=== PATIENT | female | born 1955 | race African-American/Black ===

== ENCOUNTER 2019-03-13 15:15 | Emergency (ER) | payer MEDICARE, SELFPAY ==
[2019-03-13 15:16] VITALS: BP 162/89; PULSE 88; RESP 18; TEMP 36.8; O2SAT 99; BMI 31.3
[2019-03-13] MEDS: Ketorolac 15 MG/ML Vial IV (15:47)
--- NOTE | 2019-03-13 15:49 | ED.VIS.GEN ---
History of Present Illness Chief Complaint: Weakness Narrative: Patient presenting secondary to generalized body aching. Patient reports that about 3 to 4 weeks ago she felt like she potentially was getting dehydrated. She states it was associated with high temperatures and lack of having air conditioning. She states that pretty much ever since then she has been dealing with generalized body aches. This is in her legs hip abdomen back shoulders and arms. She states that she has been taking Tylenol for this relatively unsuccessfully. She states that it even causes her difficulty with sleeping. She denies any fevers chills night sweats or unintended weight loss. No recent infections surgery hospital admissions or antibiotic exposures. No recent travel. Patient does state that she has been having some weak urinary stream. She denies any cough sore throat runny nose nausea vomiting diarrhea or change in color of her stools. No changes in heat or cold tolerance. She does report that she is had somewhat of a decreased appetite. Past Medical History - Allergies and Home Meds Allergies/Adverse Reactions: Allergies Penicillins Allergy (Verified 03/13/19 15:17) Swelling Primary Care Physician: Adria Meléndez DO [STAFF PHYSICIAN] - 1-2 Weeks Past Medical History: - - COPD and irritable bowel syndrome Surgical History: appendectomy, hysterectomy, tonsillectomy Smoking Status: Light Smoker (<10/day) - Family History Maternal Family History: Reports: No pertinent history Paternal Family History: Reports: No pertinent history Review of Systems Musculoskeletal: Reports: Myalgias Physical Exam Vital Signs/Narrative: Vital Signs Temp Pulse Resp BP Pulse Ox 03/13/19 15:16 98.2 F 88 18 162/89 H 99 Inital Vital Signs reviewed: Yes General: Well nourished, Well developed, No Acute Distress Head: Normocephalic, Atraumatic Eyes: Perrl, EOMI ENT: Moist mucous membranes, No rhinorrhea Neck: Supple, Nontender Cardiovascular: Regular rate, Regular rhythm, No murmurs Respiratory: No distress, CTA bilaterally, Chest nontender Abdomen: Soft, Nontender, Nondistended, Normal bowel sounds Back: Nontender, Normal Inspection Extremities: Nontender, No edema Skin: Normal color, No rash Neurological: Alert, Oriented x3, Cranial nerves II-XII grossly intact, Normal Strength, Normal Sensation Psychological: Normal affect, Normal Mood Diagnostic/Tx/Re-eval - Medical Decision Making Patient presented secondary to generalized myalgias. Patient had no outward signs of infection, or significant abnormality on her physical exam. Broad work-up was obtained. CBC, CMP, CK were found to be unremarkable. Patient was given a dose of Toradol for treatment of her symptoms. Currently urinalysis is pending. Should this be positive, patient will be sent home with antibiotics as well as Mobic for treatment of her symptoms. She is given primary care referral. Patient's urinalysis will be followed up on by the oncoming physician. ED Disposition - Plan for ED Patient: Disposition: Home or Assisted Living Diagnosis: Myalgia Instructions: Myalgias Prescriptions: Nitrofurantoin Macrocrystals [Macrobid] 100 mg PO Q12 #14 cap Prescription Printed Meloxicam [Mobic] 7.5 mg PO DAILY #20 tab Prescription Printed Referrals: Adria Meléndez DO [STAFF PHYSICIAN] - 1-2 Weeks
[2019-03-13 16:03] LABS: Absolute Neutrophil Count 6.8 X10^3/uL (2.0-7.7); Basophil# 0.08 X10^3/uL; Basophil% 0.7 % (0-1); Eosinophil# 0.12 X10^3/uL; Eosinophils% 1.1 % (0-5); Hematocrit 48.2 % (37-47); Hemoglobin 15.2 g/dL (12.0-15.0); Lymphocyte % 27.8 % (19-41); Mean Corp Hgb Conc 31.5 g/dL (32-36); Mean Corpuscular Hgb 29.7 pg (27.0-32.0); Mean Corpuscular Volume 94.1 fL (81-99); Mean Platelet Vol. 9.9 fl (6.2-12.0); Monocyte# 0.79 X10^3/uL; Monocyte% 7.3 % (0-10); NRBC Flagged by Analyzer 0 % (0-5); Neutrophil # 6.77 X10^3/uL (2.7-7.7); Neutrophil % 62.7 % (47-70); Platelet Count 293 K/mm3 (150-450); RBC Distribution Width CV 12.7 % (11.6-14.6); Red Blood Count 5.12 M/mm3 (4.2-5.4); White Blood Count 10.8 K/mm3 (4.4-11.0)
[2019-03-13 16:19] LABS: CPK Total, Creatine Kinase 114 U/L (26-192)
[2019-03-13 16:40] LABS: AST(SGOT) 16 U/L (15-37); Alanine Aminotransfer ALT/SGPT 26 U/L (13-56); Albumin, Serum 4.2 g/dL (3.2-5.0); Alkaline Phosphatase 90 U/L (45-117); Anion Gap 4 (5-15); BUN 11 mg/dL (7-18); BUN/Creat Ratio 10.3 RATIO (10-20); Calcium,Total 9.9 mg/dL (8.5-10.1); Chloride 106 mmol/L (98-107); Creatinine, Serum 1.07 mg/dL (0.55-1.02); EST Glomerular Filtration Rate 55 mL/min (>60); Est Glom Filt Rate - Afr Amer 66 mL/min (>60); Estimated Creatinine Clearance 50.97 ml/min; Globulin 4.1 g/dL (2.2-4.2); Glucose 97 mg/dL (74-106); Potassium 4.1 mmol/L (3.5-5.1); Protein, Total 8.3 g/dL (6.4-8.2); Sodium Level 139 mmol/L (136-145)
[2019-03-13 17:09] LABS: Bacteria 0 SEEN /hpf (None Seen)
[2019-03-13 17:10] LABS: Color, Urine Yellow (Yellow); Glucose, Dipstick Normal (Normal); Ketone-Dipstick 5 mg/dl (Negative); Leukocyte Esterase-Dipstick 100 /ul (Negative); Nitrite-Dipstick Negative (Negative); Occult Blood-Urine 10 /ul (Negative); Protein-Dipstick 15 mg/dl (Negative); Urine Bilirubin Dipstick Negative (Negative); Urine Clarity Sl. Cloudy (Clear); Urine Urobilinogen Normal (Normal)
[2019-03-13 17:35] LABS: Hyaline Cast 0-5 SEEN /lpf (0-5); Mucous, Urine 1+ /hpf (<or=2+); Red Blood Cells-Urine 0-5 SEEN /hpf (0-5); Squamous Epithelial Cells - UA 5-10 SEEN /hpf (5-10); White Blood Cells 5-10 SEEN /hpf (0-5)
[2019-03-13 17:36] LABS: Amorphous Sediment 1+ URATE
== END 2019-03-13 18:32 | disposition home or self-care (01) ==
PROVIDERS: Emergency Provider Emergency Medicine; Family Provider Family Medicine; PCP Family Medicine
DX: M79.10 Myalgia, unspecified site (principal); J44.9 Chronic obstructive pulmonary disease, unspecified; K58.9 Irritable bowel syndrome, unspecified; F17.200 Nicotine dependence, unspecified, uncomplicated; Z79.899 Other long term (current) drug therapy
CPT/HCPCS: 80053; 81001; 82550; 85025; 96374; 99283; A4216

== ENCOUNTER 2019-04-05 09:16 | Observation (INO) | payer MEDICARE, SELFPAY ==
[2019-04-05 09:17] VITALS: BP 161/66; PULSE 81; RESP 18; TEMP 36.9; O2SAT 94; BMI 31.3
--- NOTE | 2019-04-05 09:59 | CT_ITS ---
STUDY: CT BRAIN WITHOUT CONTRAST REASON FOR EXAM: Female, 63 years old. Weakness. RADIATION DOSAGE (If Supplied By Facility): CTDIvol = ( 44.99 ) mGy, DLP = ( 812.98 ) mGycm TECHNIQUE: Transaxial CT imaging of the brain was performed without administration of intravenous contrast material. Individualized dose optimization techniques were used for this CT. COMPARISON: No relevant priors. FINDINGS: Normal soft tissue structures. Normal calvarium. Normal size ventricles and extra-axial spaces for the patient's age. Normal white matter tracts of the cerebral hemispheres. Normal basal ganglia and thalami. Normal brainstem. Normal cerebellum. There is no intracranial hemorrhage. There are no findings of an acute ischemic infarction. Normal visualized paranasal sinuses. CT/Brain/Head without Contrast IMPRESSION: Normal unenhanced CT scan of the brain. Electronically Signed: Chuy Frye, at 11:20 EDT , Service support ,
--- NOTE | 2019-04-05 09:59 | RAD_ITS ---
STUDY: X-RAY CHEST REASON FOR EXAM: Female, 63 years old. Weakness and chest pain. TECHNIQUE: Single AP portable view of the chest. COMPARISON: Comparison is made with prior examination dated July 01, 2016. FINDINGS: Hyperinflation. The lungs are clear. There is no demonstrated pleural abnormality. Normal size heart. Normal mediastinum and renay. Normal visualized pulmonary arteries. There is atherosclerotic tortuosity of the aortic arch and descending thoracic aorta. There are diffuse degenerative changes of the visualized thoracic spine. Normal visualized ribs, clavicles, and shoulders. There is no demonstrated abnormality of the visualized soft tissue structures of the upper abdomen. RAD/Chest 1 View (Portable) IMPRESSION: Hyperinflation. The lungs are clear. Electronically Signed: Chuy Frye, at 10:37 EDT , Service support ,
--- NOTE | 2019-04-05 10:09 | ED.DCSUM_ITS ---
History of Present Illness Chief Complaint: Weakness Informant: Patient Onset: Weeks Context: Gradual Onset Timing: Continuous Current Severity: Severe Maximum Severity: Severe Worsened by: Movement Relieved by: Nothing Narrative: Is a 63-year-old female with history of irritable bowel syndrome, COPD and questionable fibromyalgia presenting from home with increased weakness and pain of her upper extremities. Patient states that for the past month she has had all over body aches and pain. For the past week or 2 her symptoms have significantly worsened. She now has significant pain in her shoulders bilaterally as well as her arms that she cannot move them. She is having a hard time walking of her couch due to her symptoms. Her daughter was concerned she might be having a stroke. Patient had a mild fall indicated of the month but did not hit her head. She states she landed on her right side. Patient denies any chest pain, shortness of breath, fever, chills, nausea, vomiting or change in bowel habits. She denies any urinary symptoms. She was discharged home from the ER after similar presentation beginning of the month with concern for fibromyalgia and started on Mobic. Patient states the Mobic is not helping at all. Patient lives at home alone in his apartment. Past Medical History - Allergies and Home Meds Allergies/Adverse Reactions: Allergies Penicillins Allergy (Verified 04/05/19 09:22) Swelling Surgical History: appendectomy, hysterectomy, tonsillectomy Smoking Status: Current every day smoker - Family History Maternal Family History: Reports: No pertinent history Paternal Family History: Reports: No pertinent history Review of Systems All systems negative except as indicated Musculoskeletal: Reports: Myalgias, Arthralgias - bilateral shoulders Neurological: Reports: Weakness - Upper extremities. Denies: Headache, Parasthesia, Numbness Physical Exam Vital Signs/Narrative: Vital Signs Temp Pulse Resp BP Pulse Ox 04/05/19 09:17 98.4 F 81 18 161/66 H 94 Inital Vital Signs reviewed: Yes General: Well nourished, Well developed, No Acute Distress Head: Normocephalic, Atraumatic Eyes: Perrl, EOMI, - - No nystagmus ENT: Moist mucous membranes, No rhinorrhea Neck: Supple, Nontender Cardiovascular: Regular rate, Regular rhythm, No murmurs Respiratory: No distress, CTA bilaterally, Chest nontender Abdomen: Soft, Nontender, Nondistended, Normal bowel sounds Back: Nontender, Normal Inspection Extremities: No edema, Tenderness - Bilateral shoulder tenderness diffusely, decreased active range of motion in all planes, does not tolerate passive range of motion Skin: Normal color, No rash Neurological: Alert, Oriented x3, Cranial nerves II-XII grossly intact, Normal 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 Negative for: Parasthesia, Weakness Psychological: Normal affect, Normal Mood Diagnostic/Tx/Re-eval Clinical Impression(s) from Imaging Studies Brain CT 04/05/19 09:59 IMPRESSION: Normal unenhanced CT scan of the brain. Electronically Signed: Chuy Uday, at 11:20 EDT , Service support , Chest X-Ray 04/05/19 09:59 IMPRESSION: Hyperinflation. The lungs are clear. Electronically Signed: Chuy Frye, at 10:37 EDT , Service support , Laboratory Data 04/05/19 04/05/19 04/05/19 10:50 10:50 10:50 WBC 12.5 H RBC 4.75 Hgb 14.2 Hct 44.9 MCV 94.5 MCH 29.9 MCHC 31.6 L RDW Std Deviation 43.6 RDW Coeff of Randa 12.5 Plt Count 310 MPV 9.9 Immature Gran % (Auto) 0.400 Neut % (Auto) 74.8 H Lymph % (Auto) 15.8 L [place] % (Auto) 6.1 Eos % (Auto) 2.3 Baso % (Auto) 0.6 Absolute Neuts (auto) 9.3 H Absolute Lymphs (auto) 1.97 Nucleated RBC % 0 ESR Sodium 140 Potassium 4.1 Chloride 104 Carbon Dioxide 30.0 Anion Gap 6 BUN 13 Creatinine 0.86 Estim Creat Clear Calc 63.42 Est GFR (MDRD) Af Amer 85 Est GFR (MDRD) Non-Af 70 BUN/Creatinine Ratio 15.0 Glucose 114 H Calcium 9.6 Total Creatine Kinase 173 C-React Prot Ext Range 04/05/19 04/05/19 10:50 10:50 WBC RBC Hgb Hct MCV MCH MCHC RDW Std Deviation RDW Coeff of Randa Plt Count MPV Immature Gran % (Auto) Neut % (Auto) Lymph % (Auto) [place] % (Auto) Eos % (Auto) Baso % (Auto) Absolute Neuts (auto) Absolute Lymphs (auto) Nucleated RBC % ESR 23 Sodium Potassium Chloride Carbon Dioxide Anion Gap BUN Creatinine Estim Creat Clear Calc Est GFR (MDRD) Af Amer Est GFR (MDRD) Non-Af BUN/Creatinine Ratio Glucose Calcium Total Creatine Kinase C-React Prot Ext Range 23.90 H - Medical Decision Making Patient evaluated for diffuse pain but mostly in her shoulders and hip region. She is ever having a very hard time ambulating secondary to the pain. She is given some IV morphine in the ER. She has a mildly elevated white blood cell count but no source of infection. She would not be started on empiric antibiotics. CT of the brain shows no acute process. Patient denies any history of rheumatoid disease. Because of the girdle-like location of her pain, polymyalgia rheumatica is also on the differential. Patient is unable to ambulate in the ER secondary to combination of her weakness and pain. Patient has a grossly normal neurologic exam. Patient will be admitted to hospital for inability to ambulate as well as PT OT eval and possible disposition to rehab facility. She is agreeable with this plan. She is evaluated and accepted by Dr. Anaya. Patient stable for the general medical floor at time of disposition. ED Disposition - Plan for ED Patient: Disposition: Acute Care Hospital [facility] Diagnosis: Weakness generalized, Unable to ambulate
[2019-04-05] MEDS: 0.9% Normal Saline 1,000 ML 1000 ML IV (10:55)
[2019-04-05] MEDS: Morphine 4 MG/ML Syringe IV (10:56)
[2019-04-05 11:09] LABS: Absolute Lymphocyte Count 1.97 X10^3/uL (0.83-4.51); Absolute Neutrophil Count 9.3 X10^3/uL (2.0-7.7); Basophil# 0.08 X10^3/uL; Basophil% 0.6 % (0-1); Eosinophil# 0.29 X10^3/uL; Eosinophils% 2.3 % (0-5); Hematocrit 44.9 % (37-47); Hemoglobin 14.2 g/dL (12.0-15.0); Lymphocyte # 1.97 X10^3/ul (4.0); Lymphocyte % 15.8 % (19-41); Mean Corp Hgb Conc 31.6 g/dL (32-36); Mean Corpuscular Hgb 29.9 pg (27.0-32.0); Mean Corpuscular Volume 94.5 fL (81-99); Mean Platelet Vol. 9.9 fl (6.2-12.0); Monocyte# 0.76 X10^3/uL; Monocyte% 6.1 % (0-10); NRBC Flagged by Analyzer 0 % (0-5); Neutrophil % 74.8 % (47-70); Platelet Count 310 K/mm3 (150-450); RBC Distribution Width CV 12.5 % (11.6-14.6); RBC Distribution Width SD 43.6 fl (35.1-43.9); Red Blood Count 4.75 M/mm3 (4.2-5.4); White Blood Count 12.5 K/mm3 (4.4-11.0)
[2019-04-05 11:17] LABS: Anion Gap 6 (5-15); BUN 13 mg/dL (7-18); Calcium,Total 9.6 mg/dL (8.5-10.1); Chloride 104 mmol/L (98-107); Creatinine, Serum 0.86 mg/dL (0.55-1.02); EST Glomerular Filtration Rate 70 mL/min (>60); Est Glom Filt Rate - Afr Amer 85 mL/min (>60); Estimated Creatinine Clearance 63.42 ml/min; Glucose 114 mg/dL (74-106); Potassium 4.1 mmol/L (3.5-5.1); Sodium Level 140 mmol/L (136-145)
[2019-04-05 13:36] LABS: CPK Total, Creatine Kinase 173 U/L (26-192)
--- NOTE | 2019-04-05 14:57 | PCM.HP.STD ---
History of Present Illness Date of Admission: 04/05/19 Chief Complaint: severe generalised pain The patient is a 63 year old F with past medical history as listed. She was admitted through the ED on 04/05/2019 with complaint of severe generalized pain had been going on for a few weeks but worsened acutely today. Patient thinks all his symptoms started in the summer when she did not have a condition and so suffered that in the heat. Subsequently noted that she was having severe pain in his shoulders and hip girdle in her knees. Pains of currently became generalized but was mainly concentrated in the aforementioned areas of her shoulders, hips and knee. Pain gradually worsened to the point where she could even get out of bed today. She denied any fever or chills, any lightheadedness or dizziness [place] blurred vision or any headache, any abdominal pain, any diarrhea vomiting. Review of systems otherwise negative. She had to call the EMS to get her today because she could not even get out of bed to use the bathroom. She is never had pain like this in the past and has no family history of any autoimmune disease but states her granddaughter has fibromyalgia which they think was a result of her being in a terrible accident when she was younger. Vitals in the ED was significant for blood pressure of 161/66 but otherwise normal. Chemistry was unremarkable and CBC only showed white cell count of 12.5. CPK was 173. CT of the head was normal and showed no acute intracranial process and chest x-ray showed hyperinflation was otherwise normal. She has been admitted to be managed for intractable pain due to likely polymyalgia rheumatica. [] Past Medical History Past Medical History (Chronic Problems): Chronic Problems Chronic respiratory failure (Chronic) Irritable bowel syndrome (Chronic) COPD (chronic obstructive pulmonary disease) (Chronic) Allergies Penicillins Allergy (Verified 04/05/19 09:22) Swelling Home Medications: Ambulatory Orders Medication Instructions Recorded Dicyclomine HCl [Bentyl] 10 mg PO TIDAC 05/01/15 Lactulose 15 gm PO QHS 05/01/15 Albuterol Aerosols [Ventolin 2.5 mg INHALATION Q2H PRN PRN #0 05/04/15 Aerosols] vial.neb. 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 Denies: Chills, Fever, Weight Change Eyes: Denies: Blurred vision HEENT: Denies: Head Aches, Sinus Congestion, Sinus Drainage Cardiovascular: Denies: Chest Pain, Chest Pressure, Chest Tightness, Palpitations Respiratory: Denies: Cough, Shortness of Breath, Shortness of breath at rest, Shortness of breath upon exertion, Sputum production Gastrointestinal: Denies: Abdominal Pain, Nausea, Vomiting Genitourinary: Denies: Dysuria Musculoskeletal: Reports: Arm Pain, Back Pain, Joint Pain, Joint swelling - right knee swelling, Muscle pain, Shoulder Pain Skin: Denies: Rash, Wounds Neurological: Denies: Numbness, Tingling, Focal weakness Psychiatric: Denies: Anxiety, Depression, Homicidal Ideations, Suicidal Ideations Hematologic/ Lymphatic: Denies: Easy Bruising, Easy Bleeding VTE Information - Inpt Only VTE Present on Admission: No VTE Pharm Prophylaxis ordered?: Yes Patient Problems: Active and Suspected Problems Weakness generalized (Acute) Unable to ambulate (Acute) - Physical Exam Vitals/I&O's: Vital Signs Temp Pulse Resp BP Pulse Ox 98.4 F 81 18 161/66 H 94 04/05/19 09:17 04/05/19 09:17 04/05/19 09:17 04/05/19 09:17 04/05/19 09:17 Oxygen Delivery Method Room Air Weight: 200 lb Body Mass Index (BMI) 31.3 Intake and Output for Last 24 Hours 04/03/19 04/04/19 04/05/19 23:59 23:59 23:59 Intake Total 1000 / 1000 Balance 1000 / 1000 General: Alert, Oriented x3, Cooperative HEENT: Atraumatic, PERRLA, EOMI, Normocephalic Oral: Dry Mucosa Neck: Supple, No JVD, Negative Carotid Bruits Lungs: Clear to auscultation, Normal air movement Cardiovascular: Regular rate, Regular Rhythm, Normal S1, Normal S2, No murmurs Abdomen: Bowel Sounds Present, Soft, Non Tender Extremities: No clubbing, No cyanosis, No edema, Capillary Refill Less than 3 Seconds Skin: No rashes, No breakdown Musculoskeletal: Tenderness - generalised tenderness with palpation of muscles; no point tenderness in shoulders or pelvic girdle Lymphatic: No Cervical, Supraclavicular, or Inguinal Adenopathy Neurological: Cranial nerves II-XII grossly intact, Neuro grossly intact Psych/Mental Status: Normal Affect, Appropriate, Alert and oriented to time, place, person, mood and affect Laboratory Results 04/05/19 10:50: WBC 12.5 H, RBC 4.75, Hgb 14.2, Hct 44.9, MCV 94.5, MCH 29.9, MCHC 31.6 L, RDW Std Deviation 43.6, RDW Coeff of Randa 12.5, Plt Count 310, MPV 9.9, Immature Gran % (Auto) 0.400, Neut % (Auto) 74.8 H, Lymph % (Auto) 15.8 L, [place] % (Auto) 6.1, Eos % (Auto) 2.3, Baso % (Auto) 0.6, Absolute Neuts (auto) 9.3 H, Absolute Lymphs (auto) 1.97, Nucleated RBC % 0 04/05/19 10:50: Sodium 140, Potassium 4.1, Chloride 104, Carbon Dioxide 30.0, Anion Gap 6, BUN 13, Creatinine 0.86, Estim Creat Clear Calc 63.42, Est GFR (MDRD) Af Amer 85, Est GFR (MDRD) Non-Af 70, BUN/Creatinine Ratio 15.0, Glucose 114 H, Calcium 9.6 04/05/19 10:50: CK Isoenzymes Pending, CK-MM (CK-3) Pending, CK-MB (CK-2) Pending, CK-BB (CK-1) Pending 04/05/19 10:50: Total Creatine Kinase 173 Assessment/Plan All Active Problems Weakness generalized (Acute) Unable to ambulate (Acute) COPD exacerbation (Acute) 63 y/o admitted with a complaint of generalised pain, mainly in shoulders, pelvic girdle and knee 1. Intractable pain likely due to polymyalgia rheumatica Admit to [facility] CBC was within normal limits. Check ESR and CRP Start on low-dose steroids- prednisone 20 mg daily Tylenol and IV morphine PRN for pain PT OT consult Management consult and she will likely need short-term rehab 2. Debility due to intractable pain: Management as under 1. 3. COPD: Stable; not in exacerbation. Breathing treatments. DVT Prophylaxis: Lovenox Code Visit OBSV E&M: 70892 Initial observation care L2
[2019-04-05 14:58] VITALS: BP 158/75; PULSE 81; RESP 15; O2SAT 94
[2019-04-05 15:41] VITALS: BMI 31.8
[2019-04-05 15:56] VITALS: BMI 31.8
[2019-04-05 16:01] VITALS: BP 156/77; PULSE 73; RESP 16; TEMP 36.9; O2SAT 96
[2019-04-05] MEDS: Morphine 2 MG/ML Syringe IV ×2 (16:30→19:56)
[2019-04-05 16:34] LABS: Erythrocyte Sedimentation Rate 23 mm/hr (0-30)
[2019-04-05 16:35] LABS: Bacteria 0 SEEN /hpf (None Seen); Mucous, Urine 0 SEEN /hpf (<or=2+); Red Blood Cells-Urine 0 SEEN /hpf (0-5); Squamous Epithelial Cells - UA 0 SEEN /hpf (5-10); White Blood Cells 0 SEEN /hpf (0-5)
[2019-04-05] MEDS: predniSONE 20 MG Tablet PO (16:43)
[2019-04-05] MEDS: Dicyclomine 10 MG Capsule PO (16:43)
[2019-04-05 16:53] LABS: Color, Urine Yellow (Yellow); Glucose, Dipstick 1000 mg/dl (Normal); Ketone-Dipstick Negative (Negative); Leukocyte Esterase-Dipstick Negative /ul (Negative); Nitrite-Dipstick Negative (Negative); Occult Blood-Urine Negative /ul (Negative); Protein-Dipstick Negative (Negative); Urine Bilirubin Dipstick Negative (Negative); Urine Clarity Clear (Clear); Urine Urobilinogen Normal (Normal)
--- NOTE | 2019-04-05 17:51 | NURSING ---
late entry - pt still c/o of pain after morphine given. dr gustafson notified & new order for flexeril.
[2019-04-05 19:53] VITALS: BP 148/70; PULSE 82; RESP 18; TEMP 37.6; O2SAT 95
[2019-04-05 20:10] VITALS: PULSE 76; RESP 17
[2019-04-05] MEDS: Albuterol 2.5 MG/3 ML VIAL.NEB. INHALATION (20:10)
[2019-04-05] MEDS: cycloBENZAPRine HCl 10 MG Tablet 5 MG PO (21:28)
[2019-04-05] MEDS: Lactulose 20 GM/30 ML UDC 15 GM PO (21:29)
[2019-04-06] VITALS (11 sets, daily range): BP systolic 140–168; BP diastolic 72–93; PULSE 77–87; RESP 16–18; TEMP 36.6–37.3; O2SAT 94–100
[2019-04-06] MEDS: Morphine 2 MG/ML Syringe IV ×5 (00:31→15:14)
[2019-04-06] MEDS: hydrALAZINE 20 MG/ML Vial 5 MG IV (02:45)
[2019-04-06] MEDS: cycloBENZAPRine HCl 10 MG Tablet 5 MG PO ×3 (05:59→20:13)
[2019-04-06 06:33] LABS: Absolute Lymphocyte Count 2.39 X10^3/uL (0.83-4.51); Absolute Neutrophil Count 7.5 X10^3/uL (2.0-7.7); Basophil# 0.05 X10^3/uL; Basophil% 0.5 % (0-1); Eosinophil# 0.01 X10^3/uL; Eosinophils% 0.1 % (0-5); Hematocrit 44.4 % (37-47); Hemoglobin 14.1 g/dL (12.0-15.0); Lymphocyte # 2.39 X10^3/ul (4.0); Lymphocyte % 22.3 % (19-41); Mean Corp Hgb Conc 31.8 g/dL (32-36); Mean Corpuscular Hgb 29.7 pg (27.0-32.0); Mean Corpuscular Volume 93.5 fL (81-99); Monocyte# 0.69 X10^3/uL; Monocyte% 6.4 % (0-10); NRBC Flagged by Analyzer 0 % (0-5); Neutrophil # 7.54 X10^3/uL (2.7-7.7); Neutrophil % 70.3 % (47-70); Platelet Count 315 K/mm3 (150-450); RBC Distribution Width CV 12.3 % (11.6-14.6); Red Blood Count 4.75 M/mm3 (4.2-5.4); White Blood Count 10.7 K/mm3 (4.4-11.0)
[2019-04-06] MEDS: Dicyclomine 10 MG Capsule PO ×2 (06:49→15:18)
[2019-04-06 07:10] LABS: Anion Gap 5 (5-15); BUN 9 mg/dL (7-18); BUN/Creat Ratio 12.6 RATIO (10-20); Calcium,Total 9.6 mg/dL (8.5-10.1); Chloride 105 mmol/L (98-107); Creatinine, Serum 0.71 mg/dL (0.55-1.02); EST Glomerular Filtration Rate 87 mL/min (>60); Est Glom Filt Rate - Afr Amer 106 mL/min (>60); Estimated Creatinine Clearance 76.82 ml/min; Glucose 112 mg/dL (74-106); Potassium 4.3 mmol/L (3.5-5.1); Sodium Level 135 mmol/L (136-145)
[2019-04-06] MEDS: Albuterol 2.5 MG/3 ML VIAL.NEB. INHALATION ×2 (07:19→20:34)
--- NOTE | 2019-04-06 07:31 | PN_ITS ---
Patient Problems: Active and Suspected Problems Weakness generalized (Acute) Unable to ambulate (Acute) Subjective: CC follow-up generalized body aches and physical debility Patient is a 63-year-old lady who presented with generalized body aches as well as muscle weakness involving the thighs as well as shoulders. Patient did c omplain about difficulty combing her as well as climbing stairs Objective: GENERAL: cooperative HEENT: Atraumatic; EYES; Anicteric, Normal Conjunctiva NECK; supple, normal thyroid, RESPIRATORY: Diminished to auscultation CARDIOVASCULAR: Regular S1 S2, GI: soft, normoactive bowel sounds, : No Renal angle tenderness; EXTREMITIES: No edema, no clubbing, MUSCULOSKELETAL: no muscle waisting NEURO: Awake; no lateralizing signs. SKIN: No Rash PSYCH; Flat affect - Physical Exam Vitals/I&O's: Vital Signs Temp Pulse Resp BP Pulse Ox 98.9 F 77 18 140/80 H 96 04/06/19 05:55 04/06/19 05:55 04/06/19 05:55 04/06/19 05:55 04/06/19 05:55 Oxygen Delivery Method Room Air Weight: 92.221 kg Body Mass Index (BMI) 31.8 Intake and Output for Last 24 Hours 04/04/19 04/05/19 04/06/19 23:59 23:59 23:59 Intake Total 1740 / 1740 500 / 500 Output Total 800 / 800 1000 / 1000 Balance 940 / 940 -500 / -500 Laboratory Results 04/05/19 10:50: WBC 12.5 H, RBC 4.75, Hgb 14.2, Hct 44.9, MCV 94.5, MCH 29.9, MCHC 31.6 L, RDW Std Deviation 43.6, RDW Coeff of Randa 12.5, Plt Count 310, MPV 9.9, Immature Gran % (Auto) 0.400, Neut % (Auto) 74.8 H, Lymph % (Auto) 15.8 L, [place] % (Auto) 6.1, Eos % (Auto) 2.3, Baso % (Auto) 0.6, Absolute Neuts (auto) 9.3 H, Absolute Lymphs (auto) 1.97, Nucleated RBC % 0 04/05/19 10:50: Sodium 140, Potassium 4.1, Chloride 104, Carbon Dioxide 30.0, Anion Gap 6, BUN 13, Creatinine 0.86, Estim Creat Clear Calc 63.42, Est GFR (MDRD) Af Amer 85, Est GFR (MDRD) Non-Af 70, BUN/Creatinine Ratio 15.0, Glucose 114 H, Calcium 9.6 04/05/19 10:50: CK Isoenzymes Pending, CK-MM (CK-3) Pending, CK-MB (CK-2) Pending, CK-BB (CK-1) Pending 04/05/19 10:50: Total Creatine Kinase 173 04/05/19 10:50: ESR 23 04/05/19 10:50: C-React Prot Ext Range 23.90 H 04/05/19 16:20: Urine Color Yellow, Urine Clarity Clear, Urine pH 7.0, Ur Spe cific [place] 1.010, Urine Protein Negative, Urine Glucose (UA) 1000 H, Urine Ketones Negative, Urine Occult Blood Negative, Urine Nitrite Negative, Urine Bilirubin Negative, Urine Urobilinogen Normal, Ur Leukocyte Esterase Negative, Urine RBC 0 SEEN, Urine WBC 0 SEEN, Ur Squamous Epith Cells 0 SEEN, Urine Bacteria 0 SEEN, Urine Mucus 0 SEEN 04/06/19 05:28: Sodium 135 L, Potassium 4.3, Chloride 105, Carbon Dioxide 25.0, Anion Gap 5, BUN 9, Creatinine 0.71, Estim Creat Clear Calc 76.82, Est GFR (MDRD) Af Amer 106, Est GFR (MDRD) Non-Af 87, BUN/Creatinine Ratio 12.6, Glucose 112 H, Calcium 9.6 04/06/19 05:28: WBC 10.7, RBC 4.75, Hgb 14.1, Hct 44.4, MCV 93.5, MCH 29.7, MCHC 31.8 L, RDW Std Deviation 43.0, RDW Coeff of [place]anda 12.3, Plt Count 315, MPV 10.0, Immature Gran % (Auto) 0.400, Neut % (Auto) 70.3 H, Lymph % (Auto) 22.3, [place] % (Auto) 6.4, Eos % (Auto) 0.1, Baso % (Auto) 0.5, Absolute Neuts (auto) 7.5, Absolute Lymphs (auto) 2.39, Nucleated RBC % 0 Current Medications Acetaminophen (Tylenol) 650 mg PO Q6H PRN PRN PRN Reason: Pain Score 1-3/Temp > 100.7 F Albuterol Sulfate (Ventolin Aerosols) 2.5 mg INHALATION Q2H PRN PRN PRN Reason: SHORTNESS OF BREATH Last Admin: 04/06/19 07:19 Dose: 2.5 mg Documented by: Cyclobenzaprine HCl (Flexeril) 5 mg PO TID [facility] Last Admin: 04/06/19 05:59 Dose: 5 mg Documented by: Dextrose (D50w Syringe) 0 gm IV X1 PRN; Protocol PRN Reason: Hypoglycemia Dicyclomine HCl (Bentyl) 10 mg PO TIDAC [facility] Last Admin: 04/06/19 06:49 Dose: 10 mg Documented by: Enoxaparin Sodium (Lovenox) 40 mg SC DAILY@1000 [facility] Glucagon () 1 mg IM .X1 PRN PRN Reason: Hypoglycemia Hydralazine HCl (Apresoline Iv) 5 mg IV Q4H PRN PRN PRN Reason: SBP > 160 Last Admin: 04/06/19 02:45 Dose: 5 mg Documented by: Lactulose (Chronulac, Cephulac) 15 gm PO QHS [facility] Last Admin: 04/05/19 21:29 Dose: 15 gm Documented by: Morphine Sulfate () 2 mg IV Q3H PRN PRN PRN Reason: Pain Score 6-10/10 Last Admin: 04/06/19 03:30 Dose: 2 mg Documented by: Multivitamins/Minerals (Multivitamin With Minerals) 1 tablet PO DAILY@0800 [facility] Nutritional Formula (Lactose Free) (Ensure Enlive) 120 ml PO 4X/DAY [facility] Prednisone () 20 mg PO DAILY@0800 [facility] Last Admin: 04/05/19 16:43 Dose: 20 mg Documented by: Vitamin E (Vitamin E) 400 units PO DAILYCM [facility] Medical Necessity - Tobacco Use Smoking Status: Current every day smoker Tobacco Use: Cigarettes Assessment/Plan All Active Problems Weakness generalized (Acute) Unable to ambulate (Acute) COPD exacerbation (Acute) Patient is a 63-year-old lady who presented with generalized body aches as well as muscle weakness involving the thighs as well as shoulders. Patient did complain about difficulty combing her as well as climbing stairs 1. Myalgias ~With high suspicion for possible polymyalgia rheumatica patient had elevated ESR subsequently started on prednisone requested for PT OT. Given the variable nature of patient complaints requested for neurology consultation and also ordered MRI of the brain cervical spine as well as lumbar spine 2. Physical debility ~secondary to patient's myalgias admitted to regular nursing floor with consultation placed for PT OT as well as social worker assistant to assist with discharge planning 3. COPD ~currently not in exacerbation ; Did continue with breathing treatment 4. Tobacco dependence counseled on cessation, offered nicotine patch for tobacco cravings 5. Obesity ~with BMI of 31.8 weight loss advised 6. DVT prophylaxis ~ on enoxaparin Code Visit OBSV E&M: 61139 Subsequent observation care L3
--- NOTE | 2019-04-06 08:18 | MRI_ITS ---
STUDY: MRI CERVICAL SPINE WITHOUT CONTRAST REASON FOR EXAM: Female, 63 years old. Upper extremity weakness and bilateral shoulder pain TECHNIQUE: Standardized fat and water weighted pulse sequences were obtained in the sagittal and axial planes. COMPARISON: None FINDINGS: Normal foramen magnum and brainstem-cervical cord junction. Normal craniovertebral junction. Normal anterior atlantoaxial articulation. Normal odontoid process. Decreased cervical lordosis. Normal vertebral bodies and posterior osseous elements. C2-3: Normal endplates. Normal disc height, signal and morphology. Normal central canal and intervertebral neural foramina. C3-4: Normal endplates. Normal disc height, signal and minor bulging disc osteophyte complex.. Normal central canal. Moderate bilateral neuroforaminal encroachment. C4-5: Endplate spurring.. Normal disc height, signal and mild bulging disc osteophyte complex with small right paracentral disc protrusion. Mild narrowing the central canal. Severe bilateral neuroforaminal stenosis secondary to bony hypertrophy C5-6: Normal endplates. Normal disc height, signal and moderate bulging of the disc and tiny right paracentral disc protrusion. Mild narrowing of the central canal. C6-7: Normal endplates. Narrowed disc space and endplate spurring. Mild bulging disc osteophyte complex. Mild narrowing the central canal. Severe right neuroforaminal stenosis. Moderate to severe right neuroforaminal stenosis and severe narrowing on the left C7-T1: Normal endplates. Normal disc height, signal and morphology. Normal central canal and intervertebral neural foramina. Normal cervical cord. Normal visualized soft tissue structures. MRI/Spine Cervical (Routine) IMPRESSION: No evidence for acute fracture or subluxation. Moderate spondylosis and multilevel spinal stenosis secondary to disc disease and bony hypertrophy most severe at C4-5 and C6-7 Electronically Signed: Mani Weston MD at 16:32 EDT , Service support ,
--- NOTE | 2019-04-06 08:18 | MRI_ITS ---
STUDY: MRI BRAIN WITHOUT CONTRAST REASON FOR EXAM: Female, 63 years old. Bilateral upper extremity weakness and confusion TECHNIQUE: Standardized multiplanar fat and water weighted pulse sequences were obtained. COMPARISON: CT the brain on April 05, 2019 FINDINGS: Normal size of the ventricles and extra-axial spaces for the patient's age. Mild periventricular white matter ischemic changes without mass effect or restricted diffusion.. Normal bilateral basal ganglia. Normal thalami. There is no extra-axial fluid accumulation. Normal flow voids within the major intracranial circulation suggesting patency by spin echo criteria. Empty sella deformity of uncertain significance. Normal, infundibular stalk, optic chiasm and hypothalamus. Normal tectal plate and pineal gland. Normal midbrain, luis fernando and medulla. Normal cerebellum. Normal basal cisterns. Normal bilateral temporal bones. Normal bilateral internal auditory canals. No demonstrated orbital abnormality, within the constraints of a routine brain study. Mucosal thickening of the ethmoid air cells bilaterally. Normal calvarium and skull base. Normal visualized soft tissue structures. Normal visualized upper cervical spine. MRI/Brain without Contrast IMPRESSION: Mild periventricular white matter ischemic changes without evidence for acute infarct. Empty sella deformity of uncertain significance Electronically Signed: Mani Weston MD at 16:26 EDT , Service support ,
--- NOTE | 2019-04-06 08:18 | MRI_ITS ---
STUDY: MRI LUMBAR SPINE WITHOUT CONTRAST REASON FOR EXAM: Female, 63 years old. Weakness, right leg weakness TECHNIQUE: Standardized fat and water weighted pulse sequences were obtained in the sagittal and axial planes. COMPARISON: None FINDINGS: T12-L1: Normal endplates. Normal disc height, hydration and morphology. Normal bilateral facet joints. Normal central canal and bilateral lateral recesses. Normal bilateral intervertebral neural foramina. Normal lumbar lordosis. There is no substantial scoliosis. Normal conus medullaris that terminates at the L1. L1-2: Normal endplates. Normal disc height, hydration and morphology. Normal bilateral facet joints. Normal central canal and bilateral lateral recesses. Normal bilateral intervertebral neural foramina. L2-3: Mild bilateral facet hypertrophy and moderate ligament flavum hypertrophy. Mild bilobed disc protrusion produces mild spinal stenosis and mild bilateral neural foraminal stenosis. L3-4: Mild bilateral facet hypertrophy and moderate ligament flavum hypertrophy. Mild bilobed disc protrusion produces mild spinal stenosis and mild bilateral neural foraminal stenosis. L4-5: Mild bilateral facet hypertrophy and ligament flavum hypertrophy. Mild broad disc protrusion produces mild spinal stenosis and mild bilateral neural foraminal stenosis. L5-S1: Mild broad disc protrusion produces mild spinal stenosis and mild bilateral neural foraminal stenosis. Normal visualized sacral ala. Normal visualized paraspinous soft tissue structures. MRI/Spine Lumbar (Routine) IMPRESSION: Multilevel degenerative changes, as described above. Electronically Signed: Matt Tom MD at 13:37 EDT Tel , Service support ,
[2019-04-06] MEDS: Multivitamins,Ther W-Minerals Tablet 1 TABLET PO (08:42)
[2019-04-06] MEDS: Vitamin E 400 UNITS Capsule PO (08:42)
[2019-04-06] MEDS: predniSONE 20 MG Tablet PO (08:42)
[2019-04-06] MEDS: Enoxaparin 40 MG/0.4 ML Syringe SC (08:43)
--- NOTE | 2019-04-06 11:05 | CASEMGMT ---
Addendum entered by Lonnie Garcia 04/06/19 15:10: Call received from [facility]. They do not have a shower without a back (which was pt's preferene) in stock at this time. They stated they would have one available to be delivered to pt's home on Tuesday. They do have a shower chair with a back available today if pt wishes to have that one instead. Pt made aware and states she does not want a shower chair with a back and is agreeable to waiting until Tuesday to have it delivered to her home. [facility] made aware. Addendum entered by Lonnie Garcia 04/06/19 14:58: 1400: Script for OP therapy to [facility] obtained from Dr Pete and given to pt/daughter. Script was also faxed to [facility] w/note stating pt would like to utilize [facility] Van transportation for her appts. Pt/Daughter state they will contact [facility] to make appts. Advised them to discuss [facility] Van transportation with [employer] when making the appts. Pt has decided she would like a shower chair/bath bench. Script for Rollator and shower chair faxed to [employer]. [id number] cost for both is $86.20. Pt is agreeable to paying for this. [facility] will deliver both items to pt's room today. Original Note: RN CM BRANCH SPECIALIST CM to room to meet with patient for initial transition planning/care coordination assessment. RN CM introduced self and role at [facility]. Pt voices understanding and consents to assessment at this time. Pt resting in bed in no distress at this time. Daughter @ bedside. Pt agreeable with daughter being present during assessment. Pt is A/O at this time and answers all questions appropriately. Care providers, pharmacy, and demographics verified/updated at this time. PCP: Dr Escalante. Pt states he is going to be retiring soon and wishes to find another PCP. Given list of local PCP's in network with [facility] Complete thru [facility]. Specialists: Dr Emilee Sharma--marketing regional consultant @ [facility], Dr Adria Matthew--GI in [place] for IBS. Preferred Pharmacy: [facility] Retail Insurance: [facility] Complete thru [facility] Prescription Benefit: Yes Living Will/HPOA: States does not have LW or HCPOA . Interested in more information but does not want to talk with SW at this time to complete paperwork. Provided information on advanced directives and given Social Service rac card with number to call if chooses in the future to utilize [facility] social work for advanced directive completion. Pt and daughter voice understanding and appreciation of information. LNOK: Daughter, Susana Rios. Living Arrangements: Lives in an appt on the 6th floor w/elevator. was very independent prior to hospitilization--able to complete ADL's and all home mgmt tasks. Transportation: Pt is able to drive but does not have a car. Her family provides transportation. Given [facility] [employer] transportation information. DME: has the following DME: rails/grab bars, hand held shower, nebulizer, and O2 @ 2L/M @ HS only thru [employer]. Has concentrator only. is interested in getting a rollator and possibly a shower chair. Given list of local DME companies and pt's preference is [facility]. HHC/SNF: No history of SNF or HHC. Pt does not wish to go to a SNF and is interested in HHC. Discussed [facility]'s requirements of being homebound and pt states she is not homebound. OP therapy: Discussed OP therapy. Pt would like OP therapy and is interested in going to [facility] and utilizing [facility] [employer] transportation. Pt wishes to return home and states has no concerns with going home at time of discharge. CM to follow for for further discharge planning/needs. Pt and daughter voice no further concerns/needs at this time. Advised them to ask for CM if any further questions/concerns/needs arise. They voice understanding. PLAN: Home w/OP therapy @ [facility], family support, and discharge plans in place. Pt would like rollator and possibly a shower chair. [facility]SON form reviewed with pt and daughter, all questions answered, and form signed by pt. Copy made and placed on chart and original given to pt. Alexys AGOSTO RN CM
[2019-04-06] MEDS: 0.9% Saline Lock 10 ML Syringe IV ×2 (12:41→15:15)
[2019-04-06 16:08] LABS: Creatine Kinase MB 0 % (0-3); Creatine Kinase MM 100 % (97-100); Creatine Kinase,Total,Serum 173 U/L (24-173); Macro I 0 % (Not Observed); Macro II 0 % (Not Observed)
[2019-04-06] MEDS: oxyCODONE 5 MG Tablet PO ×2 (18:03→22:47)
[2019-04-06] MEDS: Lactulose 20 GM/30 ML UDC 15 GM PO (20:13)
[2019-04-07 02:22] VITALS: BP 132/84; PULSE 76; RESP 18; TEMP 37.1; O2SAT 95
[2019-04-07] MEDS: oxyCODONE 5 MG Tablet PO (02:29)
[2019-04-07 02:30] VITALS: RESP 18; O2SAT 95
[2019-04-07] MEDS: Morphine 2 MG/ML Syringe IV (04:47)
[2019-04-07] MEDS: 0.9% Saline Lock 10 ML Syringe IV (04:47)
[2019-04-07] MEDS: cycloBENZAPRine HCl 10 MG Tablet 5 MG PO (04:51)
[2019-04-07] MEDS: Dicyclomine 10 MG Capsule PO (07:21)
--- NOTE | 2019-04-07 07:22 | PN_ITS ---
Patient Problems: Active and Suspected Problems Weakness generalized (Acute) Unable to ambulate (Acute) Objective: GENERAL: cooperative HEENT: Atraumatic; EYES; Anicteric, Normal Conjunctiva NECK; supple, normal thyroid, RESPIRATORY: Diminished to auscultation CARDIOVASCULAR: Regular S1 S2, GI: soft, normoactive bowel sounds, : No Renal angle tenderness; EXTREMITIES: No edema, no clubbing, MUSCULOSKELETAL: no muscle waisting NEURO: Awake; no lateralizing signs. SKIN: No Rash PSYCH; Flat affect Vitals/I&O's: Vital Signs Temp Pulse Resp BP Pulse Ox 98.8 F 76 18 132/84 H 95 04/07/19 02:22 04/07/19 02:22 04/07/19 02:30 04/07/19 02:22 04/07/19 02:30 Oxygen Delivery Method Room Air Weight: 92.221 kg Body Mass Index (BMI) 31.8 Intake and Output for Last 24 Hours 04/05/19 04/06/19 04/07/19 23:59 23:59 23:59 Intake Total 1740 / 1740 2000 / 2360 360 / 360 Output Total 800 / 800 1000 / 1400 400 / 400 Balance 940 / 940 1000 / 960 -40 / -40 Laboratory Results 04/05/19 10:00: ANALY Screen Pending, ELENA-1 Antibody Pending, SS-A/Ro IgG Antibody Pending, SS-B/La IgG Antibody Pending, Sm (Higgins) Antibody Pending, POWERHOUSE [employer]ER Antibody Pending, Scl-70 Scleroderma Ab Pending, Double Strand DNA Ab Pending, Centromere B Antibody Pending Current Medications Acetaminophen (Tylenol) 650 mg PO Q6H PRN PRN PRN Reason: Pain Score 1-3/Temp > 100.7 F Albuterol Sulfate (Ventolin Aerosols) 2.5 mg INHALATION Q2H PRN PRN PRN Reason: SHORTNESS OF BREATH Last Admin: 04/06/19 20:34 Dose: 2.5 mg Documented by: Cyclobenzaprine HCl (Flexeril) 5 mg PO TID [facility] Last Admin: 04/07/19 04:51 Dose: 5 mg Documented by: Dextrose (D50w Syringe) 0 gm IV X1 PRN; Protocol PRN Reason: Hypoglycemia Dicyclomine HCl (Bentyl) 10 mg PO TIDAC [facility] Last Admin: 04/07/19 07:21 Dose: 10 mg Documented by: Enoxaparin Sodium (Lovenox) 40 mg SC DAILY@1000 [facility] Last Admin: 04/06/19 08:43 Dose: 40 mg Documented by: Glucagon () 1 mg IM .X1 PRN PRN Reason: Hypoglycemia Hydralazine HCl (Apresoline Iv) 5 mg IV Q4H PRN PRN PRN Reason: SBP > 160 Last Admin: 04/06/19 02:45 Dose: 5 mg Documented by: Lactulose (Chronulac, Cephulac) 15 gm PO QHS [facility] Last Admin: 04/06/19 20:13 Dose: 15 gm Documented by: Morphine Sulfate () 2 mg IV Q3H PRN PRN PRN Reason: Pain Score 6-10/10 Last Admin: 04/07/19 04:47 Dose: 2 mg Documented by: Multivitamins/Minerals (Multivitamin With Minerals) 1 tablet PO DAILY@0800 [facility] Last Admin: 04/06/19 08:42 Dose: 1 tablet Documented by: Nutritional Formula (Lactose Free) (Ensure Enlive) 120 ml PO 4X/DAY [facility] Last Admin: 04/06/19 20:14 Dose: 120 ml Documented by: Oxycodone HCl (Oxyir) 5 mg PO Q4H PRN PRN PRN Reason: Pain Score 4-10/10 Last Admin: 04/07/19 02:29 Dose: 5 mg Documented by: Prednisone () 20 mg PO DAILY@0800 [facility] Last Admin: 04/06/19 08:42 Dose: 20 mg Documented by: Sodium Chloride () 10 - 40 ml IV UD PRN PRN Reason: SALINE FLUSH Last Admin: 04/07/19 04:47 Dose: 10 ml Documented by: Vitamin E (Vitamin E) 400 units PO DAILYCM [facility] Last Admin: 04/06/19 08:42 Dose: 400 units Documented by: Medical Necessity - Tobacco Use Smoking Status: Current every day smoker Tobacco Use: Cigarettes Assessment/Plan All Active Problems Weakness generalized (Acute) Unable to ambulate (Acute) COPD exacerbation (Acute) Patient is a 63-year-old lady who presented with generalized body aches as well as muscle weakness involving the thighs as well as shoulders. Patient did complain about difficulty combing her as well as climbing stairs 1. Myalgias ~With high suspicion for possible polymyalgia rheumatica patient had elevated ESR subsequently started on prednisone requested for PT OT. Given the variable nature of patient complaints requested for neurology consultation and also ordered MRI of the brain cervical spine as well as lumbar spine 2. Physical debility ~secondary to patient's myalgias admitted to regular nursing floor with consultation placed for PT OT as well as social psychologist to assist with discharge planning 3. COPD ~currently not in exacerbation ; Did continue with breathing treatment 4. Tobacco dependence counseled on cessation, offered nicotine patch for tobacco cravings 5. Obesity ~with BMI of 31.8 weight loss advised 6. DVT prophylaxis ~ on enoxaparin
[2019-04-07] MEDS: predniSONE 20 MG Tablet PO (07:39)
[2019-04-07] MEDS: Multivitamins,Ther W-Minerals Tablet 1 TABLET PO (07:39)
[2019-04-07] MEDS: Vitamin E 400 UNITS Capsule PO (07:39)
[2019-04-07 07:47] LABS: Absolute Lymphocyte Count 3.81 X10^3/uL (0.83-4.51); Absolute Neutrophil Count 6.1 X10^3/uL (2.0-7.7); Basophil# 0.07 X10^3/uL; Basophil% 0.6 % (0-1); Eosinophil# 0.08 X10^3/uL; Eosinophils% 0.7 % (0-5); Hematocrit 42.7 % (37-47); Hemoglobin 13.3 g/dL (12.0-15.0); Lymphocyte # 3.81 X10^3/ul (4.0); Lymphocyte % 34.6 % (19-41); Mean Corp Hgb Conc 31.1 g/dL (32-36); Mean Corpuscular Hgb 29.6 pg (27.0-32.0); Mean Corpuscular Volume 95.1 fL (81-99); Monocyte# 0.96 X10^3/uL; Monocyte% 8.7 % (0-10); NRBC Flagged by Analyzer 0 % (0-5); Neutrophil # 6.07 X10^3/uL (2.7-7.7); Neutrophil % 55.1 % (47-70); Platelet Count 293 K/mm3 (150-450); RBC Distribution Width CV 12.7 % (11.6-14.6); RBC Distribution Width SD 43.9 fl (35.1-43.9); Red Blood Count 4.49 M/mm3 (4.2-5.4)
[2019-04-07] MEDS: Enoxaparin 40 MG/0.4 ML Syringe SC (07:50)
[2019-04-07 08:07] LABS: Anion Gap 6 (5-15); BUN 17 mg/dL (7-18); BUN/Creat Ratio 18.7 RATIO (10-20); Calcium,Total 9.5 mg/dL (8.5-10.1); Chloride 103 mmol/L (98-107); Creatinine, Serum 0.91 mg/dL (0.55-1.02); EST Glomerular Filtration Rate 66 mL/min (>60); Est Glom Filt Rate - Afr Amer 80 mL/min (>60); Estimated Creatinine Clearance 59.94 ml/min; Glucose 86 mg/dL (74-106); Potassium 4.1 mmol/L (3.5-5.1); Sodium Level 137 mmol/L (136-145)
[2019-04-07 08:20] VITALS: BP 139/80; PULSE 69; RESP 18; TEMP 36.7; O2SAT 96
--- NOTE | 2019-04-07 09:26 | DCINST_ITS ---
- Discharge Diagnoses Current Active Problems: Current Active and Chronic Problems Weakness generalized (Acute) Unable to ambulate (Acute) You will use the following diet at home:: No restrictions Your food should be the consistency of: Regular Discharge Activity: Return to Normal Activity Allergies/Adverse Reactions: Allergies Penicillins Allergy (Verified 04/05/19 09:22) Swelling Medications to take at Discharge Dicyclomine HCl [Bentyl] 10 mg PO TIDAC 05/01/15 Lactulose 15 gm PO QHS 05/01/15 Albuterol Aerosols [Ventolin Aerosols] 2.5 mg INHALATION Q2H PRN PRN #0 vial.neb. 05/04/15 Albuterol Sulfate [Proventil Hfa] 1 puff IH Q4H PRN PRN 04/05/19 Folic Acid/Multivit,Iron,Sweet Grass [One Daily For Women Tablet] 1 tab PO DAILY 04/05/19 Potassium Gluconate [Potassium] 99 mg PO DAILY 04/05/19 Vitamin B Complex 1 tab PO DAILY 04/05/19 Vitamin E 400 unit PO DAILY 04/05/19 Oxycodone [Oxyir] 5 mg PO Q6H PRN PRN 5 Days #20 tab 04/07/19 cycloBENZAPRine HCl [Flexeril] 5 mg PO TID #30 tab 04/07/19 predniSONE tablet 20 mg PO DAILY@0800 #20 tab 04/07/19 The following prescriptions were given: cycloBENZAPRine HCl [Flexeril] 5 mg PO TID #30 tab Transmission Status: Received by [facility] Oxycodone [Oxyir] 5 mg PO Q6H PRN PRN 5 Days #20 tab PRN Reason: Pain Score 4-10/10 Transmission Status: Sent to [facility] predniSONE tablet 20 mg PO DAILY@0800 #20 tab Transmission Status: Received by [facility] Primary Care Physician: Danilo Escalante DO [Primary Care Provider] - Please follow up with your Primary Care Physician in: in 3-5 days Test Results: Test results from this visit will be discussed in further detail at your follow- up appointment, if applicable. Proposed Discharge Date: 04/07/19
--- NOTE | 2019-04-07 09:28 | PCM.DC.SUM ---
Discharge Date and Diagnosis - Problem List Patient Problems: Active and Suspected Problems PMR (polymyalgia rheumatica) (Acute) Weakness generalized (Acute) Unable to ambulate (Acute) Date of Admission: 04/05/19 Date of Discharge: 04/07/19 - Primary Discharge Diagnosis Active and Suspected Problems PMR (polymyalgia rheumatica) (Acute) Weakness generalized (Acute) Unable to ambulate (Acute) - Secondary Discharge Diagnosis Chronic Problems Chronic respiratory failure (Chronic) Irritable bowel syndrome (Chronic) COPD (chronic obstructive pulmonary disease) (Chronic) Hospital Course and Treatment Imaging Results: Clinical Impression(s) from Imaging Studies Brain CT 04/05/19 09:59 IMPRESSION: Normal unenhanced CT scan of the brain. Electronically Signed: Chuy Frye at 11:20 EDT , Service support , Chest X-Ray 04/05/19 09:59 IMPRESSION: Hyperinflation. The lungs are clear. Electronically Signed: Chuy Frye, at 10:37 EDT , Service support , Brain MRI 04/06/19 08:18 IMPRESSION: Mild periventricular white matter ischemic changes without evidence for acute infarct. Empty sella deformity of uncertain significance Electronically Signed: Mani Weston MD at 16:26 EDT , Service support , Cervical Spine MRI 04/06/19 08:18 IMPRESSION: No evidence for acute fracture or subluxation. Moderate spondylosis and multilevel spinal stenosis secondary to disc disease and bony hypertrophy most severe at C4-5 and C6-7 Electronically Signed: Mani Weston MD at 16:32 EDT , Service support , Lumbar Spine MRI 04/06/19 08:18 IMPRESSION: Multilevel degenerative changes, as described above. Electronically Signed: Matt Tom MD at 13:37 EDT Tel , Service support , Operations: None Summary of Care Provided: Patient is a 63-year-old lady who presented with generalized body aches as well as muscle weakness involving the thighs as well as shoulders. Patient did complain about difficulty combing her as well as climbing stairs 1. Myalgias ~With high suspicion for possible polymyalgia rheumatica patient had elevated ESR subsequently started on prednisone requested for PT OT. Given the variable nature of patient complaints requested for neurology consultation and also ordered MRI of the brain cervical spine as well as lumbar spine MRI demonstrated degenerative joint disease involving the lumbar as well as cervical spine and some spinal stenosis. Patient was informed of the results instructed to follow-up with PCP for subsequent care With regards to patient's suspected polymyalgia rheumatica she was discharged home on a 3-week supply of prednisone 20 mg daily was instructed to follow-up with PCP as soon as possible for the prednisone to be tapered to maintenance dose 2. Physical debility ~secondary to patient's myalgias admitted to regular nursing floor with consultation placed for PT OT as well as psychotherapist social worker to assist with discharge planning 3. COPD ~currently not in exacerbation ; Did continue with breathing treatment 4. Tobacco dependence counseled on cessation, offered nicotine patch for tobacco cravings 5. Obesity ~with BMI of 31.8 weight loss advised 6. DVT prophylaxis ~ on enoxaparin Patient Problems: Active and Suspected Problems PMR (polymyalgia rheumatica) (Acute) Weakness generalized (Acute) Unable to ambulate (Acute) Objective: GENERAL: cooperative HEENT: Atraumatic; EYES; Anicteric, Normal Conjunctiva NECK; supple, normal thyroid, RESPIRATORY: Diminished to auscultation CARDIOVASCULAR: Regular S1 S2, GI: soft, normoactive bowel sounds, : No Renal angle tenderness; EXTREMITIES: No edema, no clubbing, MUSCULOSKELETAL: no muscle waisting NEURO: Awake; no lateralizing signs. SKIN: No Rash PSYCH; Flat affect - Physical Exam Vitals/I&O's: Vital Signs Temp Pulse Resp BP Pulse Ox 98.8 F 76 18 132/84 H 95 04/07/19 02:22 04/07/19 02:22 04/07/19 02:30 04/07/19 02:22 04/07/19 02:30 Oxygen Delivery Method Room Air Weight: 92.221 kg Body Mass Index (BMI) 31.8 Intake and Output for Last 24 Hours 04/05/19 04/06/19 04/07/19 23:59 23:59 23:59 Intake Total 1740 / 1740 2000 / 2360 660 / 660 Output Total 800 / 800 1000 / 1400 400 / 400 Balance 940 / 940 1000 / 960 260 / 260 Laboratory Results 04/05/19 10:00: ANALY Screen Pending, ELENA-1 Antibody Pending, SS-A/Ro IgG Antibody Pending, SS-B/La IgG Antibody Pending, Sm (Higgins) Antibody Pending, [facility] Antibody Pending, Scl-70 Scleroderma Ab Pending, Double Strand DNA Ab Pending, Centromere B Antibody Pending 04/07/19 06:43: WBC 11.0, RBC 4.49, Hgb 13.3, Hct 42.7, MCV 95.1, MCH 29.6, MCHC 31.1 L, RDW Std Deviation 43.9, RDW Coeff of Randa 12.7, Plt Count 293, MPV 10.0, Immature Gran % (Auto) 0.300, Neut % (Auto) 55.1, Lymph % (Auto) 34.6, Carter % (Auto) 8.7, Eos % (Auto) 0.7, Baso % (Auto) 0.6, Absolute Neuts (auto) 6.1, Absolute Lymphs (auto) 3.81, Nucleated RBC % 0 04/07/19 06:43: Sodium 137, Potassium 4.1, Chloride 103, Carbon Dioxide 28.0, Anion Gap 6, BUN 17, Creatinine 0.91, Estim Creat Clear Calc 59.94, Est GFR (MDRD) Af Amer 80, Est GFR (MDRD) Non-Af 66, BUN/Creatinine Ratio 18.7, Glucose 86, Calcium 9.5, Magnesium 2.0 Current Medications Acetaminophen (Tylenol) 650 mg PO Q6H PRN PRN PRN Reason: Pain Score 1-3/Temp > 100.7 F Albuterol Sulfate (Ventolin Aerosols) 2.5 mg INHALATION Q2H PRN PRN PRN Reason: SHORTNESS OF BREATH Last Admin: 04/06/19 20:34 Dose: 2.5 mg Documented by: Cyclobenzaprine HCl (Flexeril) 5 mg PO TID COUNT INCLUDES THE [facility] Last Admin: 04/07/19 04:51 Dose: 5 mg Documented by: Dextrose (D50w Syringe) 0 gm IV X1 PRN; Protocol PRN Reason: Hypoglycemia Dicyclomine HCl (Bentyl) 10 mg PO TIDAC COUNT INCLUDES THE [facility] Last Admin: 04/07/19 07:21 Dose: 10 mg Documented by: Enoxaparin Sodium (Lovenox) 40 mg SC DAILY@1000 COUNT INCLUDES THE [facility] Last Admin: 04/07/19 07:50 Dose: 40 mg Documented by: Glucagon () 1 mg IM .X1 PRN PRN Reason: Hypoglycemia Hydralazine HCl (Apresoline Iv) 5 mg IV Q4H PRN PRN PRN Reason: SBP > 160 Last Admin: 04/06/19 02:45 Dose: 5 mg Documented by: Lactulose (Chronulac, Cephulac) 15 gm PO QHS COUNT INCLUDES THE [facility] Last Admin: 04/06/19 20:13 Dose: 15 gm Documented by: Morphine Sulfate () 2 mg IV Q3H PRN PRN PRN Reason: Pain Score 6-10/10 Last Admin: 04/07/19 04:47 Dose: 2 mg Documented by: Multivitamins/Minerals (Multivitamin With Minerals) 1 tablet PO DAILY@0800 COUNT INCLUDES THE [facility] Last Admin: 04/07/19 07:39 Dose: 1 tablet Documented by: Nutritional Formula (Lactose Free) (Ensure Enlive) 120 ml PO 4X/DAY COUNT INCLUDES THE [facility] Last Admin: 04/07/19 07:50 Dose: 120 ml Documented by: Oxycodone HCl (Oxyir) 5 mg PO Q4H PRN PRN PRN Reason: Pain Score 4-10/10 Last Admin: 04/07/19 02:29 Dose: 5 mg Documented by: Prednisone () 20 mg PO DAILY@0800 COUNT INCLUDES THE [facility] Last Admin: 04/07/19 07:39 Dose: 20 mg Documented by: Sodium Chloride () 10 - 40 ml IV UD PRN PRN Reason: SALINE FLUSH Last Admin: 04/07/19 04:47 Dose: 10 ml Documented by: Vitamin E (Vitamin E) 400 units PO DAILYCM COUNT INCLUDES THE [facility] Last Admin: 04/07/19 07:39 Dose: 400 units Documented by: Discharge Activity: Return to Normal Activity Home Medications: Medications to take at Discharge Dicyclomine HCl [Bentyl] 10 mg PO TIDAC 05/01/15 Lactulose 15 gm PO QHS 05/01/15 Albuterol Aerosols [Ventolin Aerosols] 2.5 mg INHALATION Q2H PRN PRN #0 vial.neb. 05/04/15 Albuterol Sulfate [Proventil Hfa] 1 puff IH Q4H PRN PRN 04/05/19 Folic Acid/Multivit,Iron,[place]ord [One Daily For Women Tablet] 1 tab PO DAILY 04/05/19 Potassium Gluconate [Potassium] 99 mg PO DAILY 04/05/19 Vitamin B Complex 1 tab PO DAILY 04/05/19 Vitamin E 400 unit PO DAILY 04/05/19 Oxycodone [Oxyir] 5 mg PO Q6H PRN PRN 5 Days #20 tab 04/07/19 cycloBENZAPRine HCl [Flexeril] 5 mg PO TID #30 tab 04/07/19 predniSONE tablet 20 mg PO DAILY@0800 #20 tab 04/07/19 Following Prescrptions Were Given to Patient: cycloBENZAPRine HCl [Flexeril] 5 mg PO TID #30 tab Transmission Status: Received by [facility] Oxycodone [Oxyir] 5 mg PO Q6H PRN PRN 5 Days #20 tab PRN Reason: Pain Score 4-10/10 Transmission Status: Sent to [facility] predniSONE tablet 20 mg PO DAILY@0800 #20 tab Transmission Status: Received by [facility] Primary Care Physician: Danilo Escalante DO [Primary Care Provider] - Please follow up with your Primary Care Physician in: in 3-5 days Disposition: Home Minutes spent on discharge:: 35 Patient Condition:: Stable Medical Necessity - Tobacco Use Smoking Status: Current every day smoker Tobacco Use: Cigarettes Meaningful Use Info Meaningful Use Diagnoses (Choose all that apply): None applicable Code Visit OBSV E&M: 62874 Observation care discharge
[2019-04-09 13:20] LABS: Creatine Kinase BB 0 % (0)
== END 2019-04-07 10:42 | disposition home or self-care (01) ==
LOC: ED 14:59 → MS3 15:04
PROVIDERS: Admitting Provider Student in an Organized Health Care Education/Training Program; Emergency Provider Emergency Medicine; Family Provider Family Medicine; PCP Family Medicine; Visit Provider Internal Medicine
DX: M35.3 Polymyalgia rheumatica (principal); R53.1 Weakness; J44.9 Chronic obstructive pulmonary disease, unspecified; K58.9 Irritable bowel syndrome, unspecified; M79.7 Fibromyalgia; F17.210 Nicotine dependence, cigarettes, uncomplicated; J96.10 Chronic respiratory failure, unspecified whether with hypoxia or hypercapnia; Z79.899 Other long term (current) drug therapy; E66.9 Obesity, unspecified; Z68.31 Body mass index [BMI] 31.0-31.9, adult; Z71.3 Dietary counseling and surveillance
CPT/HCPCS: 36415; 70450; 70551; 71045; 72141; 72148; 80048; 81001; 82550; 82552; 83735; 85025; 85652; 86038; 86140; 86225; 86235; 94640; 96372; 96374; 96375; 96376; 97163; 97166; 97535; 97802; 99218; 99285; 99406; J7030; A4216; G0378

== ENCOUNTER 2019-04-23 13:19 | Outpatient (RCR) | payer MEDICARE, SELFPAY ==
--- NOTE | 2019-04-23 15:28 | HP.PTEVAL_ITS ---
Patient's Visit Information KAYLAN BURKETT is a 63 year old F referred to Physical Therapy by Baldemar Pete MD with a diagnosis of generalized weakness. Date of Evaluation: 04/23/19 Physical Therapist: DACIA Chacko - Visit Plan Frequency: 1x/Week Duration: 4 Weeks Plan: 1X/ week for up to 4 weeks for HEP to work on increasing ROM of B shoulders, B pirifomis, gait training, bed mobility, LE strengthening with HEP - Subjective Findings: Pt has never had any pain and she went 33 days in her building without air conditioning and her arms and legs got really weak and as time went on she got to the point where she could not walk. One morning she got up and could not walk. SHe has pain in B knees and her R knee is worse than the L. She could not even roll over in her bed. SHe did not have the strength to get up so her daugher got there to help her. One morning she had to call the squad cause she could not get out of bed. They did x-rays. She was told that she had poly- myalgia and was put on steroids and flexeral and oxy. Now she can not do anything if she does not take the prednisone. She cut them in half because it was making her COPD bad and still has them and takes them everyday. She is trying to find a PCP here cause hers is moving. She has been using the rollator since the hospital stay. Sometimes her whole leg just gives out. She is not having trouble getting in and out of bed now. She has no stairs and uses the elevator. SHe does have a stairwell at either end of the halls that she can practivce on. - Pain R knee pain Pain Intensity (Out of 10): 2 Pain Intensity Range: 0 Comment: with walking - Objective Gait: walks into the dept with a rollator. Able to walk normal gait pattern with decreased stride and arm swing. FGA: 28. AROM B shoulder flexion to approx 90 degrees ( increase pain above 90). +SLR test on the R for pain in the posterior hip/back. Tight piriformis on the R ( pt felt good with stretching of the R piriformis). LE MMT: B hip flex 4/5, B knee ext 4+/5, B knee flex 4/5 ( pt felt increase medial knee popping with this on the R), B hip abd 4+/5. Pt asked if this could have all started with dehydration cause of lack of air conditioning when it was hot.... told her that I was not sure of the answer to that question. Pt walked out feeling better after supine wand flex and seated IR wand as well as MT piriformis stretches of the R hip. - Balance Scores Functional Gait Assessment Score: 28 % Disability: 6.6700 - Goals Goal 1:: I HEP Goal 2:: Be able to do her hair ( takes her 1.5 hours to do her hair) in reasonable amount of time. Goal Time Frame: 2-4 Weeks Goal 3:: Decrease pain in R knee and B shoulders by 50% per subjective Goal Time Frame: 2-4 Weeks Goal 4:: Increase LE strength to be able to not feel so weak ascending and descending the stairs with a railing if need be. Goal Time Frame: 2-4 Weeks - Rehabilitation Potential Rehabilitation Potential: Good - Anticipated Interventions Patient/Client Instruction: Educate patient on: Plan of Care For the Purpose of:: To decrease pain, To increase ROM, To improve nutrient delivery to tissue, To improve muscle performance and motor function, To improve ability to perform ADL's, To increase tolerance to activity/condition/position, To improve performance and independence with ADL's, To decrease level of supervision to perform tasks, To improve gait and locomotor functions, To increase flexibility/ROM, To improve balance, To improve safety with gait Therapeutic Exercise to Include: Strength training, Flexibilty training, Gait and locomotor training, Passive ROM, Active ROM For the Purpose of:: To decrease pain, To increase ROM, To improve nutrient delivery to tissue, To improve muscle performance and motor function, To improve ability to perform ADL's, To increase tolerance to activity/condition/position, To improve performance and independence with ADL's, To decrease level of supervision to perform tasks, To improve ability of physical actions for home/community/work/leisure, To improve gait and locomotor functions, To improve health of tissue, To increase flexibility/ROM Thank you for the opportunity to evaluate your patient. For Medicare and Medicare HMO plans, please review the plan of care and approve it. It will need to be FAXED BACK to us at [phone] for Medicare purposes. For Medicare only, by signing this I certify the plan of care. Please let me know if there are questions or concerns regarding this plan of care. Physician Signature: Date:
--- NOTE | 2019-09-03 16:24 | HP.PT.NRP ---
KAYLAN BURKETT was seen in my office for initial evaluation on 04/23/19. The following Plan of Care was established for this patient: Initial Frequency: 1x/Week Initial Duration: 4 Weeks Patient/Client Instruction: Educate patient on: Plan of Care For the Purpose of:: To decrease pain, To increase ROM, To improve nutrient delivery to tissue, To improve muscle performance and motor function, To improve ability to perform ADL's, To increase tolerance to activity/condition/position, To improve performance and independence with ADL's, To decrease level of supervision to perform tasks, To improve gait and locomotor functions, To increase flexibility/ROM, To improve balance, To improve safety with gait Therapeutic Exercise to Include: Strength training, Flexibilty training, Gait and locomotor training, Passive ROM, Active ROM For the Purpose of:: To decrease pain, To increase ROM, To improve nutrient delivery to tissue, To improve muscle performance and motor function, To improve ability to perform ADL's, To increase tolerance to activity/condition/position, To improve performance and independence with ADL's, To decrease level of supervision to perform tasks, To improve ability of physical actions for home/community/work/leisure, To improve gait and locomotor functions, To improve health of tissue, To increase flexibility/ROM This patient was last seen in our office 04/23/19. Pertinent comments regarding their Physical therapy will appear below: DORIS PT At this point I will be discontinuing this patient from physical therapy. I would be happy to see this patient again in the future if found appropriate by the physician. Thank you! Sally Angel, DACIA
== END 2019-04-23 19:00 | disposition home or self-care (01) ==
LOC: PT 13:19
PROVIDERS: Family Provider Family Medicine; PCP Family Medicine; Visit Provider Family Medicine
DX: R53.1 Weakness (principal); R26.89 Other abnormalities of gait and mobility
CPT/HCPCS: 97161

== ENCOUNTER → 2019-05-29 09:08 | Outpatient (CLI) | payer MEDICARE, SELFPAY ==
[2019-05-29 08:34] VITALS: BMI 39.8
[2019-05-29 10:07] VITALS: BMI 31.8
[2019-05-29 12:12] LABS: Erythrocyte Sedimentation Rate 7 mm/hr (0-30)
[2019-05-29 12:19] LABS: Absolute Lymphocyte Count 4.74 X10^3/uL (0.83-4.51); Absolute Neutrophil Count 10.1 X10^3/uL (2.0-7.7); Basophil# 0.09 X10^3/uL; Basophil% 0.6 % (0-1); Eosinophil# 0.14 X10^3/uL; Eosinophils% 0.9 % (0-5); Hematocrit 46.3 % (37-47); Hemoglobin 14.3 g/dL (12.0-15.0); Lymphocyte # 4.74 X10^3/ul (4.0); Mean Corp Hgb Conc 30.9 g/dL (32-36); Mean Corpuscular Hgb 29.6 pg (27.0-32.0); Mean Corpuscular Volume 95.9 fL (81-99); Mean Platelet Vol. 10.3 fl (6.2-12.0); Monocyte% 6.7 % (0-10); NRBC Flagged by Analyzer 0 % (0-5); Neutrophil # 10.14 X10^3/uL (2.7-7.7); Neutrophil % 62.1 % (47-70); Platelet Count 331 K/mm3 (150-450); RBC Distribution Width CV 13.2 % (11.6-14.6); RBC Distribution Width SD 47.4 fl (35.1-43.9); Red Blood Count 4.83 M/mm3 (4.2-5.4); White Blood Count 16.3 K/mm3 (4.4-11.0)
[2019-05-29 12:47] LABS: ALB/GLOB Ratio 0.9 RATIO (0.9-2.4); AST(SGOT) 12 U/L (15-37); Alanine Aminotransfer ALT/SGPT 29 U/L (13-56); Albumin, Serum 3.5 g/dL (3.2-5.0); Alkaline Phosphatase 87 U/L (45-117); Anion Gap 6 (5-15); BUN 13 mg/dL (7-18); BUN/Creat Ratio 11.2 RATIO (10-20); CRP 8.43 mg/L (0.0-3.0); Chloride 105 mmol/L (98-107); Creatinine, Serum 1.16 mg/dL (0.55-1.02); EST Glomerular Filtration Rate 50 mL/min (>60); Est Glom Filt Rate - Afr Amer 60 mL/min (>60); Globulin 3.7 g/dL (2.2-4.2); Glucose 111 mg/dL (74-106); Potassium 3.8 mmol/L (3.5-5.1); Protein, Total 7.2 g/dL (6.4-8.2); Sodium Level 139 mmol/L (136-145)
== END ==
PROVIDERS: Family Provider Family Medicine; PCP Internal Medicine; Visit Provider Internal Medicine
DX: M35.3 Polymyalgia rheumatica (principal)
CPT/HCPCS: 36415; 80053; 85025; 85652; 86140

== ENCOUNTER → 2019-08-02 12:20 | Outpatient (CLI) | payer MEDICARE, SELFPAY ==
[2019-05-29 10:07] VITALS: BMI 31.8
[2019-07-02 15:08] VITALS: BMI 31.8
--- NOTE | 2019-08-02 12:22 | BI_ITS ---
MAMMOGRAPHY - BILATERAL SCREENING REASON FOR EXAM: Female, 63 years old. Routine annual screening examination. PERTINENT HISTORY: Non-contributory. TECHNIQUE: Digital bilateral breast sandy (3D mammographic acquisition) in the CC and MLO projections. 2-D mediolateral oblique (MLO) and craniocaudad (CC) views of both breasts were obtained. CAD: Full Field Digital Mammography with Computer Added Detection was performed. COMPARISON: None. Baseline examination. FINDINGS: Breast Composition: The breasts are heterogeneously dense, which may obscure small masses. There are no dominant masses or suspicious calcifications. There is a 9.5 mm x 9.5 mm well-defined nodule in the inferior slightly medial aspect of the right breast. Correlation with ultrasound is recommended. No other significant abnormalities are identified. BI/SCREEN MAMM (CAD) W/SANDY BILAT IMPRESSION: 9.5 mm x 9.5 mm well-defined nodule in the inferior slightly medial aspect of the right breast. Correlation with ultrasound is recommended. ASSESSMENT CATEGORY: BIRADS Category 0: Incomplete. Need additional imaging evaluation. A letter regarding these results will be sent to the patient by the facility within 30 days. Approximately 10% of breast cancers are not detected by mammography. A normal mammogram should not delay biopsy of a clinically suspicious abnormality. [id number] Electronically Signed: Chuy Frye, at 14:21 EST , Service support ,
--- NOTE | 2019-08-02 12:24 | BD_ITS ---
STUDY: DUAL ENERGY X-RAY ABSORPTIOMETRY / DXA REASON FOR EXAM: Female, 63 years old. Unsure of age of kal-. Pat is 209.1# and 65 and quot; a loss of 2 and quot; per patient. Has been smoking for 50 years now. Takes 600mg of calcium and a multi-vit. Takes inhalers and Prednisone. Has polymyalgia and COPD. Her mom and sisters have osteo. Does not exercise. TECHNIQUE: Bone Mineral Density (BMD) measurements of lumbar spine and bilateral hips were obtained. COMPARISON: None. FINDINGS: Lumbar Spine (L1-L4): g/cm2 (1.068) / T-score (-0.9) / Z-score (0.0) Findings are suggestive of normal bone density with a low fracture risk. Left Femur Total: g/cm2 (0.860) / T-score (-1.2) / Z-score (-0.9) Left Femoral Neck: g/cm2 (0.838) / T-score (-1.4) / Z-score (-0.9) Right Femur Total: g/cm2 (0.830) / T-score (-1.4) / Z-score (-1.2) Right Femoral Neck: g/cm2 (0.828) / T-score (-1.5) / Z-score (-0.9) BD/Dexa Bone Density Study IMPRESSION: The patient is considered osteopenic as outlined below according to World [place] Organization (WHO) criteria with a low fracture risk. Reference Information: The T-score is the number of standard deviations above or below the standard which is normal for young adults at their peak bone mineral density. The World Health Organization (WHO) interprets the T-scores as follows: Above -1 Normal bone density Between -1 and -2.5 Osteopenia Equal to / or below -2.5 Osteoporosis As a practical clinical guideline, osteopenia may be graded as follows: Mild -1 through -1.5 Moderate -1.6 through -2.0 Severe -2.1 through -2.4 The Z-score is the number of standard deviations above or below age-matched controls. A Z-score of less than -1.5 would be considered abnormal. References: 1. NIH Osteoporosis and Related Bone Diseases http://www.osteo.org 2. International Society for Clinical Densitometry http://www.iscd.org 3. National Osteoporosis Foundation http://www.nof.org Electronically Signed: Chuy Frye, at 10:34 EST , Service support ,
== END ==
PROVIDERS: Family Provider Family Medicine; PCP Internal Medicine; Referring Provider Internal Medicine; Visit Provider Internal Medicine
DX: Z12.31 Encounter for screening mammogram for malignant neoplasm of breast (principal); Z78.0 Asymptomatic menopausal state; M85.80 Other specified disorders of bone density and structure, unspecified site; J44.9 Chronic obstructive pulmonary disease, unspecified; M35.3 Polymyalgia rheumatica
CPT/HCPCS: 77063; 77067; 77080

== ENCOUNTER → 2019-08-07 10:36 | Outpatient (CLI) | payer MEDICARE, SELFPAY ==
[2019-08-06 13:58] VITALS: BMI 31.8
--- NOTE | 2019-08-07 10:44 | US_ITS ---
STUDY: ULTRASOUND BREAST - RIGHT REASON FOR EXAM: Female, 63 years old. TECHNIQUE: Axial and longitudinal images of the RIGHT breast were performed with a high resolution ultrasound transducer. # OF IMAGES: 44 COMPARISON: Recent mammogram obtained on 08/02/2019 FINDINGS: RIGHT Breast: There is a lesion in the inferior medial quadrant. The lesion measures 1.0 x 1.1 x 0.6 cm in size. Clock notation: 5 o''clock position. Distance from nipple: 4 cm. Posterior Enhancement: No Posterior Shadowing: Yes Margins: Lobular Echogenicity: Mixed echogenicity Compression effect on Shape: None US/Breast Limited Unilateral IMPRESSION: A suspicious solid nodular density is noted at the 5:00 position of the right breast, with some mild posterior shadowing. Fibroadenoma versus carcinoma are the prime diagnostic considerations and an ultrasound directed breast biopsy is recommended for further dilation ASSESSMENT CATEGORY: BIRADS Category 4: Suspicious - Biopsy Should Be Considered. A letter regarding these results will be sent to the patient by the facility within 30 days. Electronically Signed: Sedrick Aylin, at 16:20 EST Tel , Service support ,
--- NOTE | 2019-08-07 11:50 | RAD_ITS ---
STUDY: X-RAY - RIGHT SHOULDER REASON FOR EXAM: Right chronic shoulder pain, no specific injury, polymyalgia. TECHNIQUE: 4 view(s) of the shoulder. COMPARISON: None. FINDINGS: There is osteopenia. Normal glenohumeral articulation. There is acromioclavicular arthrosis with an undersurface osteophyte of the distal clavicle. Normal acromion. Normal humeral head and visualized proximal humerus. The soft tissue structures are unremarkable. Normal visualized pulmonary apex. RAD/Shoulder min 2 Views IMPRESSION: Acromioclavicular arthrosis. Electronically Signed: Adria Greenfield MD at 14:01 EST Tel , Service support ,
== END ==
PROVIDERS: PCP Internal Medicine; Referring Provider Internal Medicine; Visit Provider Internal Medicine
DX: M25.511 Pain in right shoulder (principal); G89.29 Other chronic pain; R92.8 Other abnormal and inconclusive findings on diagnostic imaging of breast; R92.2 Inconclusive mammogram
CPT/HCPCS: 73030; 76642

== ENCOUNTER → 2019-08-10 16:52 | Outpatient (CLI) | payer MEDICARE, SELFPAY ==
[2019-08-10 15:08] VITALS: BMI 31.8
--- NOTE | 2019-08-10 15:30 | BRBX_PTH ---
PATIENT: KAYLAN BURKETT LOC: [facility] U#:[id number] AGE/SX: 69/F ROOM: RE08/10/[address]: Dr. Betty Perrin MD : 1955 BED: DIS: SPEC #: [id number] RECD: 08/10/19 16:32 STATUS: FERNIE REArabella #: [id number] CAMERON: 08/10/19 15:[address]: Betty Perrin DEPT: SURGICAL PATHOLOGY RECD BY: Lucien Rajput ENTERED: 08/13/19 08:48 SP TYPE: BREAST BX OT DR: Dr. Ti Osuna MD Tissues: Right breast, NOS Procedures: Surgery Specimen Level IV HEADER OPERATION: Ultrasound-guided right breast biopsy PRE-OP DIAGNOSIS: Abnormal ultrasound right breast TISSUE SUBMITTED: Right breast biopsy 5 o'clock, 3 cm from nipple FIXATION TIME: 52 hours MICROSCOPIC DIAGNOSIS Right breast, 5 o'clock, 3 cm from nipple, ultrasound-guided core biopsy: Fibroadenoma. Negative for atypia or malignancy. See comment. CHELSEY:dia 08/14/19 COMMENT Correlation with clinical, radiologic findings and appropriate follow up are necessary. MICROSCOPIC DESCRIPTION Slides are reviewed. GROSS DESCRIPTION Received in fixative is one container labeled with the patient's name and designated right breast. The specimen consists of multiple elongated fragments of padilla-yellow fibroadipose tissue that in aggregate measure 1 x 0.2 x 0.1 cm. The entire specimen is submitted in one cassette. / CHELSEY:dia 08/13/19 TC:1 CPT: 71569
== END ==
PROVIDERS: PCP Internal Medicine; Referring Provider Surgery; Visit Provider Surgery
DX: R92.8 Other abnormal and inconclusive findings on diagnostic imaging of breast (principal)
CPT/HCPCS: 88305

== ENCOUNTER 2019-08-11 13:30 | Inpatient (IN) | payer MEDICARE, SELFPAY ==
[2019-08-10 15:08] VITALS: BMI 31.8
[2019-08-11] VITALS (11 sets, daily range): BP systolic 141–174; BP diastolic 70–85; PULSE 88–109; RESP 16–28; TEMP 37.2–37.5; O2SAT 92–96; BMI 32.9; BMI 34.9; BMI 35.0
--- NOTE | 2019-08-11 13:33 | EKG12_ITS ---
Test Reason : SOB/CP Blood Pressure : / mmHG Vent. Rate : 090 BPM Atrial Rate : 090 BPM P-R Int : 168 ms QRS Dur : 078 ms QT Int : 354 ms P-R-T Axes : 083 057 080 degrees QTc Int : 433 ms Normal sinus rhythm Possible Left atrial enlargement Borderline ECG Confirmed by GOSIA DUARTE, COURTNEY ([id number]), graphic editor TOAMS GUADALUPE ([id number]) on 08/13/2019 10:13:07 AM Referred By: RADHA Confirmed By:COURTNEY ELISE MD
--- NOTE | 2019-08-11 13:33 | RAD_ITS ---
STUDY: X-RAY CHEST REASON FOR EXAM: Female, 63 years old. SOB, CHEST PRESSURE -- RECENT RIGHT BREAST BIOPSY TECHNIQUE: Single AP portable view of the chest. COMPARISON: 04/05/2019 FINDINGS: There is hyperinflation of the lungs consistent with chronic obstructive lung disease (COPD). Lungs are clear. There is no demonstrated pleural abnormality. Normal size heart. Normal mediastinum and renay. Normal visualized pulmonary arteries. Normal visualized aortic arch and descending thoracic aorta. Normal visualized thoracic spine. Normal visualized ribs, clavicles, and shoulders. There is no demonstrated abnormality of the visualized soft tissue structures of the upper abdomen. RAD/Chest 1 View (Portable) IMPRESSION: COPD without acute findings. Electronically Signed: Ed Correa DO at 14:09 EST Tel , Service support ,
--- NOTE | 2019-08-11 13:37 | ED.DCSUM_ITS ---
History of Present Illness Chief Complaint: Shortness of Breath Informant: Patient Onset: Yesterday Context: Gradual Onset Timing: Continuous Current Severity: Moderate Maximum Severity: Moderate Narrative: The patient is a 63-year-old female with medical history significant for hypertension and COPD who is on 2 L of oxygen at night but presents to the emergency department with cough and shortness of breath. Patient states her symptoms began overnight. She states she had persistent cough with scant sputum. She states that she felt like her breathing was worsening. Despite using her supplemental oxygen, she was still feeling short of breath. Today, with coughing, she states that she was having some chest pain. She is unsure if she is had fever but does admit to chills. The last time that she was on steroids or antibiotics for her underlying lung disease was greater than 2 years ago. She denies any history of coronary vascular disease. She does continue to smoke. Prior similar symptoms: No Recent Illness/Hospitalization: No Past Medical History - Allergies and Home Meds Allergies/Adverse Reactions: Allergies tiotropium [From Spiriva with HandiHaler] Allergy (Unknown, Verified 08/11/19 13:38) Unknown Penicillins Allergy (Verified 08/11/19 13:38) Swelling Primary Care Physician: Ti Osuna MD [Primary Care Provider] - Prior records reviewed: Yes Past Medical History: - - Hypertension, COPD Surgical History: appendectomy, hysterectomy, tonsillectomy Smoking Status: Light Smoker (<10/day) - Family History Paternal Family History: Family History (Last Reviewed 08/10/19 @ 14:42 by Tawnya Meyer) Other Anemia Arthritis Asthma Bowel disease CVA (cerebral vascular accident) Diabetes Heart disease Hypertension Myocardial infarction Osteoporosis Seizures Thyroid disorder Family History: Reports: No pertinent history, - - granddaughter has fibromyalgia Maternal Family History: Family History (Last Reviewed 08/10/19 @ 14:42 by Tawnya Meyer) Other Anemia Arthritis Asthma Bowel disease CVA (cerebral vascular accident) Diabetes Heart disease Hypertension Myocardial infarction Osteoporosis Seizures Thyroid disorder Family History: Reports: No pertinent history Review of Systems General: Denies: Chills, Fever, Sweats Eyes: Denies: Visual changes - bilaterally, Diplopia ENT: Denies: Rhinorrhea, Sore throat Cardiovascular: Reports: Chest pain Respiratory: Reports: Dyspnea, Cough, Sputum Gastrointestinal: Denies: Abdominal pain, Nausea, Vomiting, Diarrhea, Melena, Hematochezia Genitourinary: Denies: Dysuria, Hematuria, Frequency Musculoskeletal: Denies: Back pain, Extremity Pain Skin: Denies: Rash, Wounds Neurological: Denies: Headache, Weakness, Numbness Physical Exam Inital Vital Signs reviewed: Yes General: Well nourished, Well developed, No Acute Distress Head: Normocephalic, Atraumatic Eyes: Perrl, EOMI ENT: Moist mucous membranes, No rhinorrhea Neck: Supple, Nontender Cardiovascular: Regular rate, Regular rhythm, No murmurs Respiratory: No distress, Chest nontender, Wheezing Abdomen: Soft, Nontender, Nondistended, Normal bowel sounds Back: Nontender, Normal Inspection Extremities: Nontender, No edema Skin: Normal color, No rash Neurological: Alert, Oriented x3, Cranial nerves II-XII grossly intact, Normal Strength, Normal Sensation Psychological: Normal affect, Normal Mood Diagnostic/Tx/Re-eval Chest X-Ray - ED: 1 View, Normal, Heart, Mediastinum, Chronic Changes, No Infiltrates Clinical Impression(s) from Imaging Studies Chest X-Ray 08/11/19 13:33 IMPRESSION: COPD without acute findings. Electronically Signed: Ed Correa DO at 14:09 EST Tel , Service support , Abnormal Lab Results 08/11/19 08/11/19 08/11/19 13:33 13:33 13:33 WBC 11.1 H RBC 4.94 Hgb 15.0 Hct 47.0 MCV 95.1 MCH 30.4 MCHC 31.9 L RDW Std Deviation 45.0 H RDW Coeff of Randa 12.9 Plt Count 248 MPV 9.6 Immature Gran % (Auto) 0.400 Neut % (Auto) 83.9 H Lymph % (Auto) 7.7 L [place] % (Auto) 5.9 Eos % (Auto) 1.6 Baso % (Auto) 0.5 Absolute Neuts (auto) 9.3 H Absolute Lymphs (auto) 0.85 Nucleated RBC % 0 Sodium 138 Potassium 3.7 Chloride 109 H Carbon Dioxide 27.0 Anion Gap 2 L BUN 9 Creatinine 1.15 H Estim Creat Clear Calc 43.89 Est GFR (MDRD) Af Amer 61 Est GFR (MDRD) Non-Af 50 L BUN/Creatinine Ratio 7.8 L Glucose 127 H Lactic Acid 1.0 Calcium 9.5 Troponin I < 0.015 B-Natriuretic Peptide 08/11/19 13:33 WBC RBC Hgb Hct MCV MCH MCHC RDW Std Deviation RDW Coeff of Randa Plt Count MPV Immature Gran % (Auto) Neut % (Auto) Lymph % (Auto) [place] % (Auto) Eos % (Auto) Baso % (Auto) Absolute Neuts (auto) Absolute Lymphs (auto) Nucleated RBC % Sodium Potassium Chloride Carbon Dioxide Anion Gap BUN Creatinine Estim Creat Clear Calc Est GFR (MDRD) Af Amer Est GFR (MDRD) Non-Af BUN/Creatinine Ratio Glucose Lactic Acid Calcium Troponin I B-Natriuretic Peptide 19.7 - Rhythm Strip Rhythm Strip: Sinus Rhythm Rate: 80 Ectopy: None - EKG Initial EKG Interpretation: Sinus Rhythm, No Acute Injury Pattern Prior: Unchanged - Medical Decision Making The patient presents to the emergency department with cough, shortness of breath, myalgias, generalized malaise. She does have diffuse bronchospasm in all lung flaherty. She was continued on nebulized breathing treatments and given IV Solu-Medrol. Chest x-ray does not show focal infiltrative process. EKG was sinus rhythm without acute ischemic change. Patient did have some improvement after treatments, but still has persistent bronchospasm. With her subjective fever, change in sputum, and dyspnea I do feel that she would benefit from admission for further respiratory care and antibiotic coverage. The patient is comfortable with this plan of care. She was discussed with the hospitalist and will be admitted. Impression 1. COPD exacerbation ED Disposition - Plan for ED Patient: Referrals: Ti Osuna MD [Primary Care Provider] -
[2019-08-11] MEDS: Ipratropium/Albuterol Sulfate 3 ML AMPUL.NEB INHALATION ×3 (13:41→19:15)
[2019-08-11 13:45] LABS: Absolute Lymphocyte Count 0.85 X10^3/uL (0.83-4.51); Absolute Neutrophil Count 9.3 X10^3/uL (2.0-7.7); Basophil# 0.06 X10^3/uL; Basophil% 0.5 % (0-1); Eosinophil# 0.18 X10^3/uL; Eosinophils% 1.6 % (0-5); Lymphocyte # 0.85 X10^3/ul (4.0); Lymphocyte % 7.7 % (19-41); Mean Corp Hgb Conc 31.9 g/dL (32-36); Mean Corpuscular Hgb 30.4 pg (27.0-32.0); Mean Corpuscular Volume 95.1 fL (81-99); Mean Platelet Vol. 9.6 fl (6.2-12.0); Monocyte# 0.65 X10^3/uL; Monocyte% 5.9 % (0-10); NRBC Flagged by Analyzer 0 % (0-5); Neutrophil # 9.28 X10^3/uL (2.7-7.7); Neutrophil % 83.9 % (47-70); Platelet Count 248 K/mm3 (150-450); RBC Distribution Width CV 12.9 % (11.6-14.6); Red Blood Count 4.94 M/mm3 (4.2-5.4); White Blood Count 11.1 K/mm3 (4.4-11.0)
[2019-08-11] MEDS: Albuterol 2.5 MG/3 ML VIAL.NEB. INHALATION ×4 (13:49→21:57)
[2019-08-11] MEDS: MethylPREDNISolone 125 MG/2 ML Vial IV (13:58)
[2019-08-11 14:04] LABS: BNP,B-Type NATRIURETIC PEPTIDE 19.7 pg/mL (0-100)
[2019-08-11 14:07] LABS: Anion Gap 2 (5-15); BUN 9 mg/dL (7-18); BUN/Creat Ratio 7.8 RATIO (10-20); Calcium,Total 9.5 mg/dL (8.5-10.1); Chloride 109 mmol/L (98-107); Creatinine, Serum 1.15 mg/dL (0.55-1.02); EST Glomerular Filtration Rate 50 mL/min (>60); Est Glom Filt Rate - Afr Amer 61 mL/min (>60); Estimated Creatinine Clearance 43.89 ml/min; Glucose 127 mg/dL (74-106); Potassium 3.7 mmol/L (3.5-5.1); Sodium Level 138 mmol/L (136-145)
--- NOTE | 2019-08-11 14:36 | PCM.HP.STD ---
Problem List (1) COPD (chronic obstructive pulmonary disease) Status: Acute Qualifiers: COPD type: COPD with acute exacerbation Qualified Code(s): J44.1 - Chronic obstructive pulmonary disease with (acute) exacerbation (2) PMR (polymyalgia rheumatica) Status: Chronic (3) Weakness generalized Status: Chronic (4) Unable to ambulate Status: Resolved (5) Chronic respiratory failure Status: Chronic (6) Irritable bowel syndrome Status: Chronic (7) COPD exacerbation Status: Acute History of Present Illness Date of Admission: 08/11/19 Chief Complaint: Shortness of breath The patient is a 63 year old F with past medical history significant for chronic hypoxic respiratory failure secondary to COPD on baseline home O2 2 L who presented with shortness of breath. Patient symptoms started around 2 AM on the morning of admission. In addition to shortness of breath patient did complain of subjective fever and chills as well as sputum production. She also did notice some wheezing. Did use her treatment at home without much improvement subsequently presented to the emergency department. An assessment of COPD with acute exacerbation made admitted to regular nursing floor for further management Past Medical History Past Medical History (Chronic Problems): Chronic Problems (Last Reviewed 08/10/19 @ 14:44 by Tawnya Meyer) PMR (polymyalgia rheumatica) (Chronic) Weakness generalized (Chronic) Chronic respiratory failure (Chronic) Irritable bowel syndrome (Chronic) Medical History: Medical History (Last Reviewed 08/11/19 @ 14:[address] Baldemar Pete MD) PMR (polymyalgia rheumatica) (Acute) M35.3 Weakness generalized (Acute) R53.1 Unable to ambulate (Acute) R26.2 Chronic respiratory failure (Chronic) J96.10 Irritable bowel syndrome (Chronic) COPD exacerbation (Acute) J44.1 COPD (chronic obstructive pulmonary disease) (Chronic) J44.9 Arthritis M19.90 Asthma J45.909 Hx of bacterial pneumonia Z87.01 Hx of drug abuse F19.11 Hx of gastrointestinal disease Z87.19 Allergies tiotropium [From Spiriva with HandiHaler] Allergy (Unknown, Verified 08/11/19 13:38) Unknown Penicillins Allergy (Verified 08/11/19 13:38) Swelling Home Medications: Ambulatory Orders Medication Instructions Recorded Lactulose 15 gm PO QHS 05/01/15 Albuterol Aerosols [Ventolin 2.5 mg INHALATION Q2H PRN PRN #0 05/04/15 Aerosols] vial.neb. Albuterol Sulfate [Proventil Hfa] 1 puff IH Q4H PRN PRN 04/05/19 Folic Acid/Multivit,Iron,[place] 1 tab PO DAILY 04/05/19 [One Daily For Women Tablet] Potassium Gluconate [Potassium] 99 mg PO DAILY 04/05/19 Vitamin B Complex 1 tab PO DAILY 04/05/19 acetaminophen 650 mg 650 mg PO .q 6 hrs tab 05/29/19 tablet,extended release nystatin 100,000 unit/mL oral 400,000 unit PO DAILY 10 Days #40 05/29/19 suspension ml bupropion HCl 150 mg tablet,12 hr 150 mg PO BID #60 ea 08/06/19 sustained-release dicyclomine 10 mg capsule 10 mg PO TIDAC PRN 08/06/19 prednisone 10 mg tablet 5 mg PO DAILY tab 08/06/19 amlodipine 10 mg tablet 10 mg PO DAILY #90 tab 08/07/19 Surgical History: Surgical History (Last Reviewed 08/11/19 @ 14:[address] 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 Baldemar Pete MD) Other Anemia Arthritis Asthma Bowel disease CVA (cerebral vascular accident) Diabetes Heart disease Hypertension Myocardial infarction Osteoporosis Seizures Thyroid disorder History Items: No pertinent history Paternal Family History: Family History (Last Reviewed 08/11/19 @ 14:[address] Baldemar Pete MD) Other Anemia Arthritis Asthma Bowel disease CVA (cerebral vascular accident) Diabetes Heart disease Hypertension Myocardial infarction Osteoporosis Seizures Thyroid disorder History Items: No pertinent history, - - granddaughter has fibromyalgia Review of Systems Constitutional: Reports: Chills, Fever. Denies: Anorexia, Night Sweats, Weight Change HEENT: Denies: Head Aches, Sinus Congestion, Sinus Drainage Cardiovascular: Denies: Chest Pain, Orthopnea, Palpitations, Paroxysmal Noc. Dyspnea Respiratory: Reports: Cough, Shortness of Breath, Wheezing. Denies: Shortness of breath at rest Gastrointestinal: Denies: Abdominal Pain, Hematemesis, Hematochezia, Nausea, Melena, Vomiting Genitourinary: Denies: Dysuria, Frequency, Hematuria, Urgency Musculoskeletal: Reports: Shoulder Pain Skin: Denies: Rash Neurological: Denies: Focal weakness, Numbness, Tingling Psychiatric: Denies: Homicidal Ideations, Suicidal Ideations Hematologic/ Lymphatic: Denies: Easy Bruising, Easy Bleeding VTE Information - Inpt Only VTE Present on Admission: No VTE Mechan Device Prophylaxis: None VTE Pharm Prophylaxis ordered?: Yes Objective: GENERAL: cooperative HEENT: Atraumatic; EYES; Anicteric, Normal Conjunctiva NECK; supple, normal thyroid, RESPIRATORY: Diminished to auscultation with bilateral wheezes CARDIOVASCULAR: Regular S1 S2, GI: soft, normoactive bowel sounds, : No Renal angle tenderness; EXTREMITIES: No edema, no clubbing, MUSCULOSKELETAL: no muscle waisting NEURO: Awake; no lateralizing signs. SKIN: No Rash PSYCH; Flat affect - Physical Exam Vitals/I&O's: Vital Signs Temp Pulse Resp BP Pulse Ox 99.5 F H 88 23 H 166/77 H 95 08/11/19 13:31 08/11/19 14:00 08/11/19 14:00 08/11/19 14:00 08/11/19 14:00 Oxygen Flow Rate (L/min) 2 Oxygen Delivery Method Room Air Weight: 89.811 kg Body Mass Index (BMI) 32.9 Microbiology Past 72 Hours 08/11/19 13:50 Mucosa - Nasopharyngeal Influenza Types A,B Direct FA (RADHA) - Final Laboratory Results 08/11/19 13:33: WBC 11.1 H, RBC 4.94, Hgb 15.0, Hct 47.0, MCV 95.1, MCH 30.4, MCHC 31.9 L, RDW Std Deviation 45.0 H, RDW Coeff of Randa 12.9, Plt Count 248, MPV 9.6, Immature Gran % (Auto) 0.400, Neut % (Auto) 83.9 H, Lymph % (Auto) 7.7 L, [place] % (Auto) 5.9, Eos % (Auto) 1.6, Baso % (Auto) 0.5, Absolute Neuts (auto) 9.3 H, Absolute Lymphs (auto) 0.85, Nucleated RBC % 0 08/11/19 13:33: Sodium 138, Potassium 3.7, Chloride 109 H, Carbon Dioxide 27.0, Anion Gap 2 L, BUN 9, Creatinine 1.15 H, Estim Creat Clear Calc 43.89, Est GFR (MDRD) Af Amer 61, Est GFR (MDRD) Non-Af 50 L, BUN/Creatinine Ratio 7.8 L, Glucose 127 H, Calcium 9.5, Troponin I < 0.015 08/11/19 13:33: Lactic Acid 1.0 08/11/19 13:33: B-Natriuretic Peptide 19.7 Current Medications Azithromycin 500 mg/ Dextrose 255 mls @ 250 mls/hr IV X1 ONE Stop: 08/11/19 15:20 Assessment/Plan All Active Problems (Last Reviewed 08/10/19 @ 14:44 by Tawnya Meyer) Unable to ambulate (Resolved) COPD exacerbation (Acute) COPD (chronic obstructive pulmonary disease) (Acute) Patient is a 63-year-old lady presented with progressive shortness of breath diagnosed with COPD with acute exacerbation 1. COPD with acute exacerbation ?Admitted to regular nursing floor started on bronchodilator treatments, supplemental oxygen titrated to keep saturation greater than 90 as well as antibiotic therapy with Zithromax 2. Chronic hypoxic respiratory failure ?Secondary to COPD patient is on baseline home O2 discontinue 3. Essential hypertension ?Patient blood pressure currently not well controlled patient is on amlodipine did continue added PRN IV hydralazine 4. Right breast mass ?Patient underwent biopsy on 08/09/2019. Patient to follow-up with PCP for result 5. Polymyalgia rheumatica ?Patient treated with systemic steroid 6. Tobacco dependence ?Counseled on cessation of it nicotine patch for tobacco cravings 7. Obesity with BMI of 32.9 ?Weight loss advised 8. Left shoulder pain ?Recent imaging studies demonstrated arthrosis involving the acromioclavicular joint patient to follow-up PCP for subsequent care 9. DVT prophylaxis ?Lovenox Code Visit OBSV E&M: 94090 Initial observation care L3
[2019-08-11] MEDS: amLODIPine 10 MG Tablet PO (14:48)
[2019-08-11] MEDS: guaiFENesin 600 MG Tablet PO (21:57)
[2019-08-11] MEDS: MELATONIN 3 MG TABLET PO (21:57)
[2019-08-11] MEDS: oxyCODONE 5 MG Tablet 10 MG PO (21:57)
[2019-08-11] MEDS: 0.9% Saline Lock 10 ML Syringe IV (21:57)
[2019-08-12] VITALS (19 sets, daily range): BP systolic 133–167; BP diastolic 74–89; PULSE 95–110; RESP 18–26; TEMP 36.9–37.4; O2SAT 93–98
[2019-08-12] MEDS: Ipratropium/Albuterol Sulfate 3 ML AMPUL.NEB INHALATION ×6 (00:09→22:56)
[2019-08-12] MEDS: hydrALAZINE 20 MG/ML Vial 10 MG IV ×2 (02:06→21:54)
[2019-08-12] MEDS: 0.9% Saline Lock 10 ML Syringe IV ×6 (02:06→22:12)
[2019-08-12] MEDS: Albuterol 2.5 MG/3 ML VIAL.NEB. INHALATION ×4 (02:52→17:16)
[2019-08-12] MEDS: oxyCODONE 5 MG Tablet 10 MG PO ×2 (06:22→21:45)
[2019-08-12 07:43] LABS: Absolute Neutrophil Count 8.3 X10^3/uL (2.0-7.7); Basophil# 0.01 X10^3/uL; Basophil% 0.1 % (0-1); Hematocrit 47.3 % (37-47); Hemoglobin 15.1 g/dL (12.0-15.0); Lymphocyte % 7.3 % (19-41); Mean Corp Hgb Conc 31.9 g/dL (32-36); Mean Corpuscular Hgb 29.8 pg (27.0-32.0); Mean Corpuscular Volume 93.3 fL (81-99); Mean Platelet Vol. 10.4 fl (6.2-12.0); Monocyte# 0.46 X10^3/uL; Monocyte% 4.8 % (0-10); NRBC Flagged by Analyzer 0 % (0-5); Neutrophil # 8.31 X10^3/uL (2.7-7.7); Neutrophil % 87.3 % (47-70); Platelet Count 243 K/mm3 (150-450); RBC Distribution Width CV 12.9 % (11.6-14.6); RBC Distribution Width SD 44.3 fl (35.1-43.9); Red Blood Count 5.07 M/mm3 (4.2-5.4); White Blood Count 9.5 K/mm3 (4.4-11.0)
[2019-08-12 08:10] LABS: Anion Gap 8 (5-15); BUN 11 mg/dL (7-18); BUN/Creat Ratio 10.3 RATIO (10-20); Calcium,Total 9.4 mg/dL (8.5-10.1); Chloride 105 mmol/L (98-107); Creatinine, Serum 1.07 mg/dL (0.55-1.02); EST Glomerular Filtration Rate 55 mL/min (>60); Est Glom Filt Rate - Afr Amer 66 mL/min (>60); Estimated Creatinine Clearance 47.17 ml/min; Glucose 138 mg/dL (74-106); Potassium 4.1 mmol/L (3.5-5.1); Sodium Level 137 mmol/L (136-145)
--- NOTE | 2019-08-12 08:13 | PCM.PN.HOSP ---
Reason for Visit: COPD exacerbation Subjective: Patient is a 63-year-old lady presented with progressive shortness of breath diagnosed with COPD with acute exacerbation Patient seen still remains significantly dyspneic at rest complains of significant shortness of breath as well as generalized weakness. Objective: GENERAL: cooperative HEENT: Atraumatic; EYES; Anicteric, Normal Conjunctiva NECK; supple, normal thyroid, RESPIRATORY: Diminished to auscultation with bilateral wheezes CARDIOVASCULAR: Regular S1 S2, GI: soft, normoactive bowel sounds, : No Renal angle tenderness; EXTREMITIES: No edema, no clubbing, MUSCULOSKELETAL: no muscle waisting NEURO: Awake; no lateralizing signs. SKIN: No Rash PSYCH; Flat affect Vitals/I&O's: Vital Signs Temp Pulse Resp BP Pulse Ox 98.6 F 104 H 20 H 133/89 H 94 08/12/19 06:00 08/12/19 06:44 08/12/19 06:44 08/12/19 06:00 08/12/19 06:44 Oxygen Flow Rate (L/min) 2 Oxygen Delivery Method Nasal Cannula Weight: 95.4 kg Body Mass Index (BMI) 34.9 Intake and Output for Last 24 Hours 08/10/19 08/11/19 08/12/19 23:59 23:59 23:59 Intake Total 555 / 1155 1000 / 1000 Output Total 300 / 300 Balance 555 / 1155 700 / 700 Microbiology Past 72 Hours 08/11/19 13:50 Mucosa - Nasopharyngeal Influenza Types A,B Direct FA (RADHA) - Final Laboratory Results 08/11/19 13:33: WBC 11.1 H, RBC 4.94, Hgb 15.0, Hct 47.0, MCV 95.1, MCH 30.4, MCHC 31.9 L, RDW Std Deviation 45.0 H, RDW Coeff of Randa 12.9, Plt Count 248, MPV 9.6, Immature Gran % (Auto) 0.400, Neut % (Auto) 83.9 H, Lymph % (Auto) 7.7 L, [place] % (Auto) 5.9, Eos % (Auto) 1.6, Baso % (Auto) 0.5, Absolute Neuts (auto) 9.3 H, Absolute Lymphs (auto) 0.85, Nucleated RBC % 0 08/11/19 13:33: Sodium 138, Potassium 3.7, Chloride 109 H, Carbon Dioxide 27.0, Anion Gap 2 L, BUN 9, Creatinine 1.15 H, Estim Creat Clear Calc 43.89, Est GFR (MDRD) Af Amer 61, Est GFR (MDRD) Non-Af 50 L, BUN/Creatinine Ratio 7.8 L, Glucose 127 H, Calcium 9.5, Troponin I < 0.015 08/11/19 13:33: Lactic Acid 1.0 08/11/19 13:33: B-Natriuretic Peptide 19.7 08/12/19 06:50: WBC 9.5, RBC 5.07, Hgb 15.1 H, Hct 47.3 H, MCV 93.3, MCH 29.8, MCHC 31.9 L, RDW Std Deviation 44.3 H, RDW Coeff of [place]anda 12.9, Plt Count 243, MPV 10.4, Immature Gran % (Auto) 0.500, Neut % (Auto) 87.3 H, Lymph % (Auto) 7.3 L, [place] % (Auto) 4.8, Eos % (Auto) 0.0, Baso % (Auto) 0.1, Absolute Neuts (auto) 8.3 H, Absolute Lymphs (auto) 0.70 L, Nucleated RBC % 0 08/12/19 06:50: Sodium 137, Potassium 4.1, Chloride 105, Carbon Dioxide 24.0, Anion Gap 8, BUN 11, Creatinine 1.07 H, Estim Creat Clear Calc 47.17, Est GFR (MDRD) Af Amer 66, Est GFR (MDRD) Non-Af 55 L, BUN/Creatinine Ratio 10.3, Glucose 138 H, Calcium 9.4, Magnesium 2.0 Current Medications Acetaminophen (Tylenol) 650 mg PO Q6H PRN PRN PRN Reason: Pain Score 1-10/Temp > 100.7 F Al Hydroxide/Mg Hydroxide (Mylanta Ii) 30 ml PO Q6H PRN PRN PRN Reason: Gastric Burning Albuterol Sulfate (Ventolin Aerosols) 2.5 mg INHALATION Q2H PRN PRN PRN Reason: SHORTNESS OF BREATH Last Admin: 08/12/19 04:59 Dose: 2.5 mg Documented by: Albuterol/Ipratropium (Duoneb) 3 ml INHALATION Q4H.RT CARLEE Last Admin: 08/12/19 06:43 Dose: 3 ml Documented by: Amlodipine Besylate (Norvasc) 10 mg PO DAILY [facility] Dicyclomine HCl (Bentyl) 10 mg PO TIDAC PRN PRN Reason: ibs Enoxaparin Sodium (Lovenox) 40 mg SC DAILY [facility] Guaifenesin (Mucinex) 600 mg PO BID [facility] Last Admin: 08/11/19 21:57 Dose: 600 mg Documented by: Guaifenesin (Robitussin) 20 ml PO Q4H PRN PRN PRN Reason: COUGH Hydralazine HCl (Apresoline Iv) 10 mg IV Q4H PRN PRN PRN Reason: BLOOD PRESSURE ELEVATION Last Admin: 08/12/19 02:06 Dose: 10 mg Documented by: Azithromycin 500 mg/ Dextrose 255 mls @ 250 mls/hr IV Q24 [facility] Stop: 08/14/19 11:02 Magnesium Hydroxide (Milk Of Magnesia) 30 ml PO DAILY PRN PRN PRN Reason: Constipation Melatonin (Melatonin) 3 mg PO QHS PRN PRN PRN Reason: INSOMNIA Last Admin: 08/11/19 21:57 Dose: 3 mg Documented by: Methylprednisolone (Solu-Medrol) 40 mg IV Q8 [facility] Stop: 08/12/19 22:01 Last Admin: 08/12/19 06:22 Dose: 40 mg Documented by: Nitroglycerin (Nitrostat) 0.4 mg SUBLINGUAL Q5M PRN PRN Reason: CARDIAC/CHEST PAIN Nystatin (Nystatin) 400,000 unit PO DAILY [facility] Ondansetron HCl (Zofran) 4 mg IV Q8H PRN PRN PRN Reason: NAUSEA/VOMITING Oxycodone HCl (Oxyir) 5 mg PO Q4H PRN PRN PRN Reason: Pain Score 4-5/10 Oxycodone HCl (Oxyir) 10 mg PO Q4H PRN PRN PRN Reason: Pain Score 6-10/10 Last Admin: 08/12/19 06:22 Dose: 10 mg Documented by: Prednisone () 40 mg PO DAILY@0800 [facility] Sodium Chloride () 10 - 40 ml IV UD PRN PRN Reason: SALINE FLUSH Last Admin: 08/12/19 06:22 Dose: 10 ml Documented by: STROKE Vital Signs/Narrative: Vital Signs Temp Pulse Resp BP Pulse Ox 08/12/19 06:44 104 H 20 H 94 08/12/19 06:00 98.6 F 104 H 20 H 133/89 H 93 08/12/19 04:59 102 H 26 H Medical Necessity - Tobacco Use Smoking Status: Light Smoker (<10/day) Tobacco Use: Cigarettes Assessment/Plan All Active Problems (Last Reviewed 08/11/19 @ 14:[address] Baldemar Pete MD) Unable to ambulate (Resolved) COPD exacerbation (Acute) COPD (chronic obstructive pulmonary disease) (Acute) Patient is a 63-year-old lady presented with progressive shortness of breath diagnosed with COPD with acute exacerbation 1. COPD with acute exacerbation ?Admitted to regular nursing floor started on bronchodilator treatments, supplemental oxygen titrated to keep saturation greater than 90 as well as antibiotic therapy with Zithromax -08/12/2019: Patient seen still remains significantly dyspneic at rest receiving aerosol treatment almost every 2 hours. Did continue with treatment initiated in addition consultation was placed to pulmonary medicine. 2. Chronic hypoxic respiratory failure ?Secondary to COPD patient is on baseline home O2 discontinue 3. Essential hypertension ?Patient blood pressure currently not well controlled patient is on amlodipine did continue added PRN IV hydralazine -Blood pressure control still remains labile added HCTZ to her therapy. 4. Right breast mass ?Patient underwent biopsy on 08/09/2019. Patient to follow-up with PCP for result 5. Polymyalgia rheumatica ?Patient treated with systemic steroid 6. Tobacco dependence ?Counseled on cessation of it nicotine patch for tobacco cravings 7. Obesity with BMI of 32.9 ?Weight loss advised 8. Left shoulder pain ?Recent imaging studies demonstrated arthrosis involving the acromioclavicular joint patient to follow-up PCP for subsequent care 9. DVT prophylaxis ?Lovenox Code Visit OBSV E&M: 35913 Observ/hosp same date L3
--- NOTE | 2019-08-12 08:26 | CON.PCM_ITS ---
Reason for Consult Date of Consultation: 08/12/19 Reason for Consultation: COPD exacerbation History of Present Illness: The patient is a 63-year-old female, with a history as outlined below, who presented to the emergency department on July with complaints of shortness of breath and a nonproductive cough. The patient does report that she has an established diagnosis of COPD and has been followed previously by Dr. Muller [facility] She states that she has been told in the past that she has moderate COPD. She was transitioned recently from Anoro Ellipta to Trelegy Ellipta and states that since that time she thinks that her breathing quality has actually worsened. She is now using her rescue inhaler 3-4 times per day. She does have a smoking history of approximately 100 pack years and states that she just quit smoking last Tuesday. She only utilizes supplemental oxygen on a nightly basis at 2 L/min. She is interested in transitioning her pulmonary care here to [facility]. On presentation to the emergency department, the patient was noted to have a low -grade fever and was tachypneic. Laboratory evaluation revealed a mildly elevated white blood cell count. Chemistry profile revealed a creatinine of 1.15. Lactate was within normal limits. Troponin was negative. Plain film chest x-ray revealed no acute cardiopulmonary process. The patient was noted to be significantly bronchospastic while in the emergency department. She was provided with bronchodilators and started on IV steroids. The patient was subsequently admitted to the medical surgical floor for further management. Past Medical History Past Medical History (Chronic Problems): Chronic Problems (Last Reviewed 08/11/19 @ 14:[address] Baldemar Pete MD) PMR (polymyalgia rheumatica) (Chronic) Weakness generalized (Chronic) Chronic respiratory failure (Chronic) Irritable bowel syndrome (Chronic) Medical History: Medical History (Last Reviewed 08/11/19 @ 14:[address] Baldemar Pete MD) PMR (polymyalgia rheumatica) (Chronic) M35.3 Weakness generalized (Chronic) R53.1 Unable to ambulate (Resolved) R26.2 Chronic respiratory failure (Chronic) J96.10 Irritable bowel syndrome (Chronic) COPD exacerbation (Acute) J44.1 COPD (chronic obstructive pulmonary disease) (Acute) J44.9 Arthritis M19.90 Asthma J45.909 Hx of bacterial pneumonia Z87.01 Hx of drug abuse F19.11 Hx of gastrointestinal disease Z87.19 Allergies tiotropium [From Spiriva with HandiHaler] Allergy (Unknown, Verified 08/11/19 13:38) Unknown Penicillins Allergy (Verified 08/11/19 13:38) Swelling Home Medications: Ambulatory Orders Medication Instructions Recorded Folic Acid/Multivit,Iron,[place] 1 tab PO DAILY 04/05/19 [One Daily For Women Tablet] nystatin 100,000 unit/mL oral 400,000 unit PO DAILY 10 Days #40 05/29/19 suspension ml bupropion HCl 150 mg tablet,12 hr 150 mg PO BID #60 ea 08/06/19 sustained-release dicyclomine 10 mg capsule 10 mg PO TIDAC PRN 08/06/19 amlodipine 10 mg tablet 10 mg PO DAILY #90 tab 08/07/19 Albuterol IH (ProAir) [Proair Hfa 2 puff INHALATION Q4H PRN PRN 08/11/19 (SP)Vent Pts] Fluticasone/Umeclidin/Vilanter 1 ea IH DAILY 08/11/19 [Trelegy Ellipta 100-62.5-25] Prednisone 10 mg PO DAILY 08/11/19 Surgical History: Surgical History (Last Reviewed 08/11/19 @ 14:[address] Baldemar Pete MD) History of tonsillectomy Z90.89 1969 Hx of appendectomy Z90.49 1973 Hx of hysterectomy Z90.710 1994 Surgical History: appendectomy, hysterectomy, tonsillectomy Psychiatric History: No pertinent psych hx [employer] DIRECTOR History: No pertinent [employer]IVE DIRECTOR history Smoking Status: Light Smoker (<10/day) Tobacco Use: Cigarettes - *Family History Maternal Family History: Family History (Last Reviewed 08/11/19 @ 14:[address] Baldemar Pete MD) Other Anemia Arthritis Asthma Bowel disease CVA (cerebral vascular accident) Diabetes Heart disease Hypertension Myocardial infarction Osteoporosis Seizures Thyroid disorder History Items: No pertinent history Paternal Family History: Family History (Last Reviewed 08/11/19 @ 14:[address] Baldemar Pete MD) Other Anemia Arthritis Asthma Bowel disease CVA (cerebral vascular accident) Diabetes Heart disease Hypertension Myocardial infarction Osteoporosis Seizures Thyroid disorder History Items: No pertinent history, - - granddaughter has fibromyalgia Review of Systems Constitutional: Denies: Chills, Fever Eyes: Denies: Blurred vision, Double vision HEENT: Denies: Head Aches, Sinus Congestion, Sinus Drainage Cardiovascular: Denies: Chest Pain, Palpitations Respiratory: Reports: Cough, Shortness of Breath, Wheezing. Denies: Sputum production Gastrointestinal: Denies: Abdominal Pain, Nausea, Vomiting Genitourinary: Denies: Dysuria Musculoskeletal: Denies: Joint Pain, Joint Tenderness Skin: Denies: Rash, Wounds Neurological: Denies: Numbness, Tingling, Focal weakness Psychiatric: Denies: Anxiety, Depression, Homicidal Ideations, Suicidal Ideations Hematologic/ Lymphatic: Denies: Easy Bruising, Easy Bleeding Objective: The patient's most recent lab work, culture data and imaging studies have all been personally reviewed. Sputum culture and respiratory viral panel are pending. - Physical Exam Vitals/I&O's: Vital Signs Temp Pulse Resp BP Pulse Ox 98.6 F 104 H 20 H 133/89 H 94 08/12/19 06:00 08/12/19 06:44 08/12/19 06:44 08/12/19 06:00 08/12/19 06:44 Oxygen Flow Rate (L/min) 2 Oxygen Delivery Method Nasal Cannula Weight: 210 lb 5.136 oz Body Mass Index (BMI) 34.9 Intake and Output for Last 24 Hours 08/10/19 08/11/19 08/12/19 23:59 23:59 23:59 Intake Total 555 / 1155 1000 / 1000 Output Total 300 / 300 Balance 555 / 1155 700 / 700 General: Alert, Oriented x3, Cooperative, No apparent distress HEENT: Atraumatic, PERRLA, Normocephalic Oral: No Gingival or Mucosal Lesions/ Ulcerations Neck: Supple, No Nodes, Trachea Midline Lungs: Diminished, Tachypneic, Wheezes Cardiovascular: Regular rate, Regular Rhythm, Normal S1, Normal S2, No murmurs Abdomen: Bowel Sounds Present, Soft, Non Tender, Obese Extremities: No clubbing, No cyanosis, No edema Skin: No breakdown Musculoskeletal: No Tenderness to Palpation of Joints or Extremities, No Muscle Wasting Lymphatic: No Cervical, Supraclavicular, or Inguinal Adenopathy Neurological: Cranial nerves II-XII grossly intact, Neuro grossly intact Psych/Mental Status: Alert and oriented to time, place, person, mood and affect Labs (Last 48 Hours) 08/11/19 08/11/19 08/11/19 13:33 13:33 13:33 WBC 11.1 H RBC 4.94 Hgb 15.0 Hct 47.0 MCV 95.1 MCH 30.4 MCHC 31.9 L RDW Std Deviation 45.0 H RDW Coeff of Randa 12.9 Plt Count 248 MPV 9.6 Immature Gran % (Auto) 0.400 Neut % (Auto) 83.9 H Lymph % (Auto) 7.7 L Gregory % (Auto) 5.9 Eos % (Auto) 1.6 Baso % (Auto) 0.5 Absolute Neuts (auto) 9.3 H Absolute Lymphs (auto) 0.85 Nucleated RBC % 0 Sodium 138 Potassium 3.7 Chloride 109 H Carbon Dioxide 27.0 Anion Gap 2 L BUN 9 Creatinine 1.15 H Estim Creat Clear Calc 43.89 Est GFR (MDRD) Af Amer 61 Est GFR (MDRD) Non-Af 50 L BUN/Creatinine Ratio 7.8 L Glucose 127 H Lactic Acid 1.0 Calcium 9.5 Magnesium Troponin I < 0.015 B-Natriuretic Peptide 08/11/19 08/12/19 08/12/19 13:33 06:50 06:50 WBC 9.5 RBC 5.07 Hgb 15.1 H Hct 47.3 H MCV 93.3 MCH 29.8 MCHC 31.9 L RDW Std Deviation 44.3 H RDW Coeff of Randa 12.9 Plt Count 243 MPV 10.4 Immature Gran % (Auto) 0.500 Neut % (Auto) 87.3 H Lymph % (Auto) 7.3 L Gregory % (Auto) 4.8 Eos % (Auto) 0.0 Baso % (Auto) 0.1 Absolute Neuts (auto) 8.3 H Absolute Lymphs (auto) 0.70 L Nucleated RBC % 0 Sodium 137 Potassium 4.1 Chloride 105 Carbon Dioxide 24.0 Anion Gap 8 BUN 11 Creatinine 1.07 H Estim Creat Clear Calc 47.17 Est GFR (MDRD) Af Amer 66 Est GFR (MDRD) Non-Af 55 L BUN/Creatinine Ratio 10.3 Glucose 138 H Lactic Acid Calcium 9.4 Magnesium 2.0 Troponin I B-Natriuretic Peptide 19.7 Microbiology 08/11/19 13:50 Mucosa - Nasopharyngeal Influenza Types A,B Direct FA (RADHA) - Final Clinical Impression(s) from Imaging Studies Chest X-Ray 08/11/19 13:33 IMPRESSION: COPD without acute findings. Electronically Signed: Ed Correa DO at 14:09 EST Tel , Service support , Current Medications Acetaminophen (Tylenol) 650 mg PO Q6H PRN PRN PRN Reason: Pain Score 1-10/Temp > 100.7 F Al Hydroxide/Mg Hydroxide (Mylanta Ii) 30 ml PO Q6H PRN PRN PRN Reason: Gastric Burning Albuterol Sulfate (Ventolin Aerosols) 2.5 mg INHALATION Q2H PRN PRN PRN Reason: SHORTNESS OF BREATH Last Admin: 08/12/19 04:59 Dose: 2.5 mg Documented by: Albuterol/Ipratropium (Duoneb) 3 ml INHALATION Q4H.RT [facility] Last Admin: 08/12/19 06:43 Dose: 3 ml Documented by: Amlodipine Besylate (Norvasc) 10 mg PO DAILY [facility] Bupropion HCl (Wellbutrin Sr (150mg Tablets)) 150 mg PO BID [facility] Dicyclomine HCl (Bentyl) 10 mg PO TIDAC PRN PRN Reason: ibs Enoxaparin Sodium (Lovenox) 40 mg SC DAILY [facility] Guaifenesin (Mucinex) 600 mg PO BID [facility] Last Admin: 08/11/19 21:57 Dose: 600 mg Documented by: Guaifenesin (Robitussin) 20 ml PO Q4H PRN PRN PRN Reason: COUGH Hydralazine HCl (Apresoline Iv) 10 mg IV Q4H PRN PRN PRN Reason: BLOOD PRESSURE ELEVATION Last Admin: 08/12/19 02:06 Dose: 10 mg Documented by: Azithromycin 500 mg/ Dextrose 255 mls @ 250 mls/hr IV Q24 [facility] Stop: 08/14/19 11:02 Magnesium Hydroxide (Milk Of Magnesia) 30 ml PO DAILY PRN PRN PRN Reason: Constipation Melatonin (Melatonin) 3 mg PO QHS PRN PRN PRN Reason: INSOMNIA Last Admin: 08/11/19 21:57 Dose: 3 mg Documented by: Methylprednisolone (Solu-Medrol) 40 mg IV Q8 [facility] Stop: 08/12/19 22:01 Last Admin: 08/12/19 06:22 Dose: 40 mg Documented by: Nitroglycerin (Nitrostat) 0.4 mg SUBLINGUAL Q5M PRN PRN Reason: CARDIAC/CHEST PAIN Non-Formulary Medication (Folic Acid/Multivit,Iron,[place] [One Daily For Women Tablet]) 1 tab PO DAILY [facility] Nystatin (Nystatin) 400,000 unit PO DAILY [facility] Ondansetron HCl (Zofran) 4 mg IV Q8H PRN PRN PRN Reason: NAUSEA/VOMITING Oxycodone HCl (Oxyir) 5 mg PO Q4H PRN PRN PRN Reason: Pain Score 4-5/10 Oxycodone HCl (Oxyir) 10 mg PO Q4H PRN PRN PRN Reason: Pain Score 6-10/10 Last Admin: 08/12/19 06:22 Dose: 10 mg Documented by: Prednisone () 40 mg PO DAILY@0800 [facility] Sodium Chloride () 10 - 40 ml IV UD PRN PRN Reason: SALINE FLUSH Last Admin: 08/12/19 06:22 Dose: 10 ml Documented by: Assessment/Plan All Active Problems (Last Reviewed 08/11/19 @ 14:[address] Baldemar Pete MD) Unable to ambulate (Resolved) COPD exacerbation (Acute) COPD (chronic obstructive pulmonary disease) (Acute) RECOMMENDATIONS: 1. Continue current medical management with scheduled bronchodilators and IV steroids. 2. Await results of sputum culture and respiratory viral panel. 3. Wean supplemental oxygen to maintain saturations at or above 90%. 4. Encourage incentive spirometer use and mobilize patient as tolerated. 5. Perform walking oximetry study prior to consideration for discharge home. 6. Please schedule the patient for a follow-up office visit within 2 weeks of discharge in the pulmonary medicine clinic. We will plan to obtain repeat pulmonary function studies along with a low-dose CT scan of the chest. [facility] records will be obtained at that time as well. IMPRESSIONS: 1. Acute hypoxemic respiratory insufficiency secondary to COPD with exacerbation Suspect likely due to viral upper respiratory infection, given the lack of focal infiltrate or consolidation on plain film chest x-ray. Currently, sputum culture and respiratory viral panel are pending. For now, I agree with continuing scheduled bronchodilators and IV steroids. Wean supplemental oxygen to maintain saturations at or above 90%. Encourage incentive spirometer use while in bed. Perform walking oximetry study prior to consideration for discharge home. The patient can be scheduled to follow-up after discharge within 2 weeks in the pulmonary medicine clinic. We will obtain her [facility] records at that time. Further optimization of her baseline inhaler regimen will be undertaken upon follow-up in the pulmonary medicine clinic. 2. History of tobacco dependency, currently in remission The patient reports a [id number] smoking history, having quit completely 5 days prior to being admitted to the hospital. Given her age and smoking history, she would be a candidate for yearly low-dose CT screening of the chest. This will be discussed further upon her follow-up office visit. 3. Nocturnal hypoxemia The patient reports a history of utilizing 2 L/min of supplemental oxygen on a nightly basis. 4. Polymyalgia rheumatica/obesity/hypertension Complicates care, management, recovery and prognosis. Continue home medications as indicated. This note was generated with [employer] dictation software. It may contain incorrect words, spelling, and punctuation that were not noted in checking the note before signing. Code Visit Inpatient E&M: 33049 Init Hosp L3
[2019-08-12] MEDS: Enoxaparin 40 MG/0.4 ML Syringe SC (09:44)
[2019-08-12] MEDS: amLODIPine 10 MG Tablet PO (09:45)
[2019-08-12] MEDS: guaiFENesin 600 MG Tablet PO ×2 (09:45→21:52)
[2019-08-12] MEDS: buPROPion (SR) 150 MG Tablet.SA PO ×2 (11:31→21:47)
[2019-08-12] MEDS: hydroCHLOROthiazide 25 MG Tablet PO (11:31)
[2019-08-12] MEDS: Multivitamins,Ther W-Minerals Tablet 1 TABLET PO (11:31)
[2019-08-12] MEDS: NYSTATIN 500,000 UNIT/5 ML UDC 500000 UNIT PO (11:31)
[2019-08-12] MEDS: LORazepam 2 MG/ML Bottle 0.5 MG SL ×2 (14:27→22:06)
[2019-08-12] MEDS: guaiFENesin 10 ML UDC (200MG/10ML) 20 ML PO ×2 (16:37→21:45)
[2019-08-12] MEDS: MELATONIN 3 MG TABLET PO (21:45)
--- NOTE | 2019-08-12 23:20 | NURSING ---
Pt complained of pain (pressure in chest) 4/10 on pain scale. Same pain seen in ED , EKG in ED negative, vitals taken and are stable. This has been monitored throughout the day. Pt falls asleep before leaving room. Just received breathing treatment from RT. Will continue to monitor.
[2019-08-13] VITALS (12 sets, daily range): BP systolic 140–164; BP diastolic 67–81; PULSE 85–99; RESP 18–20; TEMP 36.4–37.1; O2SAT 94–97
[2019-08-13] MEDS: Ipratropium/Albuterol Sulfate 3 ML AMPUL.NEB INHALATION ×6 (03:04→23:19)
[2019-08-13] MEDS: LORazepam 2 MG/ML Bottle 0.5 MG SL (05:26)
[2019-08-13 06:32] LABS: Basophil# 0.01 X10^3/uL; Basophil% 0.1 % (0-1); Hematocrit 48.9 % (37-47); Hemoglobin 15.6 g/dL (12.0-15.0); Mean Corp Hgb Conc 31.9 g/dL (32-36); Mean Corpuscular Hgb 30.1 pg (27.0-32.0); Mean Corpuscular Volume 94.2 fL (81-99); Mean Platelet Vol. 10.1 fl (6.2-12.0); Monocyte# 1.14 X10^3/uL; Monocyte% 8.2 % (0-10); NRBC Flagged by Analyzer 0 % (0-5); Neutrophil % 86.2 % (47-70); Platelet Count 257 K/mm3 (150-450); RBC Distribution Width CV 12.9 % (11.6-14.6); RBC Distribution Width SD 45.1 fl (35.1-43.9); Red Blood Count 5.19 M/mm3 (4.2-5.4); White Blood Count 13.9 K/mm3 (4.4-11.0)
[2019-08-13 06:42] LABS: Anion Gap 7 (5-15); BUN 13 mg/dL (7-18); BUN/Creat Ratio 12.4 RATIO (10-20); Calcium,Total 9.8 mg/dL (8.5-10.1); Chloride 102 mmol/L (98-107); Creatinine, Serum 1.05 mg/dL (0.55-1.02); EST Glomerular Filtration Rate 56 mL/min (>60); Est Glom Filt Rate - Afr Amer 68 mL/min (>60); Estimated Creatinine Clearance 48.07 ml/min; Glucose 144 mg/dL (74-106); Potassium 4.4 mmol/L (3.5-5.1); Sodium Level 135 mmol/L (136-145)
--- NOTE | 2019-08-13 08:18 | PN_ITS ---
Reason for Visit: Follow-up on Acute COPD exacerbation Subjective: Patient was seen and examined. She complains of persistent shortness of breath with inability to expectorate. Denies any fever or chills. She is on 3 L of oxygen; usually on 2 L of oxygen at baseline. Objective: Physical exam: Vitals/I&O's: Vital Signs Temp Pulse Resp BP Pulse Ox 98.7 F 99 18 156/81 H 96 08/13/19 04:20 08/13/19 07:09 08/13/19 07:09 08/13/19 04:20 08/13/19 07:09 Oxygen Flow Rate (L/min) 3 Oxygen Delivery Method Nasal Cannula Weight: 95.4 kg Body Mass Index (BMI) 34.9 Intake and Output for Last 24 Hours 08/11/19 08/12/19 08/13/19 23:59 23:59 23:59 Intake Total 555 / 1155 1955 / 2155 800 / 800 Output Total 550 / 1025 775 / 775 Balance 555 / 1155 1405 / 1130 25 / 25 General: Alert, Oriented x3, Cooperative, No apparent distress, - - on 3L oxygen HEENT: Atraumatic, PERRLA, EOMI, Normocephalic Oral: Moist Mucosa Neck: Supple Lungs: Clear to auscultation, Normal air movement Cardiovascular: Regular rate, Regular Rhythm, Normal S1, Normal S2, No murmurs Abdomen: Bowel Sounds Present, Soft, Non Tender, Non-Distended, No Hepato- splenomegaly Extremities: No edema Skin: No rashes, No breakdown Musculoskeletal: No Tenderness to Palpation of Joints or Extremities Lymphatic: No Cervical, Supraclavicular, or Inguinal Adenopathy Neurological: Cranial nerves II-XII grossly intact, Neuro grossly intact Psych/Mental Status: Normal Affect, Appropriate Microbiology Past 72 Hours 08/11/19 15:55 Mucosa - Nose Respiratory Panel (PCR) - Final 08/11/19 21:00 Sputum, Expectorated/Coughed Gram Stain - Final 08/11/19 21:00 Sputum, Expectorated/Coughed Respiratory Culture - Preliminary Appears to be normal respiratory adrian. Further studies to follow. 08/11/19 13:50 Mucosa - Nasopharyngeal Influenza Types A,B Direct FA (RADHA) - Final Laboratory Results 08/13/19 05:30: Sodium 135 L, Potassium 4.4, Chloride 102, Carbon Dioxide 26.0, Anion Gap 7, BUN 13, Creatinine 1.05 H, Estim Creat Clear Calc 48.07, Est GFR (MDRD) Af Amer 68, Est GFR (MDRD) Non-Af 56 L, BUN/Creatinine Ratio 12.4, Glucose 144 H, Calcium 9.8 08/13/19 05:30: WBC 13.9 H, RBC 5.19, Hgb 15.6 H, Hct 48.9 H, MCV 94.2, MCH 30.1, MCHC 31.9 L, RDW Std Deviation 45.1 H, RDW Coeff of Randa 12.9, Plt Count 257, MPV 10.1, Immature Gran % (Auto) 0.500, Neut % (Auto) 86.2 H, Lymph % (Auto ) 5.0 L, Garza % (Auto) 8.2, Eos % (Auto) 0.0, Baso % (Auto) 0.1, Absolute Neuts (auto) 12.0 H, Absolute Lymphs (auto) 0.70 L, Nucleated RBC % 0 Current Medications Acetaminophen (Tylenol) 650 mg PO Q6H PRN PRN PRN Reason: Pain Score 1-10/Temp > 100.7 F Al Hydroxide/Mg Hydroxide (Mylanta Ii) 30 ml PO Q6H PRN PRN PRN Reason: Gastric Burning Albuterol Sulfate (Ventolin Aerosols) 2.5 mg INHALATION Q2H PRN PRN PRN Reason: SHORTNESS OF BREATH Last Admin: 08/12/19 17:16 Dose: 2.5 mg Documented by: Albuterol/Ipratropium (Duoneb) 3 ml INHALATION Q4H.RT [facility] Last Admin: 08/13/19 07:09 Dose: 3 ml Documented by: Amlodipine Besylate (Norvasc) 10 mg PO DAILY [facility] Last Admin: 08/12/19 09:45 Dose: 10 mg Documented by: Bupropion HCl (Wellbutrin Sr (150mg Tablets)) 150 mg PO BID [facility] Last Admin: 08/12/19 21:47 Dose: 150 mg Documented by: Dicyclomine HCl (Bentyl) 10 mg PO TIDAC PRN PRN Reason: ibs Enoxaparin Sodium (Lovenox) 40 mg SC DAILY [facility] Last Admin: 08/12/19 09:44 Dose: 40 mg Documented by: Guaifenesin (Mucinex) 600 mg PO BID [facility] Last Admin: 08/12/19 21:52 Dose: 600 mg Documented by: Guaifenesin (Robitussin) 20 ml PO Q4H PRN PRN PRN Reason: COUGH Last Admin: 08/12/19 21:45 Dose: 20 ml Documented by: Hydralazine HCl (Apresoline Iv) 10 mg IV Q4H PRN PRN PRN Reason: BLOOD PRESSURE ELEVATION Last Admin: 08/12/19 21:54 Dose: 10 mg Documented by: Hydrochlorothiazide (Hctz) 25 mg PO DAILY [facility] Last Admin: 08/12/19 11:31 Dose: 25 mg Documented by: Azithromycin 500 mg/ Dextrose 255 mls @ 250 mls/hr IV Q24 [facility] Stop: 08/14/19 11:02 Last Infusion: 08/12/19 10:47 Dose: Infused Documented by: Lorazepam (Ativan Intensol) 0.5 mg SL Q6H PRN PRN PRN Reason: ANXIETY/AGITATION Last Admin: 08/13/19 05:26 Dose: 0.5 mg Documented by: Magnesium Hydroxide (Milk Of Magnesia) 30 ml PO DAILY PRN PRN PRN Reason: Constipation Melatonin (Melatonin) 3 mg PO QHS PRN PRN PRN Reason: INSOMNIA Last Admin: 08/12/19 21:45 Dose: 3 mg Documented by: Multivitamins/Minerals (Multivitamin With Minerals (Bkc)) 1 tablet PO DAILY@0800 [facility] Last Admin: 08/12/19 11:31 Dose: 1 tablet Documented by: Nitroglycerin (Nitrostat) 0.4 mg SUBLINGUAL Q5M PRN PRN Reason: CARDIAC/CHEST PAIN Nystatin (Nystatin) 500,000 unit PO DAILY [facility] Last Admin: 08/12/19 11:31 Dose: 500,000 unit Documented by: Ondansetron HCl (Zofran) 4 mg IV Q8H PRN PRN PRN Reason: NAUSEA/VOMITING Oxycodone HCl (Oxyir) 5 mg PO Q4H PRN PRN PRN Reason: Pain Score 4-5/10 Oxycodone HCl (Oxyir) 10 mg PO Q4H PRN PRN PRN Reason: Pain Score 6-10/10 Last Admin: 08/12/19 21:45 Dose: 10 mg Documented by: Prednisone () 40 mg PO DAILY@0800 [facility] Sodium Chloride () 10 - 40 ml IV UD PRN PRN Reason: SALINE FLUSH Last Admin: 08/12/19 22:12 Dose: 10 ml Documented by: STROKE Vital Signs/Narrative: Vital Signs Temp Pulse Resp BP Pulse Ox 08/13/19 07:09 99 18 96 08/13/19 04:20 98.7 F 99 20 H 156/81 H 96 Medical Necessity - Tobacco Use Smoking Status: Light Smoker (<10/day) Tobacco Use: Cigarettes Assessment/Plan All Active Problems (Last Reviewed 08/11/19 @ 14:[address] Baldemar Pete MD) Unable to ambulate (Resolved) COPD exacerbation (Acute) COPD (chronic obstructive pulmonary disease) (Acute) 1. Acute COPD exacerbation secondary to gram-negative bernard bronchitis, Sputum culture growing gram-negative bernard continue on oral prednisone, breathing treatments Discontinue azithromycin, start on IV Levaquin, follow-up on sputum culture results 2. Acute on chronic respiratory failure, in a patient with chronic hypoxic respiratory failure, on 2 L oxygen at baseline 3. Hypertension, controlled, continue on amlodipine, hydrochlorothiazide 4. Recent right breast mass biopsy, patient will follow-up with results 5. Polymyalgia rheumatica, on prednisone 6. Obesity, BMI 45.0, lifestyle modification recommended 7. Nicotine dependence, advised to quit 8. DVT prophylaxis with Lovenox subcu Code Visit Inpatient E&M: 08263 Subs Hosp L2
[2019-08-13] MEDS: buPROPion (SR) 150 MG Tablet.SA PO ×2 (08:29→21:21)
[2019-08-13] MEDS: Multivitamins,Ther W-Minerals Tablet 1 TABLET PO (08:29)
[2019-08-13] MEDS: hydroCHLOROthiazide 25 MG Tablet PO (08:29)
[2019-08-13] MEDS: Magnesium Hydroxide 30 ML UDC PO (08:29)
[2019-08-13] MEDS: oxyCODONE 5 MG Tablet 10 MG PO ×2 (08:29→21:21)
[2019-08-13] MEDS: amLODIPine 10 MG Tablet PO (08:29)
[2019-08-13] MEDS: NYSTATIN 500,000 UNIT/5 ML UDC 500000 UNIT PO (08:30)
[2019-08-13] MEDS: predniSONE 20 MG Tablet 40 MG PO (08:33)
[2019-08-13] MEDS: guaiFENesin 600 MG Tablet PO ×2 (08:34→21:21)
--- NOTE | 2019-08-13 10:15 | CASEMGMT ---
RN CM Face to Face with patient for initial transition planning/care coordination assessment. RN CM introduced self and role at [facility]. Patient lying in bed, alert and oriented. Patient willing to participate in assessment and is able to answer all questions appropriately. Care providers, pharmacy, and demographics verified. Patient wishes to discharge home, denies need for home health at this time. Patient states she has no further needs or concerns at this time. CM to follow for discharge planning needs that may arise. PCP: [facility] Specialists:Renzo but changing to Alonso or Jero, pulmonology; LISET Matthew Preferred Pharmacy: [facility] Insurance: [employer] Prescription Benefit: yes Living Will/HPOA: none LNOK: daughter Living Arrangements: Patient lives alone in 6th floor apartment with elevator. Patient independent at home. Transportation: self/neice/public transportation DME/HHC: Patient has shower chair, grab bars, rollator, oxygen 2lpm at through [employer], nebulizer. Disposition Plan: Patient to discharge home with family support and follow-up plans in place. Will monitor for need for additional oxygen. Cari CRUZN, RN, CM
--- NOTE | 2019-08-13 11:06 | PCM.PN.PUL ---
Subjective: Patient did okay overnight. Patient continues to report paroxysmal type cough that is nonproductive. Patient is back on her baseline nasal cannula oxygen. Patient does report significant dyspnea on exertion and feels she is subjectively unchanged compared to previous. - Physical Exam Vitals/I&O's: Vital Signs Temp Pulse Resp BP Pulse Ox 36.9 C 85 20 H 140/79 H 94 08/13/19 10:20 08/13/19 10:20 08/13/19 10:20 08/13/19 10:20 08/13/19 10:20 Oxygen Flow Rate (L/min) 2 Oxygen Delivery Method Room Air Weight: 95.4 kg Body Mass Index (BMI) 34.9 Intake and Output for Last 24 Hours 08/11/19 08/12/19 08/13/19 23:59 23:59 23:59 Intake Total 555 / 1155 1955 / 2155 800 / 800 Output Total 550 / 1025 775 / 775 Balance 555 / 1155 1405 / 1130 25 / 25 General: Alert, Oriented x3, Cooperative, No apparent distress, - - Obese. No conversational dyspnea. HEENT: Atraumatic, PERRLA, EOMI, Normocephalic, - - No scleral icterus or injection noted Oral: No Gingival or Mucosal Lesions/ Ulcerations, Dry Mucosa Neck: Supple, No JVD, No Nodes, Trachea Midline Lungs: No rhonchi, No rales, Diminished, Wheezes, - - Symmetric expansion. Cardiovascular: Regular rate, Regular Rhythm, Normal S1, Normal S2, No murmurs, No rub noted, No Gallop Abdomen: Bowel Sounds Present, Soft, Non Tender, Non-Distended Extremities: No clubbing, No cyanosis, No edema Skin: No breakdown Musculoskeletal: No Tenderness to Palpation of Joints or Extremities Lymphatic: No Cervical, Supraclavicular, or Inguinal Adenopathy Neurological: Cranial nerves II-XII grossly intact, Neuro grossly intact, Motor Exam 5/5 strength throughout Psych/Mental Status: Anxious Microbiology Past 72 Hours 08/11/19 21:00 Sputum, Expectorated/Coughed Gram Stain - Final 08/11/19 21:00 Sputum, Expectorated/Coughed Respiratory Culture - Preliminary Gram negative bernard 08/11/19 15:55 Mucosa - Nose Respiratory Panel (PCR) - Final 08/11/19 13:50 Mucosa - Nasopharyngeal Influenza Types A,B Direct FA (RADHA) - Final Laboratory Results 08/13/19 05:30: Sodium 135 L, Potassium 4.4, Chloride 102, Carbon Dioxide 26.0, Anion Gap 7, BUN 13, Creatinine 1.05 H, Estim Creat Clear Calc 48.07, Est GFR (MDRD) Af Amer 68, Est GFR (MDRD) Non-Af 56 L, BUN/Creatinine Ratio 12.4, Glucose 144 H, Calcium 9.8 08/13/19 05:30: WBC 13.9 H, RBC 5.19, Hgb 15.6 H, Hct 48.9 H, MCV 94.2, MCH 30.1, MCHC 31.9 L, RDW Std Deviation 45.1 H, RDW Coeff of Randa 12.9, Plt Count 257, MPV 10.1, Immature Gran % (Auto) 0.500, Neut % (Auto) 86.2 H, Lymph % (Auto) 5.0 L, [place] % (Auto) 8.2, Eos % (Auto) 0.0, Baso % (Auto) 0.1, Absolute Neuts (auto) 12.0 H, Absolute Lymphs (auto) 0.70 L, Nucleated RBC % 0 Current Medications Acetaminophen (Tylenol) 650 mg PO Q6H PRN PRN PRN Reason: Pain Score 1-10/Temp > 100.7 F Al Hydroxide/Mg Hydroxide (Mylanta Ii) 30 ml PO Q6H PRN PRN PRN Reason: Gastric Burning Albuterol Sulfate (Ventolin Aerosols) 2.5 mg INHALATION Q2H PRN PRN PRN Reason: SHORTNESS OF BREATH Last Admin: 08/12/19 17:16 Dose: 2.5 mg Documented by: Albuterol/Ipratropium (Duoneb) 3 ml INHALATION Q4H.RT COUNT INCLUDES [facility] Last Admin: 08/13/19 11:04 Dose: 3 ml Documented by: Amlodipine Besylate (Norvasc) 10 mg PO DAILY COUNT [facility]CLUDES [facility] Last Admin: 08/13/19 08:29 Dose: 10 mg Documented by: Bupropion HCl (Wellbutrin Sr (150mg Tablets)) 150 mg PO BID COUNT [facility]CLUDES [facility] Last Admin: 08/13/19 08:29 Dose: 150 mg Documented by: Dicyclomine HCl (Bentyl) 10 mg PO TIDAC PRN PRN Reason: ibs Enoxaparin Sodium (Lovenox) 40 mg SC DAILY [facility]CLUD[facility] Last Admin: 08/13/19 08:31 Dose: Not Given Documented by: Guaifenesin (Mucinex) 600 mg PO BID COUNT [facility]CLUD[facility] Last Admin: 08/13/19 08:34 Dose: 600 mg Documented by: Guaifenesin (Robitussin) 20 ml PO Q4H PRN PRN PRN Reason: COUGH Last Admin: 08/12/19 21:45 Dose: 20 ml Documented by: Hydralazine HCl (Apresoline Iv) 10 mg IV Q4H PRN PRN PRN Reason: BLOOD PRESSURE ELEVATION Last Admin: 08/12/19 21:54 Dose: 10 mg Documented by: Hydrochlorothiazide (Hctz) 25 mg PO DAILY [facility] Last Admin: 08/13/19 08:29 Dose: 25 mg Documented by: Levofloxacin (Levaquin Iv) 750 mg in 150 mls @ 100 mls/hr IV Q24 [facility] Lorazepam (Ativan Intensol) 0.5 mg SL Q6H PRN PRN PRN Reason: ANXIETY/AGITATION Last Admin: 08/13/19 05:26 Dose: 0.5 mg Documented by: Magnesium Hydroxide (Milk Of Magnesia) 30 ml PO DAILY PRN PRN PRN Reason: Constipation Last Admin: 08/13/19 08:29 Dose: 30 ml Documented by: Melatonin (Melatonin) 3 mg PO QHS PRN PRN PRN Reason: INSOMNIA Last Admin: 08/12/19 21:45 Dose: 3 mg Documented by: Multivitamins/Minerals (Multivitamin With Minerals (Bkc)) 1 tablet PO DAILY@0800 [facility]CLUD[facility] Last Admin: 08/13/19 08:29 Dose: 1 tablet Documented by: Nitroglycerin (Nitrostat) 0.4 mg SUBLINGUAL Q5M PRN PRN Reason: CARDIAC/CHEST PAIN Nystatin (Nystatin) 500,000 unit PO DAILY COUNT [facility]CLUDES [facility] Last Admin: 08/13/19 08:30 Dose: 500,000 unit Documented by: Ondansetron HCl (Zofran) 4 mg IV Q8H PRN PRN PRN Reason: NAUSEA/VOMITING Oxycodone HCl (Oxyir) 5 mg PO Q4H PRN PRN PRN Reason: Pain Score 4-5/10 Oxycodone HCl (Oxyir) 10 mg PO Q4H PRN PRN PRN Reason: Pain Score 6-10/10 Last Admin: 08/13/19 08:29 Dose: 10 mg Documented by: Prednisone () 40 mg PO DAILY@0800 [facility] Last Admin: 08/13/19 08:33 Dose: 40 mg Documented by: Sodium Chloride () 10 - 40 ml IV UD PRN PRN Reason: SALINE FLUSH Last Admin: 08/12/19 22:12 Dose: 10 ml Documented by: Medical Necessity - Tobacco Use Smoking Status: Light Smoker (<10/day) Tobacco Use: Cigarettes Assessment/Plan All Active Problems (Last Reviewed 08/11/19 @ 14:[address] Baldemar Pete MD) Unable to ambulate (Resolved) COPD exacerbation (Acute) COPD (chronic obstructive pulmonary disease) (Acute) RECOMMENDATIONS: 1. Continue current medical management with scheduled bronchodilators and p.o. steroids. 2. Discontinue azithromycin. Add Levaquin. 3. Wean supplemental oxygen to maintain saturations at or above 90%. 4. Encourage incentive spirometer use and mobilize patient as tolerated. 5. Perform walking oximetry study prior to consideration for discharge home. 6. Outpatient follow-up with our office and Dr. Gupta anticipated IMPRESSIONS: 1. Acute hypoxemic respiratory insufficiency secondary to COPD with exacerbation Patient is currently growing a gram-negative in her sputum. Clinical suspicion for Pseudomonas given advanced lung disease with supplemental oxygen. Patient encouraged to continue with pulmonary toileting techniques. Patient will need a walking oximetry prior to discharge. Patient is requesting transition to our office as an outpatient. [facility] records will be requested and Dr. Gupta will make further recommendations at that time 2. History of tobacco dependency, currently in remission The patient reports a 153-[id number] smoking history, having quit completely 5 days prior to being admitted to the hospital. Given her age and smoking history, she would be a candidate for yearly low-dose CT screening of the chest. This will be discussed further upon her follow-up office visit. 3. Nocturnal hypoxemia The patient reports a history of utilizing 2 L/min of supplemental oxygen on a nightly basis. Patient would be at risk for obstructive sleep apnea, so outpatient PSG may be necessary. Would defer to Dr. Gupta as an outpatient 4. Polymyalgia rheumatica/obesity/hypertension Complicates care, management, recovery and prognosis. Continue home medications as indicated. Code Visit Inpatient E&M: 55875 Subs Hosp L2
[2019-08-13] MEDS: levoFLOXacin IV 750 MG/150 ML BAG 100 MG IV (11:41)
[2019-08-13] MEDS: 0.9% Saline Lock 10 ML Syringe IV (14:55)
[2019-08-13] MEDS: Ondansetron 4 MG/2 ML Vial IV (14:56)
[2019-08-13] MEDS: hydrALAZINE 20 MG/ML Vial 10 MG IV (21:22)
--- NOTE | 2019-08-13 23:25 | EKG12_ITS ---
Test Reason : BACK/SHOULDER PAIN Blood Pressure : / mmHG Vent. Rate : 088 BPM Atrial Rate : 088 BPM P-R Int : 168 ms QRS Dur : 090 ms QT Int : 372 ms P-R-T Axes : 082 074 076 degrees QTc Int : 450 ms Normal sinus rhythm Biatrial enlargement Abnormal ECG When compared with ECG of 11-AUG-2019 13:35, No significant change was found Confirmed by GOSIA DUARTE, COURTNEY ([id number]), science editor ANTHONY HILL ([id number] on 08/20/2019 4:00:46 PM Referred By: ALBERTO Confirmed By:COURTNEY ELISE MD
[2019-08-14] VITALS (17 sets, daily range): BP systolic 127–149; BP diastolic 70–83; PULSE 81–99; RESP 17–20; TEMP 36.6–37.6; O2SAT 91–100
[2019-08-14] MEDS: Ipratropium/Albuterol Sulfate 3 ML AMPUL.NEB INHALATION ×6 (03:23→23:00)
[2019-08-14] MEDS: Ondansetron 4 MG/2 ML Vial IV ×2 (03:40→20:14)
--- NOTE | 2019-08-14 09:30 | PCM.PN.PUL ---
Subjective: Patient did okay overnight. Patient states that she was able to get to the chair, but did not ambulate independently. Patient does state that she has had more body aches over the last 24 hours. No change in oxygen requirements have been noted. - Physical Exam Vitals/I&O's: Vital Signs Temp Pulse Resp BP Pulse Ox 37.3 C H 88 18 148/83 H 100 08/14/19 07:30 08/14/19 07:30 08/14/19 07:30 08/14/19 07:30 08/14/19 07:30 Oxygen Flow Rate (L/min) 2 Oxygen Delivery Method Nasal Cannula Weight: 95.4 kg Body Mass Index (BMI) 34.9 Intake and Output for Last 24 Hours 08/12/19 08/13/19 08/14/19 23:59 23:59 23:59 Intake Total 1955 / 2155 1685 / 2685 1000 / 1000 Output Total 550 / 1025 775 / 775 300 / 300 Balance 1405 / 1130 910 / 1910 700 / 700 General: Alert, Oriented x3, Cooperative, Well developed, Well nourished, - - Obese. No conversational dyspnea. HEENT: Atraumatic, PERRLA, EOMI, Normocephalic, - - No scleral icterus or injection noted Oral: Moist Mucosa, No Gingival or Mucosal Lesions/ Ulcerations Neck: Supple, No JVD, No Nodes, Trachea Midline Lungs: No rhonchi, No rales, Diminished, Wheezes - At end exhalation Cardiovascular: Regular rate, Regular Rhythm, Normal S1, Normal S2, No murmurs, No rub noted, No Gallop Abdomen: Bowel Sounds Present, Soft, Non Tender, Non-Distended, Obese Extremities: No clubbing, No cyanosis, No edema, Capillary Refill Less than 3 Seconds Skin: No rashes, No breakdown Musculoskeletal: No Tenderness to Palpation of Joints or Extremities Lymphatic: No Cervical, Supraclavicular, or Inguinal Adenopathy Neurological: Cranial nerves II-XII grossly intact, Neuro grossly intact, Motor Exam 5/5 strength throughout Psych/Mental Status: Anxious, Restless Microbiology Past 72 Hours 08/11/19 21:00 Sputum, Expectorated/Coughed Gram Stain - Final 08/11/19 21:00 Sputum, Expectorated/Coughed Respiratory Culture - Final Klebsiella pneumoniae sp pneum 02/29/20 15:55 Mucosa - Nose Respiratory Panel (PCR) - Final 08/11/19 13:50 Mucosa - Nasopharyngeal Influenza Types A,B Direct FA (RADHA) - Final Laboratory Results 08/13/19 23:45: Troponin I < 0.015 08/14/19 03:10: Troponin I < 0.015 08/14/19 05:56: Troponin I < 0.015 Current Medications Acetaminophen (Tylenol) 650 mg PO Q6H PRN PRN PRN Reason: Pain Score 1-10/Temp > 100.7 F Al Hydroxide/Mg Hydroxide (Mylanta Ii) 30 ml PO Q6H PRN PRN PRN Reason: Gastric Burning Albuterol Sulfate (Ventolin Aerosols) 2.5 mg INHALATION Q2H PRN PRN PRN Reason: SHORTNESS OF BREATH Last Admin: 08/12/19 17:16 Dose: 2.5 mg Documented by: Albuterol/Ipratropium (Duoneb) 3 ml INHALATION Q4H.RT [facility] Last Admin: 08/14/19 06:54 Dose: 3 ml Documented by: Amlodipine Besylate (Norvasc) 10 mg PO DAILY [facility] Last Admin: 08/13/19 08:29 Dose: 10 mg Documented by: Bupropion HCl (Wellbutrin Sr (150mg Tablets)) 150 mg PO BID [facility] Last Admin: 08/13/19 21:21 Dose: 150 mg Documented by: Dicyclomine HCl (Bentyl) 10 mg PO TIDAC PRN PRN Reason: ibs Enoxaparin Sodium (Lovenox) 40 mg SC DAILY [facility] Last Admin: 08/13/19 08:31 Dose: Not Given Documented by: Guaifenesin (Mucinex) 600 mg PO BID [facility] Last Admin: 08/13/19 21:21 Dose: 600 mg Documented by: Guaifenesin (Robitussin) 20 ml PO Q4H PRN PRN PRN Reason: COUGH Last Admin: 08/12/19 21:45 Dose: 20 ml Documented by: Hydralazine HCl (Apresoline Iv) 10 mg IV Q4H PRN PRN PRN Reason: BLOOD PRESSURE ELEVATION Last Admin: 08/13/19 21:22 Dose: 10 mg Documented by: Hydrochlorothiazide (Hctz) 25 mg PO DAILY [facility] Last Admin: 08/13/19 08:29 Dose: 25 mg Documented by: Levofloxacin (Levaquin Iv) 750 mg in 150 mls @ 100 mls/hr IV Q24 [facility] Last Infusion: 08/13/19 13:28 Dose: Infused Documented by: Lorazepam (Ativan Intensol) 0.5 mg SL Q6H PRN PRN PRN Reason: ANXIETY/AGITATION Last Admin: 08/13/19 05:26 Dose: 0.5 mg Documented by: Magnesium Hydroxide (Milk Of Magnesia) 30 ml PO DAILY PRN PRN PRN Reason: Constipation Last Admin: 08/13/19 08:29 Dose: 30 ml Documented by: Melatonin (Melatonin) 3 mg PO QHS PRN PRN PRN Reason: INSOMNIA Last Admin: 08/12/19 21:45 Dose: 3 mg Documented by: Multivitamins/Minerals (Multivitamin With Minerals (Bkc)) 1 tablet PO DAILY@0800 [facility] Last Admin: 08/13/19 08:29 Dose: 1 tablet Documented by: Nitroglycerin (Nitrostat) 0.4 mg SUBLINGUAL Q5M PRN PRN Reason: CARDIAC/CHEST PAIN Nystatin (Nystatin) 500,000 unit PO DAILY [facility] Last Admin: 08/13/19 08:30 Dose: 500,000 unit Documented by: Ondansetron HCl (Zofran) 4 mg IV Q8H PRN PRN PRN Reason: NAUSEA/VOMITING Last Admin: 08/14/19 03:40 Dose: 4 mg Documented by: Oxycodone HCl (Oxyir) 5 mg PO Q4H PRN PRN PRN Reason: Pain Score 4-5/10 Oxycodone HCl (Oxyir) 10 mg PO Q4H PRN PRN PRN Reason: Pain Score 6-10/10 Last Admin: 08/13/19 21:21 Dose: 10 mg Documented by: Prednisone () 40 mg PO DAILY@0800 [facility] Last Admin: 08/13/19 08:33 Dose: 40 mg Documented by: Sodium Chloride () 10 - 40 ml IV UD PRN PRN Reason: SALINE FLUSH Last Admin: 08/13/19 14:55 Dose: 10 ml Documented by: Medical Necessity - Tobacco Use Smoking Status: Light Smoker (<10/day) Tobacco Use: Cigarettes Assessment/Plan All Active Problems (Last Reviewed 08/11/19 @ 14:[address] Baldemar Pete MD) Unable to ambulate (Resolved) COPD exacerbation (Acute) COPD (chronic obstructive pulmonary disease) (Acute) RECOMMENDATIONS: 1. Continue current medical management with scheduled bronchodilators and p.o. steroids. 2. Complete a 5-day course of Levaquin therapy 3. Wean supplemental oxygen to maintain saturations at or above 90%. 4. Encourage incentive spirometer use and mobilize patient as tolerated. 5. Perform walking oximetry study prior to consideration for discharge home. 6. Outpatient follow-up with our office and Dr. Gupta anticipated IMPRESSIONS: 1. Acute hypoxemic respiratory insufficiency secondary to COPD with exacerbation secondary to Klebsiella pneumonia Patient is currently growing Klebsiella pneumonia in her sputum. This appears to be susceptible to Levaquin therapy. Would recommend 5 days total. Patient encouraged to continue with pulmonary toileting techniques. Patient will need a walking oximetry prior to discharge. Patient is requesting transition to our office as an outpatient. [facility] records will be requested and Dr. Gupta will make further recommendations at that time 2. History of tobacco dependency, currently in remission The patient reports a 771-fidd-auuc smoking history, having quit completely 5 days prior to being admitted to the hospital. Given her age and smoking history, she would be a candidate for yearly low-dose CT screening of the chest. This will be discussed further upon her follow-up office visit. 3. Nocturnal hypoxemia The patient reports a history of utilizing 2 L/min of supplemental oxygen on a nightly basis. Patient would be at risk for obstructive sleep apnea, so outpatient PSG may be necessary. Would defer to Dr. Gupta as an outpatient 4. Polymyalgia rheumatica/obesity/hypertension Complicates care, management, recovery and prognosis. Continue home medications as indicated. Code Visit Inpatient E&M: 15284 Subs Hosp L2
[2019-08-14] MEDS: Multivitamins,Ther W-Minerals Tablet 1 TABLET PO (09:49)
[2019-08-14] MEDS: Acetaminophen 325 MG Tablet 650 MG PO ×2 (09:49→17:41)
[2019-08-14] MEDS: predniSONE 20 MG Tablet 40 MG PO (09:50)
[2019-08-14] MEDS: hydroCHLOROthiazide 25 MG Tablet PO (09:50)
[2019-08-14] MEDS: levoFLOXacin IV 750 MG/150 ML BAG 100 MG IV (09:50)
[2019-08-14] MEDS: NYSTATIN 500,000 UNIT/5 ML UDC 500000 UNIT PO (09:51)
[2019-08-14] MEDS: amLODIPine 10 MG Tablet PO (09:51)
[2019-08-14] MEDS: buPROPion (SR) 150 MG Tablet.SA PO ×2 (09:51→22:14)
[2019-08-14] MEDS: guaiFENesin 600 MG Tablet PO ×2 (09:51→22:14)
[2019-08-14] MEDS: 0.9% Saline Lock 10 ML Syringe IV ×3 (12:51→23:25)
--- NOTE | 2019-08-14 13:34 | NURSING ---
Student documentation reviewed.
--- NOTE | 2019-08-14 15:58 | PN_ITS ---
Reason for Visit: Follow-up on acute COPD exacerbation Subjective: Patient was seen and examined. She has multiple complaints. She complains of still feeling short of breath. She is now on 2 L of oxygen. She is not able to cough up sputum. Complains of feeling tired and unable to take care of herself 9. She is inquiring into going for subacute rehab. Objective: Physical exam: General: Alert, Oriented x3, Cooperative, No apparent distress, - - on 2 L oxygen HEENT: Atraumatic, PERRLA, EOMI, Normocephalic Oral: Moist Mucosa Neck: Supple Lungs: Diminished air entry, minimal wheezes+ Cardiovascular: Regular rate, Regular Rhythm, Normal S1, Normal S2, No murmurs Abdomen: Bowel Sounds Present, Soft, Non Tender, Non-Distended, No Hepato- splenomegaly Extremities: No edema Skin: No rashes, No breakdown Musculoskeletal: No Tenderness to Palpation of Joints or Extremities Lymphatic: No Cervical, Supraclavicular, or Inguinal Adenopathy Neurological: Cranial nerves II-XII grossly intact, Neuro grossly intact Psych/Mental Status: Normal Affect, Appropriate Vitals/I&O's: Vital Signs Temp Pulse Resp BP Pulse Ox 99.6 F H 81 17 139/70 H 91 08/14/19 12:34 08/14/19 14:35 08/14/19 14:35 08/14/19 12:34 08/14/19 15:29 Oxygen Flow Rate (L/min) 1 Oxygen Delivery Method Nasal Cannula Weight: 95.4 kg Body Mass Index (BMI) 34.9 Intake and Output for Last 24 Hours 08/12/19 08/13/19 08/14/19 23:59 23:59 23:59 Intake Total 1955 / 2155 1685 / 2685 1000 / 1000 Output Total 550 / 1025 775 / 775 300 / 300 Balance 1405 / 1130 910 / 1910 700 / 700 Microbiology Past 72 Hours 08/11/19 21:00 Sputum, Expectorated/Coughed Gram Stain - Final 08/11/19 21:00 Sputum, Expectorated/Coughed Respiratory Culture - Final Klebsiella pneumoniae sp pneum 08/11/19 15:55 Mucosa - Nose Respiratory Panel (PCR) - Final 08/11/19 13:50 Mucosa - Nasopharyngeal Influenza Types A,B Direct FA (RADHA) - Final Laboratory Results 08/13/19 23:45: Troponin I < 0.015 08/14/19 03:10: Troponin I < 0.015 08/14/19 05:56: Troponin I < 0.015 Current Medications Acetaminophen (Tylenol) 650 mg PO Q6H PRN PRN PRN Reason: Pain Score 1-10/Temp > 100.7 F Last Admin: 08/14/19 09:49 Dose: 650 mg Documented by: Al Hydroxide/Mg Hydroxide (Mylanta Ii) 30 ml PO Q6H PRN PRN PRN Reason: Gastric Burning Albuterol Sulfate (Ventolin Aerosols) 2.5 mg INHALATION Q2H PRN PRN PRN Reason: SHORTNESS OF BREATH Last Admin: 08/12/19 17:16 Dose: 2.5 mg Documented by: Albuterol/Ipratropium (Duoneb) 3 ml INHALATION Q4H.RT [facility] Last Admin: 08/14/19 14:17 Dose: 3 ml Documented by: Amlodipine Besylate (Norvasc) 10 mg PO DAILY [facility] Last Admin: 08/14/19 09:51 Dose: 10 mg Documented by: Bupropion HCl (Wellbutrin Sr (150mg Tablets)) 150 mg PO BID [facility] Last Admin: 08/14/19 09:51 Dose: 150 mg Documented by: Dicyclomine HCl (Bentyl) 10 mg PO TIDAC PRN PRN Reason: ibs Enoxaparin Sodium (Lovenox) 40 mg SC DAILY [facility] Last Admin: 08/14/19 09:50 Dose: Not Given Documented by: Guaifenesin (Mucinex) 600 mg PO BID [facility] Last Admin: 08/14/19 09:51 Dose: 600 mg Documented by: Guaifenesin (Robitussin) 20 ml PO Q4H PRN PRN PRN Reason: COUGH Last Admin: 08/12/19 21:45 Dose: 20 ml Documented by: Hydralazine HCl (Apresoline Iv) 10 mg IV Q4H PRN PRN PRN Reason: BLOOD PRESSURE ELEVATION Last Admin: 08/13/19 21:22 Dose: 10 mg Documented by: Hydrochlorothiazide (Hctz) 25 mg PO DAILY [facility] Last Admin: 08/14/19 09:50 Dose: 25 mg Documented by: Levofloxacin (Levaquin Iv) 750 mg in 150 mls @ 100 mls/hr IV Q24 [facility] Last Admin: 08/14/19 09:50 Dose: 100 mls/hr Documented by: Lorazepam (Ativan Intensol) 0.5 mg SL Q6H PRN PRN PRN Reason: ANXIETY/AGITATION Last Admin: 08/13/19 05:26 Dose: 0.5 mg Documented by: Magnesium Hydroxide (Milk Of Magnesia) 30 ml PO DAILY PRN PRN PRN Reason: Constipation Last Admin: 08/13/19 08:29 Dose: 30 ml Documented by: Melatonin (Melatonin) 3 mg PO QHS PRN PRN PRN Reason: INSOMNIA Last Admin: 08/12/19 21:45 Dose: 3 mg Documented by: Multivitamins/Minerals (Multivitamin With Minerals (Bkc)) 1 tablet PO DAILY@0800 [facility] Last Admin: 08/14/19 09:49 Dose: 1 tablet Documented by: Nitroglycerin (Nitrostat) 0.4 mg SUBLINGUAL Q5M PRN PRN Reason: CARDIAC/CHEST PAIN Nystatin (Nystatin) 500,000 unit PO DAILY [facility] Last Admin: 08/14/19 09:51 Dose: 500,000 unit Documented by: Ondansetron HCl (Zofran) 4 mg IV Q8H PRN PRN PRN Reason: NAUSEA/VOMITING Last Admin: 08/14/19 03:40 Dose: 4 mg Documented by: Oxycodone HCl (Oxyir) 5 mg PO Q4H PRN PRN PRN Reason: Pain Score 4-5/10 Oxycodone HCl (Oxyir) 10 mg PO Q4H PRN PRN PRN Reason: Pain Score 6-10/10 Last Admin: 08/13/19 21:21 Dose: 10 mg Documented by: Prednisone () 40 mg PO DAILY@0800 [facility] Last Admin: 08/14/19 09:50 Dose: 40 mg Documented by: Sodium Chloride () 10 - 40 ml IV UD PRN PRN Reason: SALINE FLUSH Last Admin: 08/14/19 12:51 Dose: 10 ml Documented by: STROKE Vital Signs/Narrative: Vital Signs Temp Pulse Resp BP Pulse Ox 08/14/19 15:29 91 08/14/19 14:40 91 08/14/19 14:35 81 17 08/14/19 12:34 99.6 F H 87 20 H 139/70 H 100 Medical Necessity - Tobacco Use Smoking Status: Light Smoker (<10/day) Tobacco Use: Cigarettes Assessment/Plan All Active Problems (Last Reviewed 08/11/19 @ 14:[address] Baldemar Pete MD) Unable to ambulate (Resolved) COPD exacerbation (Acute) COPD (chronic obstructive pulmonary disease) (Acute) 1. Acute COPD exacerbation secondary to Klebsiella pneumoniae bronchitis, Continue on oral prednisone, breathing treatments, IV Levaquin, 2. Acute on chronic respiratory failure, in a patient with chronic hypoxic respiratory failure, on 2 L oxygen at baseline 3. Hypertension, controlled, continue on amlodipine, hydrochlorothiazide 4. Recent right breast mass biopsy, patient will follow-up with results 5. Polymyalgia rheumatica, on prednisone 6. Obesity, BMI 45.0, lifestyle modification recommended 7. Nicotine dependence, advised to quit 8. DVT prophylaxis with Lovenox subcu Code Visit Inpatient E&M: 92982 Subs Hosp L2
--- NOTE | 2019-08-14 16:49 | CASEMGMT ---
Social Work Note SW updated that pt is requesting SNF as she is too weak to return home at this time. SW attempted to meet with pt. Pt has sign on door that states do not disturb unless you are family. SW will meet with pt tomorrow morning. Plan: SNF pending acceptance and pre-cert Cari Baptiste [employer], [employer]
[2019-08-14] MEDS: MELATONIN 3 MG TABLET PO (22:14)
[2019-08-14] MEDS: Dicyclomine 10 MG Capsule PO (22:14)
[2019-08-14] MEDS: proCHLORPERazine 10 MG/2 ML Vial 5 MG IV (23:24)
[2019-08-14] MEDS: LORazepam 2 MG/ML Bottle 0.5 MG SL (23:38)
[2019-08-15] VITALS (11 sets, daily range): BP systolic 120–134; BP diastolic 49–79; PULSE 78–89; RESP 18–24; TEMP 37.2–37.7; O2SAT 85–98
[2019-08-15] MEDS: Ipratropium/Albuterol Sulfate 3 ML AMPUL.NEB INHALATION ×4 (02:20→14:25)
--- NOTE | 2019-08-15 02:39 | NURSING ---
Talked with daughter Susana HEAD about mother and how she si doing, she will call and talk with her mother at 0630 before she goes to work.
[2019-08-15] MEDS: Magnesium Hydroxide 30 ML UDC PO (06:06)
[2019-08-15] MEDS: 0.9% Saline Lock 10 ML Syringe IV (06:11)
[2019-08-15] MEDS: Ondansetron 4 MG/2 ML Vial IV (06:11)
[2019-08-15] MEDS: Dicyclomine 10 MG Capsule PO (07:12)
[2019-08-15] MEDS: predniSONE 20 MG Tablet 40 MG PO (08:17)
[2019-08-15] MEDS: Multivitamins,Ther W-Minerals Tablet 1 TABLET PO (08:17)
--- NOTE | 2019-08-15 08:50 | PCM.PN.PUL ---
Subjective: Patient did okay overnight. No hemodynamic instability was reported. However, patient reports that she feels worse than yesterday. Patient is reporting that she feels body aches and weakness throughout. Patient states I feel like I have the flu. Patient states she has taken Levaquin previously without any complications similar to what she is feeling now. Patient continues to have a cough, but reports minimal production. - Physical Exam Vitals/I&O's: Vital Signs Temp Pulse Resp BP Pulse Ox 37.7 C H 89 18 134/73 H 88 08/15/19 07:30 08/15/19 07:30 08/15/19 07:30 08/15/19 07:30 08/15/19 07:30 Oxygen Flow Rate (L/min) 1 Oxygen Delivery Method Nasal Cannula Weight: 95.4 kg Body Mass Index (BMI) 34.9 Intake and Output for Last 24 Hours 08/13/19 08/14/19 08/15/19 23:59 23:59 23:59 Intake Total 1685 / 2685 1150 / 1587 674 / 674 Output Total 775 / 775 300 / 1050 1050 / 1050 Balance 910 / 1910 850 / 537 -376 / -376 General: Alert, Oriented x3, Cooperative, No apparent distress, Well developed, Well nourished, - - No conversational dyspnea. HEENT: Atraumatic, PERRLA, EOMI, Normocephalic Oral: Moist Mucosa, No Gingival or Mucosal Lesions/ Ulcerations Neck: Supple, No JVD, No Nodes, Trachea Midline Lungs: No rhonchi, No wheeze, No rales, Diminished Cardiovascular: Regular rate, Regular Rhythm, Normal S1, Normal S2, No murmurs, No rub noted, No Gallop Abdomen: Bowel Sounds Present, Soft, Non Tender, Non-Distended Extremities: No clubbing, No cyanosis, No edema, Capillary Refill Less than 3 Seconds Skin: No rashes, No breakdown Musculoskeletal: No Tenderness to Palpation of Joints or Extremities Lymphatic: No Cervical, Supraclavicular, or Inguinal Adenopathy Neurological: Cranial nerves II-XII grossly intact, Neuro grossly intact, Motor Exam 5/5 strength throughout Psych/Mental Status: Alert and oriented to time, place, person, mood and affect Microbiology Past 72 Hours 08/11/19 21:00 Sputum, Expectorated/Coughed Gram Stain - Final 08/11/19 21:00 Sputum, Expectorated/Coughed Respiratory Culture - Final Klebsiella pneumoniae sp pneum 08/11/19 15:55 Mucosa - Nose Respiratory Panel (PCR) - Final Current Medications Acetaminophen (Tylenol) 650 mg PO Q6H PRN PRN PRN Reason: Pain Score 1-10/Temp > 100.7 F Last Admin: 08/14/19 17:41 Dose: 650 mg Documented by: Al Hydroxide/Mg Hydroxide (Mylanta Ii) 30 ml PO Q6H PRN PRN PRN Reason: Gastric Burning Albuterol Sulfate (Ventolin Aerosols) 2.5 mg INHALATION Q2H PRN PRN PRN Reason: SHORTNESS OF BREATH Last Admin: 08/12/19 17:16 Dose: 2.5 mg Documented by: Albuterol/Ipratropium (Duoneb) 3 ml INHALATION Q4H.RT [facility] Last Admin: 08/15/19 07:05 Dose: 3 ml Documented by: Amlodipine Besylate (Norvasc) 10 mg PO DAILY [facility] Last Admin: 08/14/19 09:51 Dose: 10 mg Documented by: Bupropion HCl (Wellbutrin Sr (150mg Tablets)) 150 mg PO BID [facility] Last Admin: 08/14/19 22:14 Dose: 150 mg Documented by: Dicyclomine HCl (Bentyl) 10 mg PO TIDAC PRN PRN Reason: ibs Last Admin: 08/15/19 07:12 Dose: 10 mg Documented by: Enoxaparin Sodium (Lovenox) 40 mg SC DAILY [facility] Last Admin: 08/14/19 09:50 Dose: Not Given Documented by: Guaifenesin (Mucinex) 600 mg PO BID [facility] Last Admin: 08/14/19 22:14 Dose: 600 mg Documented by: Guaifenesin (Robitussin) 20 ml PO Q4H PRN PRN PRN Reason: COUGH Last Admin: 08/12/19 21:45 Dose: 20 ml Documented by: Hydralazine HCl (Apresoline Iv) 10 mg IV Q4H PRN PRN PRN Reason: BLOOD PRESSURE ELEVATION Last Admin: 08/13/19 21:22 Dose: 10 mg Documented by: Hydrochlorothiazide (Hctz) 25 mg PO DAILY [facility] Last Admin: 08/14/19 09:50 Dose: 25 mg Documented by: Levofloxacin (Levaquin Iv) 750 mg in 150 mls @ 100 mls/hr IV Q24 [facility] Last Infusion: 08/14/19 11:20 Dose: Infused Documented by: Lorazepam (Ativan Intensol) 0.5 mg SL Q6H PRN PRN PRN Reason: ANXIETY/AGITATION Last Admin: 08/14/19 23:38 Dose: 0.5 mg Documented by: Magnesium Hydroxide (Milk Of Magnesia) 30 ml PO DAILY PRN PRN PRN Reason: Constipation Last Admin: 08/15/19 06:06 Dose: 30 ml Documented by: Melatonin (Melatonin) 3 mg PO QHS PRN PRN PRN Reason: INSOMNIA Last Admin: 08/14/19 22:14 Dose: 3 mg Documented by: Multivitamins/Minerals (Multivitamin With Minerals (Bkc)) 1 tablet PO DAILY@0800 [facility] Last Admin: 08/15/19 08:17 Dose: 1 tablet Documented by: Nitroglycerin (Nitrostat) 0.4 mg SUBLINGUAL Q5M PRN PRN Reason: CARDIAC/CHEST PAIN Nystatin (Nystatin) 500,000 unit PO DAILY [facility] Last Admin: 08/14/19 09:51 Dose: 500,000 unit Documented by: Ondansetron HCl (Zofran) 4 mg IV Q6H PRN PRN PRN Reason: NAUSEA/VOMITING Last Admin: 08/15/19 06:11 Dose: 4 mg Documented by: Oxycodone HCl (Oxyir) 5 mg PO Q4H PRN PRN PRN Reason: Pain Score 4-5/10 Oxycodone HCl (Oxyir) 10 mg PO Q4H PRN PRN PRN Reason: Pain Score 6-10/10 Last Admin: 08/13/19 21:21 Dose: 10 mg Documented by: Prednisone () 40 mg PO DAILY@0800 [facility] Last Admin: 08/15/19 08:17 Dose: 40 mg Documented by: Prochlorperazine Edisylate (Compazine Iv) 5 mg IV Q6H PRN PRN PRN Reason: NAUSEA/VOMITING Last Admin: 08/14/19 23:24 Dose: 5 mg Documented by: Sodium Chloride () 10 - 40 ml IV UD PRN PRN Reason: SALINE FLUSH Last Admin: 08/15/19 06:11 Dose: 10 ml Documented by: Medical Necessity - Tobacco Use Smoking Status: Light Smoker (<10/day) Tobacco Use: Cigarettes Assessment/Plan All Active Problems (Last Reviewed 08/11/19 @ 14:[address] Baldemar Pete MD) Unable to ambulate (Resolved) COPD exacerbation (Acute) COPD (chronic obstructive pulmonary disease) (Acute) RECOMMENDATIONS: 1. Continue current medical management with scheduled bronchodilators and p.o. steroids. 2. Complete a 5-day course of Levaquin therapy 3. Attempt room air trial. Walking oximetry prior to discharge 4. Encourage incentive spirometer use and mobilize patient as tolerated. 5. Will obtain labs this morning 6. Outpatient follow-up with our office and Dr. Gupta anticipated IMPRESSIONS: 1. Acute hypoxemic respiratory insufficiency secondary to COPD with exacerbation secondary to Klebsiella pneumonia Patient is currently growing Klebsiella pneumonia in her sputum. This appears to be susceptible to Levaquin therapy. Would recommend 5 days total. Patient encouraged to continue with pulmonary toileting techniques. Patient should be improving, but is reporting body aches and other vague issues. Will obtain chemistries and a CBC this morning to look for alternative explanations. Would not recommend repeat sputum culture. Patient has not had similar complications associated with Levaquin therapy, so medication intolerance is unlikely. Will attempt a room air challenge. 2. History of tobacco dependency, currently in remission The patient reports a [id number] smoking history, having quit completely 5 days prior to being admitted to the hospital. Given her age and smoking history, she would be a candidate for yearly low-dose CT screening of the chest. This will be discussed further upon her follow-up office visit. 3. Nocturnal hypoxemia The patient reports a history of utilizing 2 L/min of supplemental oxygen on a nightly basis. Patient would be at risk for obstructive sleep apnea, so outpatient PSG may be necessary. Would defer to Dr. Gupta as an outpatient 4. Polymyalgia rheumatica/obesity/hypertension Complicates care, management, recovery and prognosis. Continue home medications as indicated. Code Visit Inpatient E&M: 32739 Subs Hosp L3
[2019-08-15 09:24] LABS: Absolute Lymphocyte Count 1.72 X10^3/uL (0.83-4.51); Absolute Neutrophil Count 5.6 X10^3/uL (2.0-7.7); Basophil# 0.01 X10^3/uL; Basophil% 0.1 % (0-1); Eosinophil# 0.18 X10^3/uL; Eosinophils% 2.1 % (0-5); Hemoglobin 16.4 g/dL (12.0-15.0); Lymphocyte # 1.72 X10^3/ul (4.0); Lymphocyte % 20.3 % (19-41); Mean Corp Hgb Conc 32.2 g/dL (32-36); Mean Corpuscular Hgb 29.8 pg (27.0-32.0); Mean Corpuscular Volume 92.6 fL (81-99); Mean Platelet Vol. 10.1 fl (6.2-12.0); Monocyte# 0.95 X10^3/uL; Monocyte% 11.2 % (0-10); NRBC Flagged by Analyzer 0 % (0-5); Neutrophil # 5.57 X10^3/uL (2.7-7.7); Neutrophil % 65.9 % (47-70); POSITIVE MORPHOLOGY YES; Platelet Count 240 K/mm3 (150-450); RBC Distribution Width CV 12.4 % (11.6-14.6); RBC Distribution Width SD 42.6 fl (35.1-43.9); Red Blood Count 5.51 M/mm3 (4.2-5.4); White Blood Count 8.5 K/mm3 (4.4-11.0)
[2019-08-15 09:31] LABS: Differential Indicated SCAN CRITERIA MET
[2019-08-15 09:43] LABS: Anion Gap 5 (5-15); BUN 18 mg/dL (7-18); BUN/Creat Ratio 13.1 RATIO (10-20); Calcium,Total 9.7 mg/dL (8.5-10.1); Chloride 95 mmol/L (98-107); Creatinine, Serum 1.37 mg/dL (0.55-1.02); EST Glomerular Filtration Rate 41 mL/min (>60); Est Glom Filt Rate - Afr Amer 50 mL/min (>60); Estimated Creatinine Clearance 36.84 ml/min; Glucose 194 mg/dL (74-106); Magnesium 2.1 mg/dL (1.6-2.6); Phosphorus 3.3 mg/dL (2.5-4.9); Potassium 3.1 mmol/L (3.5-5.1); Sodium Level 134 mmol/L (136-145)
--- NOTE | 2019-08-15 10:18 | CASEMGMT ---
BRITTNEY CENTENO back to discuss discharge plans with patient. Patient would like HHC at discharge, BRITTNEY CENTENO provided list of in-network HHC and patient would like [facility]. BRITTNEY CENTENO updated [facility] for referral. Patient to walk with nursing for oxygen test and will monitor if home oxygen script needs updated to include portable oxygen.
--- NOTE | 2019-08-15 10:21 | DCINST_ITS ---
- Discharge Diagnoses Reason(s) for Visit for Discharge Instructions: Acute COPD exacerbation You will use the following diet at home:: Regular Your food should be the consistency of: Regular Your liquids should be the consistency of: Regular/Thin Discharge Activity: Return to Normal Activity Weight Bearing Status: Weight bearing as tolerated Instructions: What Is COPD?, Chronic Lung Disease: Tips for Quitting Smoking, Chronic Lung Disease: Becoming More Active, Chronic Lung Disease: Maximizing Your Energy, Treatments for COPD Additional Instructions: Complete your antibiotics and your prednisone. Continue to use your inhaler. Allergies/Adverse Reactions: Allergies tiotropium [From Spiriva with [employer]er] Allergy (Unknown, Verified 08/11/19 13:38) Unknown Penicillins Allergy (Verified 08/11/19 13:38) Swelling Medications to take at Discharge Folic Acid/Multivit,Iron,[place] [One Daily For Women Tablet] 1 tab PO DAILY 04/05/19 nystatin 100,000 unit/mL oral suspension 400,000 unit PO DAILY 10 Days #40 ml 05/29/19 bupropion HCl 150 mg tablet,12 hr sustained-release 150 mg PO BID #60 ea 08/06/19 dicyclomine 10 mg capsule 10 mg PO TIDAC PRN 08/06/19 amlodipine 10 mg tablet 10 mg PO DAILY #90 tab 08/07/19 Albuterol IH (ProAir) [Proair Hfa] 2 puff INHALATION Q4H PRN PRN 08/11/19 Fluticasone/Umeclidin/Vilanter [Trelegy Ellipta 100-62.5-25] 1 ea IH DAILY 08/11/19 Acetaminophen [Tylenol Tablet] 650 mg PO Q6H PRN PRN tab 08/15/19 Guaifenesin [Mucinex] 600 mg PO BID #20 tab 08/15/19 Hydrochlorothiazide [Hctz] 25 mg PO DAILY 30 Days #30 tab 08/15/19 Levofloxacin [Levaquin] 750 mg PO DAILY #5 tab 08/15/19 Prednisone 10 mg PO DAILY 30 Days #30 tab 08/15/19 The following prescriptions were given: Hydrochlorothiazide [Hctz] 25 mg PO DAILY 30 Days #30 tab Transmission Status: Pending to [facility] [place] Guaifenesin [Mucinex] 600 mg PO BID #20 tab Transmission Status: Pending to [facility] [place] Prednisone 10 mg PO DAILY 30 Days #30 tab Transmission Status: Pending to [facility] [place] Primary Care Physician: Ti Osuna MD [Primary Care Provider] - Please follow up with your Primary Care Physician in: within 1-2 weeks Test Results: Test results from this visit will be discussed in further detail at your follow- up appointment, if applicable. Proposed Discharge Date: 08/15/19
[2019-08-15] MEDS: hydroCHLOROthiazide 25 MG Tablet PO (10:25)
[2019-08-15] MEDS: amLODIPine 10 MG Tablet PO (10:26)
[2019-08-15] MEDS: guaiFENesin 600 MG Tablet PO (10:26)
[2019-08-15] MEDS: buPROPion (SR) 150 MG Tablet.SA PO (10:27)
[2019-08-15] MEDS: NYSTATIN 500,000 UNIT/5 ML UDC 500000 UNIT PO (10:27)
--- NOTE | 2019-08-15 10:27 | DS.PCM_ITS ---
Discharge Date and Diagnosis Date of Admission: 08/11/19 Date of Discharge: 08/15/19 - Primary Discharge Diagnosis Acute COPD exacerbation secondary to Klebsiella pneumonia bronchitis Acute on chronic respiratory failure Recent right breast mass biopsy Nicotine dependency - Secondary Discharge Diagnosis Chronic Problems (Last Reviewed 08/11/19 @ 14:[address] Baldemar Pete MD) PMR (polymyalgia rheumatica) (Chronic) Weakness generalized (Chronic) Chronic respiratory failure (Chronic) Irritable bowel syndrome (Chronic) Hospital Course and Treatment Imaging Results: Clinical Impression(s) from Imaging Studies Chest X-Ray 08/11/19 13:33 IMPRESSION: COPD without acute findings. Electronically Signed: Ed CorreaDO at 14:09 EST Tel , Service support , Pulmonology Operations: None Procedures: None Summary of Care Provided: The patient is a 63 year old F with past medical history of COPD on chronic 2 L of oxygen at night who comes in with progressive shortness of breath started on the justyn of the admission. Patient's initial work-up did not show any infiltrates on chest x-ray. Managed as acute COPD exacerbation. She had an increased in her oxygen requirements. She was managed on breathing treatments, IV steroids. Respiratory panel was n egative. Sputum cultures were positive for Klebsiella pneumonia. She was started on IV vancomycin and discharged on oral vancomycin to complete 1 week of antibiotics. Pulmonology was consulted during this hospital stay. Subjective: On the day of discharge, patient was seen and examined. She complains of some shortness of breath on exertion. No other acute events overnight. Objective: Physical exam: General: Alert, Oriented x3, Cooperative, No apparent distress, - - on 2 L oxygen HEENT: Atraumatic, PERRLA, EOMI, Normocephalic Oral: Moist Mucosa Neck: Supple Lungs: Diminished air entry, no wheezes Cardiovascular: Regular rate, Regular Rhythm, Normal S1, Normal S2, No murmurs Abdomen: Bowel Sounds Present, Soft, Non Tender, Non-Distended, No Hepato- splenomegaly Extremities: No edema Skin: No rashes, No breakdown Musculoskeletal: No Tenderness to Palpation of Joints or Extremities Lymphatic: No Cervical, Supraclavicular, or Inguinal Adenopathy Neurological: Cranial nerves II-XII grossly intact, Neuro grossly intact Psych/Mental Status: Normal Affect, Appropriate - Physical Exam Vitals/I&O's: Vital Signs Temp Pulse Resp BP Pulse Ox 98.9 F 88 20 H 120/49 L 88 08/15/19 09:40 08/15/19 09:40 08/15/19 09:40 08/15/19 09:40 08/15/19 09:40 Oxygen Flow Rate (L/min) 2 Oxygen Delivery Method Nasal Cannula Weight: 95.4 kg Body Mass Index (BMI) 34.9 Intake and Output for Last 24 Hours 08/13/19 08/14/19 08/15/19 23:59 23:59 23:59 Intake Total 1685 / 2685 1150 / 1587 674 / 674 Output Total 775 / 775 300 / 1050 1050 / 1050 Balance 910 / 1910 850 / 537 -376 / -376 Microbiology Past 72 Hours 08/11/19 21:00 Sputum, Expectorated/Coughed Gram Stain - Final 08/11/19 21:00 Sputum, Expectorated/Coughed Respiratory Culture - Final Klebsiella pneumoniae sp pneum 08/11/19 15:55 Mucosa - Nose Respiratory Panel (PCR) - Final Laboratory Results 08/15/19 09:08: WBC 8.5, RBC 5.51 H, Hgb 16.4 H, Hct 51.0 H, MCV 92.6, MCH 29.8, MCHC 32.2, RDW Std Deviation 42.6, RDW Coeff of Randa 12.4, Plt Count 240, MPV 10.1, Immature Gran % (Auto) 0.400, Neut % (Auto) 65.9, Lymph % (Auto) 20.3, [place] % (Auto) 11.2 H, Eos % (Auto) 2.1, Baso % (Auto) 0.1, Absolute Neuts (auto) 5.6, Absolute Lymphs (auto) 1.72, Nucleated RBC % 0 08/15/19 09:08: Sodium 134 L, Potassium 3.1 L, Chloride 95 L, Carbon Dioxide 34.0 H, Anion Gap 5, BUN 18, Creatinine 1.37 H, Estim Creat Clear Calc 36.84, Est GFR (MDRD) Af Amer 50 L, Est GFR (MDRD) Non-Af 41 L, BUN/Creatinine Ratio 13.1, Glucose 194 H, Calcium 9.7, Phosphorus 3.3, Magnesium 2.1 Current Medications Acetaminophen (Tylenol) 650 mg PO Q6H PRN PRN PRN Reason: Pain Score 1-10/Temp > 100.7 F Last Admin: 08/14/19 17:41 Dose: 650 mg Documented by: Al Hydroxide/Mg Hydroxide (Mylanta Ii) 30 ml PO Q6H PRN PRN PRN Reason: Gastric Burning Albuterol Sulfate (Ventolin Aerosols) 2.5 mg INHALATION Q2H PRN PRN PRN Reason: SHORTNESS OF BREATH Last Admin: 08/12/19 17:16 Dose: 2.5 mg Documented by: Albuterol/Ipratropium (Duoneb) 3 ml INHALATION Q4H.RT [facility] Last Admin: 08/15/19 07:05 Dose: 3 ml Documented by: Amlodipine Besylate (Norvasc) 10 mg PO DAILY [facility] Last Admin: 08/14/19 09:51 Dose: 10 mg Documented by: Bupropion HCl (Wellbutrin Sr (150mg Tablets)) 150 mg PO BID [facility] Last Admin: 08/14/19 22:14 Dose: 150 mg Documented by: Dicyclomine HCl (Bentyl) 10 mg PO TIDAC PRN PRN Reason: ibs Last Admin: 08/15/19 07:12 Dose: 10 mg Documented by: Enoxaparin Sodium (Lovenox) 40 mg SC DAILY [facility] Last Admin: 08/14/19 09:50 Dose: Not Given Documented by: Guaifenesin (Mucinex) 600 mg PO BID [facility] Last Admin: 08/14/19 22:14 Dose: 600 mg Documented by: Guaifenesin (Robitussin) 20 ml PO Q4H PRN PRN PRN Reason: COUGH Last Admin: 08/12/19 21:45 Dose: 20 ml Documented by: Hydralazine HCl (Apresoline Iv) 10 mg IV Q4H PRN PRN PRN Reason: BLOOD PRESSURE ELEVATION Last Admin: 08/13/19 21:22 Dose: 10 mg Documented by: Hydrochlorothiazide (Hctz) 25 mg PO DAILY [facility] Last Admin: 08/14/19 09:50 Dose: 25 mg Documented by: Levofloxacin (Levaquin Iv) 750 mg in 150 mls @ 100 mls/hr IV Q24 [facility] Last Infusion: 08/14/19 11:20 Dose: Infused Documented by: Lorazepam (Ativan Intensol) 0.5 mg SL Q6H PRN PRN PRN Reason: ANXIETY/AGITATION Last Admin: 08/14/19 23:38 Dose: 0.5 mg Documented by: Magnesium Hydroxide (Milk Of Magnesia) 30 ml PO DAILY PRN PRN PRN Reason: Constipation Last Admin: 08/15/19 06:06 Dose: 30 ml Documented by: Melatonin (Melatonin) 3 mg PO QHS PRN PRN PRN Reason: INSOMNIA Last Admin: 08/14/19 22:14 Dose: 3 mg Documented by: Multivitamins/Minerals (Multivitamin With Minerals (Bkc)) 1 tablet PO DAILY@0800 [facility] Last Admin: 08/15/19 08:17 Dose: 1 tablet Documented by: Nitroglycerin (Nitrostat) 0.4 mg SUBLINGUAL Q5M PRN PRN Reason: CARDIAC/CHEST PAIN Nystatin (Nystatin) 500,000 unit PO DAILY [facility] Last Admin: 08/14/19 09:51 Dose: 500,000 unit Documented by: Ondansetron HCl (Zofran) 4 mg IV Q6H PRN PRN PRN Reason: NAUSEA/VOMITING Last Admin: 08/15/19 06:11 Dose: 4 mg Documented by: Oxycodone HCl (Oxyir) 5 mg PO Q4H PRN PRN PRN Reason: Pain Score 4-5/10 Oxycodone HCl (Oxyir) 10 mg PO Q4H PRN PRN PRN Reason: Pain Score 6-10/10 Last Admin: 08/13/19 21:21 Dose: 10 mg Documented by: Prednisone () 40 mg PO DAILY@0800 [facility] Last Admin: 08/15/19 08:17 Dose: 40 mg Documented by: Prochlorperazine Edisylate (Compazine Iv) 5 mg IV Q6H PRN PRN PRN Reason: NAUSEA/VOMITING Last Admin: 08/14/19 23:24 Dose: 5 mg Documented by: Sodium Chloride () 10 - 40 ml IV UD PRN PRN Reason: SALINE FLUSH Last Admin: 08/15/19 06:11 Dose: 10 ml Documented by: Discharge Diet: Low fat/ Low Cholesterol, 2000 mg Sodium Diet, Carb Control Diet Discharge Activity: Return to Normal Activity Weight Bearing Status: Weight bearing as tolerated Home Medications: Medications to take at Discharge Folic Acid/Multivit,Iron,[employer] [One Daily For Women Tablet] 1 tab PO DAILY 04/05/19 nystatin 100,000 unit/mL oral suspension 400,000 unit PO DAILY 10 Days #40 ml 05/29/19 bupropion HCl 150 mg tablet,12 hr sustained-release 150 mg PO BID #60 ea 08/06/19 dicyclomine 10 mg capsule 10 mg PO TIDAC PRN 08/06/19 amlodipine 10 mg tablet 10 mg PO DAILY #90 tab 08/07/19 Albuterol IH (ProAir) [Proair Hfa] 2 puff INHALATION Q4H PRN PRN 08/11/19 Fluticasone/Umeclidin/Vilanter [Trelegy Ellipta 100-62.5-25] 1 ea IH DAILY 08/11/19 Acetaminophen [Tylenol Tablet] 650 mg PO Q6H PRN PRN tab 08/15/19 Guaifenesin [Mucinex] 600 mg PO BID #20 tab 08/15/19 Hydrochlorothiazide [Hctz] 25 mg PO DAILY 30 Days #30 tab 08/15/19 Levofloxacin [Levaquin] 750 mg PO DAILY #5 tab 08/15/19 Prednisone 10 mg PO DAILY 30 Days #30 tab 08/15/19 Following Prescrptions Were Given to Patient: Hydrochlorothiazide [Hctz] 25 mg PO DAILY 30 Days #30 tab Transmission Status: Received by [facility] - [place] Levofloxacin [Levaquin] 750 mg PO DAILY #5 tab Transmission Status: Received by [facility] [place] Guaifenesin [Mucinex] 600 mg PO BID #20 tab Transmission Status: Received by [facility] [place] Prednisone 10 mg PO DAILY 30 Days #30 tab Transmission Status: Received by [facility] [place] Primary Care Physician: Ti Osuna MD [Primary Care Provider] - Please follow up with your Primary Care Physician in: within 1-2 weeks Please Follow Up With: Jonny Gupta, DO When: within 2 weeks Patient Instructions: What Is COPD?, Chronic Lung Disease: Becoming More Active, Chronic Lung Disease: Maximizing Your Energy, Chronic Lung Disease: Tips for Quitting Smoking, Treatments for COPD Disposition: Home with Home Health Minutes spent on discharge:: 40 Patient Condition:: Stable Medical Necessity - Tobacco Use Smoking Status: Light Smoker (<10/day) Tobacco Use: Cigarettes Meaningful Use Info Meaningful Use Diagnoses (Choose all that apply): None applicable Code Visit Inpatient E&M: 76037 Disch Hosp
[2019-08-15] MEDS: levoFLOXacin IV 750 MG/150 ML BAG 100 MG IV (10:44)
--- NOTE | 2019-08-15 13:03 | NURSING ---
Student documentation reviewed.
--- NOTE | 2019-08-15 13:30 | CASEMGMT ---
BRITTNEY CENTENO updated that patient will qualify for continuous home oxygen. BRITTNEY CENTENO received script and sent to [facility], [place], who patient is established with HS oxygen.
--- NOTE | 2019-08-16 16:11 | CASEMGMT ---
BRITTNEY CENTENO Discharge Follow-Up Phone Call. Bebe: 12 Strata: 3 Discharge Date: 08/15/19 Adm Dx: COPD Call to pt to inquire about how has she been doing since being discharged from the hospital. Pt stated, I'm doing okay I guess. I'm just still weak. She states [facility] was in to see her today and stated, They just left. She states she was able to get the new prescriptions from [facility] and denies having any questions about the medications or discharge instructions. Pt states she was not aware of the appt made with Dr Osuna. BRITTNEY CENTENO informed pt about the appt on 09/02 @ 5608. Pt stated she wrote it down. Pt denies having any concerns, needs, or questions. BRITTNEY CENTENO thanked pt for choosing [facility]. Alexys AGOSTO RN, CM
== END 2019-08-15 16:11 | disposition home health service (06) | DRG 191 ==
LOC: ED 14:39 → MS3 14:43
PROVIDERS: Hospitalist; Internal Medicine Critical Care Medicine; Admitting Provider Internal Medicine; Emergency Provider Emergency Medicine; PCP Internal Medicine; Visit Provider Internal Medicine
DX: J44.0 Chronic obstructive pulmonary disease with (acute) lower respiratory infection (principal); J96.11 Chronic respiratory failure with hypoxia; J44.1 Chronic obstructive pulmonary disease with (acute) exacerbation; I10 Essential (primary) hypertension; N63.10 Unspecified lump in the right breast, unspecified quadrant; M35.3 Polymyalgia rheumatica; E66.9 Obesity, unspecified; Z68.34 Body mass index [BMI] 34.0-34.9, adult; M19.012 Primary osteoarthritis, left shoulder; Z99.81 Dependence on supplemental oxygen; J20.8 Acute bronchitis due to other specified organisms; F17.211 Nicotine dependence, cigarettes, in remission
CPT/HCPCS: 36415; 71045; 80048; 83605; 83735; 83880; 84100; 84484; 85025; 87070; 87077; 87186; 87205; 87633; 87804; 88305; 93005; 94640; 94667; 94668; 97162; 97166; 99251; 99285; 99406; J7050; A4216; G0463; J2405

== ENCOUNTER → 2020-02-13 14:46 | Outpatient (CLI) | payer MEDICARE, SELFPAY ==
[2020-02-13 14:18] VITALS: BMI 34.9
[2020-02-13 17:19] LABS: AST(SGOT) 13 U/L (15-37); Alanine Aminotransfer ALT/SGPT 20 U/L (13-56); Albumin, Serum 4.3 g/dL (3.2-5.0); Alkaline Phosphatase 80 U/L (45-117); Anion Gap 4 (5-15); BUN 12 mg/dL (7-18); BUN/Creat Ratio 9.8 RATIO (10-20); Chloride 108 mmol/L (98-107); Creatinine, Serum 1.22 mg/dL (0.55-1.02); EST Glomerular Filtration Rate 47 mL/min (>60); Est Glom Filt Rate - Afr Amer 57 mL/min (>60); Globulin 4.1 g/dL (2.2-4.2); Glucose 107 mg/dL (74-106); Potassium 4.1 mmol/L (3.5-5.1); Protein, Total 8.4 g/dL (6.4-8.2); Sodium Level 140 mmol/L (136-145)
[2020-02-13 17:22] LABS: Absolute Neutrophil Count 6.3 X10^3/uL (2.0-7.7); Basophil# 0.07 X10^3/uL; Basophil% 0.7 % (0-1); Eosinophil# 0.12 X10^3/uL; Eosinophils% 1.2 % (0-5); Hematocrit 49.5 % (37-47); Hemoglobin 15.7 g/dL (12.0-15.0); Lymphocyte % 25.9 % (19-41); Mean Corp Hgb Conc 31.7 g/dL (32-36); Mean Corpuscular Hgb 30.5 pg (27.0-32.0); Mean Corpuscular Volume 96.1 fL (81-99); Mean Platelet Vol. 10.5 fl (6.2-12.0); Monocyte# 0.62 X10^3/uL; Monocyte% 6.4 % (0-10); NRBC Flagged by Analyzer 0 % (0-5); Neutrophil % 65.4 % (47-70); Platelet Count 322 K/mm3 (150-450); RBC Distribution Width CV 12.7 % (11.6-14.6); RBC Distribution Width SD 45.7 fl (35.1-43.9); Red Blood Count 5.15 M/mm3 (4.2-5.4); White Blood Count 9.7 K/mm3 (4.4-11.0)
== END ==
PROVIDERS: PCP Internal Medicine; Referring Provider Internal Medicine; Visit Provider Internal Medicine
DX: I10 Essential (primary) hypertension (principal); J44.9 Chronic obstructive pulmonary disease, unspecified
CPT/HCPCS: 36415; 80053; 85025

== ENCOUNTER → 2020-03-10 14:54 | Outpatient (CLI) | payer MEDICARE, SELFPAY ==
[2020-03-10 14:03] VITALS: BMI 32.8
[2020-03-10 17:18] LABS: Cholesterol 112 mg/dL (200); High Density Lipoprotein 58 mg/dL; Triglycerides 120 mg/dL; Very Low Density Lipoprotein 24 mg/dL (5-40)
== END ==
PROVIDERS: PCP Internal Medicine; Visit Provider Internal Medicine
DX: Z00.00 Encounter for general adult medical examination without abnormal findings (principal); I10 Essential (primary) hypertension
CPT/HCPCS: 36415; 80061

== ENCOUNTER 2020-05-01 10:30 | Outpatient (RCR) | payer MEDICARE, SELFPAY ==
[2020-03-10 14:03] VITALS: BMI 32.8
--- NOTE | 2020-03-19 13:22 | HP.PTEVAL ---
Patient's Visit Information KAYLAN BURKETT is a 64 year old F referred to Physical Therapy by Dr. Ti Osuna MD with a diagnosis of RIGHT SHOULDER FROZEN SHOULDER. Date of Evaluation: 03/19/20 Physical Therapist: Nael Mullins, PT, Cert MDT, OCS - Visit Plan Frequency: 2-3x /Week Duration: 6 Months Plan: MODERATE IRRITATED. PT INTERVENTIONS MANUAL THERAPY WITH G-H JOINT MOBILIZATION /PROM,AROM SHOULDER,POSTURAL EX'S ,MODALITIES THEN PROGRESS TO STRENGTHENING RTC/SCAPULAR - Subjective This 64 y/o female presents to physical therapy with right shoulder frozen . Patient has had shoulder pain since last year December 2018 then June 2019 symptoms became worse with frozen shoulder. Patient has had PT in past didnt help . Patient doing some exercises at home. Patient pain is global and affects arm and hand. Patient takes teyelonal. Denies parathesia/tingling. Patient pain affects sleeping . Patient has difficulty raising arm OH ,self hygine ,activies above 90 degrees. Patient affects QOL.Patient patient seen DR Martines. Patient had cortizone helped with pain. Also plan to see DR Merida with right hand pain .Patient had x-rays. SOCAIL: single. VOCATION: disablity - Pain Right Shoulder Pain Intensity (Out of 10): 4 Right Hand Pain Intensity (Out of 10): 9 Pain Intensity Range: 10 - Objective POSTURE: mild foward posture,rounded shoulders. PALAPTION: global tenderness. NEURO: intact. AROM: shoulder flexion 100 degrees,80 abduction degrees with substitution ,IR pelvis. PROM: shoulder flexion 125 degrees ,130 abduction in scaption ,ER 25 degrees,. MMT RTC 4/5, supraspnatous 4-/5 pain mild ,deltoid 3+/5. AROM: hand is limited to make a fist - Special Tests R Shoulder External Rotation Lag Test - RC Tear: Negative R Shoulder Supine Impingement Test - RC Tear: Positive R Shoulder Lift Off Test - Subscapular Tear: Negative R Shoulder Drop Sign - IS Test: Negative R Shoulder Empty Can - SS: Positive R Shoulder Neer - Impingement: Positive R Shoulder Wade Sergey - Impingement: Positive R Shoulder Speeds Test - Labrum/Biceps: Negative R Shoulder AC Resisted - AC: Negative R Shoulder Shrug Sign - OA/Adhesive Capsulitis: Positive - Goals Goal 1:: Patient to be I with HEP Goal Time Frame: 4-6 Weeks Goal 2:: Decrease shoulder pain by 50% or> to improve function with ADL's Goal Time Frame: 4-6 Weeks Goal 3:: Patient to improve AROM shoulder flexion 145 degrees flexion/abd ,ER 80 degrres ,IR reach behind back to improve ADLS and put on coat. Goal Time Frame: 4-6 Weeks Goal 4:: Patient improve strength of right shoulder RTC 4/5 and deltoid 4-/5 with less pain to improev ADLS' Goal Time Frame: 4-6 Weeks Goal 5:: Patient to improve quick dash by 5--10 points or > to improve function and ADL'S Goal Time Frame: 4-6 Weeks - Rehabilitation Potential Physical Therapy Diagnosis: Patient has right shoulder adhesive capsulitus with pain ,poor rom ,decrease strength impairs ADLS' /self hygine and activitie housework task thus benifit from skilled PT Rehabilitation Potential: Good - Anticipated Interventions Patient/Client Instruction: Educate patient on: Condition, Plan of Care For the Purpose of:: To decrease pain, To increase ROM, To improve muscle performance and motor function, To improve ability to perform ADL's, To improve performance and independence with ADL's, To improve ability of physical actions for home/community/work/leisure, To improve health of tissue, To decrease soft tissue restriction, To increase flexibility/ROM, To reduce risk of recurrence, To improve ability to perform tasks related to life management Therapeutic Exercise to Include: Strength training, Postural training, Flexibilty training, Passive ROM, Active ROM, Scapular Strength/Stabilization Comment: RTC Manual Therapy Techniques to Include: Mobilization, Soft tissue mobilization For the Purpose of:: To decrease pain, To increase ROM, To improve nutrient delivery to tissue, To increase oxygenation perfusion, To improve health of tissue, To decrease soft tissue restriction, To increase flexibility/ROM TENS: Yes IF ES: Yes Cryotherapy (ice pack, ice massage): Yes Thermo therapy (hot pack): Yes Ultrasound (thermal/non thermal): Yes For the Purpose of:: To decrease pain, To decrease swelling/inflammation, To increase ROM, To improve nutrient delivery to tissue, To increase oxygenation perfusion, To improve health of tissue, To decrease soft tissue restriction Thank you for the opportunity to evaluate your patient. For Medicare and Medicare HMO plans, please review the plan of care and approve it. It will need to be FAXED BACK to us at [phone] for Medicare purposes. For Medicare only, by signing this I certify the plan of care. Please let me know if there are questions or concerns regarding this plan of care. Physician Signature: Date:
--- NOTE | 2020-06-18 14:56 | HP.PT.NRP ---
KAYLAN BURKETT was seen in my office for initial evaluation on 03/19/20. The following Plan of Care was established for this patient: Initial Frequency: 2-3x /Week Initial Duration: 6 Months Patient/Client Instruction: Educate patient on: Condition, Plan of Care For the Purpose of:: To decrease pain, To increase ROM, To improve muscle performance and motor function, To improve ability to perform ADL's, To improve performance and independence with ADL's, To improve ability of physical actions for home/community/work/leisure, To improve health of tissue, To decrease soft tissue restriction, To increase flexibility/ROM, To reduce risk of recurrence, To improve ability to perform tasks related to life management Therapeutic Exercise to Include: Strength training, Postural training, Flexibilty training, Passive ROM, Active ROM, Scapular Strength/Stabilization Manual Therapy Techniques to Include: Mobilization, Soft tissue mobilization For the Purpose of:: To decrease pain, To increase ROM, To improve nutrient delivery to tissue, To increase oxygenation perfusion, To improve health of tissue, To decrease soft tissue restriction, To increase flexibility/ROM TENS: Yes IF ES: Yes Cryotherapy (ice pack, ice massage): Yes Thermo therapy (hot pack): Yes Ultrasound (thermal/non thermal): Yes For the Purpose of:: To decrease pain, To decrease swelling/inflammation, To increase ROM, To improve nutrient delivery to tissue, To increase oxygenation perfusion, To improve health of tissue, To decrease soft tissue restriction This patient was last seen in our office . Pertinent comments regarding their Physical therapy will appear below: Patient seen for PT for right shoulder frozen shoulder with PT focusing on manual therapy ,ROM ,stretching and strengthening patient making steady progress but d/c due to covid. At this point I will be discontinuing this patient from physical therapy. I would be happy to see this patient again in the future if found appropriate by the physician. Thank you! Nael Mullins, PT, Cert MDT, OCS
== END 2020-05-01 19:00 | disposition home or self-care (01) ==
LOC: PT 10:30
PROVIDERS: PCP Internal Medicine; Referring Provider Internal Medicine; Visit Provider Internal Medicine
DX: M75.01 Adhesive capsulitis of right shoulder (principal)
CPT/HCPCS: 97110; 97140; 97162

== ENCOUNTER 2020-05-11 12:18 | Emergency (ER) | payer MEDICARE, SELFPAY ==
[2020-03-10 14:03] VITALS: BMI 32.8
[2020-05-11] VITALS (7 sets, daily range): BP systolic 130–144; BP diastolic 64–75; PULSE 71–88; RESP 17–22; TEMP 37.6–38.2; O2SAT 93–98; BMI 33.8
--- NOTE | 2020-05-11 12:30 | RAD_ITS ---
STUDY: X-RAY CHEST REASON FOR EXAM: Female, 64 years old. Back pain, chills, fever and headache. TECHNIQUE: Single frontal view of the chest. COMPARISON: 08/11/2019 FINDINGS: Stable hyperexpansion with diffuse interstitial pattern. No focal consolidation. There is no demonstrated pleural abnormality. Cardiomegaly unchanged. Normal mediastinum and renay. Stable prominent central pulmonary arteries. Aortic tortuosity with calcification unchanged. Normal visualized thoracic spine. Normal visualized ribs, clavicles, and shoulders. There is no demonstrated abnormality of the visualized soft tissue structures of the upper abdomen. RAD/Chest 1 View (Portable) IMPRESSION: Stable cardiomegaly with hyperexpansion and diffuse interstitial pattern. No focal consolidation or acute finding. Electronically Signed: Adria Nails MD at 13:27 EST , Service support ,
--- NOTE | 2020-05-11 12:33 | EKG12_ITS ---
Test Reason : BACK Blood Pressure : / mmHG Vent. Rate : 072 BPM Atrial Rate : 072 BPM P-R Int : 178 ms QRS Dur : 086 ms QT Int : 392 ms P-R-T Axes : 079 021 057 degrees QTc Int : 429 ms Normal sinus rhythm Normal ECG Confirmed by GOSIA DUARTE, COURTNEY ([id number]), online editor TOMAS GUADALUPE ([id number]) on 05/13/2020 9:18:03 AM Referred By: OLGA Confirmed By:COURTNEY ELISE MD
[2020-05-11] MEDS: Ondansetron 4 MG/2 ML Vial IV (12:52)
[2020-05-11 12:58] LABS: Absolute Lymphocyte Count 1.41 X10^3/uL (0.83-4.51); Absolute Neutrophil Count 4.2 X10^3/uL (2.0-7.7); Basophil# 0.03 X10^3/uL; Basophil% 0.5 % (0-1); Hematocrit 45.8 % (37-47); Hemoglobin 14.7 g/dL (12.0-15.0); Lymphocyte # 1.41 X10^3/ul (4.0); Lymphocyte % 22.6 % (19-41); Mean Corp Hgb Conc 32.1 g/dL (32-36); Mean Corpuscular Hgb 30.1 pg (27.0-32.0); Mean Corpuscular Volume 93.9 fL (81-99); Mean Platelet Vol. 10.5 fl (6.2-12.0); Monocyte# 0.57 X10^3/uL; Monocyte% 9.1 % (0-10); NRBC Flagged by Analyzer 0 % (0-5); Neutrophil # 4.19 X10^3/uL (2.7-7.7); Neutrophil % 67.3 % (47-70); Platelet Count 196 K/mm3 (150-450); RBC Distribution Width CV 12.4 % (11.6-14.6); Red Blood Count 4.88 M/mm3 (4.2-5.4); White Blood Count 6.2 K/mm3 (4.4-11.0)
--- NOTE | 2020-05-11 13:18 | ED.DCSUM_ITS ---
History of Present Illness Chief Complaint: Back Informant: Patient Narrative: 64-year-old female presenting with myalgias, fever, generalized weakness with concern for dehydration. She said she started to get body aches and headaches 7 days ago. On Thanksgiving she did not feel well and developed a fever of 100.8. 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 She states she is not short of breath and does not have any chest pain. She has nausea and decreased appetite. She states her urine is foul- smelling and dark. She is also complaining of some lower back pain. - Past Medical History (1) Hypertension Status: Chronic (2) Asthma Status: Chronic (3) PMR (polymyalgia rheumatica) Status: Chronic Past Medical History - Allergies and Home Meds Allergies/Adverse Reactions: Allergies tiotropium [From Spiriva with HandiHaler] Allergy (Unknown, Verified 03/10/20 14:00) Unknown Penicillins Allergy (Verified 03/10/20 14:00) Swelling budesonide Adverse Reaction (Verified 05/11/20 12:20) it makes me weak Primary Care Physician: Ti Osuna MD [Primary Care Provider] - Prior records reviewed: Yes Past Medical History: - - Reviewed in problem list Surgical History: appendectomy, hysterectomy, tonsillectomy Smoking Status: Light Smoker (<10/day) - Family History Paternal Family History: Family History (Last Reviewed 02/27/20 @ 10:55 by Grace Ragsdale) Other Anemia Arthritis Asthma Bowel disease CVA (cerebral vascular accident) Diabetes Heart disease Hypertension Myocardial infarction Osteoporosis Seizures Thyroid disorder Family History: Reports: No pertinent history, - - granddaughter has fibromyalgia Maternal Family History: Family History (Last Reviewed 02/27/20 @ 10:55 by Grace Ragsdale) Other Anemia Arthritis Asthma Bowel disease CVA (cerebral vascular accident) Diabetes Heart disease Hypertension Myocardial infarction Osteoporosis Seizures Thyroid disorder Family History: Reports: No pertinent history Review of Systems General: Reports: Chills, Fever Eyes: Denies: Visual changes - bilaterally, Diplopia ENT: Denies: Rhinorrhea, Sore throat Cardiovascular: Denies: Chest pain, Palpitations Respiratory: Denies: Dyspnea, Cough, Dyspnea on exertion Gastrointestinal: Reports: Nausea, Vomiting. Denies: Abdominal pain Genitourinary: Reports: - - Dark foul-smelling urine. Denies: Frequency Musculoskeletal: Reports: Myalgias, Back pain - Left lumbar paraspinal. Denies: Arthralgias, Neck pain Skin: Denies: Rash, Abscess Neurological: Reports: Headache. Denies: Parasthesia, Numbness Physical Exam Vital Signs/Narrative: Vital Signs Temp Pulse Resp BP Pulse Ox 05/11/20 12:40 100.8 F H 88 22 H 141/64 H 94 05/11/20 12:29 100.8 F H 73 17 141/64 H 94 05/11/20 12:20 100.8 F H 74 18 144/75 H 93 Inital Vital Signs reviewed: Yes General: Well nourished, No Acute Distress Head: Normocephalic, Atraumatic Eyes: Perrl, EOMI. Negative for: Pale conjunctiva, Scleral icterus ENT: Dry mucous membranes. Negative for: No rhinorrhea Cardiovascular: Regular rate, Regular rhythm Respiratory: No distress, CTA bilaterally, Chest nontender Abdomen: Soft, Nontender Extremities: Negative for: Nontender, No edema Skin: Normal color, No rash. Negative for: Cyanosis, Diaphoresis Neurological: Alert, Oriented x3 Psychological: Normal affect, Normal Mood Diagnostic/Tx/Re-eval Clinical Impression(s) from Imaging Studies Chest X-Ray 05/11/20 12:30 IMPRESSION: Stable cardiomegaly with hyperexpansion and diffuse interstitial pattern. No focal consolidation or acute finding. Electronically Signed: Adria Nails MD at 13:27 EST , Service support , Laboratory Data 05/11/20 05/11/20 05/11/20 12:45 12:45 14:10 WBC 6.2 RBC 4.88 Hgb 14.7 Hct 45.8 MCV 93.9 MCH 30.1 MCHC 32.1 RDW Std Deviation 43.0 RDW Coeff of Randa 12.4 Plt Count 196 MPV 10.5 Immature Gran % (Auto) 0.500 Neut % (Auto) 67.3 Lymph % (Auto) 22.6 Mcpherson % (Auto) 9.1 Eos % (Auto) 0.0 Baso % (Auto) 0.5 Absolute Neuts (auto) 4.2 Absolute Lymphs (auto) 1.41 Nucleated RBC % 0 Sodium 136 Potassium 3.6 Chloride 102 Carbon Dioxide 28.0 Anion Gap 6 BUN 7 Creatinine 1.05 H Estim Creat Clear Calc 49.34 Est GFR (MDRD) Af Amer 67 Est GFR (MDRD) Non-Af 56 L BUN/Creatinine Ratio 6.7 L Glucose 153 H Calcium 8.7 Total Bilirubin 0.30 AST 24 ALT 23 Alkaline Phosphatase 67 Troponin I < 0.015 Total Protein 7.2 Albumin 3.3 Globulin 3.9 Albumin/Globulin Ratio 0.8 L Urine Color Yellow Urine Clarity Sl. Cloudy Urine pH 6.0 Ur Specific [place] 1.020 Urine Protein 30 H Urine Glucose (UA) Normal Urine Ketones 5 H Urine Occult Blood 10 H Urine Nitrite Negative Urine Bilirubin Negative Urine Urobilinogen 1 H Ur Leukocyte Esterase 25 H Urine RBC 0 SEEN Urine WBC 0-5 SEEN Ur Squamous Epith Cells 0-5 SEEN Urine Bacteria 1+ Urine Mucus 0 SEEN - Rhythm Strip Rhythm Strip: Sinus Rhythm Rate: 72 - EKG Initial EKG Interpretation: Sinus Rhythm, No Acute Injury Pattern - Medical Decision Making 64-year-old female presenting with back pain and requesting a Covid?19 swab because she was recently exposed to someone who tested positive and she has had a fever since . She did not know she had a fever today. Otherwise her vital signs are normal. She is not hypoxic, hypotensive, tachycardic. Her lab work appeared to be within normal limits. Patient was ambulated in place without oxygen and maintaining sats of 94%. She did have a UTI and was treated with Bactrim due to penicillin allergy that causes her tongue to swell. A urine culture was sent. She states that she has home oxygen at home that she wears at night she needs it. She has a way to monitor her oxygen. She is given strict return precautions. Patient stable for discharge at this time. Impression 1. Covid?19 infection 2. UTI 3. Back pain ED Disposition - Plan for ED Patient: Disposition: Home or Assisted Living Instructions: Coronavirus Disease 2019 (COVID-19), Understanding Urinary Tract Infections (UTIs), ED Back Pain Acute or Chronic Prescriptions: Smz/Tmp Ds [Bactrim Ds] 1 tab PO BID #14 tab Prescription Printed Ondansetron [Zofran Odt] 4 mg PO Q8H PRN PRN #14 tab PRN Reason: Nausea Prescription Printed Referrals: Ti Osuna MD [Primary Care Provider] -
[2020-05-11 13:29] LABS: ALB/GLOB Ratio 0.8 RATIO (0.9-2.4); AST(SGOT) 24 U/L (15-37); Alanine Aminotransfer ALT/SGPT 23 U/L (13-56); Albumin, Serum 3.3 g/dL (3.2-5.0); Alkaline Phosphatase 67 U/L (45-117); Anion Gap 6 (5-15); BUN 7 mg/dL (7-18); BUN/Creat Ratio 6.7 RATIO (10-20); Calcium,Total 8.7 mg/dL (8.5-10.1); Chloride 102 mmol/L (98-107); Creatinine, Serum 1.05 mg/dL (0.55-1.02); EST Glomerular Filtration Rate 56 mL/min (>60); Est Glom Filt Rate - Afr Amer 67 mL/min (>60); Estimated Creatinine Clearance 49.34 ml/min; Globulin 3.9 g/dL (2.2-4.2); Glucose 153 mg/dL (74-106); Potassium 3.6 mmol/L (3.5-5.1); Protein, Total 7.2 g/dL (6.4-8.2); Sodium Level 136 mmol/L (136-145)
[2020-05-11] MEDS: Acetaminophen 500 MG Tablet 1000 MG PO (14:04)
[2020-05-11] MEDS: Morphine 4 MG/ML Syringe IV (14:04)
[2020-05-11 14:21] LABS: Mucous, Urine 0 SEEN /hpf (<or=2+); Red Blood Cells-Urine 0 SEEN /hpf (0-5)
[2020-05-11 14:23] LABS: Color, Urine Yellow (Yellow); Glucose, Dipstick Normal (Normal); Ketone-Dipstick 5 mg/dl (Negative); Leukocyte Esterase-Dipstick 25 /ul (Negative); Nitrite-Dipstick Negative (Negative); Occult Blood-Urine 10 /ul (Negative); Protein-Dipstick 30 mg/dl (Negative); Urine Bilirubin Dipstick Negative (Negative); Urine Clarity Sl. Cloudy (Clear); Urine Urobilinogen 1 mg/dl (Normal)
[2020-05-11 14:29] LABS: Bacteria 1+ /hpf (None Seen); Squamous Epithelial Cells - UA 0-5 SEEN /hpf (5-10); White Blood Cells 0-5 SEEN /hpf (0-5)
--- NOTE | 2020-05-11 15:39 | ED.RN ---
THIS NURSE REVIEWED D/C INSTRUCTIONS WITH PT. PT VERBALIZED UNDERSTANDING OF INSTRUCTIONS. IV D/C. IV CATHETER INTACT. PT TOLERATED WELL. PT DENIES FURTHER NEEDS OR QUESTIONS AT THIS TIME.
== END 2020-05-11 15:41 | disposition home or self-care (01) ==
PROVIDERS: Emergency Provider Student in an Organized Health Care Education/Training Program; PCP Internal Medicine
DX: U07.1 COVID-19 (principal); N39.0 Urinary tract infection, site not specified; M54.5 Low back pain; F17.200 Nicotine dependence, unspecified, uncomplicated; J45.909 Unspecified asthma, uncomplicated
CPT/HCPCS: 71045; 80053; 81001; 84484; 85025; 87426; 93005; 96361; 96374; 96375; 99285; J7040; A4216; J2405

== ENCOUNTER → 2020-09-12 10:43 | Outpatient (CLI) | payer MEDICARE, SELFPAY ==
[2020-09-08 11:05] VITALS: BMI 31.9
--- NOTE | 2020-09-12 10:45 | US_ITS ---
STUDY: ABDOMINAL ULTRASOUND - RIGHT UPPER QUADRANT REASON FOR VISIT: Female, 64 years old Abdominal Pain . Right upper quadrant pain with nausea. TECHNIQUE: Ultrasound evaluation of the right upper quadrant was performed with real-time and static hickey-scale imaging. TECHNICAL QUALITY: Adequate. COMPARISON: None. FINDINGS: Liver: The liver measures 16 cm. There is normal echogenicity of the liver. The bile ducts are within normal limits. There is hepatic color flow. The direction of portal flow is hepatopetal. There is no demonstrated mass lesion. Gallbladder: Normal distended gallbladder. The gallbladder wall measures 1 mm. There is a negative sonographic Ash''s sign. There is no pericholecystic fluid. There are no gallstones. Common Bile Duct (C.B.D.): The common bile duct measures 6.5 mm. Pancreas: Normal size of the head, body and tail of the pancreas. There is normal echogenicity of the pancreas. There is no demonstrated pancreatic mass or cyst. Right Kidney: Normal size of the right kidney. The right kidney measures 10.4 cm x 4.8 cm x 4.4 cm. Normal renal cortex. The right cortex measures 1.5 cm. There is no demonstrated renal mass or cyst. There is no right hydronephrosis. US/Gallbladder IMPRESSION: Normal right upper quadrant ultrasound examination. Electronically Signed: Chuy Frye MD at 13:20 EDT , Service support ,
== END ==
LOC: US 10:44
PROVIDERS: PCP Internal Medicine; Referring Provider Internal Medicine; Visit Provider Internal Medicine
DX: R10.11 Right upper quadrant pain (principal)
CPT/HCPCS: 76705

== ENCOUNTER → 2020-12-12 09:29 | Outpatient (CLI) | payer MEDICARE, SELFPAY ==
[2020-12-12 09:02] VITALS: BMI 31.9
[2020-12-12 12:26] LABS: AST(SGOT) 18 U/L (15-37); Alanine Aminotransfer ALT/SGPT 26 U/L (13-56); Albumin, Serum 3.8 g/dL (3.2-5.0); Alkaline Phosphatase 88 U/L (45-117); Anion Gap 7 (5-15); BUN 14 mg/dL (7-18); BUN/Creat Ratio 11.8 RATIO (10-20); Calcium,Total 9.5 mg/dL (8.5-10.1); Chloride 105 mmol/L (98-107); Creatinine, Serum 1.19 mg/dL (0.55-1.02); EST Glomerular Filtration Rate 48 mL/min (>60); Est Glom Filt Rate - Afr Amer 58 mL/min (>60); Globulin 3.8 g/dL (2.2-4.2); Glucose 112 mg/dL (74-106); Potassium 4.4 mmol/L (3.5-5.1); Protein, Total 7.6 g/dL (6.4-8.2); Sodium Level 140 mmol/L (136-145)
== END ==
LOC: BIMLAB 09:30
PROVIDERS: PCP Internal Medicine; Referring Provider Internal Medicine; Visit Provider Internal Medicine
DX: I10 Essential (primary) hypertension (principal)
CPT/HCPCS: 36415; 80053

== ENCOUNTER → 2020-12-30 14:05 | Outpatient (CLI) | payer MEDICARE, SELFPAY ==
[2020-12-12 09:02] VITALS: BMI 31.9
--- NOTE | 2020-12-30 14:09 | CT_ITS ---
STUDY: LOW DOSE CT LUNG CANCER SCREENING REASON FOR EXAM: Female, 65 years old. Lung cancer screening -- 25 pack year history; current smoker; asymptomatic RADIATION DOSAGE (If Supplied By Facility): CTDIvol = ( 2.39 ) mGy, DLP = ( 78.92 ) mGycm TECHNIQUE: No contrast was administered. Low dose technique was utilized (average mAS-38 and kVp 120). 1.25 mm axial source images with a slice interval of 1.25-mm were reconstructed in lung windows. 2.5 mm axial source images with a slice interval of 2.5-mm were reconstructed in lung windows. 5.0 mm axial source images with a slice interval of 5.0-mm were reconstructed in soft tissue windows. Nodule measured using lung windows on PACS and/or independent workstation with automated measurement of minimum and maximum diameter. Nodule measurement reported as average diameter rounded to the nearest whole number. Growth is defined as an increase ins size of greater than 1.5 mm. COMPARISON: None. NODULES: There is a 7.5 mm x 5.6 mm noncalcified nodule in the posterior peripheral aspect of the right upper lobe as seen on axial image #71 and coronal image #47. Emphysema: Diffuse emphysematous changes with centrilobular emphysema in the upper lobes. Increased markings at the lung bases slightly more prominent on the left side suggestive of scarring. Endobronchial lesion: None Aorta: Mild degree of atherosclerotic plaque at the level of the aortic arch. Coronary arteries: Mild degree of the coronary artery calcification. Heart: Unremarkable Pulmonary artery: Unremarkable Mediastinal nodes: Small benign-appearing mediastinal lymph nodes. Other chest and abdominal findings: CT/Low Dose CT Lung Screening IMPRESSION: Lung-RADS category 4A - Screening at 3 months with LDCT or evaluation with PET/CT may be used. IMPORTANT NOTES FOR USE: ACR Lung-RADS Version 1.1 Assessment Categories Release Date: 2018 Category: Coded 0-4 bases on nodule(s) with highest degree of suspicion. Negative screen is defined as categories 1 and 2; a positive screen is defined as categories 3 and 4. Category 3 and 4A nodules that are unchanged on interval CT should be coded as category 2, and individuals returned to screening in 12 months. Category 4X: Category 3 or 4 nodules with additional imaging findings that increase the suspicion of lung cancer, such as spiculation, GGN that doubles in size in 1 year, enlarged lymph notes, etc. Category Modifiers: S (significant finding unrelated to lung cancer) Electronically Signed: Chuy Frye MD at 14:55 EDT , Service support ,
== END ==
PROVIDERS: PCP Internal Medicine; Referring Provider Nurse Practitioner Family; Visit Provider Nurse Practitioner Family
DX: Z12.2 Encounter for screening for malignant neoplasm of respiratory organs (principal); Z87.891 Personal history of nicotine dependence
CPT/HCPCS: 71271

== ENCOUNTER → 2021-02-03 15:09 | Outpatient (CLI) | payer MEDICARE, SELFPAY ==
--- NOTE | 2021-02-03 15:00 | PET_ITS ---
PROCEDURE: WHOLE BODY PET/CT SCAN, MID SKULL TO MID THIGH REASON FOR EXAM: Lung nodule COMPARISON EXAMINATION: Low dose CT 12/30/2020. TECHNIQUE: Following the intravenous administration of 14.72 mCi of F-18 fluorodeoxyglucose, multiplanar imaging acquisitions of the neck, chest, abdomen/pelvis to the mid thigh, obtained at 1 hour post radiopharmaceutical administration. Interpretation is with co-registeration of similar anatomic distribution of CT. Findings: Normal and physiologic distribution of radioisotope identified in the expected intensity of the hepatic and splenic parenchyma, urinary tract and gastrointestinal structures. There is gross anatomic distribution of the intracranial contents. Asymmetric muscular activity of the left masseter muscle is felt to be physiologic. Physiologic activity of the vocal cord. INDEX LESION SIZE SUV INTERPRETATION: 1. 6 x 8 mm smoothly marginated noncalcified nodule in the posterior/lateral right upper lobe is seen on image 80 of series 3. NO abnormal FDG activity. CT portion of the exam: Moderate centrilobular emphysema predominantly in the upper lungs. There is no demonstrated pleural abnormality. Normal heart and pericardium. Normal mediastinum. Normal hilar regions. Normal unenhanced pulmonary arteries. Mild atherosclerosis of the thoracic aorta. Normal liver. Normal gallbladder and extrahepatic biliary system. Normal spleen. Normal pancreas. Normal bilateral adrenal glands. Normal right kidney. Normal left kidney. Normal visualized stomach. Normal small intestine. Normal colon. There is non-visualization of the appendix. Mild atherosclerosis of the abdominal aorta. Normal inferior vena cava. Normal urinary bladder. Normal osseous structures. PET/PET/CT Tumor Base -Thigh Init IMPRESSION: 1. NEGATIVE EXAMINATION. No scintigraphic evidence of viable neoplasm. Right upper lobe nodule does NOT meet criteria for viable neoplasm. Recommend continued follow up according to Fleischner Society recommendations. 2. Chronic changes, as detailed above. Electronically Signed: Sergio Wang MD ([place]) at 13:26 EDT , Service support ,
== END ==
PROVIDERS: PCP Internal Medicine; Referring Provider Nurse Practitioner Family; Visit Provider Nurse Practitioner Family
DX: R91.1 Solitary pulmonary nodule (principal)
CPT/HCPCS: 78815; A9552

== ENCOUNTER → 2021-04-30 13:41 | Outpatient (CLI) | payer MEDICARE, SELFPAY ==
[2021-04-30 15:07] LABS: Absolute Lymphocyte Count 2.83 X10^3/uL (0.83-4.51); Absolute Neutrophil Count 6.1 X10^3/uL (2.0-7.7); Basophil# 0.09 X10^3/uL; Basophil% 0.9 % (0-1); Eosinophil# 0.26 X10^3/uL; Eosinophils% 2.6 % (0-5); Hematocrit 46.4 % (37-47); Hemoglobin 14.7 g/dL (12.0-15.0); Lymphocyte # 2.83 X10^3/ul (0.83-4.51); Lymphocyte % 28.4 % (19-41); Mean Corp Hgb Conc 31.7 g/dL (32-36); Mean Corpuscular Hgb 29.9 pg (27.0-32.0); Mean Corpuscular Volume 94.3 fL (81-99); Mean Platelet Vol. 10.7 fl (6.2-12.0); Monocyte# 0.68 X10^3/uL; Monocyte% 6.8 % (0-10); NRBC Flagged by Analyzer 0 % (0-5); Neutrophil # 6.07 X10^3/uL (2.7-7.7); Neutrophil % 60.9 % (47-70); Platelet Count 283 K/mm3 (150-450); RBC Distribution Width CV 13.5 % (11.6-14.6); Red Blood Count 4.92 M/mm3 (4.2-5.4)
[2021-04-30 15:24] LABS: ALB/GLOB Ratio 0.9 RATIO (0.9-2.4); AST(SGOT) 18 U/L (15-37); Alanine Aminotransfer ALT/SGPT 24 U/L (13-56); Albumin, Serum 3.6 g/dL (3.2-5.0); Alkaline Phosphatase 73 U/L (45-117); Anion Gap 5 (5-15); BUN 9 mg/dL (7-18); BUN/Creat Ratio 8.3 RATIO (10-20); Calcium,Total 9.1 mg/dL (8.5-10.1); Chloride 106 mmol/L (98-107); Cholesterol 122 mg/dL (200); Creatinine, Serum 1.09 mg/dL (0.55-1.02); EST Glomerular Filtration Rate 53 mL/min (>60); Est Glom Filt Rate - Afr Amer 64 mL/min (>60); Glucose 103 mg/dL (74-106); High Density Lipoprotein 68 mg/dL; Potassium 4.2 mmol/L (3.5-5.1); Protein, Total 7.6 g/dL (6.4-8.2); Sodium Level 137 mmol/L (136-145); Triglycerides 79 mg/dL; Very Low Density Lipoprotein 16 mg/dL (5-40)
== END ==
LOC: BIMLAB 13:42
PROVIDERS: PCP Internal Medicine; Referring Provider Internal Medicine; Visit Provider Internal Medicine
DX: J44.1 Chronic obstructive pulmonary disease with (acute) exacerbation (principal); I10 Essential (primary) hypertension
CPT/HCPCS: 36415; 80053; 80061; 85025

== ENCOUNTER 2021-09-16 20:20 | Inpatient (IN) | payer MEDICARE, SELFPAY ==
[2021-09-16] VITALS (8 sets, daily range): BP systolic 122–139; BP diastolic 53–101; PULSE 84–93; RESP 19–34; TEMP 37.3–38.4; O2SAT 88–96; BMI 32.8; BMI 30.6
--- NOTE | 2021-09-16 20:58 | EKG12_ITS ---
Test Reason : GEN ILL Blood Pressure : / mmHG Vent. Rate : 085 BPM Atrial Rate : 085 BPM P-R Int : 150 ms QRS Dur : 076 ms QT Int : 358 ms P-R-T Axes : 080 052 070 degrees QTc Int : 426 ms Normal sinus rhythm Normal ECG Confirmed by PARKER DUARTE, HECTOR ([id number]), staff editor MAYITO MILLER ([id number]) on 09/23/2021 10:53:35 AM Referred By: ADELINA Confirmed By:HECTOR CANALES MD
--- NOTE | 2021-09-16 21:02 | EX.ED.DYSGE1 ---
HPI History of Present Illness Chief Complaint: General Illness Narrative Narrative: 65-year-old female with history of hypertension, pneumonia, respiratory failure, COPD presenting with cough and blood tingeing in her sputum. She states her cough started about 2 PM today. She reports that she had a fever 100.4 once the ambulance picked her up. She states she took Tylenol at home prior to coming. Patient is oxygen dependent at 2 L. She has not had a change this. She states she did take some prednisone yesterday because she felt a little bit short of breath. Patient also complaining of right-sided rib pain and pain behind her right scapula. It is worse with movement and better with rest. She denies any injury. Patient states she continues to smoke about a pack of cigarettes per day. [facility] Medical History Arthritis Asthma Chronic respiratory failure COPD (chronic obstructive pulmonary disease) COPD exacerbation Depression Dermatitis Encounter for screening for malignant neoplasm of lung Encounter for screening for malignant neoplasm of lung in current smoker with 30 pack year history or greater Health care maintenance Hx of bacterial pneumonia Hx of drug abuse Hx of gastrointestinal disease Irritable bowel syndrome PMR (polymyalgia rheumatica) Right upper lobe pulmonary nodule Tobacco abuse Tobacco use disorder, continuous Unable to ambulate Weakness generalized Home Medications rrxfouoc-uxcw-btc-folic acid 1 tab PO DAILY 04/05/19 [History Last Taken 04/04/19] albuterol sulfate 2 puff INHALATION Q4H PRN PRN 08/11/19 [History Last Taken Unknown] dqarxoiudao-hmrrdpzzg-vjkezkhc 1 ea IH DAILY 08/11/19 [History Last Taken Unknown] acetaminophen 650 mg PO Q6H PRN PRN tab 08/15/19 [Rx Last Taken Unknown] calcium carbonate 1,200 mg PO DAILY 05/11/20 [History Last Taken Unknown] amlodipine 10 mg tablet 10 mg PO DAILY #90 tab 06/09/20 [Rx Last Taken Unknown] hydrocortisone 2.5 % topical cream 1 applic TOPICAL BID PRN #30 gm 09/08/20 [Rx Last Taken Unknown] fluticasone fur. 100 mcg-umeclid 62.5 mcg-vilant 25 mcg inhalat.powder 1 inh INHALATION DAILY 03/25/21 [History Last Taken Unknown] triamcinolone acetonide 0.1 % topical ointment 1 applic TOPICAL BID #453.6 g 04/30/21 [Rx Last Taken Unknown] Allergy/AdvReac Type Severity Reaction Status Date / Time tiotropium Allergy Unknown Unknown Verified 09/16/21 20:26 [From Spiriva with HandiHaler] Penicillins Allergy Swelling Verified 09/16/21 20:26 budesonide AdvReac it makes Verified 09/16/21 20:26 me weak Family History Other Anemia Arthritis Asthma Bowel disease CVA (cerebral vascular accident) Diabetes Heart disease Hypertension Myocardial infarction Osteoporosis Seizures Thyroid disorder Surgical History History of tonsillectomy Hx of appendectomy Hx of hysterectomy Social History Smoking Status: Current every day smoker tobacco type: cigarettes Tobacco: How many years used: 40 alcohol intake: current alcohol intake frequency: a few times a week substance use type: former substance user caffeine: Yes what type of physical activity do you participate in: none frequency: does not exercise ROS ROS ED Constitutional Constitutional ED: Reports fever(s); Denies chills or sweats Eyes Eyes: Denies blurry vision or diplopia ENT ENT ED: Denies rhinorrhea or sore throat Cardiovascular Cardiovascular: Denies chest pain or palpitations Respiratory/Chest Respiratory/Chest: Reports cough, dyspnea and other Details: Blood-tinged sputum. Gastrointestinal Gastrointestinal: Denies abdominal pain, nausea or vomiting Genitourinary Genitourinary ED: Denies dysuria or hematuria Musculoskeletal Musculoskeletal: Reports back pain and myalgias; Denies arthralgias or neck pain Integumentary Denies rash Neurologic Neurologic: Denies headache(s) or paresthesias EXAM Physical Exam Const Vital Signs: 09/16/21 20:21 09/16/21 20:26 09/16/21 21:04 Temperature 99.2 F H Temperature Source Oral Pulse Rate 93 84 Respiratory Rate 30 H 23 H 28 H Respiratory Effort Blood Pressure 130/56 H 123/64 H Blood Pressure Mean 80 83 Pulse Ox 88 93 96 Oxygen Delivery Method Venturi Mask Nasal Cannula Oxygen Flow Rate (L/min) 2 2 09/16/21 21:06 09/16/21 21:10 04/06/22 22:09 Temperature 100.5 F H Temperature Source Temporal Pulse Rate 85 84 Respiratory Rate 19 H 34 H Respiratory Effort Short of Breath Labored Blood Pressure 122/83 H Blood Pressure Mean 96 Pulse Ox 94 Oxygen Delivery Method Room Air Oxygen Flow Rate (L/min) Positive well nourished General Appearance ED: NAD LAURA Reports moist mucous membranes Negative for trauma Eyes PERRL and EOMs intact bilaterally General Eye ED: Negative for pale conjunctiva or scleral icterus Chest Wall Chest Narrative: Tenderness palpation right posterior ribs adjacent to the scapula. No obvious deformity. No crepitance. Equal symmetric breath sounds and chest wall rise. Resp normal respiratory effort Effort and Inspection: pain with movement Auscultation: Negative for rales, rhonchi or wheezes Cardio regular rate and regular rhythm Extremity normal to inspection General Extremety ED: Negative for edema or tenderness General Extremity: Negative for edema Neuro oriented x3 and CN's II-XII intact bilaterally Sensorium / Orientation: alert Motor Exam: strength 5/5 throughout Psych mental status grossly normal Skin no rashes or lesions noted MDM MDM MDM Narrative Medical decision making narrative: 5-year-old presenting with shortness of breath, cough, misa sputum. Patient reports fever of 100.4 today. She took Tylenol at some point prior to arrival. She is afebrile when she arrives. Sepsis work-up was obtained. EKG on my interpretation shows normal sinus rhythm ventricular rate of 85 bpm without sign of ischemic change. CBC shows a leukocytosis of 23,000, hemoglobin hematocrit are stable, platelets normal at 257. Coagulation studies normal. Creatinine acutely elevated at 1.78. Electrolytes normal. Total bilirubin slightly elevated 1.10 however other LFTs are normal. High-sensitivity troponin is 13. Lactic acid 2.1. Chest x-ray on my interpretation shows right lower lobe pneumonia. This would be consistent with the patient's pain. Patient given Rocephin azithromycin as she has had no recent admissions for pneumonia. 30 cc/kg of normal saline. Patient was given ibuprofen as she spiked another fever in the emergency room. At this point I feel the patient requires admission. I spoke with the hospitalist who will admit her to the floor. Patient transferred in stable condition. Impression: 1. COPD exacerbation 2. Community-acquired pneumonia 3. Leukocytosis 4. Acute kidney injury 5. Sepsis 6. Right rib pain Lab Data Attestation: I reviewed the patient's lab results. Labs: Laboratory Results - last 24 hr 09/16/21 09/16/21 09/16/21 21:20 21:20 21:20 WBC 23.2 H RBC 5.09 Hgb 15.7 H Hct 48.0 H MCV 94.3 MCH 30.8 MCHC 32.7 RDW Std Deviation 46.7 H RDW Coeff of Randa 13.3 Plt Count 257 MPV 10.9 Immature Gran % (Auto) 2.800 H Neut % (Auto) 87.6 H Lymph % (Auto) 6.1 L Hyde % (Auto) 3.2 Eos % (Auto) 0.0 Baso % (Auto) 0.3 Absolute Neuts (auto) 20.3 H Absolute Lymphs (auto) 1.41 Nucleated RBC % 0 Differential Comment SEE COMMENT Diff Path Review May foll Platelet Estimate ADEQUATE RBC Morphology N CHROM Anisocytosis RARE Macrocytosis RARE PT 14.8 INR 1.2 APTT 25.8 Sodium 135 L Potassium 4.2 Chloride 104 Carbon Dioxide 24.0 Anion Gap 7 BUN 20 H Creatinine 1.78 H Estim Creat Clear Calc 28.71 Est GFR (MDRD) Af Amer 37 L Est GFR (MDRD) Non-Af 30 L BUN/Creatinine Ratio 11.2 Glucose 99 Lactic Acid Calcium 9.5 Total Bilirubin 1.10 H AST 14 L ALT 19 Alkaline Phosphatase 73 Troponin I High Sens 13 Total Protein 7.6 Albumin 3.3 Globulin 4.3 H Albumin/Globulin Ratio 0.8 L 09/16/21 21:20 WBC RBC Hgb Hct MCV MCH MCHC RDW Std Deviation RDW Coeff of Randa Plt Count MPV Immature Gran % (Auto) Neut % (Auto) Lymph % (Auto) Hyde % (Auto) Eos % (Auto) Baso % (Auto) Absolute Neuts (auto) Absolute Lymphs (auto) Nucleated RBC % Differential Comment Diff Path Review Platelet Estimate RBC Morphology Anisocytosis Macrocytosis PT INR APTT Sodium Potassium Chloride Carbon Dioxide Anion Gap BUN Creatinine Estim Creat Clear Calc Est GFR (MDRD) Af Amer Est GFR (MDRD) Non-Af BUN/Creatinine Ratio Glucose Lactic Acid 2.1 H* Calcium Total Bilirubin AST ALT Alkaline Phosphatase Troponin I High Sens Total Protein Albumin Globulin Albumin/Globulin Ratio Radiography Diagnostic Testing: Clinical Impression(s) from Imaging Studies Chest X-Ray 09/16/21 21:30 IMPRESSION: Hazy opacities in the right lower lung field, concerning for infection. Electronically Signed: Mariusz Vann MD at 22:02 EDT , Discharge Plan Triage Chief Complaint: General Illness ED Provider: Cole Rincon Dx/Rx/DC Orders Prescriptions: No Action amlodipine 10 mg tablet 10 mg PO DAILY Qty: 90 RF: 3 hydrocortisone 2.5 % cream 1 applic TOPICAL BID PRN (Reason: rash) Qty: 30 RF: 2 Trelegy Ellipta 100-62.5-25 mcg blister with device 1 inh inhalation DAILY RF: 0 triamcinolone acetonide 0.1 % ointment 1 applic topical BID Qty: 453.6 RF: 1 lnfnqupp-kste-yui-folic acid 1 EACH tablet 1 tab PO DAILY RF: 0 albuterol sulfate 1 PUFF inhaler 2 puff INHALATION Q4H PRN PRN (Reason: sob/wheezing) RF: 0 pycchndklbm-usfuyciss-uwipwmjo 1 EACH blister with device 1 ea IH DAILY RF: 0 acetaminophen 325 MG tablet 650 mg PO Q6H PRN PRN (Reason: Pain Score 1-10/Temp > 100.7 F) RF: 0 calcium carbonate 600 MG tablet 1,200 mg PO DAILY RF: 0 Primary Care Provider: Ti Osuna
[2021-09-16] MEDS: Albuterol 2.5 MG/3 ML VIAL.NEB. INHALATION (21:09)
--- NOTE | 2021-09-16 21:30 | RAD_ITS ---
INDICATION: cough EXAMINATION/TECHNIQUE: X-RAY - XR Chest 1 View COMPARISON: 05/11/2020 FINDINGS: LINES/DEVICES: None. LUNGS: Hazy opacities in the right lower lung field. No pleural effusion or pneumothorax. MEDIASTINUM AND CARDIOVASCULAR STRUCTURES: Cardiac silhouette not enlarged. Central airways and mediastinal contour are unremarkable. BONES AND SOFT TISSUES: Unremarkable. RAD/Chest 1 View (Portable) IMPRESSION: Hazy opacities in the right lower lung field, concerning for infection. Electronically Signed: Mariusz Vann MD at 22:02 EDT ,
[2021-09-16 21:40] LABS: Absolute Lymphocyte Count 1.41 X10^3/uL (0.83-4.51); Absolute Neutrophil Count 20.3 X10^3/uL (2.0-7.7); Basophil# 0.08 X10^3/uL; Basophil% 0.3 % (0-1); Hemoglobin 15.7 g/dL (12.0-15.0); Lymphocyte # 1.41 X10^3/ul (0.83-4.51); Lymphocyte % 6.1 % (19-41); Mean Corp Hgb Conc 32.7 g/dL (32-36); Mean Corpuscular Hgb 30.8 pg (27.0-32.0); Mean Corpuscular Volume 94.3 fL (81-99); Mean Platelet Vol. 10.9 fl (6.2-12.0); Monocyte# 0.74 X10^3/uL; Monocyte% 3.2 % (0-10); NRBC Flagged by Analyzer 0 % (0-5); Neutrophil # 20.34 X10^3/uL (2.7-7.7); Neutrophil % 87.6 % (47-70); POSITIVE DIFFERENTIAL YES; POSITIVE MORPHOLOGY YES; Platelet Count 257 K/mm3 (150-450); RBC Distribution Width CV 13.3 % (11.6-14.6); RBC Distribution Width SD 46.7 fl (35.1-43.9); Red Blood Count 5.09 M/mm3 (4.2-5.4); White Blood Count 23.2 K/mm3 (4.4-11.0)
[2021-09-16 21:50] LABS: International Normalized Ratio 1.2; Partial Thromboplast Time 25.8 Seconds (24.1-36.2); Prothrombin Time (Protime)PT. 14.8 SECONDS (11.7-14.9)
[2021-09-16 21:53] LABS: Differential Indicated SCAN CRITERIA MET
[2021-09-16 22:04] LABS: ALB/GLOB Ratio 0.8 RATIO (0.9-2.4); AST(SGOT) 14 U/L (15-37); Alanine Aminotransfer ALT/SGPT 19 U/L (13-56); Albumin, Serum 3.3 g/dL (3.2-5.0); Alkaline Phosphatase 73 U/L (45-117); Anion Gap 7 (5-15); BUN 20 mg/dL (7-18); BUN/Creat Ratio 11.2 RATIO (10-20); Calcium,Total 9.5 mg/dL (8.5-10.1); Chloride 104 mmol/L (98-107); Creatinine, Serum 1.78 mg/dL (0.55-1.02); EST Glomerular Filtration Rate 30 mL/min (>60); Est Glom Filt Rate - Afr Amer 37 mL/min (>60); Estimated Creatinine Clearance 28.71 ml/min; Globulin 4.3 g/dL (2.2-4.2); Glucose 99 mg/dL (74-106); Potassium 4.2 mmol/L (3.5-5.1); Protein, Total 7.6 g/dL (6.4-8.2); Sodium Level 135 mmol/L (136-145); Troponin-I HS 13 pg/mL (3.0-54.0)
[2021-09-16 22:05] LABS: Anisocytosis RARE; Macrocytosis RARE; Platelet Estimate ADEQUATE (ADEQ); Red Cell Morphology N CHROM NORMAL (NORM C&C)
[2021-09-16 22:08] LABS: Lactic Acid 2.1 mmol/L (0.4-1.9)
[2021-09-16] MEDS: MethylPREDNISolone 125 MG/2 ML Vial IV (22:36)
[2021-09-16] MEDS: Ibuprofen 600 MG Tablet PO (22:36)
--- NOTE | 2021-09-16 22:40 | PCM.HP.STD ---
Documented by User: Nadja Nichole NP-C 09/16/21 23:07 HPI - General HPI Narrative KAYLAN BURKETT, is a 65 F who presents [facility] Medical History Arthritis Asthma Chronic respiratory failure COPD (chronic obstructive pulmonary disease) COPD exacerbation Depression Dermatitis Encounter for screening for malignant neoplasm of lung Encounter for screening for malignant neoplasm of lung in current smoker with 30 pack year history or greater Health care maintenance Hx of bacterial pneumonia Hx of drug abuse Hx of gastrointestinal disease Irritable bowel syndrome PMR (polymyalgia rheumatica) Right upper lobe pulmonary nodule Tobacco abuse Tobacco use disorder, continuous Unable to ambulate Weakness generalized Home Medications orfibmjo-rvjf-jss-folic acid 1 tab PO DAILY 04/05/19 [History Last Taken 04/04/19] albuterol sulfate 2 puff INHALATION Q4H PRN PRN 08/11/19 [History Last Taken Unknown] kwivgrfhjfb-yyvsuhbwg-byelbxoy 1 ea IH DAILY 08/11/19 [History Last Taken Unknown] acetaminophen 650 mg PO Q6H PRN PRN tab 08/15/19 [Rx Last Taken Unknown] amlodipine 10 mg tablet 10 mg PO DAILY #90 tab 06/09/20 [Rx Last Taken Unknown] fluticasone fur. 100 mcg-umeclid 62.5 mcg-vilant 25 mcg inhalat.powder 1 inh INHALATION DAILY 03/25/21 [History Last Taken Unknown] Allergy/AdvReac Type Severity Reaction Status Date / Time tiotropium Allergy Unknown Unknown Verified 09/16/21 20:26 [From Spiriva with HandiHaler] Penicillins Allergy Swelling Verified 09/16/21 20:26 budesonide AdvReac it makes Verified 09/16/21 20:26 me weak Family History (Updated 09/16/21 @ 22:41 by Nadja Nichole NP-C) Mother Arthritis Hypertension Father Arthritis Diabetes Hypertension Other Anemia Asthma Bowel disease CVA (cerebral vascular accident) Heart disease Myocardial infarction Osteoporosis Seizures Thyroid disorder Surgical History History of tonsillectomy Hx of appendectomy Hx of hysterectomy Social History (Updated 09/16/21 @ 22:43 by Nadja Nichole, DESTINEY-C) Smoking Status: Current every day smoker tobacco type: cigarettes Tobacco: How many years used: 40 alcohol intake: current alcohol intake frequency: a few times a week substance use type: marijuana caffeine: Yes what type of physical activity do you participate in: none frequency: does not exercise ROS Constitutional Constitutional: Reports chills, fever(s) and malaise; Denies anorexia or fatigue Cardiovascular Cardiovascular: Denies chest pain, edema, palpitations or syncope Respiratory/Chest Respiratory/Chest: Reports cough, dyspnea on exertion, productive cough, tachypnea and wheezing Gastrointestinal Gastrointestinal: Denies abdominal pain, constipation, diarrhea, nausea or vomiting Genitourinary Genitourinary: Denies dysuria Musculoskeletal Musculoskeletal: Reports back pain Integumentary Integumentary: Denies dry skin Neurologic Neurologic: Denies abnormal gait, abnormal speech, confusion, dizziness or focal weakness Psychiatric Psychiatric: Denies anxiety or depression Endocrine Endocrinology: Denies change in body appearance Hematologic/Lymphatic Hematologic/Lymphatic: Denies anemia Vital Signs Vital Signs Vital Signs: 09/16/21 20:21 09/16/21 20:26 09/16/21 21:04 Temperature 99.2 F H Temperature Source Oral Pulse Rate 93 84 Respiratory Rate 30 H 23 H 28 H Respiratory Effort Blood Pressure 130/56 H 123/64 H Blood Pressure Mean 80 83 Pulse Ox 88 93 96 Oxygen Delivery Method Venturi Mask Nasal Cannula Oxygen Flow Rate (L/min) 2 2 09/16/21 21:06 09/16/21 21:10 09/16/21 22:09 Temperature 100.5 F H Temperature Source Temporal Pulse Rate 85 84 Respiratory Rate 19 H 34 H Respiratory Effort Short of Breath Labored Blood Pressure 122/83 H Blood Pressure Mean 96 Pulse Ox 94 Oxygen Delivery Method Room Air Oxygen Flow Rate (L/min) Weight Weight: 203 lb 7.787 oz Body Mass Index (BMI) 32.8 Physical Exam Const alert and oriented x3 General Appearance: cooperative HEENT normocephalic and head/scalp atraumatic Eyes conjunctivae normal and no scleral icterus Neck supple General: trachea midline Lymph Lymphatic: no lymphadenopathy noted Resp Effort and Inspection: able to speak in complete sentences, symmetric chest movement and tachypneic Auscultation: wheezes expiratory wheezes, scattered wheezes and throughout Cardio regular rate, regular rhythm, S1 normal heart sound, S2 normal heart sound and peripheral pulses 2+ throughout GI normal to inspection, nondistended, normoactive bowel sounds, soft to palpation and non-tender Extremity normal capillary refill and no clubbing, cyanosis or edema General Extremity: no tenderness to palpation of joints or extremities Skin General Skin Exam: no breakdown and turgor normal Lesions: no lesions Rashes: no rashes Neuro no focal motor deficits and no sensory deficits noted Speech: speech normal Motor Exam: general weakness Psych thought process normal, cooperative and affect normal Appearance: appropriate Results Lab / Micro Data Result Diagrams: 09/16/21 21:20 09/16/21 21:20 Labs: Laboratory Results - last 24 hr 09/16/21 21:20: WBC 23.2 H, RBC 5.09, Hgb 15.7 H, Hct 48.0 H, MCV 94.3, MCH 30.8, MCHC 32.7, RDW Std Deviation 46.7 H, RDW Coeff of Randa 13.3, Plt Count 257, MPV 10.9, Immature Gran % (Auto) 2.800 H, Neut % (Auto) 87.6 H, Lymph % (Auto) 6.1 L, Cuming % (Auto) 3.2, Eos % (Auto) 0.0, Baso % (Auto) 0.3, Absolute Neuts (auto) 20.3 H, Absolute Lymphs (auto) 1.41, Nucleated RBC % 0, Differential Comment SEE COMMENT, Diff Path Review May foll, Platelet Estimate ADEQUATE, RBC Morphology N CHROM, Anisocytosis RARE, Macrocytosis RARE 09/16/21 21:20: PT 14.8, INR 1.2, APTT 25.8 09/16/21 21:20: Sodium 135 L, Potassium 4.2, Chloride 104, Carbon Dioxide 24.0, Anion Gap 7, BUN 20 H, Creatinine 1.78 H, Estim Creat Clear Calc 28.71, Est GFR (MDRD) Af Amer 37 L, Est GFR (MDRD) Non-Af 30 L, BUN/Creatinine Ratio 11.2, Glucose 99, Calcium 9.5, Total Bilirubin 1.10 H, AST 14 L, ALT 19, Alkaline Phosphatase 73, Troponin I High Sens 13, Total Protein 7.6, Albumin 3.3, Globulin 4.3 H, Albumin/Globulin Ratio 0.8 L 09/16/21 21:20: Lactic Acid 2.1 H* Radiology Impression Chest X-Ray 09/16/21 21:30 IMPRESSION: Hazy opacities in the right lower lung field, concerning for infection. Electronically Signed: Mariusz Vann MD at 22:02 EDT , Assessment & Plan Assessment/Plan (1) Acute and chronic respiratory failure with hypoxia: (2) Community acquired pneumonia: QUALIFIERS: Laterality: right Lung location: lower lobe of lung Qualified Code(s): J18.9 - Pneumonia, unspecified organism (3) Right shoulder pain: QUALIFIERS: Chronicity: chronic Qualified Code(s): M25.511 - Pain in right shoulder; G89.29 - Other chronic pain PLAN: 1. Acute on chronic respiratory failure with hypoxia secondary to community-acquired pneumonia and COPD exacerbation -Admit to [facility] with telemetry -Patient received Rocephin and azithromycin in ER, will continue -Solu-Medrol every 8 IV -Scheduled DuoNeb nebulizer treatments as well as as needed albuterol ordered -Patient noted to have leukocytosis as well as lactic acidosis, normal saline 125 mL/h ordered -Respiratory panel, urine strep pneumonia and Legionella ordered -UA and urine culture pending -CBC and CMP ordered for a.m. -Oxygen per protocol, currently on 2 L -Encourage incentive spirometry 2. Acute kidney injury -Normal saline 125 mL/h ordered -Daily CMP -Baseline creatinine 0.7-0.9 3. Right pleuritic back pain -Patient received Tylenol and fentanyl in ER -As needed Tylenol ordered 4. Hypertension -Continue amlodipine -Vital signs per protocol, currently stable -As needed hydralazine ordered 5. Tobacco abuse -Inpatient smoking cessation ordered -Nicotine patch ordered DVT prophylaxis-subcu heparin This patient was seen by Nadja Nichole NP-C under the supervision of Dr. Le. 32 minutes spent in clinical coordination of patient's plan of care. Documented by User: Dr. Iliana Le MD 09/16/21 23:07 HPI - General General Date of Admission: 09/16/21 [facility] Medical History Arthritis Asthma Chronic respiratory failure COPD (chronic obstructive pulmonary disease) COPD exacerbation Depression Dermatitis Encounter for screening for malignant neoplasm of lung Encounter for screening for malignant neoplasm of lung in current smoker with 30 pack year history or greater Health care maintenance Hx of bacterial pneumonia Hx of drug abuse Hx of gastrointestinal disease Irritable bowel syndrome PMR (polymyalgia rheumatica) Right upper lobe pulmonary nodule Tobacco abuse Tobacco use disorder, continuous Unable to ambulate Weakness generalized Home Medications noblsgvp-pczt-exl-folic acid 1 tab PO DAILY 04/05/19 [History Last Taken 04/04/19] albuterol sulfate 2 puff INHALATION Q4H PRN PRN 08/11/19 [History Last Taken Unknown] zjaovnnsldv-zcexvuuqk-egsdykqi 1 ea IH DAILY 08/11/19 [History Last Taken Unknown] acetaminophen 650 mg PO Q6H PRN PRN tab 08/15/19 [Rx Last Taken Unknown] amlodipine 10 mg tablet 10 mg PO DAILY #90 tab 06/09/20 [Rx Last Taken Unknown] fluticasone fur. 100 mcg-umeclid 62.5 mcg-vilant 25 mcg inhalat.powder 1 inh INHALATION DAILY 03/25/21 [History Last Taken Unknown] Allergy/AdvReac Type Severity Reaction Status Date / Time tiotropium Allergy Unknown Unknown Verified 09/16/21 20:26 [From Spiriva with HandiHaler] Penicillins Allergy Swelling Verified 09/16/21 20:26 budesonide AdvReac it makes Verified 09/16/21 20:26 me weak Family History (Updated 09/16/21 @ 22:41 by Nadja Nichole NP-C) Mother Arthritis Hypertension Father Arthritis Diabetes Hypertension Other Anemia Asthma Bowel disease CVA (cerebral vascular accident) Heart disease Myocardial infarction Osteoporosis Seizures Thyroid disorder Surgical History History of tonsillectomy Hx of appendectomy Hx of hysterectomy Social History (Updated 09/16/21 @ 22:43 by Nadja Knoble, [employer]-C) Smoking Status: Current every day smoker tobacco type: cigarettes Tobacco: How many years used: 40 alcohol intake: current alcohol intake frequency: a few times a week substance use type: marijuana caffeine: Yes what type of physical activity do you participate in: none frequency: does not exercise Results Lab / Micro Data Result Diagrams: 09/16/21 21:20 09/16/21 21:20
[2021-09-16] MEDS: fentaNYL 100 MCG/2 ML Ampul 25 MCG IV (22:58)
[2021-09-16] MEDS: Acetaminophen 325 MG Tablet 650 MG PO (23:19)
[2021-09-16] MEDS: 0.9% Normal Saline 1,000 ML 999 ML IV (23:20)
[2021-09-16] MEDS: 0.9% Saline Lock 10 ML Syringe IV (23:59)
[2021-09-17] VITALS (19 sets, daily range): BP systolic 112–140; BP diastolic 56–79; PULSE 81–98; RESP 16–22; TEMP 36.8–37.6; O2SAT 86–97
[2021-09-17] MEDS: MELATONIN 3 MG TABLET PO ×2 (00:02→21:02)
[2021-09-17] MEDS: guaiFENesin 10 ML UDC (200MG/10ML) 20 ML PO ×2 (00:02→21:09)
[2021-09-17] MEDS: oxyCODONE 5 MG Tablet PO (00:02)
[2021-09-17] MEDS: 0.9% Normal Saline 1,000 ML 999 ML IV ×2 (00:40→01:45)
[2021-09-17] MEDS: Ceftriaxone 1 GM/50 ML BAG IV ×2 (00:45→21:01)
[2021-09-17 01:36] LABS: Reflex Lactate? Y
[2021-09-17 01:53] LABS: Lactic Acid 1.6 mmol/L (0.4-1.9)
[2021-09-17] MEDS: 0.9% Normal Saline 1,000 ML 125 ML IV ×3 (02:48→21:44)
[2021-09-17 02:52] LABS: Mucous, Urine 0 SEEN /hpf (<or=2+); Red Blood Cells-Urine 0 SEEN /hpf (0-5)
[2021-09-17 02:53] LABS: Color, Urine Yellow (Yellow); Glucose, Dipstick Normal (Normal); Ketone-Dipstick 5 mg/dl (Negative); Leukocyte Esterase-Dipstick 100 /ul (Negative); Nitrite-Dipstick Negative (Negative); Occult Blood-Urine Negative /ul (Negative); Protein-Dipstick 15 mg/dl (Negative); Specific Gravity, Urine 1.015 (1.002-1.030); Urine Bilirubin Dipstick Negative (Negative); Urine Clarity Sl. Cloudy (Clear); Urine Urobilinogen Normal (Normal)
[2021-09-17 03:15] LABS: Bacteria 1+ /hpf (None Seen); Squamous Epithelial Cells - UA 0-5 SEEN /hpf (5-10); White Blood Cells 0-5 SEEN /hpf (0-5)
[2021-09-17 06:13] LABS: Hematocrit 40.7 % (37-47); Hemoglobin 13.4 g/dL (12.0-15.0); Mean Corp Hgb Conc 32.9 g/dL (32-36); Mean Corpuscular Hgb 30.8 pg (27.0-32.0); Mean Corpuscular Volume 93.6 fL (81-99); Mean Platelet Vol. 10.1 fl (6.2-12.0); POSITIVE COUNT YES; POSITIVE DIFFERENTIAL YES; POSITIVE MORPHOLOGY YES; Platelet Count 197 K/mm3 (150-450); RBC Distribution Width CV 13.4 % (11.6-14.6); RBC Distribution Width SD 46.1 fl (35.1-43.9); Red Blood Count 4.35 M/mm3 (4.2-5.4); White Blood Count 25.2 K/mm3 (4.4-11.0)
[2021-09-17 06:30] LABS: Differential Indicated MANUAL DIFF
[2021-09-17 06:50] LABS: Platelet Estimate ADEQUATE (ADEQ)
[2021-09-17 06:51] LABS: Red Cell Morphology NORM C+C NORMAL (NORM C&C)
[2021-09-17 06:53] LABS: ALB/GLOB Ratio 0.6 RATIO (0.9-2.4); AST(SGOT) 11 U/L (15-37); Absolute Lymphocyte Count 1.52 X10^3/uL (0.83-4.51); Alanine Aminotransfer ALT/SGPT 18 U/L (13-56); Albumin, Serum 2.4 g/dL (3.2-5.0); Alkaline Phosphatase 59 U/L (45-117); Anion Gap 5 (5-15); BUN 18 mg/dL (7-18); BUN/Creat Ratio 13.6 RATIO (10-20); Chloride 112 mmol/L (98-107); Creatinine, Serum 1.32 mg/dL (0.55-1.02); EST Glomerular Filtration Rate 43 mL/min (>60); Est Glom Filt Rate - Afr Amer 52 mL/min (>60); Estimated Creatinine Clearance 38.72 ml/min; Globulin 3.8 g/dL (2.2-4.2); Glucose 147 mg/dL (74-106); Potassium 4.1 mmol/L (3.5-5.1); Protein, Total 6.2 g/dL (6.4-8.2); Sodium Level 137 mmol/L (136-145)
[2021-09-17 06:54] LABS: Calcium,Total 8.1 mg/dL (8.5-10.1); Lymphocyte 6 % (19-41); Metamyelocyte 1 % (0-1); Monocyte 3 % (0-10); Myelocyte 3 % (0-0); Neutrophil-Band 35 % (0-5); Neutrophil-Segmented 52 % (47-70); Total Cells Counted 100 (MANUAL DIFF)
[2021-09-17] MEDS: Ipratropium/Albuterol Sulfate 3 ML AMPUL.NEB INHALATION ×4 (07:25→20:03)
--- NOTE | 2021-09-17 09:04 | CT_ITS ---
STUDY: CTA CHEST REASON FOR EXAM: Female, 65 years old. Bloody sputum. Respiratory failure and COPD. Cough, shortness of breath and fever. RADIATION DOSAGE (If Supplied By Facility): CTDIvol = ( 12.75 ) mGy, DLP = ( 451.59 ) mGycm TECHNIQUE: The examination was performed with the intravenous administration of IV 100mL Isovue-370. Post-processing of the angiographic images was performed, with multiplanar reformation and 3D reconstruction. Individualized dose optimization techniques were used for this CT. COMPARISON: Comparison is made with prior examination dated 12/30/2020. FINDINGS: Normal enhancement of the main pulmonary artery and right and left pulmonary arteries. Normal enhancement of the bilateral peripheral pulmonary arteries. There is no demonstrated pulmonary embolism. Normal thoracic aorta and visualized great vessels. There is no demonstrated aortic dissection. Normal heart and pericardium. Normal mediastinum. Normal hilar regions. Normal visualized trachea and bronchi. Hyperinflation. There is evidence of emphysematous changes with centrilobular emphysematous changes seen worse in the upper lobes. There is a 6.7 mm noncalcified nodule in the posterior-lateral aspect of the right lobe. This is essentially unchanged. Dense consolidation in the right lower lobe. A pneumonic infiltrate should be ruled out. Radiographic follow-up is recommended. Mild thickening of the right major fissure. Normal chest wall structures. There are degenerative changes of thoracic spine. There is hyperplasia of the left adrenal gland. CT/CTA Chest W/WO Contrast IMPRESSION: Dense consolidation in the right lower lobe. No evidence of a pulmonary embolism. Stable 6.7 mm noncalcified nodule in the right lower lobe. Left adrenal hyperplasia. Electronically Signed: Chuy Frye MD at 9:53 EDT ,
[2021-09-17] MEDS: amLODIPine 10 MG Tablet PO (09:59)
[2021-09-17] MEDS: Heparin Injection (Vial) 5,000 UNIT/ML VIAL 5000 UNIT SC ×2 (09:59→21:01)
[2021-09-17] MEDS: 0.9% Saline Lock 10 ML Syringe IV (11:26)
[2021-09-17] MEDS: Acetaminophen 325 MG Tablet 650 MG PO (11:26)
[2021-09-17 11:29] LABS: Pathologist Review Reviewed
[2021-09-17 11:31] LABS: Pathologist Review Reviewed
--- NOTE | 2021-09-17 11:40 | CASEMGMT ---
BRITTNEY CENTENO Assessment: Face to Face with pt for initial transition planning/care coordination assessment. BRITTNEY CENTENO introduced self and role at [facility], pt voices understanding and consents to assessment. Pt is A/O x4 and answers all questions appropriately at this time. Pt sitting up in bed in no distress with O2 on. Care providers, pharmacy, and demographics verified/updated. Admitting Dx: resp failure, CAP, COPD exac PCP:Thao Specialists:cirilo Devries; Vipul was GI but has moved out of state for pt. [facility]erred [facility] Benef[facility]: yes LW/HPOA: Pt denies having a LW/DPOA and denies need for info regarding AD. 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 Provided pt with info for AD. LNOK: monet Watt; monet [place] Living Arrangements: Pt lives alone in an apt with elevators to enter. Pt reports she is I in ADL's and denies concerns at home. Transportation: Pt drives self but does not have a car. She borrows from her family or she uses a cab or has family or friends transport her to medical appts. DME/HHC/SNF: Pt has a nebulizer and oxygen concentrator through [facility]. She only uses 2L at hs per her report. Pt also has a FWW but does not use. Pt has had HHC in the past but is unsure of which agency she has used. Pt denies SNF stays. Pt states no concerns with going home at time of dc. She doesn't feel that she will need HHC. Pt states no further concerns/needs. CM to follow. Advised pt to ask CM if any further question/concerns/needs arise, voices understanding. Pt Goal: Home Plan: Home, will monitor for increased O2 needs.
--- NOTE | 2021-09-17 12:37 | PCM.PN.HOSP ---
Subjective Subjective Patient seen and examined. she complains of hemoptysis. She says her shortness of breath has improved. Her hemoptysis started with her recent illness and shortness of breath. It hasnt worsened; it is mainly sputum with streaks of blood. She denies chest pain, though she admits to some upper back pain which is worsened with coughing. Review of systems is otherwise negative. Objective Data Objective Data Vital Signs: Vital Signs Temp Pulse Resp BP Pulse Ox 98.4 F 94 18 127/70 H 94 09/17/21 09:15 09/17/21 10:58 09/17/21 10:58 09/17/21 09:15 09/17/21 10:58 Oxygen Flow Rate (L/min) 2 Oxygen Delivery Method Nasal Cannula Weight: 189 lb 6.033 oz Body Mass Index (BMI) 30.6 Intake & Output: Intake and Output for Last 24 Hours 09/15/21 09/16/21 09/17/21 23:59 23:59 23:59 Intake Total 3605 / 3605 Output Total 1100 / 1100 Balance 2505 / 2505 Lab / Micro Data Result Diagrams: 09/17/21 05:55 09/17/21 05:55 Labs: Laboratory Results - last 24 hr 09/16/21 21:20: WBC 23.2 H, RBC 5.09, Hgb 15.7 H, Hct 48.0 H, MCV 94.3, MCH 30.8, MCHC 32.7, RDW Std Deviation 46.7 H, RDW Coeff of Randa 13.3, Plt Count 257, MPV 10.9, Immature Gran % (Auto) 2.800 H, Neut % (Auto) 87.6 H, Lymph % (Auto) 6.1 L, [place] % (Auto) 3.2, Eos % (Auto) 0.0, Baso % (Auto) 0.3, Absolute Neuts (auto) 20.3 H, Absolute Lymphs (auto) 1.41, Nucleated RBC % 0, Differential Comment SEE COMMENT, Diff Path Review Reviewed, Platelet Estimate ADEQUATE, RBC Morphology N CHROM, Anisocytosis RARE, Macrocytosis RARE 09/16/21 21:20: PT 14.8, INR 1.2, APTT 25.8 09/16/21 21:20: Sodium 135 L, Potassium 4.2, Chloride 104, Carbon Dioxide 24.0, Anion Gap 7, BUN 20 H, Creatinine 1.78 H, Estim Creat Clear Calc 28.71, Est GFR (MDRD) Af Amer 37 L, Est GFR (MDRD) Non-Af 30 L, BUN/Creatinine Ratio 11.2, Glucose 99, Calcium 9.5, Total Bilirubin 1.10 H, AST 14 L, ALT 19, Alkaline Phosphatase 73, Troponin I High Sens 13, Total Protein 7.6, Albumin 3.3, Globulin 4.3 H, Albumin/Globulin Ratio 0.8 L 09/16/21 21:20: Lactic Acid 2.1 H* 09/17/21 01:15: Lactic Acid 1.6 09/17/21 02:46: Urine Color Yellow, Urine Clarity Sl. Cloudy, Urine pH 5.0, Ur Specific [place] 1.015, Urine Protein 15 H, Urine Glucose (UA) Normal, Urine Ketones 5 H, Urine Occult Blood Negative, Urine Nitrite Negative, Urine Bilirubin Negative, Urine Urobilinogen Normal, Ur Leukocyte Esterase 100 H, Urine RBC 0 SEEN, Urine WBC 0-5 SEEN, Ur Squamous Epith Cells 0-5 SEEN, Urine Bacteria 1+, Urine Mucus 0 SEEN 09/17/21 05:55: WBC 25.2 H, RBC 4.35, Hgb 13.4, Hct 40.7, MCV 93.6, MCH 30.8, MCHC 32.9, RDW Std Deviation 46.1 H, RDW Coeff of Randa 13.4, Plt Count 197, MPV 10.1, Neut % (Auto) Not Reportable, Absolute Neuts (auto) 22.0 H, Absolute Lymphs (auto) 1.52, Total Counted 100, Neutrophils % (Manual) 52, Band Neutrophils % 35 H, Lymphocytes % (Manual) 6 L, Monocytes % (Manual) 3, Metamyelocytes % 1, Myelocytes % 3 H, Diff Path Review Reviewed, Platelet Estimate ADEQUATE, RBC Morphology NORM C+C 09/17/21 05:55: Sodium 137, Potassium 4.1, Chloride 112 H, Carbon Dioxide 20.0 L, Anion Gap 5, BUN 18, Creatinine 1.32 H, Estim Creat Clear Calc 38.72, Est GFR (MDRD) Af Amer 52 L, Est GFR (MDRD) Non-Af 43 L, BUN/Creatinine Ratio 13.6, Glucose 147 H, Calcium 8.1 L, Total Bilirubin 0.50, AST 11 L, ALT 18, Alkaline Phosphatase 59, Total Protein 6.2 L, Albumin 2.4 L, Globulin 3.8, Albumin/Globulin Ratio 0.6 L Micro: Microbiology 09/17/21 00:08 Sputum, Expectorated/Coughed Gram Stain - Final 09/16/21 21:35 Mucosa - Nose Respiratory Panel (PCR) - Final 09/17/21 02:46 Urine, Clean Catch Streptococcus pneumoniae Antigen (M - Final Streptococcus pneumonia Ag 09/17/21 02:46 Urine, Clean Catch Legionella Antigen - Final Radiography Diagnostic Testing: Radiology Impression Chest X-Ray 09/16/21 21:30 IMPRESSION: Hazy opacities in the right lower lung field, concerning for infection. Electronically Signed: Mariusz Vann MD at 22:02 EDT , Chest CTA 09/17/21 09:04 IMPRESSION: Dense consolidation in the right lower lobe. No evidence of a pulmonary embolism. Stable 6.7 mm noncalcified nodule in the right lower lobe. Left adrenal hyperplasia. Electronically Signed: Chuy Frye MD at 9:53 EDT , Physical Exam Const alert, oriented x3 and no apparent distress Exam Limitations: no limitations HEENT head/scalp atraumatic and moist oral mucous membranes Head and Scalp: normocephalic Eyes PERRL, EOMs intact bilaterally and conjunctivae normal Neck no lymphadenopathy Resp Resp Narrative: mildly diminished breath sounds bibasally, no wheezes or crackles. on 2L of oxygen by nasal canula Cardio regular rate, regular rhythm, S1 normal heart sound, S2 normal heart sound and no murmurs GI normal to inspection, nondistended, normoactive bowel sounds, soft to palpation, non-tender and non-distended Extremity normal to inspection, full ROM and no clubbing, cyanosis or edema Peripheral Pulses: Yes pulses 2+ throughout Skin no rashes or lesions noted Neuro oriented x3, CN's II-XII intact bilaterally and moves all extremities Sensorium / Orientation: awake and alert Psych affect normal Assessment & Plan Assessment/Plan (1) Community acquired pneumonia: QUALIFIERS: Laterality: right Lung location: lower lobe of lung Qualified Code(s): J18.9 - Pneumonia, unspecified organism (2) Acute and chronic respiratory failure with hypoxia: PLAN: #Community acquired pneumonia on iV ceftriaxone and azithromycin sputum culture pending breathing treatment with bronchodilators titrate oxyen to maintain sats >90% urine for strep pneumonia antigen is positive await sputum cultures and blood cultures WBC has trended up to 25.2 today. This is likely due to the IV Solu-Medrol she was started on for presumptive COPD exacerbation. #Hemoptysis likely due to community acquired pneumonia CTA chest done today showed a dense right lower lobe pneumonia and was negative for PE management as above #JACQUELINE: Creatinine was 1.78 and is down to 1.32 today. Baseline is around 0.7-0.9. Continue gentle hydration with IV fluids. #Hypertension: On amlodipine #Nicotine dependence: Patient still smokes. Counseled to quit. DVT prophylaxis; lovenox Charges/Coding Visit Charges Inpatient E&M: 08341 [facility] Hosp L3
--- NOTE | 2021-09-17 15:02 | CASEMGMT ---
Addendum entered by Mayte Kc 09/17/21 16:40: Per [facility], pt has portable mini tanks with conserving device as well. Donnell states pt has to tolerate this to be able to have the POC. BRITTNEY CENTENO in to pt room. Pt states she did not know she was supposed to be on 2L cont. She states she used to have the mini tanks with conserving device but [facility] came to get them. She states she will call her nephew dayana to bring in her portable tank for dc. Notified Anjali nurse of pt ordered O2 for testing at or. Will call [facility] back tomorrow to make aware pt does not have the mini tanks with conserving device. Original Note: Pt has questions for BRITTNEY CENTENO. She states that she received a new nebulizer and she is not sure that it is working properly because it is smaller than the old one. Pt also asks if she can have a portable concentrator. TC to Donnell at [facility], confirmed pt order for O2 is 2L continuous. She states pt was provided a new nebulizer in July and they can send someone out to check on it. Donnell stated pt could have a portable concentrator if order received. She states this will not change the cost to the patient as it is still considered portability.
[2021-09-17] MEDS: BENZOCAINE/MENTHOL 1 LOZENGE MUCOUS MEM (21:09)
[2021-09-18] VITALS (13 sets, daily range): BP systolic 120–146; BP diastolic 58–68; PULSE 71–96; RESP 16–24; TEMP 36.6–37.2; O2SAT 90–98
[2021-09-18] MEDS: Albuterol 2.5 MG/3 ML VIAL.NEB. INHALATION (03:01)
[2021-09-18] MEDS: 0.9% Normal Saline 1,000 ML 125 ML IV ×2 (05:40→14:55)
[2021-09-18] MEDS: Acetaminophen 325 MG Tablet 650 MG PO (05:40)
[2021-09-18 05:54] LABS: Hematocrit 37.6 % (37-47); Hemoglobin 12.3 g/dL (12.0-15.0); Mean Corp Hgb Conc 32.7 g/dL (32-36); Mean Corpuscular Hgb 30.5 pg (27.0-32.0); Mean Corpuscular Volume 93.3 fL (81-99); Mean Platelet Vol. 10.5 fl (6.2-12.0); POSITIVE COUNT YES; POSITIVE DIFFERENTIAL YES; POSITIVE MORPHOLOGY YES; Platelet Count 214 K/mm3 (150-450); RBC Distribution Width CV 13.5 % (11.6-14.6); RBC Distribution Width SD 46.3 fl (35.1-43.9); Red Blood Count 4.03 M/mm3 (4.2-5.4); White Blood Count 26.1 K/mm3 (4.4-11.0)
[2021-09-18 05:58] LABS: Differential Indicated MANUAL DIFF
[2021-09-18 06:19] LABS: Absolute Lymphocyte Count 1.57 X10^3/uL (0.83-4.51); Absolute Neutrophil Count 22.5 X10^3/uL (2.0-7.7); Lymphocyte 6 % (19-41); Monocyte 5 % (0-10); Myelocyte 3 % (0-0); Neutrophil-Band 13 % (0-5); Neutrophil-Segmented 73 % (47-70); Platelet Estimate ADEQUATE (ADEQ); Total Cells Counted 100 (MANUAL DIFF)
[2021-09-18 06:20] LABS: Red Cell Morphology NORM C+C NORMAL (NORM C&C)
[2021-09-18] MEDS: Ipratropium/Albuterol Sulfate 3 ML AMPUL.NEB INHALATION ×5 (06:24→22:40)
[2021-09-18 06:26] LABS: Anion Gap 5 (5-15); BUN 14 mg/dL (7-18); BUN/Creat Ratio 16.5 RATIO (10-20); Calcium,Total 8.3 mg/dL (8.5-10.1); Chloride 113 mmol/L (98-107); Creatinine, Serum 0.85 mg/dL (0.55-1.02); EST Glomerular Filtration Rate 71 mL/min (>60); Est Glom Filt Rate - Afr Amer 86 mL/min (>60); Estimated Creatinine Clearance 60.12 ml/min; Glucose 144 mg/dL (74-106); Potassium 3.5 mmol/L (3.5-5.1); Sodium Level 141 mmol/L (136-145)
[2021-09-18] MEDS: amLODIPine 10 MG Tablet PO (08:12)
[2021-09-18] MEDS: Heparin Injection (Vial) 5,000 UNIT/ML VIAL 5000 UNIT SC ×2 (08:13→20:54)
--- NOTE | 2021-09-18 10:00 | CASEMGMT ---
Pt screened with [facility] Palliative Care Screening Tool d/t COPD dx, pt met criteria. No order received at this time.
--- NOTE | 2021-09-18 11:57 | PN.HOSP_ITS ---
Subjective Subjective Patient seen and examined. She said she was feeling much better today. Her breathing had improved though she remains on 3 L of oxygen. She is still coughing up some blood. CTA of the chest done yesterday was negative for PE but it showed evidence of right lower lobe dense consolidation. Review of systems otherwise negative. Objective Data Objective Data Vital Signs: Vital Signs Temp Pulse Resp BP Pulse Ox 98.3 F 88 20 H 137/64 H 97 09/18/21 08:05 09/18/21 10:21 09/18/21 10:21 09/18/21 08:05 09/18/21 08:05 Oxygen Flow Rate (L/min) 3 Oxygen Delivery Method Nasal Cannula Weight: 206 lb 2.115 oz Body Mass Index (BMI) 30.6 Intake & Output: Intake and Output for Last 24 Hours 09/16/21 09/17/21 09/18/21 23:59 23:59 23:59 Intake Total 6326.66 / 6326.66 1247.92 / 1247.92 Output Total 2850 / 2850 550 / 550 Balance 3476.66 / 3476.66 697.92 / 697.92 Lab / Micro Data Result Diagrams: 09/18/21 05:35 09/18/21 05:35 Labs: Laboratory Results - last 24 hr 09/18/21 05:35: WBC 26.1 H, RBC 4.03 L, Hgb 12.3, Hct 37.6, MCV 93.3, MCH 30.5, MCHC 32.7, RDW Std Deviation 46.3 H, RDW Coeff of Randa 13.5, Plt Count 214, MPV 10.5, Neut % (Auto) Not Reportable, Absolute Neuts (auto) 22.5 H, Absolute Lymphs (auto) 1.57, Total Counted 100, Neutrophils % (Manual) 73 H, Band Neutro phils % 13 H, Lymphocytes % (Manual) 6 L, Monocytes % (Manual) 5, Myelocytes % 3 H, Diff Path Review May , Platelet Estimate ADEQUATE, RBC Morphology NORM C+C 09/18/21 05:35: Sodium 141, Potassium 3.5, Chloride 113 H, Carbon Dioxide 23.0, Anion Gap 5, BUN 14, Creatinine 0.85, Estim Creat Clear Calc 60.12, Est GFR (MDRD) Af Amer 86, Est GFR (MDRD) Non-Af 71, BUN/Creatinine Ratio 16.5, Glucose 144 H, Calcium 8.3 L Micro: Microbiology 09/17/21 00:08 Sputum, Expectorated/Coughed Gram Stain - Final 09/17/21 00:08 Sputum, Expectorated/Coughed Respiratory Culture - Prelimina ry Appears to be normal respiratory adrian. Further studies to follow. 09/17/21 02:46 Urine, Random Urine Culture - Preliminary Mixed Gram Positive Organisms 09/16/21 21:35 Mucosa - Nose Respiratory Panel (PCR) - Final 09/17/21 02:46 Urine, Clean Catch Streptococcus pneumoniae Antigen (M - Final Streptococcus pneumonia Ag 09/17/21 02:46 Urine, Clean Catch Legionella Antigen - Final Physical Exam Const alert, oriented x3 and no apparent distress General Appearance: cooperative Exam Limitations: no limitations HEENT normocephalic, head/scalp atraumatic and moist oral mucous membranes Head and Scalp: normocephalic Eyes PERRL, EOMs intact bilaterally, conjunctivae normal and no scleral icterus Neck no lymphadenopathy and supple General: trachea midline Lymph Lymphatic: no lymphadenopathy noted Resp Resp Narrative: mildly diminished breath sounds bibasally, no wheezes or crackles. on 3L of oxygen by nasal canula Effort and Inspection: able to speak in complete sentences, symmetric chest movement and tachypneic Auscultation: wheezes expiratory wheezes, scattered wheezes and throughout Cardio regular rate, regular rhythm, S1 normal heart sound, S2 normal heart sound, no murmurs and peripheral pulses 2+ throughout GI normal to inspection, nondistended, normoactive bowel sounds, soft to palpation, non-tender and non-distended Extremity normal to inspection, full ROM, normal capillary refill and no clubbing, cyanosis or edema General Extremity: no tenderness to palpation of joints or extremities Peripheral Pulses: Yes pulses 2+ throughout Skin no rashes or lesions noted General Skin Exam: no breakdown and turgor normal Lesions: no lesions Rashes: no rashes Neuro oriented x3, CN's II-XII intact bilaterally, moves all extremities, no focal motor deficits and no sensory deficits noted Sensorium / Orientation: awake and alert Speech: speech normal Motor Exam: general weakness Psych thought process normal, cooperative and affect normal Appearance: appropriate Assessment & Plan Assessment/Plan (1) Community acquired pneumonia: QUALIFIERS: Laterality: right Lung location: lower lobe of lung Qualified Code(s): J18.9 - Pneumonia, unspecified organism (2) Acute and chronic respiratory failure with hypoxia: PLAN: #Community acquired pneumonia * on iV ceftriaxone and azithromycin * sputum culture pending * breathing treatment with bronchodilators * CTA of the chest was negative for PE and showed a dense right lower lo e pneumonia * titrate oxyen to maintain sats >90% * urine for strep pneumonia antigen is positive * await sputum cultures and blood cultures * wbc is 26.1 today * #Hemoptysis * likely due to community acquired pneumonia * CTA chest done today showed a dense right lower lobe pneumonia and was negative for PE * management as above * #JACQUELINE: Creatinine is down to 0.85 today. Resolved. #Hypertension: On amlodipine #Nicotine dependence: Patient still smokes. Counseled to quit. Nicotine patch 21mg daily DVT prophylaxis; lovenox Charges/Coding Visit Charges Inpatient E&M: 67640 Subs Hosp L2
--- NOTE | 2021-09-18 12:38 | CASEMGMT ---
TC to [facility], spoke with Lety, she states that [employer] has been in touch with pt and they will deliver mini tanks to pt with conserving device when she gets home. Completed green sheet for order for increased O2 needs and portable POC.
[2021-09-18] MEDS: 0.9% Saline Lock 10 ML Syringe IV (14:55)
[2021-09-18] MEDS: Ceftriaxone 1 GM/50 ML BAG IV (20:53)
[2021-09-19] VITALS (13 sets, daily range): BP systolic 134–140; BP diastolic 61–77; PULSE 72–89; RESP 16–24; TEMP 36.8–37.1; O2SAT 88–97
[2021-09-19] MEDS: 0.9% Normal Saline 1,000 ML 125 ML IV (00:23)
[2021-09-19] MEDS: Ipratropium/Albuterol Sulfate 3 ML AMPUL.NEB INHALATION ×6 (04:18→23:11)
[2021-09-19 07:10] LABS: Absolute Lymphocyte Count 1.36 X10^3/uL (0.83-4.51); Absolute Neutrophil Count 19.8 X10^3/uL (2.0-7.7); Basophil# 0.04 X10^3/uL; Basophil% 0.2 % (0-1); Eosinophil# 0.01 X10^3/uL; Hematocrit 39.4 % (37-47); Hemoglobin 12.8 g/dL (12.0-15.0); Lymphocyte # 1.36 X10^3/ul (0.83-4.51); Lymphocyte % 6.2 % (19-41); Mean Corp Hgb Conc 32.5 g/dL (32-36); Mean Corpuscular Hgb 30.4 pg (27.0-32.0); Mean Corpuscular Volume 93.6 fL (81-99); Monocyte# 0.79 X10^3/uL; Monocyte% 3.6 % (0-10); NRBC Flagged by Analyzer 0 % (0-5); Neutrophil # 19.76 X10^3/uL (2.7-7.7); Neutrophil % 89.4 % (47-70); POSITIVE COUNT YES; Platelet Count 221 K/mm3 (150-450); RBC Distribution Width CV 13.9 % (11.6-14.6); RBC Distribution Width SD 48.2 fl (35.1-43.9); Red Blood Count 4.21 M/mm3 (4.2-5.4); White Blood Count 22.1 K/mm3 (4.4-11.0)
[2021-09-19 07:15] LABS: Differential Indicated SCAN CRITERIA MET
[2021-09-19 07:34] LABS: Anion Gap 3 (5-15); BUN 12 mg/dL (7-18); BUN/Creat Ratio 14.6 RATIO (10-20); Calcium,Total 9.1 mg/dL (8.5-10.1); Chloride 115 mmol/L (98-107); Creatinine, Serum 0.82 mg/dL (0.55-1.02); EST Glomerular Filtration Rate 73 mL/min (>60); Est Glom Filt Rate - Afr Amer 89 mL/min (>60); Estimated Creatinine Clearance 62.32 ml/min; Glucose 125 mg/dL (74-106); Potassium 3.8 mmol/L (3.5-5.1); Sodium Level 139 mmol/L (136-145)
[2021-09-19] MEDS: Furosemide 40 MG/4 ML Vial IV (08:55)
[2021-09-19] MEDS: Heparin Injection (Vial) 5,000 UNIT/ML VIAL 5000 UNIT SC ×2 (08:55→21:01)
[2021-09-19] MEDS: Triamcinolone Ointment 1 APPLIC TUBE TOPICAL ×2 (08:56→21:02)
[2021-09-19] MEDS: amLODIPine 10 MG Tablet PO (08:56)
[2021-09-19 11:01] LABS: Differential Comment SCANNED
--- NOTE | 2021-09-19 12:23 | PN.HOSP_ITS ---
Subjective Subjective Patient seen and examined. She complains of having a rough night because her IV machine kept beeping. She feels her breathing is getting better. She is still coughing. Review of systems is otherwise negative. Objective Data Objective Data Vital Signs: Vital Signs Temp Pulse Resp BP Pulse Ox 98.5 F 89 22 H 138/62 H 95 09/19/21 09:04 09/19/21 11:08 09/19/21 11:08 09/19/21 09:04 09/19/21 11:08 Oxygen Flow Rate (L/min) [ 2 AMBULATING with Oxygen #1] Oxygen Flow Rate (L/min) 3 Oxygen Delivery Method Nasal Cannula Weight: 213 lb 6.519 oz Body Mass Index (BMI) 30.6 Intake & Output: Intake and Output for Last 24 Hours 09/17/21 09/18/21 09/19/21 23:59 23:59 23:59 Intake Total 6326.66 / 6326.66 4252.92 / 4252.92 1300 / 1300 Output Total 2850 / 2850 1350 / 1350 Balance 3476.66 / 3476.66 2902.92 / 2902.92 1300 / 1300 Lab / Micro Data Result Diagrams: 09/19/21 06:32 09/19/21 06:32 Labs: Laboratory Results - last 24 hr 09/19/21 06:32: WBC 22.1 H, RBC 4.21, Hgb 12.8, Hct 39.4, MCV 93.6, MCH 30.4, MCHC 32.5, RDW Std Deviation 48.2 H, RDW Coeff of Randa 13.9, Plt Count 221, MPV 11.0, Immature Gran % (Auto) 0.600, Neut % (Auto) 89.4 H, Lymph % (Auto) 6.2 L, [place] % (Auto) 3.6, Eos % (Auto) 0.0, Baso % (Auto) 0.2, Absolute Neuts (auto) 19.8 H, Absolute Lymphs (auto) 1.36, Nucleated RBC % 0, Differential Comment SCANNED 09/19/21 06:32: Sodium 139, Potassium 3.8, Chloride 115 H, Carbon Dioxide 21.0, Anion Gap 3 L, BUN 12, Creatinine 0.82, Estim Creat Clear Calc 62.32, Est GFR (MDRD) Af Amer 89, Est GFR (MDRD) Non-Af 73, BUN/Creatinine Ratio 14.6, Glucose 125 H, Calcium 9.1 Micro: Microbiology 09/17/21 00:08 Sputum, Expectorated/Coughed Gram Stain - Final 09/17/21 00:08 Sputum, Expectorated/Coughed Respiratory Culture - Preliminary GNR lactose tare weigher Mixed Adrian 09/17/21 02:46 Urine, Random Urine Culture - Final Mixed Gram Positive Organisms 09/16/21 21:35 Mucosa - Nose Respiratory Panel (PCR) - Final 09/17/21 02:46 Urine, Clean Catch Streptococcus pneumoniae Antigen (M - Final Streptococcus pneumonia Ag 09/17/21 02:46 Urine, Clean Catch Legionella Antigen - Final Physical Exam Const alert, oriented x3 and no apparent distress General Appearance: cooperative Exam Limitations: no limitations HEENT normocephalic, head/scalp atraumatic and moist oral mucous membranes Head and Scalp: normocephalic Eyes PERRL, EOMs intact bilaterally, conjunctivae normal and no scleral icterus Neck no lymphadenopathy and supple General: trachea midline Lymph Lymphatic: no lymphadenopathy noted Resp Resp Narrative: mildly diminished breath sounds bibasally, no wheezes or crackles. on 4L of oxygen by nasal canula Effort and Inspection: able to speak in complete sentences, symmetric chest movement and tachypneic Auscultation: wheezes expiratory wheezes, scattered wheezes and throughout Cardio regular rate, regular rhythm, S1 normal heart sound, S2 normal heart sound, no murmurs and peripheral pulses 2+ throughout GI normal to inspection, nondistended, normoactive bowel sounds, soft to palpation, non-tender and non-distended Extremity normal to inspection, full ROM, normal capillary refill and no clubbing, cyanosis or edema General Extremity: no tenderness to palpation of joints or extremities Peripheral Pulses: Yes pulses 2+ throughout Skin no rashes or lesions noted General Skin Exam: no breakdown and turgor normal Lesions: no lesions Rashes: no rashes Neuro oriented x3, CN's II-XII intact bilaterally, moves all extremities, no focal motor deficits and no sensory deficits noted Sensorium / Orientation: awake and alert Speech: speech normal Motor Exam: general weakness Psych thought process normal, cooperative and affect normal Appearance: appropriate Assessment & Plan Assessment/Plan (1) Community acquired pneumonia: QUALIFIERS: Laterality: right Lung location: lower lobe of lung Qualified Code(s): J18.9 - Pneumonia, unspecified organism (2) Acute and chronic respiratory failure with hypoxia: PLAN: #Community acquired pneumonia due to strep pneumoniae * on iV ceftriaxone and azithromycin * sputum culture growing GNR lactose tare weigher and mixed adrian * breathing treatment with bronchodilators * CTA of the chest was negative for PE and showed a dense right lower lo e pneumonia * titrate oxyen to maintain sats >90% * urine for strep pneumonia antigen is positive * blood cultures pending * wbc is down to 22 today * #Acute on chronic hypoxic respiratory failure due to community acquired pneumo tal * #Hemoptysis * likely due to community acquired pneumonia * CTA chest done showed a dense right lower lobe pneumonia and was negative for PE * management as above * #JACQUELINE: Creatinine is down to 0.82 today. Resolved. #Hypertension: On amlodipine #Nicotine dependence: Patient still smokes. Counseled to quit. Nicotine patch 21mg daily DVT prophylaxis; lovenox Charges/Coding Visit Charges Inpatient E&M: 20453 Subs Hosp L2
[2021-09-19] MEDS: Ceftriaxone 1 GM/50 ML BAG IV (21:02)
[2021-09-19] MEDS: MELATONIN 3 MG TABLET PO (21:03)
[2021-09-19] MEDS: NYSTATIN 500,000 UNIT/5 ML UDC 500000 UNIT PO (21:18)
[2021-09-20] VITALS (9 sets, daily range): BP systolic 115–148; BP diastolic 60–66; PULSE 71–82; RESP 16–22; TEMP 36.3–36.7; O2SAT 85–95
[2021-09-20] MEDS: Ipratropium/Albuterol Sulfate 3 ML AMPUL.NEB INHALATION ×4 (03:28→14:26)
[2021-09-20 04:59] LABS: Absolute Lymphocyte Count 2.94 X10^3/uL (0.83-4.51); Absolute Neutrophil Count 11.4 X10^3/uL (2.0-7.7); Basophil# 0.04 X10^3/uL; Basophil% 0.3 % (0-1); Eosinophil# 0.03 X10^3/uL; Eosinophils% 0.2 % (0-5); Hematocrit 39.2 % (37-47); Hemoglobin 12.7 g/dL (12.0-15.0); Lymphocyte # 2.94 X10^3/ul (0.83-4.51); Lymphocyte % 18.8 % (19-41); Mean Corp Hgb Conc 32.4 g/dL (32-36); Mean Corpuscular Hgb 30.1 pg (27.0-32.0); Mean Corpuscular Volume 92.9 fL (81-99); Mean Platelet Vol. 9.7 fl (6.2-12.0); NRBC Flagged by Analyzer 0.1 % (0-5); Neutrophil # 11.37 X10^3/uL (2.7-7.7); Neutrophil % 72.5 % (47-70); Platelet Count 246 K/mm3 (150-450); RBC Distribution Width CV 13.5 % (11.6-14.6); RBC Distribution Width SD 46.4 fl (35.1-43.9); Red Blood Count 4.22 M/mm3 (4.2-5.4); White Blood Count 15.7 K/mm3 (4.4-11.0)
[2021-09-20 05:15] LABS: Anion Gap 5 (5-15); BUN 13 mg/dL (7-18); BUN/Creat Ratio 14.3 RATIO (10-20); Calcium,Total 8.4 mg/dL (8.5-10.1); Chloride 107 mmol/L (98-107); Creatinine, Serum 0.91 mg/dL (0.55-1.02); EST Glomerular Filtration Rate 66 mL/min (>60); Est Glom Filt Rate - Afr Amer 79 mL/min (>60); Estimated Creatinine Clearance 56.16 ml/min; Glucose 97 mg/dL (74-106); Potassium 2.9 mmol/L (3.5-5.1); Sodium Level 140 mmol/L (136-145)
[2021-09-20] MEDS: Potassium Chloride Oral Tablet 20 MEQ 60 MEQ PO (06:44)
[2021-09-20] MEDS: Potassium Chloride 10mEq/100mL 10 MEQ/100 ML IV.SOLN. 100 MEQ IV BOLUS ×4 (08:30→12:20)
[2021-09-20] MEDS: Heparin Injection (Vial) 5,000 UNIT/ML VIAL 5000 UNIT SC (08:42)
[2021-09-20] MEDS: NYSTATIN 500,000 UNIT/5 ML UDC 500000 UNIT PO ×2 (08:43→13:27)
[2021-09-20] MEDS: amLODIPine 10 MG Tablet PO (08:43)
[2021-09-20] MEDS: Triamcinolone Ointment 1 APPLIC TUBE TOPICAL (08:43)
[2021-09-20 14:20] LABS: Potassium 3.9 mmol/L (3.5-5.1)
--- NOTE | 2021-09-20 14:25 | DS.PCM_ITS ---
Providers Date of Admission: 09/16/21 Primary Care Physician: Dr. Ti Osuna MD Reason For Visit: RESP FAILURE, CAP, COPD EXACERBATION Diagnosis Discharge Diagnosis (1) Community acquired pneumonia: Status: Acute Code(s): J18.9 - Pneumonia, unspecified organism Qualifiers: Laterality: right Lung location: lower lobe of lung Qualified Code(s): J18.9 - Pneumonia, unspecified organism (2) Acute and chronic respiratory failure with hypoxia: Status: Chronic Code(s): J96.21 - Acute and chronic respiratory failure with hypoxia Medications at Discharge Home Medications qtchhuaf-bxqn-hsa-folic acid 1 tab PO DAILY 04/05/19 albuterol sulfate 2 puff INHALATION Q4H PRN PRN 08/11/19 acetaminophen 650 mg PO Q6H PRN PRN tab 08/15/19 amlodipine 10 mg tablet 10 mg PO DAILY #90 tab 06/09/20 fluticasone fur. 100 mcg-umeclid 62.5 mcg-vilant 25 mcg inhalat.powder 1 inh INHALATION DAILY 03/25/21 levofloxacin 750 mg PO DAILY #7 tab 09/20/21 nicotine 21 mg TRANSDERMAL DAILY #30 ea 09/20/21 nystatin 100,000 unit PO Q6H #60 ml 09/20/21 Hospital Course Operations None Procedures None Summary of Care Provided Minutes Spent on Discharge: 45 Hospital Course: Patient is a 65-year-old female with an extensive past medical history as outlined which includes chronic hypoxic respiratory failure on 2 L of oxygen at night who was admitted through the ED on 09/16/2021 with a complaint of progressively worsening fatigue, malaise and poor oral intake as well as fever, chills and shortness of breath and productive cough. She also had right-sided chest discomfort. She had had occasional wheezing. On admission her white cell count was elevated at 23.2 and chest x-ray showed hazy opacities in the right lower lung field. She was initially admitted and started on IV Rocephin and azithromycin also started on IV Solu-Medrol and the working diagnosis was community-acquired pneumonia and acute COPD exacerbation. She was also thought to have acute on chronic hypoxic respiratory failure due to community-acquired pneumonia. She was continued on IV Rocephin and azithromycin as well as IV Solu-Medrol initially. She also had JACQUELINE which was thought to be due to dehydration and with hydration her creatinine trended down to normal. Patient's IV Solu-Medrol was discontinued as patient was not wheezing and it did appear that she had pneumonia not COPD exacerbation. She complained of hemoptysis during this admission and a CT of the chest done was negative for any PE but did show a dense right lower lobe consolidation. Hemoptysis was therefore thought to be likely due to pneumonia. For strep and Legionella was positive for strep pneumonia antigen. Patient shortness of breath gradually improved and her hemoptysis also largely resolved. She subsequently felt much better. Her white cell count trended upwards and peaked at 26 and this was attributed to her having been on IV Solu-Medrol for couple of days. Her white cell count trended down and was down to 15 at time of discharge. Blood cultures were negative. Patient was discharged on 09/20/2021 on p.o. levofloxacin 750 mg daily for 7 days. She is to follow-up with her primary care doctor in 1 to 2 weeks. She was also counseled to quit smoking. Her walking pulse ox showed that she required 2 L of oxygen with ambulation so she was also discharged on 2 L of oxygen with ambulation during the day and to continue with 2 L of oxygen at night as she had been on previously. Patient was seen and examined prior to discharge. She says she felt much better and she had no active complaints. Review of systems otherwise negative. Labs and vitals reviewed. Home medication reviewed and reconciled. Of note, patient was also discharged on nystatin swish and swallow 100,000 units every 6 hours for oral thrush which she said was a result of the trilogy she was using at home. Physical Exam Const alert, oriented x3 and no apparent distress General Appearance: cooperative Exam Limitations: no limitations HEENT normocephalic, head/scalp atraumatic and moist oral mucous membranes Eyes PERRL, EOMs intact bilaterally, conjunctivae normal and no scleral icterus Neck no lymphadenopathy and supple General: trachea midline Lymph Lymphatic: no lymphadenopathy noted Resp Resp Narrative: mildly diminished breath sounds bibasally, no wheezes or crackles. on 2L of oxygen by nasal canula Effort and Inspection: able to speak in complete sentences, symmetric chest movement and tachypneic Auscultation: wheezes expiratory wheezes, scattered wheezes and throughout Cardio regular rate, regular rhythm, S1 normal heart sound, S2 normal heart sound, no murmurs and peripheral pulses 2+ throughout GI normal to inspection, nondistended, normoactive bowel sounds, soft to palpation, non-tender and non-distended Extremity normal to inspection, full ROM, normal capillary refill and no clubbing, cyanosis or edema General Extremity: no tenderness to palpation of joints or extremities Skin no rashes or lesions noted General Skin Exam: no breakdown and turgor normal Lesions: no lesions Rashes: no rashes Neuro oriented x3, CN's II-XII intact bilaterally, moves all extremities, no focal motor deficits and no sensory deficits noted Sensorium / Orientation: awake and alert Speech: speech normal Motor Exam: general weakness Psych thought process normal, cooperative and affect normal Appearance: appropriate Weight / BMI Weight Weight: 207 lb 10.807 oz Body Mass Index (BMI) 30.6 ABG / Lab / Microbiology Data Result Diagrams: 09/20/21 04:50 09/20/21 14:03 Laboratory: Laboratory Results - last 24 hr 09/20/21 04:50: WBC 15.7 H, RBC 4.22, Hgb 12.7, Hct 39.2, MCV 92.9, MCH 30.1, MCHC 32.4, RDW Std Deviation 46.4 H, RDW Coeff of Randa 13.5, Plt Count 246, MPV 9.7, Immature Gran % (Auto) 1.200 H, Neut % (Auto) 72.5 H, Lymph % (Auto) 18.8 L , Bond % (Auto) 7.0, Eos % (Auto) 0.2, Baso % (Auto) 0.3, Absolute Neuts (auto) 11.4 H, Absolute Lymphs (auto) 2.94, Nucleated RBC % 0.1 09/20/21 04:50: Sodium 140, Potassium 2.9 L, Chloride 107, Carbon Dioxide 28.0, Anion Gap 5, BUN 13, Creatinine 0.91, Estim Creat Clear Calc 56.16, Est GFR (MDRD) Af Amer 79, Est GFR (MDRD) Non-Af 66, BUN/Creatinine Ratio 14.3, Glucose 97, Calcium 8.4 L 09/20/21 14:03: Potassium 3.9 Microbiology: Microbiology 09/17/21 00:08 Sputum, Expectorated/Coughed Gram Stain - Final 09/17/21 00:08 Sputum, Expectorated/Coughed Respiratory Culture - Final Enterobacter aerogenes Presumptive C albicans Mixed Noelle 09/16/21 21:20 Blood Culture (Wb) - Anticubital Left Blood Culture - Preliminary No growth in 48 hours. 09/16/21 21:45 Blood Culture (Wb) - Anticubital Left Blood Culture - Preliminary No growth in 48 hours. 09/17/21 02:46 Urine, Random Urine Culture - Final Mixed Gram Positive Organisms 09/16/21 21:35 Mucosa - Nose Respiratory Panel (PCR) - Final 09/17/21 02:46 Urine, Clean Catch Streptococcus pneumoniae Antigen (M - Final Streptococcus pneumonia Ag 09/17/21 02:46 Urine, Clean Catch Legionella Antigen - Final D/C Instructions Discharge Diet: Low fat / Low cholesterol Discharge Activity: Return to Normal Activity Weight Bearing Status: Weight bearing as tolerated Call your doctor if you observe: Fever of 101 or Higher, Shortness of breath, Dizziness, Swelling in the ankles, Chest pain and Increased palpitations (irre gular heartbeat) Meaningful Use Info Meaningful Use Diagnoses (Choose all that apply): None applicable Discharge Plan Admission Admit Date/Time: 09/16/21 22:25 Primary Reason for Your Visit: community acquired pneumonia Attending Provider: Shanice Anaya Primary Care Provider: Ti Osuna Instructions Patient Instructions: ED Pneumonia (Adult) Additional Instructions / Restrictions: use oxygen 2L as needed for shortness of breath Discharge Orders/Prescriptions Prescriptions: New nicotine 21 mg/24 hr Patch 24 Hour 21 mg transdermal DAILY Qty: 30 RF: 0 levofloxacin 750 mg tablet 750 mg PO DAILY Qty: 7 RF: 0 nystatin 100,000 unit/mL suspension 100,000 unit PO Q6H Qty: 60 RF: 0 Continued amlodipine 10 mg tablet 10 mg PO DAILY Qty: 90 RF: 3 Trelegy Ellipta 100-62.5-25 mcg blister with device 1 inh inhalation DAILY RF: 0 dfllkvev-xvce-daz-folic acid 1 EACH tablet 1 tab PO DAILY RF: 0 albuterol sulfate 1 PUFF inhaler 2 puff INHALATION Q4H PRN PRN (Reason: sob/wheezing) RF: 0 acetaminophen 325 MG tablet 650 mg PO Q6H PRN PRN (Reason: Pain Score 1-10/Temp > 100.7 F) RF: 0 Referrals / Follow Up: Ti Osuna MD [Primary Care Provider] - Within 2 Weeks Disposition Disposition (needs filled in before D/C Order can be placed): Home, Self Care Charges/Coding Visit Charges Inpatient E&M: 09131 Disch Hosp
[2021-09-21 09:12] LABS: Pathologist Review Reviewed
== END 2021-09-20 15:34 | disposition home or self-care (01) | DRG 193 ==
LOC: ED 21:19 → MS3 23:07
PROVIDERS: Admitting Provider Family Medicine; Emergency Provider Student in an Organized Health Care Education/Training Program; PCP Internal Medicine; Visit Provider Student in an Organized Health Care Education/Training Program
DX: J13 Pneumonia due to Streptococcus pneumoniae (principal); J96.21 Acute and chronic respiratory failure with hypoxia; B37.0 Candidal stomatitis; J44.0 Chronic obstructive pulmonary disease with (acute) lower respiratory infection; J44.1 Chronic obstructive pulmonary disease with (acute) exacerbation; N17.9 Acute kidney failure, unspecified; R04.2 Hemoptysis; E86.0 Dehydration; M19.90 Unspecified osteoarthritis, unspecified site; I10 Essential (primary) hypertension; E78.5 Hyperlipidemia, unspecified; F41.9 Anxiety disorder, unspecified; M25.511 Pain in right shoulder; F17.210 Nicotine dependence, cigarettes, uncomplicated; Z99.81 Dependence on supplemental oxygen; G89.29 Other chronic pain; E66.9 Obesity, unspecified; Z68.32 Body mass index [BMI] 32.0-32.9, adult; Z79.899 Other long term (current) drug therapy
CPT/HCPCS: 36415; 71045; 71275; 80048; 80053; 81001; 83605; 84132; 84484; 85025; 85610; 85730; 87040; 87070; 87077; 87086; 87088; 87186; 87205; 87449; 87633; 93005; 94640; 99285; J7030; J7040; Q9967; A4216; J1940

== ENCOUNTER → 2022-04-07 | Outpatient (CLI) | payer MEDICARE, SELFPAY ==
[2022-04-07 12:25] LABS: Absolute Lymphocyte Count 2.45 X10^3/uL (0.83-4.51); Absolute Neutrophil Count 5.9 X10^3/uL (2.0-7.7); Basophil# 0.08 X10^3/uL; Basophil% 0.9 % (0-1); Eosinophil# 0.17 X10^3/uL; Eosinophils% 1.9 % (0-5); Hematocrit 45.2 % (37-47); Hemoglobin 14.3 g/dL (12.0-15.0); Lymphocyte # 2.45 X10^3/ul (0.83-4.51); Lymphocyte % 26.7 % (19-41); Mean Corp Hgb Conc 31.6 g/dL (32-36); Mean Corpuscular Hgb 29.8 pg (27.0-32.0); Mean Corpuscular Volume 94.2 fL (81-99); Mean Platelet Vol. 10.7 fl (6.2-12.0); Monocyte# 0.55 X10^3/uL; NRBC Flagged by Analyzer 0 % (0-5); Neutrophil # 5.88 X10^3/uL (2.7-7.7); Neutrophil % 64.1 % (47-70); Platelet Count 276 K/mm3 (150-450); RBC Distribution Width SD 45.1 fl (35.1-43.9); White Blood Count 9.2 K/mm3 (4.4-11.0)
[2022-04-07 12:34] LABS: AST(SGOT) 8 U/L (15-37); Alanine Aminotransfer ALT/SGPT 21 U/L (13-56); Albumin, Serum 3.6 g/dL (3.2-5.0); Alkaline Phosphatase 74 U/L (45-117); Anion Gap 6 (5-15); BUN 14 mg/dL (7-18); BUN/Creat Ratio 11.5 RATIO (10-20); Calcium,Total 8.9 mg/dL (8.5-10.1); Chloride 108 mmol/L (98-107); Cholesterol 127 mg/dL (200); Creatinine, Serum 1.22 mg/dL (0.55-1.02); EST Glomerular Filtration Rate 47 mL/min (>60); Est Glom Filt Rate - Afr Amer 56 mL/min (>60); Globulin 3.6 g/dL (2.2-4.2); Glucose 116 mg/dL (74-106); High Density Lipoprotein 61 mg/dL; Potassium 4.2 mmol/L (3.5-5.1); Protein, Total 7.2 g/dL (6.4-8.2); Sodium Level 139 mmol/L (136-145); Thyroid Stim Hormone (TSH) 1.64 uIU/mL (0.358-3.74); Triglycerides 107 mg/dL; Very Low Density Lipoprotein 21 mg/dL (5-40)
== END | disposition home or self-care (01) ==
LOC: BIMLAB 10:39
PROVIDERS: PCP Internal Medicine; Referring Provider Nurse Practitioner Family; Visit Provider Nurse Practitioner Family
DX: J44.1 Chronic obstructive pulmonary disease with (acute) exacerbation (principal); J96.10 Chronic respiratory failure, unspecified whether with hypoxia or hypercapnia; F32.A Depression, unspecified; I10 Essential (primary) hypertension
CPT/HCPCS: 36415; 80053; 80061; 84443; 85025

== ENCOUNTER → 2022-04-27 | Outpatient (CLI) | payer MEDICARE, SELFPAY ==
--- NOTE | 2022-04-27 14:46 | BD_ITS ---
STUDY: DUAL ENERGY X-RAY ABSORPTIOMETRY / DXA REASON FOR EXAM: Female, 66 years old. Screening TECHNIQUE: Bone Mineral Density (BMD) measurements of lumbar spine and bilateral hips were obtained. COMPARISON: Comparison is made with prior study of 08/02/2019. FINDINGS: Lumbar Spine (L1-L4): g/cm2 (0.932) / T-score (-2.0) / Z-score (0.2) Findings are suggestive of osteopenia with a moderate fracture risk. Left Femur Total: g/cm2 (0.825) / T-score (-1.3) / Z-score (-0.2) Left Femoral Neck: g/cm2 (0.743) / T-score (-1.5) / Z-score (-0.1) Right Femur Total: g/cm2 (0.775) / T-score (-1.6) / Z-score (-0.6) Right Femoral Neck: g/cm2 (0.730) / T-score (-1.6) / Z-score (-0.2) The T-Scores on the most recent prior examination were: Lumbar Spine (L1-L4): There has been worsening of bone density since the previous examination. Left Femur Total: which represents an improvement of 3.3%. Right Femur Total: which represents an improvement of 0.8%. BD/Dexa Bone Density Study IMPRESSION: The patient is considered osteopenic as outlined below according to World [employer] Organization (WHO) criteria with a moderate fracture risk. There has been improvement of bone density since the previous examination. Reference Information: The T-score is the number of standard deviations above or below the standard which is normal for young adults at their peak bone mineral density. The World Health Organization (WHO) interprets the T-scores as follows: Above -1 Normal bone density Between -1 and -2.5 Osteopenia Equal to / or below -2.5 Osteoporosis As a practical clinical guideline, osteopenia may be graded as follows: Mild -1 through -1.5 Moderate -1.6 through -2.0 Severe -2.1 through -2.4 The Z-score is the number of standard deviations above or below age-matched controls. A Z-score of less than -1.5 would be considered abnormal. References: 1. NIH Osteoporosis and Related Bone Diseases www osteo.org 2. International Society for Clinical Densitometry www iscd.org 3. National Osteoporosis Foundation www nof.org Electronically Signed: Chuy Frye MD at 14:16 EST ,
== END | disposition home or self-care (01) ==
LOC: OPBI 14:06
PROVIDERS: PCP Internal Medicine; Visit Provider Nurse Practitioner Family
DX: M85.80 Other specified disorders of bone density and structure, unspecified site (principal); Z78.0 Asymptomatic menopausal state
CPT/HCPCS: 77080

== ENCOUNTER → 2022-07-12 | Outpatient (CLI) | payer MEDICARE, SELFPAY ==
[2022-07-12 16:06] LABS: Anion Gap 12 (5-15); BUN 12 mg/dL (7-18); BUN/Creat Ratio 9.8 RATIO (10-20); Chloride 106 mmol/L (98-107); Creatinine, Serum 1.23 mg/dL (0.55-1.02); EST Glomerular Filtration Rate 46 mL/min (>60); Est Glom Filt Rate - Afr Amer 56 mL/min (>60); Glucose 104 mg/dL (74-106); Potassium 4.2 mmol/L (3.5-5.1); Sodium Level 139 mmol/L (136-145)
== END | disposition home or self-care (01) ==
LOC: BIMLAB 14:28
PROVIDERS: PCP Internal Medicine; Visit Provider Internal Medicine
DX: I10 Essential (primary) hypertension (principal)
CPT/HCPCS: 36415; 80048

== ENCOUNTER → 2022-08-11 | Outpatient (CLI) | payer MEDICARE, SELFPAY ==
[2022-08-11 16:20] LABS: Anion Gap 7 (5-15); BUN 17 mg/dL (7-18); BUN/Creat Ratio 13.7 RATIO (10-20); Calcium,Total 9.5 mg/dL (8.5-10.1); Chloride 104 mmol/L (98-107); Creatinine, Serum 1.24 mg/dL (0.55-1.02); EST Glomerular Filtration Rate 46 mL/min (>60); Est Glom Filt Rate - Afr Amer 55 mL/min (>60); Glucose 96 mg/dL (74-106); Potassium 4.2 mmol/L (3.5-5.1); Sodium Level 138 mmol/L (136-145)
== END | disposition home or self-care (01) ==
LOC: BIMLAB 14:19
PROVIDERS: PCP Internal Medicine; Referring Provider Internal Medicine; Visit Provider Internal Medicine
DX: I10 Essential (primary) hypertension (principal)
CPT/HCPCS: 36415; 80048

== ENCOUNTER → 2023-02-18 | Outpatient (CLI) | payer MEDICARE, SELFPAY ==
[2023-02-18 16:33] LABS: Absolute Lymphocyte Count 2.64 X10^3/uL (0.83-4.51); Absolute Neutrophil Count 5.1 X10^3/uL (2.0-7.7); Basophil# 0.09 X10^3/uL; Eosinophil# 0.18 X10^3/uL; Eosinophils% 2.1 % (0-5); Hematocrit 46.1 % (37-47); Hemoglobin 14.5 g/dL (12.0-15.0); Lymphocyte # 2.64 X10^3/ul (0.83-4.51); Lymphocyte % 30.6 % (19-41); Mean Corp Hgb Conc 31.5 g/dL (32-36); Mean Corpuscular Hgb 30.5 pg (27.0-32.0); Mean Corpuscular Volume 96.8 fL (81-99); Mean Platelet Vol. 10.3 fl (6.2-12.0); Monocyte# 0.62 X10^3/uL; Monocyte% 7.2 % (0-10); NRBC Flagged by Analyzer 0 % (0-5); Neutrophil # 5.08 X10^3/uL (2.7-7.7); Neutrophil % 58.9 % (47-70); Platelet Count 307 K/mm3 (150-450); RBC Distribution Width CV 12.5 % (11.6-14.6); RBC Distribution Width SD 45.2 fl (35.1-43.9); Red Blood Count 4.76 M/mm3 (4.2-5.4); White Blood Count 8.6 K/mm3 (4.4-11.0)
[2023-02-18 16:53] LABS: ALB/GLOB Ratio 0.9 RATIO (0.9-2.4); AST(SGOT) 12 U/L (15-37); Alanine Aminotransfer ALT/SGPT 20 U/L (13-56); Albumin, Serum 3.6 g/dL (3.2-5.0); Alkaline Phosphatase 72 U/L (45-117); Anion Gap 1 (5-15); BUN 9 mg/dL (7-18); BUN/Creat Ratio 6.9 RATIO (10-20); Calcium,Total 9.4 mg/dL (8.5-10.1); Chloride 109 mmol/L (98-107); Cholesterol 136 mg/dL (200); Creatinine, Serum 1.31 mg/dL (0.55-1.02); EST Glomerular Filtration Rate 43 mL/min (>60); Est Glom Filt Rate - Afr Amer 52 mL/min (>60); Globulin 3.9 g/dL (2.2-4.2); Glucose 94 mg/dL (74-106); High Density Lipoprotein 73 mg/dL; Potassium 3.9 mmol/L (3.5-5.1); Protein, Total 7.5 g/dL (6.4-8.2); Sodium Level 140 mmol/L (136-145); Triglycerides 103 mg/dL; Very Low Density Lipoprotein 21 mg/dL (5-40)
== END | disposition home or self-care (01) ==
LOC: BIMLAB 14:44
PROVIDERS: PCP Internal Medicine; Visit Provider Internal Medicine
DX: I10 Essential (primary) hypertension (principal); J44.1 Chronic obstructive pulmonary disease with (acute) exacerbation
CPT/HCPCS: 36415; 80053; 80061; 85025

== ENCOUNTER → 2023-05-10 | Outpatient (CLI) | payer MEDICARE, SELFPAY ==
--- NOTE | 2023-05-10 12:21 | BI_ITS ---
MAMMOGRAPHY - BILATERAL SCREENING REASON FOR EXAM: Female, 67 years old. Routine annual screening examination. PERTINENT HISTORY: Non-contributory. Prior right breast biopsy. TECHNIQUE: Digital bilateral breast sandy (3D mammographic acquisition) in the CC and MLO projections. 2-D mediolateral oblique (MLO) and craniocaudad (CC) views of both breasts were obtained. CAD: Full Field Digital Mammography with Computer Added Detection was performed. COMPARISON: Comparison is made with prior examination dated August 02, 2019. FINDINGS: Breast Composition: The breasts are heterogeneously dense, which may obscure small masses. There are no dominant masses or suspicious calcifications. A tissue clip marker is seen within a a 7.2 mm x 9.9 mm well-defined nodule in the inferior medial aspect of the right breast. A tissue clip marker is seen within. No other significant abnormalities are identified. There has been no significant change since the prior study. BI/SCRN MAMM (CAD)W/SANDY BILAT IMPRESSION: Stable bilateral screening mammogram. Yearly follow-up mammogram recommended. (A) ASSESSMENT CATEGORY: BIRADS Category 2: Benign. A letter regarding these results will be sent to the patient by the facility within 30 days. Approximately 10% of breast cancers are not detected by mammography. A normal mammogram should not delay biopsy of a clinically suspicious abnormality. [id number] Electronically Signed: Chuy Frye MD at 15:21 EST ,
--- NOTE | 2023-05-10 12:38 | EKG12_ITS ---
Test Reason : AFIB Blood Pressure : / mmHG Vent. Rate : 079 BPM Atrial Rate : 079 BPM P-R Int : 166 ms QRS Dur : 074 ms QT Int : 386 ms P-R-T Axes : 083 043 065 degrees QTc Int : 442 ms Normal sinus rhythm Normal ECG Confirmed by GOSIA DUARTE, COURTNEY ([id number]), development editor TOMAS GUADALUPE ([id number]) on 05/11/2023 11:04:28 AM Referred By: Ti Osuna Confirmed By:COURTNEY ELISE MD
== END | disposition home or self-care (01) ==
PROVIDERS: PCP Internal Medicine; Referring Provider Internal Medicine; Visit Provider Internal Medicine
DX: Z12.31 Encounter for screening mammogram for malignant neoplasm of breast (principal); I10 Essential (primary) hypertension
CPT/HCPCS: 77063; 77067; 93005

== ENCOUNTER → 2023-07-22 | Outpatient (CLI) | payer MEDICARE, SELFPAY ==
--- OUTSIDE RECORDS SUMMARY | 2023-07-22 11:14 | XMS RPT_ITS | CCD ---
Author Name Unknown Address [address] [place] [address] Organization [facility] Care Team Providers Care Simulation Tech Name Role Phone NAWAF HILL Unavailable Unavailable Ti Osuna MD Primary Care Provider 1(09 09) Ti Osuna MD Primary Care Provider 1(09 09) Ti Osuna MD Primary Care Provider 1(09 09) Ti Osuna MD Primary Care Provider 1(09 09) EMILEE MADRID Referring Unavailable OLEGHE, EFEWONGBE B Primary Care Unavailable EMILEE MADRID Attending Unavailable OLEGHE, EFEWONGBE B Primary Care Unavailable SILVA GUPTA Attending Unavailable EMILEE MADRID Referring Unavailable OLEGHE, EFEWONGBE B Primary Care Unavailable EMILEE MADRID Referring Unavailable OLEGHE, EFEWONGBE B Primary Care Unavailable EMILEE MADRID Referring Unavailable OLEGHE, EFEWONGBE B Primary Care Unavailable EMILEE MADRID Attending Unavailable OLEGHE, EFEWONGBE B Primary Care Unavailable NADINE VILLA Attending Unavailable EMILEE MADRID Referring Unavailable OLEGHE, EFEWONGBE B Primary Care Unavailable Allergies Allergy Classification Reported Allergen(s) Allergy Type Date of Onset Reaction(s) Facility (19 sources) Budesonide; Translations: [BUDESONIDE] Drug Allergy 09-28-[address] [facility] Work Phone: (4 sources) Penicillins; Translations: [PENICILLINS] Drug Allergy 02-25-2012 Rash, Itching [facility] Work Phone: (15 sources) Penicillins Drug Allergy 02-25-2012 Rash, Itching [facility] Work Phone: Medications Current Medications Medication Drug Class(es) Dates Sig (Normalized) Sig (Original) fluconazole 100 mg oral tablet (2 sources) Azole Antifungal Start: 07-18-2023 End: 07-25-2023 take 1 tablet by mouth once daily, then take 1 tablet by mouth once daily fluconazole (DIFLUCAN) 100 mg tablet Indications: Oral thrush Take 1 tablet by mouth once daily for 7 days. One daily for 7 days 7 tablet 0 07/18/2023 07/25/2023 Active Completed/Discontinued Medications Medication Drug Class(es) Dates Sig (Normalized) Sig (Original) albuterol 0.83 mg/ml inhalation solution (20 sources) beta2-Adrenergic Agonist Start: 07-18-2023 albuterol (PROVENTIL) 2.5 mg /3 mL (0.083 %) nebulizer solution USE 1 VIAL IN NEBULIZER 4 TIMES DAILY 360 mL 5 07/18/2023 Active Problems Problem Classification Problem Date Documented Date Episodic/Chronic Abdominal pain (18 sources) Abdominal pain; Translations: [Unspecified abdominal pain] 01-23-2014 Episodic Chronic obstructive pulmonary disease and bronchiectasis (20 sources) Chronic obstructive lung disease; Translations: [Chronic obstructive pulmonary disease, unspecified] Onset: 09-01-2012 09-01-2012 Chronic Mycoses (2 sources) Candidiasis of mouth; Translations: [Candidal stomatitis] Episodic Other lower respiratory disease (3 sources) Dyspnea; Translations: [Dyspnea, unspecified] Episodic Other lower respiratory disease (1 source) Solitary nodule of lung; Translations: [Solitary pulmonary nodule] Episodic Other lower respiratory disease (1 source) Nodule of lung; Translations: [Solitary pulmonary nodule] Episodic Other lower respiratory disease (1 source) Wheezing; Translations: [Wheezing] 04-18-2023 Episodic Other lower respiratory disease (1 source) Dyspnea, unspecified; Translations: [Dyspnea and respiratory abnormalities] Onset: 04-26-2023 Episodic Other lower respiratory disease (1 source) Other abnormalities of breathing; Translations: [Dyspnea and respiratory abnormalities] Onset: 04-26-2023 Episodic Other screening for suspected conditions (not mental disorders or infectious disease) (1 source) Imaging of thorax abnormal; Translations: [Abnormal findings on diagnostic imaging of other specified body structures] Chronic Other screening for suspected conditions (not mental disorders or infectious disease) (1 source) Patient encounter status; Translations: [Encounter for screening for malignant neoplasm of respiratory organs] 02-08-2023 Episodic Other upper respiratory disease (18 sources) Seasonal allergic rhinitis; Translations: [Other seasonal allergic rhinitis] Onset: 11-15-2016 11-15-2016 Chronic Other upper respiratory infections (1 source) Posterior rhinorrhea; Translations: [Postnasal drip] Episodic Pneumonia (except that caused by tuberculosis or sexually transmitted disease) (2 sources) Infective pneumonia; Translations: [Pneumonia, unspecified organism] Episodic Respiratory failure; insufficiency; arrest (adult) (20 sources) Chronic hypoxemic respiratory failure; Translations: [Chronic respiratory failure with hypoxia] Onset: 10-15-2021 Chronic Substance-related disorders (20 sources) Tobacco user; Translations: [Nicotine dependence, unspecified, uncomplicated] Onset: 09-01-2012 09-01-2012 Chronic Results Test Name Value Interpretation Reference Range Facil ity Vital Signs Date Time Vital Sign Value Performing Clinician Evette roldan 04-18-2023 10:22-0500 Body weight 85.73 kg Emilee Zachary PA-C Work Phone: [facility] 04-18-2023 10:22-0500 Diastolic blood pressure 78 mm[Hg] Emilee Zachary PA-C Work Phone: [facility] 04-18-2023 10:22-0500 Heart rate 83 /min Emilee Zachary PA-C Work Phone: [facility] 04-18-2023 10:22-0500 Respiratory rate 17 /min Emilee Zachary PA-C Work Phone: [facility] 04-18-2023 10:22-0500 SaO2% (BldA) [Mass fraction] 99 % Emilee Zachary PA-C Work Phone: [facility] 04-18-2023 10:22-0500 Systolic blood pressure 120 mm[Hg] Emilee Zachary PA-C Work Phone: [facility] 02-08-2023 12:49-0400 Body weight 89.36 kg Pulm Wstr Work Phone: [facility] 02-08-2023 12:49-0400 Heart rate 85 /min Pulm Wstr Work Phone: [facility] 02-08-2023 12:49-0400 Respiratory rate 14 /min Pulm Wstr Work Phone: [facility] 02-08-2023 12:49-0400 SaO2% (BldA) [Mass fraction] 99 % Pulm Wstr Work Phone: [facility] 02-08-2023 12:45-0400 Body weight 89.36 kg Nadine Denver SHOE FITTER.CPA TAX Work Phone: [facility] 02-08-2023 12:45-0400 Diastolic blood pressure 80 mm[Hg] Nadine Denver SHOE FITTER.CPA TAX Work Phone: [facility] 02-08-2023 12:45-0400 Heart rate 104 /min Nadine Denver SHOE FITTER.CPA TAX Work Phone: [facility] 02-08-2023 12:45-0400 Respiratory rate 17 /min Nadine Denver SHOE FITTER.CPA TAX Work Phone: [facility] 02-08-2023 12:45-0400 SaO2% (BldA) [Mass fraction] 99 % Nadine Denver SHOE FITTER.CPA TAX Work Phone: [facility] 02-08-2023 12:45-0400 Systolic blood pressure 132 mm[Hg] Nadine Denver SHOE FITTER.CPA TAX Work Phone: [facility] 05-28-2022 10:01-0500 Body weight 90.27 kg Silva Gupta MD Work Phone: [facility] 05-28-2022 10:01-0500 Diastolic blood pressure 78 mm[Hg] Silva Gupta MD Work Phone: [facility] 05-28-2022 10:01-0500 Heart rate 81 /min Silva Gupta MD Work Phone: [facility] 05-28-2022 10:01-0500 Respiratory rate 16 /min Silva Gupta MD Work Phone: [facility] 05-28-2022 10:01-0500 SaO2% (BldA) [Mass fraction] 97 % Silva Gupta MD Work Phone: [facility] 05-28-2022 10:01-0500 Systolic blood pressure 138 mm[Hg] Silva Gupta MD Work Phone: [facility] 04-29-2022 14:35-0500 Body weight 90.27 kg Respiratory Wstr Work Phone: [facility] 11-26-2021 15:02-0400 Body height 167.6 cm Emilee Zachary PA-C Work Phone: [facility] 11-26-2021 15:02-0400 Body weight 92.99 kg Emilee Zachary PA-C Work Phone: [facility] 11-26-2021 15:02-0400 Diastolic blood pressure 76 mm[Hg] Emilee Zachary PA-C Work Phone: [facility] 11-26-2021 15:02-0400 Heart rate 74 /min Emilee Zachary PA-C Work Phone: [facility] 11-26-2021 15:02-0400 Respiratory rate 18 /min Emilee Zachary PA-C Work Phone: [facility] 11-26-2021 15:02-0400 SaO2% (BldA) [Mass fraction] 94 % Emilee Zachary PA-C Work Phone: [facility] 11-26-2021 15:02-0400 Systolic blood pressure 130 mm[Hg] Emilee Zachary PA-C Work Phone: [facility] 10-15-2021 13:24-0400 Body height 167.6 cm Emilee Zachary PA-C Work Phone: [facility] 10-15-2021 13:24-0400 Body temperature 97.3 [degF] Emilee Pastranaone PA-C Work Phone: [facility] 10-15-2021 13:24-0400 Body weight 93.44 kg Emilee Zachary PA-C Work Phone: [facility] 10-15-2021 13:24-0400 Diastolic blood pressure 81 mm[Hg] Emilee Zachary PA-C Work Phone: [facility] 10-15-2021 13:24-0400 Heart rate 72 /min Emilee Zachary PA-C Work Phone: [facility] 10-15-2021 13:24-0400 Respiratory rate 22 /min Emilee Zachary PA-C Work Phone: [facility] 10-15-2021 13:24-0400 SaO2% (BldA) [Mass fraction] 97 % Emilee Zachary PA-C Work Phone: [facility] 10-15-2021 13:24-0400 Systolic blood pressure 141 mm[Hg] Emilee Zachary PA-C Work Phone: [facility] Encounters Encounter Date Encounter Type Care Provider Facility Start: 07-18-2023 Orders Only Emilee Cline Victoriano one PA-C Work Phone: Pulmonary Medicine Procedures Date Procedure Procedure Detail Performing Clinician Start: 04-18-2023 Radiologic exam ches t 2 views Emilee Cline Zachary PA-C Work Phone: Start: 02-08-2023 Noninvasive ear/puls e oximetry multiple deter Emilee Cline Zachary PA-C Work Phone: Start: 04-29-2022 Noninvasive ear/puls e oximetry multiple deter Emilee Son Zachary PA-C Work Phone: Start: 04-29-2022 Spmtry w/vc expirato ry robbie w/wo mxml vol vntj Emilee Cline Zachary PA-C Work Phone: Start: 02-14-2014 Colonoscopy Emilee alford PA-C Work Phone: Start: 09-24-2008 Lipid 1996 panel - S maite or Plasma Emilee Madrid PA-C Work Phone: Start: 12-24-1993 Mammography Emilee alford PA-C Work Phone: Plan of Treatment Date Care Activity Detail Author Start: 06-13-2023 Advance Directive Discussion Advance Directive Discussion [facility] Start: 06-13-2023 Depression Assessment Depression Assessment [facility] Start: 02-11-2023 Covid-19 Vaccine () Covid-19 Vaccine () [facility] Start: 02-11-[address] [facility] Start: 06-13-2022 ADVANCE DIRECTIVE DISCUSSION ADVANCE DIRECTIVE DISCUSSION [facility] Start: 06-13-2022 DEPRESSION ASSESSMENT DEPRESSION ASSESSMENT [facility] Start: 02-11-2022 Influenza vaccination INFLUENZA (#1) [facility] Start: 08-28-2021 COVID-19 VACCINE (4 - Booster for Moderna series) COVID-19 VACCINE (4 - Booster for Moderna series) [facility] Start: 06-25-2021 COVID-19 VACCINE (4 - Booster for Moderna series) COVID-19 VACCINE (4 - Booster for Moderna series) [facility] Start: 06-25-2021 COVID-19 VACCINE (4 - Moderna series) COVID-19 VACCINE (4 - Moderna series) [facility] Start: 06-13-2021 ADVANCE DIRECTIVE DISCUSSION ADVANCE DIRECTIVE DISCUSSION [facility] Start: 06-13-2021 DEPRESSION ASSESSMENT DEPRESSION ASSESSMENT [facility] Start: 05-23-2020 Pneumococcal Vaccine: 65+ (3 - PPSV23 or PCV20) Pneumococcal Vaccine: 65+ (3 - PPSV23 or PCV20) [facility] Start: 05-23-2020 Pneumococcal Vaccine: 65+ (3 of 3 - PPSV23 or PCV20) Pneumococcal Vaccine: 65+ (3 of 3 - PPSV23 or PCV20) [facility] Start: 05-23-2020 PNEUMOCOCCAL: 65+ (3 - PPSV23 or PCV20) PNEUMOCOCCAL: 65+ (3 - PPSV23 or PCV20) [facility] Start: 05-18-2019 PNEUMOCOCCAL: 65+ (3 - PPSV23 if available, else PCV20) PNEUMOCOCCAL: 65+ (3 - PPSV23 if available, else PCV20) [facility] Start: 05-18-2019 PNEUMOCOCCAL: 65+ (3 - PPSV23 or PCV20) PNEUMOCOCCAL: 65+ (3 - PPSV23 or PCV20) [facility] Start: 02-14-[address] [facility] Start: 02-14-2019 COLORECTAL CANCER SCREENING COLORECTAL CANCER SCREENING [facility] Start: 02-14-2019 Screening for malignant neoplasm of colon [facility] Start: 2018 BONE DENSITY BONE DENSITY [facility] Start: 2018 Bone Density Screening Bone Density Screening [facility] Start: 2018 PNEUMOVAX AGE 65 AND OVER WITH 5YR LOOKBACK (#1) PNEUMOVAX AGE 65 AND OVER WITH 5YR LOOKBACK (#1) [facility] Start: 2018 Screening for osteoporosis Bone Density Screening [facility] Start: 04-24-2018 DIABETES SCREEN DIABETES SCREEN [facility] Start: 04-24-2018 Diabetes Screening Diabetes Screening [facility] Start: 2013 RSV Vaccine (1 - 1-dose 60+ series) RSV Vaccine (1 - 1-dose 60+ series) [facility] Start: 09-24-2013 Lipid 1996 panel - Serum or Plasma Lipid Screening [facility] Start: 09-24-2013 Lipid panel Lipid Screening [facility] Start: 09-24-2013 LIPID SCREEN LIPID SCREEN [facility] Start: 2008 Influenza vaccination LUNG CANCER SCREENING [facility] Start: 11-21-2003 Influenza vaccination LUNG CANCER SCREENING [facility] Start: 11-21-2003 Screening for malignant neoplasm of lung Lung Cancer Screening [facility] Start: 11-21-2003 SHINGRIX VACCINE (1 of 2) SHINGRIX VACCINE (1 of 2) [facility] Start: 1998 COLOGUARD (FIT-DNA) COLOGUARD (FIT-DNA) [facility] Start: [address] COLONOGRAPHY [facility] Start: 1998 FECAL OCCULT BLOOD FECAL OCCULT BLOOD [facility] Start: 1998 Screening for malignant neoplasm of colon [facility] Start: [address] [facility] Start: 12-24-[address] [facility] Start: 12-24-1994 Screening for malignant neoplasm of breast Mammogram Screening [facility] Start: 11-21-1983 Zoledronic acid therapy ALPHA-1 ANTITRYPSIN DEFICIENCY SCREENING [facility] Start: [address] [facility] Start: 11-21-1971 ANNUAL PCP TEAM CHRONIC DISEASE VISIT ANNUAL PCP TEAM CHRONIC DISEASE VISIT [facility] Start: 11-21-1971 HEPATITIS C SCREENING HEPATITIS C SCREENING [facility] Start: 11-21-1971 Hepatitis C screening Hepatitis C Screening [facility] Start: 1965 Adult depression screening assessment DEPRESSION SCREENING [facility] End: 03-09-2024 CT LUNG SCREEN WO IVCON CT LUNG SCREEN WO IVCON Radiology Routine Tobacco use disorder Encounter for screening for lung cancer 1 Occurrences starting 02/08/2023 until 03/09/2024 [facility] Work Phone: Immunizations Immunization Date Immunization Notes Care Provider Fa brittani 04-07-2022 influenza, seasonal, injectable Pulm Wstr Work Phone: [facility] 04-07-2022 influenza virus vacc ine, unspecified formulation Emilee Madrid PA-C Work Phone: [facility] 03-31-2021 influenza, high-dose , quadrivalent vaccine (FLUZONE HIGH DOSE QUADRIVALENT) Emilee Madrid PA-C Work Phone: [facility] Work Phone: 06-18-2019 influenza, high dose seasonal, preservative-free Emilee Madrid PA-C Work Phone: [facility] 05-23-2019 pneumococcal conjuga te vaccine, 13 valent Pulm Wstr Work Phone: [facility] Work Phone: 05-18-2019 pneumococcal conjuga te vaccine, 13 valent Pulm Wstr Work Phone: [facility] Work Phone: 05-18-2018 pneumococcal conjuga te vaccine, 13 valent Emilee Pastranaone PA-C Work Phone: [facility] Work Phone: 04-24-2015 influenza, injectabl e, quadrivalent, contains preservative Emilee Madrid PA-C Work Phone: [facility] 03-12-2014 influenza, seasonal, injectable Emilee Madrid PA-C Work Phone: [facility] 02-25-2012 influenza virus vacc ine, unspecified formulation Emilee Madrid PA-C Work Phone: [facility] 02-25-2012 pneumococcal polysaccharide vaccine, 23 valent Emilee Madrid PA-C Work Phone: [facility] Payers Date Payer Category Payer Medicare A[employer] MEDICARE A ETNA MEDICARE PPO [id number] 2021-Present [phone] [address] [place] [address] PPO [id number] 2021 Medicare A[employer] MEDICARE A ETNA MEDICARE PPO [id number] 2021-Present [phone] [address] [place] [address] PPO [id number] 2021 Medicare [id number] 2017 Medicare [id number] Social History Date Type Detail Facility Start: 11-15-1969 End: 02-08-2023 Tobacco smoking status NHIS Smokes tobacco daily [facility] Start: 11-15-1969 History of tobacco use Cigarette Smo ker [facility] Start: 02-25-2012 End: 05-18-2020 Cigarettes smoked current (pack per day) - Reported 2 [facility] Start: 02-25-2012 End: 02-08-2023 Tobacco use and exposure Smokeless tobacco non-user [facility] Start: 07-27-2021 End: 04-18-2023 Alcohol intake Current drinker of alcohol (finding) [facility] Start: 07-27-2021 History SDOH Alcohol Comment Occasionally [facility] Start: 01-26-2021 Tobacco Comment 7-[address] [facility] Start: 1955 Sex Assigned At Not on file [facility] Start: 10-05-2021 End: 11-26-2021 Exposure to SARS-CoV-2 (event) Not sure [facility] Start: 11-26-2021 End: 04-29-2022 Tobacco Comment 5-7 cigarettes per day on [facility] Start: 05-18-2020 End: 02-08-[address] [facility] National Score (1-10 0), lower number is lower risk Not on file [facility] Start: 11-26-2022 Tobacco Comment 3-7 cigarettes per d ay on [facility] Clinical Notes 10-01-2021 to 04-27-2023 Telephone Encounter - Delaney Campos RN - 04/27/2023 2:11 PM ESTTelephone Encounter - Mariaelena Singletary LPN - 04/27/2023 10:08 AM Emilee Mackay PA-C - 04/18/2023 10:30 AM EST Note Date & Type Note Facility 04-27-2023 Miscellaneous Notes Julia returned the call to pulmonary. Reviewed Emilee Madrid's message regarding her echocardiogram. Julia voiced understanding. Delaney Campos RN Attempt to contact patient. Voicemail full. Mariaelena Singletary LPN ----- Message from Emilee Madrid PA-C sent at 04/27/2023 8:45 AM EST ----- Please call Julia to alert her that her echocardiogram looks good. No significant changes when compared to previous echo in 2018. documented in this encounter [facility] 11-09-2023 Miscellaneous Notes RX transferred to [facility] from [facility]. Mariaelena Singletary LPN Patient called. Verified name and date of . Patient needs medication sent to [facility] for refill, NOT [facility]. Requested Prescriptions Pending Prescriptions Disp Refills albuterol HFA (PROVENTIL HFA, VENTOLIN HFA) 90 mcg/actuation inhaler 18 g 5 Sig: Inhale 2 Puffs as instructed every 6 hours as needed for wheezing/shortness of breath. Pharmacy verified as [facility]. Janae Park LPN documented in this encounter [facility] 04-20-2023 Miscellaneous Notes Patient requesting medication pended to encounter. [facility] Please review and advise patient. Amanda Gupta LPN documented in this encounter [facility] 04-18-2023 Note HNO ID: [id number] Author: Aliyah Lee RT(R) Service: ? Author Type: Catalogue Compiler Type: Progress Notes Filed: 04/18/2023 11:43 AM Note Text: Radiology Service Progress Note PATIENT NAME: Julia Dumont DATE OF SERVICE: April 18, 2023 TIME: 11:32 AM PATIENT IDENTITY VERIFICATION COMPLETED USING TWO (2) IDENTIFIERS: Name and Date of confirmed by patient verbally. FALL SCREENING: Has the patient had 2 falls in the last year or 1 fall with injury or currently using an Ambulatory Assistive Device (Walker, Cane, Wheelchair, Crutches, etc.)? No PATIENT GENDER DATA: Female. status: : No status: NO. PATIENT RELEVANT IMPLANT DATA REVIEWED: Yes RADIOLOGY DEPARTMENT: General X-ray: Exam(s) Completed: Chest X-Ray PERIPHERAL IV DATA: Not applicable SIGNED BY: RT Samara(R) April 18, 2023 11:32 AM [facility] 04-18-2023 Note HNO ID: [id number] Author: Emilee Madrid PA-C Service: ? Author Type: Physician Electrician Rectifier Maintenance Type: Progress Notes Filed: 04/18/2023 2:24 PM Note Text: Patient: Julia Dumont PCP: Ti Osuna MD CC: follow up HPI: Julia Dumont 67 year old female current 90 pack year smoker with PMH significant for HTN, moderate COPD, GERD, and oxygen use. Current treatment consists of Trelegy ellipta and albuterol as needed. Today, patient reports approximately 4 weeks ago she had 7 teeth pulled due to dental abscesses. She was treated with antibiotics prior to extraction. Since extraction, she has had increased SOB. She feels short of breath anytime , but is unable to do minimal exertion. Difficulty walking short distances, cleaning dishes and sewing. States she has a hard time catching her breath. Has tried Albuterol and it is not helpful. She has been using Primatene mist. Daily cough that is worse since teeth extracted. Expelling thick milky looking sputum. No hemoptysis. No chest pain or palpitations. Previously followed with [facility]. Currently wearing 2L supplemental oxygen at night. DME: [facility]. PAST MEDICAL HISTORY Diagnosis Date Abdominal pain, other specified site COPD (chronic obstructive pulmonary disease) (HCC) COPD (chronic obstructive pulmonary disease) (HCC) 09/01/2012 Frozen shoulder right High blood pressure 06/2016 not taking blood pressure medication, thinks her blood pressure is fine Irritable bowel syndrome Lung nodule Rash stomach and private area Tobacco use disorder 09/01/2012 Allergies: Budesonide Shortness of Breath Penicillins Rash, Itching nicotine, polacrilex, [address] 2 mg between cheek and gum every 2 hours as needed. losartan (COZAAR) 50 mg tablet Take 50 mg by mouth once daily. Nebulizer Accessories kit Provide accessory kit albuterol HFA (PROVENTIL HFA, VENTOLIN HFA) 90 mcg/actuation inhaler Inhale 2 Puffs as instructed every 6 hours as needed for wheezing/shortness of breath. puomgwdtoum-kqmytkasb-rmplrnsq (TRELEGY ELLIPTA) 100-62.5-25 mcg inhalation powder Inhale 1 Puff as instructed once daily. clotrimazole (MYCELEX) 10 mg felix Use 1 Felix as instructed four times daily. albuterol (PROVENTIL) 2.5 mg /3 mL (0.083 %) nebulizer solution USE 1 VIAL IN NEBULIZER 4 TIMES DAILY Nebulizer Accessories kit Provide accessory kit. Nebulizers (SIDESTREAM NEBULIZER) Please provide sidestream mouthpiece amLODIPine (NORVASC) 10 mg tablet Take 10 mg by mouth once daily. fluticasone (FLONASE) 50 mcg/actuation nasal spray Use 1 Ada in each nostril once daily. VITAMIN E ORAL Take by mouth once daily. cholecalciferol, vitamin D3, (VITAMIN D3 ORAL) Take by mouth. buPROPion XL (WELLBUTRIN XL) 150 mg 24 hr tablet Take 1 tablet by mouth once daily. COMPOUNDED PRESCRIPTION Provide Prevnar 13. Please fax results to [phone]. COMPOUNDED PRESCRIPTION Discontinue budesonide. DME: tony. COMPOUNDED PRESCRIPTION Please perform nocturnal oximetry on RA. Please fax results to [phone]. DME: Tony. COMPOUNDED PRESCRIPTION Nocturnal oximetry on 2 L. Please fax results to [phone]. mv-min/iron/folic/calcium/vitK (WOMEN'S MULTIVITAMIN ORAL) Take 1 tablet by mouth once daily. COMPOUNDED PRESCRIPTION Please use 3 L supplemental oxygen via nasal cannula with sleep Diagnosis: Hypoxemia (Patient not taking: Reported on 11/26/2022) COMPOUNDED PRESCRIPTION Please perform nocturnal oximetry on 2 L oxygen Fax results to [phone] Diagnosis: copd, hypoxemia. COMPOUNDED PRESCRIPTION 2L of O2 at HS- patient increased to 3L of O2 at night Social History Tobacco Use Smoking status: Every Day Packs/day: 0.50 Years: 53.00 Additional pack years: 0.00 Total pack years: 26.50 Types: Cigarettes Start date: 11/15/1969 Smokeless tobacco: Never Tobacco comments: 3-7 cigarettes per day on Vaping Use Vaping Use: Never used Substance Use Topics Alcohol use: Yes Comment: Occasionally Drug use: Not Currently Types: Crack Cocaine, Cocaine, Marijuana Comment: Past history of Cocaine use. Family History Problem Relation Age of Onset Cancer Maternal Grandmother Lung cancer Cancer Paternal Aunt Lung cancer COPD Sister Asthma Daughter Asthma Grandchild 3 grandchildren, 2 great grandchildren Prostate Cancer Father Thyroid Daughter Thyroid Sister Stroke Mother 3, no residual Heart Brother PAST SURGICAL HISTORY Procedure Laterality Date APPENDECTOMY age 18 COLONOSCOPY FLX DX W/COLLJ SPEC WHEN PFRMD 02/14/2014 Colonoscopy ESOPHAGOGASTRODUODENOSCOPY TRANSORAL DIAGNOSTIC 02/14/2014 EGD EXC/DSTRJ LINGUAL TONSIL ANY METHOD SPX age 18 HYSTERECTOMY HX 06/13/1995 PAST SURGICAL HISTORY OF bone removal from left middle finger; pt denies PAST SURGICAL HISTORY OF bilateral foot surgery- fatty cyst removal I reviewed the past medical history, family histor (more content not included)... [facility] 04-18-2023 History of Present illness Narrative Images from the original note were not included. Patient: Julia Dumont PCP: Ti Osuna MD CC: follow up HPI: Julia Dumont 67 year old female current 90 pack year smoker with PMH significant for HTN, moderate COPD, GERD, and oxygen use. Current treatment consists of Trelegy ellipta and albuterol as needed. Today, patient reports approximately 4 weeks ago she had 7 teeth pulled due to dental abscesses. She was treated with antibiotics prior to extraction. Since extraction, she has had increased SOB. She feels short of breath anytime , but is unable to do minimal exertion. Difficulty walking short distances, cleaning dishes and sewing. States she has a hard time catching her breath. Has tried Albuterol and it is not helpful. She has been using Primatene mist. Daily cough that is worse since teeth extracted. Expelling thick milky looking sputum. No hemoptysis. No chest pain or palpitations. Previously followed with [facility]. Currently wearing 2L supplemental oxygen at night. DME: Tony. PAST MEDICAL HISTORY Diagnosis Date Abdominal pain, other specified site COPD (chronic obstructive pulmonary disease) ([facility]) COPD (chronic obstructive pulmonary disease) (HCC) 09/01/2012 Frozen shoulder right High blood pressure 06/2016 not taking blood pressure medication, thinks her blood pressure is fine Irritable bowel syndrome Lung nodule Rash stomach and private area Tobacco use disorder 09/01/2012 Allergies: Budesonide Shortness of Breath Penicillins Rash, Itching nicotine, polacrilex, [address] 2 mg between cheek and gum every 2 hours as needed. losartan (COZAAR) 50 mg tablet Take 50 mg by mouth once daily. Nebulizer Accessories kit Provide accessory kit albuterol HFA (PROVENTIL HFA, VENTOLIN HFA) 90 mcg/actuation inhaler Inhale 2 Puffs as instructed every 6 hours as needed for wheezing/shortness of breath. ozmbopqkvfa-fhzqzbzio-wmnjlzvi (TRELEGY ELLIPTA) 100-62.5-25 mcg inhalation powder Inhale 1 Puff as instructed once daily. clotrimazole (MYCELEX) 10 mg felix Use 1 Felix as instructed four times daily. albuterol (PROVENTIL) 2.5 mg /3 mL (0.083 %) nebulizer solution USE 1 VIAL IN NEBULIZER 4 TIMES DAILY Nebulizer Accessories kit Provide accessory kit. Nebulizers (SIDESTREAM NEBULIZER) Please provide sidestream mouthpiece amLODIPine (NORVASC) 10 mg tablet Take 10 mg by mouth once daily. fluticasone (FLONASE) 50 mcg/actuation nasal spray Use 1 Ada in each nostril once daily. VITAMIN E ORAL Take by mouth once daily. cholecalciferol, vitamin D3, (VITAMIN D3 ORAL) Take by mouth. buPROPion XL (WELLBUTRIN XL) 150 mg 24 hr tablet Take 1 tablet by mouth once daily. COMPOUNDED PRESCRIPTION Provide Prevnar 13. Please fax results to [phone]. COMPOUNDED PRESCRIPTION Discontinue budesonide. DME: tony. COMPOUNDED PRESCRIPTION Please perform nocturnal oximetry on RA. Please fax results to [phone]. DME: Tony. COMPOUNDED PRESCRIPTION Nocturnal oximetry on 2 L. Please fax results to [phone]. mv-min/iron/folic/calcium/vitK (WOMEN'S MULTIVITAMIN ORAL) Take 1 tablet by mouth once daily. COMPOUNDED PRESCRIPTION Please use 3 L supplemental oxygen via nasal cannula with sleep Diagnosis: Hypoxemia (Patient not taking: Reported on 11/26/2022) COMPOUNDED PRESCRIPTION Please perform nocturnal oximetry on 2 L oxygen Fax results to [phone] Diagnosis: copd, hypoxemia. COMPOUNDED PRESCRIPTION 2L of O2 at HS- patient increased to 3L of O2 at night Social History Tobacco Use Smoking status: Every Day Packs/day: 0.50 Years: 53.00 Additional pack years: 0.00 Total pack years: 26.50 Types: Cigarettes Start date: [birth year]/15/1969 Smokeless tobacco: Never Tobacco comments: 3-7 cigarettes per day on Vaping Use Vaping Use: Never used Substance Use Topics Alcohol use: Yes Comment: Occasionally Drug use: Not Currently Types: Crack Cocaine, Cocaine, Marijuana Comment: Past history of Cocaine use. Family History Problem Relation Age of Onset Cancer Maternal Grandmother Lung cancer Cancer Paternal Aunt Lung cancer COPD Sister Asthma Daughter Asthma Grandchild 3 grandchildren, 2 great grandchildren Prostate Cancer Father Thyroid Daughter Thyroid Sister Stroke Mother 3, no residual Heart Brother PAST SURGICAL HISTORY Procedure Laterality Date APPENDECTOMY age 18 COLONOSCOPY FLX DX W/COLLJ SPEC WHEN PFRMD 02/14/2014 Colonoscopy ESOPHAGOGASTRODUODENOSCOPY TRANSORAL DIAGNOSTIC 02/14/2014 EGD EXC/DSTRJ LINGUAL TONSIL ANY METHOD SPX age 18 HYSTERECTOMY HX 06/13/1995 PAST SURGICAL HISTORY OF bone removal from left middle finger; pt denies PAST SURGICAL HISTORY OF bilateral foot surgery- fatty cyst removal I reviewed the past medical history, family history, social history and surgical history with changes noted above and updated in EMR. IMMUNIZATIONS Prevnar 13 - 05/23/2019, 05/18/2018 Pneumovax 23 - 02/25/2012 Influenza - xx COVID-19 - most recent 04/30/2021 ROS: General: No fevers or chills. No unintended weight loss. Appetite good. Eyes, Ears, nose, throat: No post nasal drip, rhinorrhea, purulent nasal discharge, epistaxis. No hoarseness. Vision stable. Cardiac: No angina, edema, orthopnea. Resp: See HPI. GI: No heartburn, dysphagia. Musculoskeletal: No pain. Neuro: No headache, focal weakness, tremor. Skin: No new skin changes or rash. Otherwise negative. PHYSICAL EXAMINATION: BP 120/78 Pulse 83 Resp 17 Wt 85.7 kg (189 lb) SpO2 99% BMI 30.51 kg/m Gen: No acute distress. Cooperative with examination. HEENT: Normocephalic. Sclera, conjunctiva clear. Dentures. No thrush. Resp: No stridor, accessory respiratory muscle use, supra-sternal or intercostal retractions. Scattered wheezes. No crackles. CV: Regular rythm. Heart tones normal. Radial pulses normal. MSK: No kyphoscoliosis. Ext: Warm and well perfused. No clubbing, cyanosis, edema. Skin: No rash, ecchymoses. Neuro: Mental status normal. Affect normal. No tremor. DATA: CXR, 04/18/2023 Pending radiology read PFT, 04/29/2022 IMPRESSION: Spirometry indicates moderate obstruction. Electronically Signed On 04-30-2022 7:56:24 EST by Maxim Patel STOP BANG Questionnaire 1. Snoring Do you snore loudly (louder than talking or loud enough to be heard through closed doors)? NO 2. Tired Do you often feel tired, fatigued, or sleepy during daytime? NO 3. Observed Has anyone observed you stop breathing during your sleep? NO 4. Blood Pressure Do you have or are you being treated for high blood pressure? YES 5. BMI BMI more than 35 kg/m2? NO 6. Age Age over 50 yr old? YES 7. Neck circumference Neck circumference greater than 40 cm? NO 8. Gender Gender male? NO * Neck circumference is measured by staff High risk of [place]: answering yes to three or more items Low risk of [place]: answering yes to less than three items ASSESSMENT/PLAN: 1. Moderate COPD (chronic obstructive pulmonary disease) (HCC) - ICD9: 496, ICD10: J44.9 (primary diagnosis) Continue Trelegy daily with as needed Albuterol. 2. Dyspnea and respiratory abnormalities - ICD9: 786.09, ICD10: R06.00, R06.89 In light of recent dental abscess will obtain echo. CXR today. Prednisone burst. - ECHO - PERFLUTREN LIPID MICROSPHERES 1.1 MG/ML INJECTION IN NS 10 ML - SODIUM CHLORIDE 0.9 % (FLUSH) INJECTION SYRINGE - XR CHEST 2V FRONTAL/LAT 3. Wheezing - ICD9: 786.07, ICD10: R06.2 See #2. - PREDNISONE 20 MG TABLET 4. Chronic respiratory failure with hypoxia (HCC) - ICD9: 518.83, 799.02, ICD10: J96.11 Continue supplemental oxygen at night. 5. Tobacco use disorder - ICD9: 305.1, ICD10: F17.200 Cessation encouraged. Physiologic and physical aspects of tobacco addiction as well as strategies for quitting were discussed. Counseling was given focusing on the harmful effects of this addiction especially given the patient's medical condition(s) which will be worsened because of the chemicals in tobacco. Enrolled in lung cancer screening. Portions of this documentation were copied and pasted from previous office visit notes in order to provide a cohesive continuity of the history. The note has been reviewed and edited and updated as necessary. Emilee Madrid PA-C documented in this encounter [facility] 02-08-2023 Note HNO ID: [id number] Author: Nadine Villa APRN.CPA TAX Service: ? Author Type: Nurse Practitioner Type: Progress Notes Filed: 02/08/2023 2:07 PM Note Text: LUNG SCREENING VISIT PRIMARY CARE PHYSICIAN: Ti Osuna MD PULMONARY PROVIDER: Emilee HARDING Results will be communicated via letter or electronic record if applicable. Visit Delivery: In Person Patient Visit Type: New to Screening Current or Ex-smoker? [Current Exam Type: baseline LDCT Number of Pack Years: 26.5 Current smoker (=0) REQUESTER: The referring provider advised the patient to have screening. HISTORY OF PRESENT ILLNESS: Julia Dumont is a 67 year old Active smoker who presents for lung screening. Respiratory symptoms include: SOB: Yes, sometimes with playing with grandchildren. Multiple flights of stairs Chest tightness: No Coughing: Yes: Without mucus, sometimes with activity Hemoptysis: No Wheezing: Sometimes with humidity Fever/Chills: No Recent Respiratory Infection: No Unintentional weight loss: No Last 6 Encounter Wt Readings: Date: Wt: 02/08/2023 89.4 kg (197 lb) 02/08/2023 89.4 kg (197 lb) 11/26/2022 90.7 kg (200 lb) 05/28/2022 90.3 kg (199 lb) 04/29/2022 90.3 kg (199 lb) 11/26/2021 93 kg (205 lb) ECOG PERFORMANCE STATUS: 0- Fully active, able to carry on all pre-disease performance w/o restriction. Modified Medical Research Stebbins Dyspnea Scale (MMRC) I only get breathless with strenous exercise 0 PAST MEDICAL HISTORY Diagnosis Date Abdominal pain, other specified site COPD (chronic obstructive pulmonary disease) (HCC) COPD (chronic obstructive pulmonary disease) (HCC) 09/01/2012 Frozen shoulder right High blood pressure 06/2016 not taking blood pressure medication, thinks her blood pressure is fine Irritable bowel syndrome Lung nodule Rash stomach and private area Tobacco use disorder 09/01/2012 PAST SURGICAL HISTORY Procedure Laterality Date APPENDECTOMY age 18 COLONOSCOPY FLX DX W/COLLJ SPEC WHEN PFRMD 02/14/2014 Colonoscopy ESOPHAGOGASTRODUODENOSCOPY TRANSORAL DIAGNOSTIC 02/14/2014 EGD EXC/DSTRJ LINGUAL TONSIL ANY METHOD SPX age 18 HYSTERECTOMY HX 06/13/1995 PAST SURGICAL HISTORY OF bone removal from left middle finger; pt denies PAST SURGICAL HISTORY OF bilateral foot surgery- fatty cyst removal FAMILY HISTORY Problem Relation Age of Onset Cancer Maternal Grandmother Lung cancer Cancer Paternal Aunt Lung cancer COPD Sister Asthma Daughter Asthma Grandchild 3 grandchildren, 2 great grandchildren Prostate Cancer Father Thyroid Daughter Thyroid Sister Stroke Mother 3, no residual Heart Brother losartan (COZAAR) 50 mg tablet Take 50 mg by mouth once daily. Nebulizer Accessories kit Provide accessory kit albuterol HFA (PROVENTIL HFA, VENTOLIN HFA) 90 mcg/actuation inhaler Inhale 2 Puffs as instructed every 6 hours as needed for wheezing/shortness of breath. edjnwkiieuw-xskjirmnn-sbjjnxob (TRELEGY ELLIPTA) 100-62.5-25 mcg inhalation powder Inhale 1 Puff as instructed once daily. clotrimazole (MYCELEX) 10 mg felix Use 1 Felix as instructed four times daily. albuterol (PROVENTIL) 2.5 mg /3 mL (0.083 %) nebulizer solution USE 1 VIAL IN NEBULIZER 4 TIMES DAILY Nebulizer Accessories kit Provide accessory kit. Nebulizers (SIDESTREAM NEBULIZER) Please provide sidestream mouthpiece amLODIPine (NORVASC) 10 mg tablet Take 10 mg by mouth once daily. fluticasone (FLONASE) 50 mcg/actuation nasal spray Use 1 Ada in each nostril once daily. VITAMIN E ORAL Take by mouth once daily. cholecalciferol, vitamin D3, (VITAMIN D3 ORAL) Take by mouth. buPROPion XL (WELLBUTRIN XL) 150 mg 24 hr tablet Take 1 tablet by mouth once daily. COMPOUNDED PRESCRIPTION Provide Prevnar 13. Please fax results to [phone]. COMPOUNDED PRESCRIPTION Discontinue budesonide. DME: tony. COMPOUNDED PRESCRIPTION Please perform nocturnal oximetry on RA. Please fax results to [phone]. DME: Tony. COMPOUNDED PRESCRIPTION Nocturnal oximetry on 2 L. Please fax results to [phone]. mv-min/iron/folic/calcium/vitK (WOMEN'S MULTIVITAMIN ORAL) Take 1 tablet by mouth once daily. COMPOUNDED PRESCRIPTION Please use 3 L supplemental oxygen via nasal cannula with sleep Diagnosis: Hypoxemia (Patient not taking: Reported on 11/26/2022) COMPOUNDED PRESCRIPTION Please perform nocturnal oximetry on 2 L oxygen Fax results to [phone] Diagnosis: copd, hypoxemia. COMPOUNDED PRESCRIPTION 2L of O2 at HS- patient increased to 3L of O2 at night ALLERGIES Allergen Reactions Budesonide Shortness of Breath Penicillins Rash, Itching The medications and allergies were reviewed and reconciled for this patient and deemed current. Lung Cancer Risk Factors: 1.Tobacco Use: Start Age 14, Quit Age: N/A, Average packs per day 0.5, Pack Years 26.5 2. Passive Smoke Exposure: No, 3. Personal hx of malignancy: No, Type o (more content not included)... [facility] 02-08-2023 Note HNO ID: [id number] Author: Felicity Tripathi RPFT Service: ? Author Type: Respiratory Therapist Type: Procedures Filed: 02/08/2023 12:51 PM Note Text: RESPIRATORY THERAPY OXIMETRY WITH AMBULATION Oximetry with Ambulation Test for This Encounter O2 Device O2 Adapter NC O2 Flow SpO2% HR Activity Ft Walked (ft) Time (min) Avg Speed (MPH) R/A 99 85 Resting R/A 100 96 Walking, usual pace 580 3 2.2 R/A 96 104 Walking, fastest pace 640 3 2.42 General Information Pulse Oximetry Site Total Time Spent O2 Supply Carrier Walking Assistance/Device L Index Finger 20 -- -- NAME: JATIN Santos PATIENT NAME: Julia Dumont DATE: February 08, 2023 TIME: 12:51 PM Comment: [facility] 02-08-2023 Note HNO ID: [id number] Author: Felicity Tripathi RPFT Service: ? Author Type: Respiratory Therapist Type: Progress Notes Filed: 02/08/2023 12:51 PM Note Text: PULM FUNCTION SMARTBLOCK: Provider: Emilee Madrid PA-C Assisting Tech: Felicity Tripathi RPFT Oximetry - Ambulation: 1 [facility] 02-08-2023 Instructions Nadine Villa APRN.CNP - 02/08/2023 1:[address] Lung Screen Results The CT scan that you will have done will show if you have any nodules (small spots) in your lungs that are suspicious for cancer. Around 90% of the patients who have this scan done are found to have at least one nodule. Most nodules are benign (not cancer) and of no harm to you at all. A specialist will make a scientific evaluation about whether or not a nodule is worrisome based on its size and shape. The radiologist who will read your scan will put it into one of four categories: LUNG-RADS Category Description Overall Probability of Malignancy Recommended Follow-Up 1 Negative No nodules and definitely benign (non-cancerous nodules) Essentially 0. 1 Year - Follow-up Low dose CT 2 Benign Appearance or Behavior Nodules with a very low likelihood of becoming cancer due to size or lack of growth Less than 1% 1 Year - Follow-up Low dose CT 3 Probably Benign Probably benign finding, short term follow-up recommended 1 to 2% 6 Months - Follow-up CT 4 A,B,or X Suspicious Findings for which additional diagnostic testing and/or biopsy is recommended Will be calculated based on nodule characteristics. Dependent on what is seen on the exam. [address], PET, Biopsy At times, we may see something outside of the lungs on the scan that could be a health concern. Below are some of the most common findings: S Clinically Significant or Potentially Clinically Significant Findings (non lung cancer) Referral or additional imaging/labs depending on result. Approximately 10% of people receive this result. Coronary Artery Calcifications (Moderate or Severe) - Referral to cardiology or PCP for further work-up and recommendations. Thyroid Nodule - TSH level and Thyroid Ultrasound dependent on size, referral to endocrinology. Adrenal Nodule - Blood work and referral to endocrinology. Others Lung Cancer Screening hotline: [phone] Lung Cancer Screening [phone] Billing Questions: or [email or web address] Lung Cancer Screening Team: Jennifer Orellana CNP; Magali Batista PA-C; Janae Eaton CNP; Viridiana Verdugo CNP, Maricarmen Villavicencio PA-C, Nany Keenan PA-C, Nadine Villa, CPA TAX : [phone] documented in this encounter [facility] 02-08-2023 History of Present illness Narrative Images from the original note were not included. LUNG SCREENING VISIT PRIMARY CARE PHYSICIAN: Ti Osuna MD PULMONARY PROVIDER: Emilee HARDING Results will be communicated via letter or electronic record if applicable. Visit Delivery: In Person Patient Visit Type: New to Screening Current or Ex-smoker? [Current Exam Type: baseline LDCT Number of Pack Years: 26.5 Current smoker (=0) REQUESTER: The referring provider advised the patient to have screening. HISTORY OF PRESENT ILLNESS: Julia Dumont is a 67 year old Active smoker who presents for lung screening. Respiratory symptoms include: SOB: Yes, sometimes with playing with grandchildren. Multiple flights of stairs Chest tightness: No Coughing: Yes: Without mucus, sometimes with activity Hemoptysis: No Wheezing: Sometimes with humidity Fever/Chills: No Recent Respiratory Infection: No Unintentional weight loss: No Last 6 Encounter Wt Readings: Date: Wt: 02/08/2023 89.4 kg (197 lb) 02/08/2023 89.4 kg (197 lb) 11/26/2022 90.7 kg (200 lb) 05/28/2022 90.3 kg (199 lb) 04/29/2022 90.3 kg (199 lb) 11/26/2021 93 kg (205 lb) ECOG PERFORMANCE STATUS: 0- Fully active, able to carry on all pre-disease performance w/o restriction. Modified Medical Research Stebbins Dyspnea Scale (MMRC) I only get breathless with strenous exercise 0 PAST MEDICAL HISTORY Diagnosis Date Abdominal pain, other specified site COPD (chronic obstructive pulmonary disease) (HCC) COPD (chronic obstructive pulmonary disease) (HCC) 09/01/2012 Frozen shoulder right High blood pressure 06/2016 not taking blood pressure medication, thinks her blood pressure is fine Irritable bowel syndrome Lung nodule Rash stomach and private area Tobacco use disorder 09/01/2012 PAST SURGICAL HISTORY Procedure Laterality Date APPENDECTOMY age 18 COLONOSCOPY FLX DX W/COLLJ SPEC WHEN PFRMD 02/14/2014 Colonoscopy ESOPHAGOGASTRODUODENOSCOPY TRANSORAL DIAGNOSTIC 02/14/2014 EGD EXC/DSTRJ LINGUAL TONSIL ANY METHOD SPX age 18 HYSTERECTOMY HX 06/13/1995 PAST SURGICAL HISTORY OF bone removal from left middle finger; pt denies PAST SURGICAL HISTORY OF bilateral foot surgery- fatty cyst removal FAMILY HISTORY Problem Relation Age of Onset Cancer Maternal Grandmother Lung cancer Cancer Paternal Aunt Lung cancer COPD Sister Asthma Daughter Asthma Grandchild 3 grandchildren, 2 great grandchildren Prostate Cancer Father Thyroid Daughter Thyroid Sister Stroke Mother 3, no residual Heart Brother losartan (COZAAR) 50 mg tablet Take 50 mg by mouth once daily. Nebulizer Accessories kit Provide accessory kit albuterol HFA (PROVENTIL HFA, VENTOLIN HFA) 90 mcg/actuation inhaler Inhale 2 Puffs as instructed every 6 hours as needed for wheezing/shortness of breath. lbcizcjfjua-lcpaugtzp-hkfxbbop (TRELEGY ELLIPTA) 100-62.5-25 mcg inhalation powder Inhale 1 Puff as instructed once daily. clotrimazole (MYCELEX) 10 mg felix Use 1 Felix as instructed four times daily. albuterol (PROVENTIL) 2.5 mg /3 mL (0.083 %) nebulizer solution USE 1 VIAL IN NEBULIZER 4 TIMES DAILY Nebulizer Accessories kit Provide accessory kit. Nebulizers (SIDESTREAM NEBULIZER) Please provide sidestream mouthpiece amLODIPine (NORVASC) 10 mg tablet Take 10 mg by mouth once daily. fluticasone (FLONASE) 50 mcg/actuation nasal spray Use 1 Ada in each nostril once daily. VITAMIN E ORAL Take by mouth once daily. cholecalciferol, vitamin D3, (VITAMIN D3 ORAL) Take by mouth. buPROPion XL (WELLBUTRIN XL) 150 mg 24 hr tablet Take 1 tablet by mouth once daily. COMPOUNDED PRESCRIPTION Provide Prevnar 13. Please fax results to [phone]. COMPOUNDED PRESCRIPTION Discontinue budesonide. DME: tony. COMPOUNDED PRESCRIPTION Please perform nocturnal oximetry on RA. Please fax results to [phone]. DME: Tony. COMPOUNDED PRESCRIPTION Nocturnal oximetry on 2 L. Please fax results to [phone]. mv-min/iron/folic/calcium/vitK (WOMEN'S MULTIVITAMIN ORAL) Take 1 tablet by mouth once daily. COMPOUNDED PRESCRIPTION Please use 3 L supplemental oxygen via nasal cannula with sleep Diagnosis: Hypoxemia (Patient not taking: Reported on 11/26/2022) COMPOUNDED PRESCRIPTION Please perform nocturnal oximetry on 2 L oxygen Fax results to [phone] Diagnosis: copd, hypoxemia. COMPOUNDED PRESCRIPTION 2L of O2 at HS- patient increased to 3L of O2 at night ALLERGIES Allergen Reactions Budesonide Shortness of Breath Penicillins Rash, Itching The medications and allergies were reviewed and reconciled for this patient and deemed current. Lung Cancer Risk Factors: 1.Tobacco Use: Start Age 14, Quit Age: N/A, Average packs per day 0.5, Pack Years 26.5 2. Passive Smoke Exposure: No, 3. Personal hx of malignancy: No, Type of Cancer: 4. Significant exposures (1 year or more of exposure): Other, [employer], [employer] 5. Race: Black 6. Education: Some College 7. BMI:Body mass index is 31.8 kg/m . Patient-entered Height: 5'6 Patient-entered Weight: 197 pounds 8. COPD: Yes 9. Pneumonia in the past 5 years: Yes 10. Is there a history of lung cancer in a first degree relative? No 11. Is there a history of lung cancer in a non-first degree relative? Yes 12. Is there a history of any other cancer in a first degree relative? Yes Health Maintenance Immunization History Administered Date(s) Administered COVID-19 original vaccine, full dose, monovalent (MODERNA) 08/28/2020 09/25/2020 04/30/2021 influenza (HD-IIV3) vaccine, age 65+ yr, high dose, PF (FLUZONE HIGH-DOSE) 06/18/2019 influenza (HD-IIV4) vaccine, age 65+ yr, high dose, quadrivalent, PF (FLUZONE HIGH-DOSE) 03/31/2021 influenza (IIV3) vaccine, age 3+ yr, trivalent (AFLURIA, FLULAVAL, FLUVIRIN, FLUZONE) 03/12/2014 influenza (IIV3) vaccine, trivalent (AFLURIA, FLULAVAL, FLUVIRIN, FLUZONE) 04/07/2022 influenza (IIV4) vaccine, age 6 mo - 64 yr, quadrivalent (AFLURIA, FLULAVAL, FLUZONE) 04/24/2015 influenza vaccine, unspecified formulation 02/25/2012 pneumococcal (PCV13) vaccine, 13 valent (PREVNAR 13) 05/18/2018 05/18/2019 05/23/2019 pneumococcal (PPV23) vaccine, 23 valent (PNEUMOVAX 23) 02/25/2012 Colonoscopy: 02/14/2014 Mammogram: DATA REVIEW I have directly visualized the testing documented: 09/17/2021 CTA Chest 6.7 mm RLL nodule Prior Imaging: Last CT/CTA Chest/Lungs No resulted procedures found. Last CT Chest - Impression Only No resulted procedures found. Last XR Chest - Impression Only XR CHEST 2V FRONTAL/LAT Collected: 08/09/2017 2:15 PM (Final result) Impression: IMPRESSION: Emphysema and right infrahilar bronchitis. Knockout Man: DARSHANA Jay.. Pulmonary Function Testing: SPIROMETRY BASELINE ONLY ([id number]) - ordered on 04/29/22 [facility] [address] [place] [address] Test Date: 2022-04-29 Pat Name: JULIA DUMONT Department: Room: Gender: Female Catalogue Compiler: : 1955 Requested By: Order Number: [id number] Reading MD: Maxim Patel Interpretive Statements ATS/ERS acceptability and repeatability standards for spirometry met. IMPRESSION: Spirometry indicates moderate obstruction. Electronically Signed On 04-30-2022 7:56:24 EST by Maxim Patel Site: WO ID: [id number] Name: TIMJULIA Saw Visit Date: 04/29/2022 Doctor: Catalogue Compiler: Felicity Tripathi Age: 66 Date of : 1955 Gender: Female Race: Black or Height: 66.00 in Weight: 199.00 lbs BSA: 1.996 Diagnosis: COPD Dyspnea: Cough: Wheeze: Tobacco Product: Years Smoked: Packs/Day: Years Quit: Medications: Comments: ATS/ERS acceptability and repeatability standards for spirometry met. Review Status: Not Reviewed PRE-BRONCH POST-BRONCH Pred LLN ULN Actual %Pred Actual %Chng SPIROMETRY FVC (L) 2.66 1.90 3.47 2.57 96 FEV1 (L) 2.07 1.46 2.66 1.27 60 FEV1/FVC 0.78 0.66 0.89 0.49 62 FEF25 (L/sec) 1.20 FEF50 (L/sec) 3.30 1.69 4.91 0.52 15 FEF75 (L/sec) 0.38 0.12 1.12 0.13 33 DPO17-04 (L/sec) 1.78 0.69 3.43 0.37 20 PEF L/s (L/sec) 5.31 3.18 7.44 4.36 82 FIVC (L) 2.40 FIF50 (L/sec) 3.12 PIF (L/sec) 3.16 Time (sec) 12.43 GRAYSON (L) 0.06 FET PEF (sec) 0.07 PHYSICAL EXAM: BP 132/80 Pulse 104 Resp 17 Wt 89.4 kg (197 lb) SpO2 99% BMI 31.80 kg/m Deferred ASSESSMENT and RECOMMENDATIONS: 1. Screening for lung cancer: Six year risk for lung cancer: 4.46% [email or web address] I have determined that the patient is eligible for a low dose CT based on age, absence of signs or symptoms of lung cancer, and total pack years: Yes. The patient and I engaged in shared decision making, including the use of one or more decision aids, to include benefits, harms, follow-up diagnostic testing, over-diagnosis, false positive rate, and total radiation exposure. The patient understands and feels comfortable with it: Yes. The patient was counseled on the importance of adherence to annual LDCT lung cancer screening, impact of comorbidities and ability or willingness to undergo diagnosis and treatment. The patient understands and feels comfortable with it:Yes. 2. Nicotine dependence: The patient was counseled on the importance of smoking cessation if current smoker and, if appropriate, offered additional tobacco cessation counseling services - Smoking Cessation Counseling. SMOKING CESSATION COUNSELING Smoking cessation methods including Nicotine Replacement Therapies and Behavior Modification were discussed with the patient and assistance offered. Pt is on bupropion. After discussing available options patient decided to try Nicotine replacement lozenges. I have discussed instructions for use as well as potential side effects and things to watch for. The medical conditions adversely affected by cigarette use include:COPD, Emphysema, and Lung Cancer. The patient is currently ready to quit. I personally spent 5 minutes in counseling. The time spent in smoking cessation counseling is exclusive of any other counseling during this visit. Nadine Villa APRN.CNP NPI #: [id number] 1:30 PM documented in this encounter [facility] 02-08-2023 Procedure note Associated Ord er(s): OXIMETRY WITH AMBULATION RESPIRATORY THERAPY OXIMETRY WITH AMBULATION Oximetry with Ambulation Test for This Encounter O2 Device O2 Adapter NC O2 Flow SpO2% HR Activity Ft Walked (ft) Time (min) Avg Speed (MPH) R/A 99 85 Resting R/A 100 96 Walking, usual pace 580 3 2.2 R/A 96 104 Walking, fastest pace 640 3 2.42 General Information Pulse Oximetry Site Total Time Spent O2 Supply Carrier Walking Assistance/Device L Index Finger 20 -- -- NAME: JATIN Santos PATIENT NAME: Julia Dumont DATE: February 08, 2023 TIME: 12:51 PM Comment: documented in this encounter [facility] 02-08-2023 Nurse Note Intake information documented in the prior visit with JATIN Santos today. documented in this encounter [facility] 02-08-2023 History of Present illness Narrative PULM FUNCTION SMARTBLOCK: Provider: Emilee Madrid PA-C Assisting Tech: Felicity Tripathi RPFT Oximetry - Ambulation: 1 [address] encounter [facility] 11-26-2022 Note HNO ID: [id number] Author: Emilee Madrid PA-C Service: ? 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 Current treatment consists of Trelegy ellipta and albuterol as needed. Today, patient states she is feeling well. Denies significant cough, sputum production, or wheezing since using Primatine mist while on vacation in [place]. She states Albuterol does not work as well as the Primatine mist. I did explain to her that the primatine mist is epinephrine and she should be cautious of side effects including dizziness, heart palpitations, and high blood pressure. Exertional dyspnea is not keeping her from doing activities she enjoys. She plays outside with her grandkids. Currently wearing 2-3L supplemental oxygen at night. DME: [facility]. Currently smoking 8-9 cigarettes daily. PAST MEDICAL HISTORY Diagnosis Date Abdominal pain, other specified site COPD (chronic obstructive pulmonary disease) (HCC) COPD (chronic obstructive pulmonary disease) (HCC) 09/01/2012 Frozen shoulder right High blood pressure 06/2016 not taking blood pressure medication, thinks her blood pressure is fine Irritable bowel syndrome Lung nodule Rash stomach and private area Tobacco use disorder 09/01/2012 Allergies: Budesonide Shortness of Breath Penicillins Rash, Itching albuterol HFA (PROVENTIL HFA, VENTOLIN HFA) 90 mcg/actuation inhalerInhale 2 Puffs as instructed every 6 hours as needed for wheezing/shortness of breath.Disp: 18 gRfl: 5 ylkohqtcwyz-lwulkngyf-xegodgfn (TRELEGY ELLIPTA) 100-62.5-25 mcg inhalation powderInhale 1 Puff as instructed once daily.Disp: 1 EachRfl: 11 traZODone (DESYREL) 50 mg tabletTake 50 mg by mouth daily at bedtime.Disp: Rfl: clotrimazole (MYCELEX) 10 mg trocheUse 1 Felix as instructed four times daily.Disp: 40 TrocheRfl: 1 albuterol (PROVENTIL) 2.5 mg /3 mL (0.083 %) nebulizer solutionUSE 1 VIAL IN NEBULIZER 4 TIMES DAILYDisp: 120 VialRfl: 11 Nebulizer Accessories kitProvide accessory kit.Disp: 1 EachRfl: 3 Nebulizers (SIDESTREAM NEBULIZER)Please provide sidestream mouthpieceDisp: 1 EachRfl: 3 amLODIPine (NORVASC) 10 mg tabletTake 10 mg by mouth once daily.Disp: Rfl: fluticasone (FLONASE) 50 mcg/actuation nasal sprayUse 1 Ada in each nostril once daily.Disp: 1 EachRfl: 3 VITAMIN E ORALTake by mouth once daily. Disp: Rfl: cholecalciferol, vitamin D3, (VITAMIN D3 ORAL)Take by mouth.Disp: Rfl: fexofenadine HCl (MUCINEX ALLERGY ORAL)Take by mouth. Off brandDisp: Rfl: (Patient not taking: Reported on 11/26/2021 ) buPROPion XL (WELLBUTRIN XL) 150 mg 24 hr tabletTake 1 tablet by mouth once daily.Disp: 30 tabletRfl: 1 COMPOUNDED PRESCRIPTIONProvide Prevnar 13. Please fax results to [phone].Disp: 1 EachRfl: 0 COMPOUNDED PRESCRIPTIONDiscontinue budesonide. DME: [facility].Disp: 1 EachRfl: 0 COMPOUNDED PRESCRIPTIONPlease perform nocturnal oximetry on RA. Please fax results to [phone]. DME: [facility].Disp: 1 EachRfl: 0 COMPOUNDED PRESCRIPTIONNocturnal oximetry on 2 L. Please fax results to [phone].Disp: 1 EachRfl: 0 mv-min/iron/folic/calcium/vitK (WOMEN'S MULTIVITAMIN ORAL)Take 1 tablet by mouth once daily.Disp: Rfl: COMPOUNDED PRESCRIPTIONPlease use 3 L supplemental oxygen via nasal cannula with sleep Diagnosis: HypoxemiaDisp: 1 EachRfl: 0 COMPOUNDED PRESCRIPTIONPlease perform nocturnal oximetry on 2 L oxygen Fax results to [phone] Diagnosis: copd, hypoxemia.Disp: 1 EachRfl: 0 COMPOUNDED [id number] of O2 at HS- patient increased to 3L of O2 at night Disp: Rfl: Social History Tobacco Use Smoking status: Every Day Packs/day: 2.00 Years: 43.00 Pack years: 86.00 Types: Cigarettes Start date: 11/15/1969 Smokeless tobacco: Never Tobacco comments: 5-7 cigarettes per day on Vaping Use Vaping Use: Never used Substance Use Topics Alcohol use: Yes Comment: Occasionally Drug use: Not Currently Types: Crack Cocaine, Cocaine, Marijuana Comment: Past history of Cocaine use. Family History Problem Relation Age of Onset Cancer Maternal Grandmother Lung cancer Cancer Paternal Aunt Lung cancer COPD Sister Asthma Daughter Asthma Grandchild 3 grandchildren, 2 great grandchildren Prostate Cancer Father Thyroid Daughter Thyroid Sister Stroke Mother 3, no residual Heart Brother PAST SURGICAL HISTORY Procedure Laterality Date APPENDECTOMY age 18 COLONOSCOPY FLX DX W/COLLJ SPEC WHEN PFRMD 02/14/2014 Colonoscopy ESOPHAGOGASTRODUODENOSCOPY TRANSORAL DIAGNOSTIC 02/14/2014 EGD EXC/DSTRJ LINGUAL TONSIL ANY METHOD SPX age 18 HYSTERECTOMY HX 06/13/1995 PAST SURGICAL HISTORY OF bone removal from left middle finger; pt denies P (more content not included)... [facility] 10-18-2022 Miscellaneous Notes Patient called. Verified name and date of . Patient would like refill= states she is short one due to having lost one. Verified pharmacy. Requested Prescriptions Pending Prescriptions Disp Refills albuterol HFA (PROVENTIL HFA, VENTOLIN HFA) 90 mcg/actuation inhaler 18 g 5 Sig: Inhale 2 Puffs as instructed every 6 hours as needed for wheezing/shortness of breath. Please review and advise. Janae Park LPN documented in this encounter [facility] 05-28-2022 Note HNO ID: [id number] Author: Silva Gupta MD Service: ? Author Type: Physician Type: Progress Notes Filed: 05/28/2022 12:38 PM Note Text: . [facility] [place] Note Patient name: Julai Dumont PCP: Ti Osuna MD CC: COPD HPI: Julia Dumont 66 year old female current 90 pack year smoker with PMH significant for HTN, moderate COPD, GERD, oxygen use, former patient of Dr. Muller. Current treatment with Trelegy Ellipta and albuterol as needed. Main pulmonary symptom is shortness of breath. No significant chronic cough, sputum production, chest tightness or wheezing. Shortness of breath worsened by activity and exposure to cold air. Previously on oxygen only at night but had severe pneumonia in September of this past year and was discharged on continuous oxygen. Most recent ambulatory test for oxygen does not show need for continuous use. She has been trying to quit smoking. Previous use of nicotine patches resulted in severe skin reaction. She is currently on Wellbutrin which has helped, down to 2-3 cigarettes a day. She has not had a follow-up chest imaging from her severe pneumonia in September. I personally reviewed the images from [facility] which shows a dense consolidation in the right lower lobe and a right upper lobe noncalcified pulmonary nodule as well as upper lobe emphysema. DME: [facility] 2-3 Liters DATA: : Oximetry with Ambulation Test for This Encounter O2 Device O2 Adapter NC O2 Flow SpO2% HR Activity Ft Walked (ft) Time (min) Avg Speed (MPH) R/A 96 84 Resting R/A 95 96 Walking, usual pace 500 3 1.89 R/A 95 100 Walking, fastest pace 550 3 2.08 PFT 04/2022: Review of pulmonary function test show moderate obstruction Imaging / Diagnostic Studies: CTA chest [facility] 09/2021: Reviewed an shows emphysema, RUL 6 mm nodule, RLL consolidation. Nodule unchanged from 2020 Reviewed LDCT chest 12/30/20: Upper lobe emphysema, RUL 6 mm noncalcified nodule PAST MEDICAL HISTORY Diagnosis Date Abdominal pain, other specified site COPD (chronic obstructive pulmonary disease) (HCC) COPD (chronic obstructive pulmonary disease) (HCC) 09/01/2012 Frozen shoulder right High blood pressure 06/2016 not taking blood pressure medication, thinks her blood pressure is fine Irritable bowel syndrome Lung nodule Rash stomach and private area Tobacco use disorder 09/01/2012 ALLERGIES Allergen Reactions Budesonide Shortness of Breath Penicillins Rash, Itching traZODone (DESYREL) 50 mg tabletTake 50 mg by mouth daily at bedtime.Disp: Rfl: fluconazole (DIFLUCAN) 100 mg tabletTake 1 tablet by mouth once daily for 7 days. One daily for 7 daysDisp: 7 tabletRfl: 0 clotrimazole (MYCELEX) 10 mg trocheUse 1 Felix as instructed four times daily.Disp: 40 TrocheRfl: 1 albuterol HFA (PROVENTIL HFA, VENTOLIN HFA) 90 mcg/actuation inhalerInhale 2 Puffs as instructed every 6 hours as needed for wheezing/shortness of breath.Disp: 18 gRfl: 5 albuterol (PROVENTIL) 2.5 mg /3 mL (0.083 %) nebulizer solutionUSE 1 VIAL IN NEBULIZER 4 TIMES DAILYDisp: 120 VialRfl: 11 Nebulizer Accessories kitProvide accessory kit.Disp: 1 EachRfl: 3 Nebulizers (SIDESTREAM NEBULIZER)Please provide sidestream mouthpieceDisp: 1 EachRfl: 3 amLODIPine (NORVASC) 10 mg tabletTake 10 mg by mouth once daily.Disp: Rfl: fluticasone (FLONASE) 50 mcg/actuation nasal sprayUse 1 Ada in each nostril once daily.Disp: 1 EachRfl: 3 VITAMIN E ORALTake by mouth once daily. Disp: Rfl: cholecalciferol, vitamin D3, (VITAMIN D3 ORAL)Take by mouth.Disp: Rfl: fexofenadine HCl (MUCINEX ALLERGY ORAL)Take by mouth. Off brandDisp: Rfl: (Patient not taking: Reported on 11/26/2021 ) aijatbgkcei-agnjdagvn-xpbghjps (TRELEGY ELLIPTA) 100-62.5-25 mcg inhalation powderInhale 1 Puff as instructed once daily.Disp: 1 EachRfl: 11 buPROPion XL (WELLBUTRIN XL) 150 mg 24 hr tabletTake 1 tablet by mouth once daily.Disp: 30 tabletRfl: 1 COMPOUNDED PRESCRIPTIONProvide Prevnar 13. Please fax results to [phone].Disp: 1 EachRfl: 0 COMPOUNDED PRESCRIPTIONDiscontinue budesonide. DME: [facility].Disp: 1 EachRfl: 0 COMPOUNDED PRESCRIPTIONPlease perform nocturnal oximetry on RA. Please fax results to [phone]. DME: [facility].Disp: 1 EachRfl: 0 COMPOUNDED PRESCRIPTIONNocturnal oximetry on 2 L. Please fax results to [phone].Disp: 1 EachRfl: 0 mv-min/iron/folic/calcium/vitK (WOMEN'S MULTIVITAMIN ORAL)Take 1 tablet by mouth once daily.Disp: Rfl: COMPOUNDED PRESCRIPTIONPlease use 3 L supplemental oxygen via nasal cannula with sleep Diagnosis: HypoxemiaDisp: 1 EachRfl: 0 COMPOUNDED PRESCRIPTIONPlease perform nocturnal oximetry on 2 L oxygen Fax results to [phone] Diagnosis: copd, hypoxemia.Disp: 1 EachRfl: 0 COMPOUNDED [id number] of O2 at HS- patient increased to 3L of O2 at night Disp: Rfl: Social History Tobacco Use Smoking status: Every Day Packs (more content not included)... [facility] 05-28-2022 History of Present illness Narrative Images from the original note were not included. . [facility] [place] Note Patient name: Julia Dumont PCP: Ti Osuna MD CC: COPD HPI: Julia Dumont 66 year old female current 90 pack year smoker with PMH significant for HTN, moderate COPD, GERD, oxygen use, former patient of Dr. Muller. Current treatment with Trelegy Ellipta and albuterol as needed. Main pulmonary symptom is shortness of breath. No significant chronic cough, sputum production, chest tightness or wheezing. Shortness of breath worsened by activity and exposure to cold air. Previously on oxygen only at night but had severe pneumonia in September of this past year and was discharged on continuous oxygen. Most recent ambulatory test for oxygen does not show need for continuous use. She has been trying to quit smoking. Previous use of nicotine patches resulted in severe skin reaction. She is currently on Wellbutrin which has helped, down to 2-3 cigarettes a day. She has not had a follow-up chest imaging from her severe pneumonia in September. I personally reviewed the images from [facility] which shows a dense consolidation in the right lower lobe and a right upper lobe noncalcified pulmonary nodule as well as upper lobe emphysema. DME: [facility] 2-3 Liters DATA: : Oximetry with Ambulation Test for This Encounter O2 Device O2 Adapter NC O2 Flow SpO2% HR Activity Ft Walked (ft) Time (min) Avg Speed (MPH) R/A 96 84 Resting R/A 95 96 Walking, usual pace 500 3 1.89 R/A 95 100 Walking, fastest pace 550 3 2.08 PFT 04/2022: Review of pulmonary function test show moderate obstruction Imaging / Diagnostic Studies: CTA chest [facility] 09/2021: Reviewed an shows emphysema, RUL 6 mm nodule, RLL consolidation. Nodule unchanged from 2020 Reviewed LDCT chest 12/30/20: Upper lobe emphysema, RUL 6 mm noncalcified nodule PAST MEDICAL HISTORY Diagnosis Date Abdominal pain, other specified site COPD (chronic obstructive pulmonary disease) ([facility]) COPD (chronic obstructive pulmonary disease) ([facility]) 09/01/2012 Frozen shoulder right High blood pressure 06/2016 not taking blood pressure medication, thinks her blood pressure is fine Irritable bowel syndrome Lung nodule Rash stomach and private area Tobacco use disorder 09/01/2012 ALLERGIES Allergen Reactions Budesonide Shortness of Breath Penicillins Rash, Itching traZODone (DESYREL) 50 mg tablet^Take 50 mg by mouth daily at bedtime.^Disp: ^Rfl: fluconazole (DIFLUCAN) 100 mg tablet^Take 1 tablet by mouth once daily for 7 days. One daily for 7 days^Disp: 7 tablet^Rfl: 0 clotrimazole (MYCELEX) 10 mg felix^Use 1 Felix as instructed four times daily.^Disp: 40 Felix^Rfl: 1 albuterol HFA (PROVENTIL HFA, VENTOLIN HFA) 90 mcg/actuation inhaler^Inhale 2 Puffs as instructed every 6 hours as needed for wheezing/shortness of breath.^Disp: 18 g^Rfl: 5 albuterol (PROVENTIL) 2.5 mg /3 mL (0.083 %) nebulizer solution^USE 1 VIAL IN NEBULIZER 4 TIMES DAILY^Disp: 120 Vial^Rfl: 11 Nebulizer Accessories kit^Provide accessory kit.^Disp: 1 Each^Rfl: 3 Nebulizers (SIDESTREAM NEBULIZER)^Please provide sidestream mouthpiece^Disp: 1 Each^Rfl: 3 amLODIPine (NORVASC) 10 mg tablet^Take 10 mg by mouth once daily.^Disp: ^Rfl: fluticasone (FLONASE) 50 mcg/actuation nasal spray^Use 1 Ada in each nostril once daily.^Disp: 1 Each^Rfl: 3 VITAMIN E ORAL^Take by mouth once daily. ^Disp: ^Rfl: cholecalciferol, vitamin D3, (VITAMIN D3 ORAL)^Take by mouth.^Disp: ^Rfl: fexofenadine HCl (MUCINEX ALLERGY ORAL)^Take by mouth. Off brand^Disp: ^Rfl: (Patient not taking: Reported on 11/26/2021 ) dtsyngehlbp-lmegxlmlp-qjruwmoy (TRELEGY ELLIPTA) 100-62.5-25 mcg inhalation powder^Inhale 1 Puff as instructed once daily.^Disp: 1 Each^Rfl: 11 buPROPion XL (WELLBUTRIN XL) 150 mg 24 hr tablet^Take 1 tablet by mouth once daily.^Disp: 30 tablet^Rfl: 1 COMPOUNDED PRESCRIPTION^Provide Prevnar 13. Please fax results to [phone].^Disp: 1 Each^Rfl: 0 COMPOUNDED PRESCRIPTION^Discontinue budesonide. DME: [facility].^Disp: 1 Each^Rfl: 0 COMPOUNDED PRESCRIPTION^Please perform nocturnal oximetry on RA. Please fax results to [phone]. DME: [facility].^Disp: 1 Each^Rfl: 0 COMPOUNDED PRESCRIPTION^Nocturnal oximetry on 2 L. Please fax results to [phone].^Disp: 1 Each^Rfl: 0 mv-min/iron/folic/calcium/vitK (WOMEN'S MULTIVITAMIN ORAL)^Take 1 tablet by mouth once daily.^Disp: ^Rfl: COMPOUNDED PRESCRIPTION^Please use 3 L supplemental oxygen via nasal cannula with sleep Diagnosis: Hypoxemia^Disp: 1 Each^Rfl: 0 COMPOUNDED PRESCRIPTION^Please perform nocturnal oximetry on 2 L oxygen Fax results to [phone] Diagnosis: copd, hypoxemia.^Disp: 1 Each^Rfl: 0 COMPOUNDED PRESCRIPTION^2L of O2 at HS- patient increased to 3L of O2 at night ^Disp: ^Rfl: Social History Tobacco Use Smoking status: Every Day Packs/day: 2.00 Years: 43.00 Pack years: 86.00 Types: Cigarettes Start date: 11/15/1969 Smokeless tobacco: Never Tobacco comments: 5-7 cigarettes per day on Vaping Use Vaping Use: Never used Substance Use Topics Alcohol use: Yes Comment: Occasionally Drug use: Not Currently Comment: Past history of Cocaine use. Former cocaine/crack/marijuana use. Pets: None FAMILY HISTORY Problem Relation Age of Onset Cancer Maternal Grandmother Lung cancer Cancer Paternal Aunt Lung cancer COPD Sister Asthma Daughter Asthma Grandchild 3 grandchildren, 2 great grandchildren Prostate Cancer Father Thyroid Daughter Thyroid Sister Stroke Mother 3, no residual Heart Brother PAST SURGICAL HISTORY Procedure Laterality Date APPENDECTOMY age 18 COLONOSCOPY FLX DX W/COLLJ SPEC WHEN PFRMD 02/14/2014 Colonoscopy ESOPHAGOGASTRODUODENOSCOPY TRANSORAL DIAGNOSTIC 02/14/2014 EGD EXC/DSTRJ LINGUAL TONSIL ANY METHOD SPX age 18 HYSTERECTOMY HX 06/13/1995 PAST SURGICAL HISTORY OF bone removal from left middle finger; pt denies PAST SURGICAL HISTORY OF bilateral foot surgery- fatty cyst removal PMH, Social history, family history and surgical history reviewed and updated in EMR REVIEW OF SYSTEMS: CONSTITUTIONAL: No fevers, chills, nightsweats, unintended weight loss HEENT: Denies nasal congestion/sinus symptoms, allergy problems. Recurrent thrush CARDIOVASCULAR: No chest pain, palpitations, orthopnea, PND, edema. PULM: See HPI GI: No dysphagia/odynophagia, problematic reflux PSY: No concerns regarding depression, anxiety INTEGUMENTARY: No new skin changes or rashes PHYSICAL EXAMINATION: BP 138/78 Pulse 81 Resp 16 Wt 199 lb (90.3kg) SpO2 97[2 liters]% General Appearance: Obese female, NAD Skin: Skin color, texture, turgor normal, no suspicious rashes or lesions. Head: Normocephalic, no masses, lesions, tenderness or abnormalities. Eyes: Sclera, conjunctiva normal Oropharynx: Mild thrush Neck: No JVD, no masses, no adenopathy Lungs: Not labored, normal to percussion, no wheezes or crackles Heart: Regular rate and rhythm, no murmurs gallops Extremities: No edema or clubbing Assessment/Plan: 1. Moderate COPD -She will continue on Trelegy Ellipta and as needed albuterol -Complete abstinence from tobacco strongly recommended -No longer needs continuous oxygen -Instructed to self monitor oximetry with target SPO2 90% or greater 2. Abnormal chest x-ray/pneumonia -Update chest x-ray 3. Thrush -Discussed proper oral hygiene with ICS usage -Fluconazole 4. Cigarette smoker -Trying to quit smoking. Wellbutrin seems to be helping -Qualifies for low-dose chest CT for cancer screening. Prefers to have this performed at [facility]. Would not be due until September of this year 5. Lung nodule -Stable by previous chest CT imaging. Will need continued surveillance Silva Gupta MD [facility] [place] documented in this encounter [facility] 04-29-2022 Procedure note Associated Ord er(s): OXIMETRY WITH AMBULATION RESPIRATORY THERAPY OXIMETRY WITH AMBULATION Oximetry with Ambulation Test for This Encounter O2 Device O2 Adapter NC O2 Flow SpO2% HR Activity Ft Walked (ft) Time (min) Avg Speed (MPH) R/A 96 84 Resting R/A 95 96 Walking, usual pace 500 3 1.89 R/A 95 100 Walking, fastest pace 550 3 2.08 General Information Pulse Oximetry Site Total Time Spent O2 Supply Carrier Walking Assistance/Device R Index Finger 30 -- -- NAME: JATIN Santos PATIENT NAME: Julia Dumont DATE: April 29, 2022 TIME: 2:35 PM Comment: documented in this encounter [facility] 04-29-2022 History of Present illness Narrative PULM FUNCTION SMARTBLOCK: Provider: Emilee Madrid PA-C Assisting Tech: JATIN Santos Spirometry: 1 documented in this encounter [facility] 11-26-2021 Miscellaneous Notes Call to pt pharmacy per Emilee Madrid request to make sure prescriptions were being sent to correct pharmacy. -[facility], [place], [place] verified with pharmacy correct information, pharmacist states pt's Albuterol was received and sent out to pt 11/19/21. States they do need Rx for nebulizer supplies, and will fax corresponding paperwork to our office. Please complete and fax to number provided on received paperwork. documented in this encounter [facility] 11-26-2021 History of Present illness Narrative [facility] [place], 11/26/2021: Name: Julia Dumont : 1955 The patient is here today by herself. HPI: Julia Dumont is a 66 year old female who presents today for hospital follow-up. Past medical history is significant for HTN, chronic respiratory failure and COPD. Current daily smoker. 86 pack years. The patient is here for follow up of pneumonia and COPD. Since the last Pulmonary Clinic visit 10/15/2021, the patient has not required ED care for exacerbation. There has been no hospital admission for exacerbation. Today, patient states that this is the best she has felt in years. Claims to be consistently compliant with prescribed maintenance Rx Trelegy ellipta daily. Increased use of rescue bronchodilator with increased heat and humidity. No cough or sputum. No hemoptysis. Occasionally wheezes with exertion, especially with the heat. No dyspnea at rest. Exertional dyspnea with walking long distances and climbing stairs. No lower extremity edema. Post nasal drip or rhinorrhea. Is wearing nicotine patch and taking Wellbutrin. Decreased smoking to 0.5 ppd. Wearing 2-3 LPM supplemental oxygen. DME: [facility] PMH: Updated with patient today. [facility]: Updated with patient today. SOCH: Updated with patient today. IMMUNIZATIONS Prevnar - 05/18/2018 Pneumovax - 02/25/2012 Influenza - 03/31/2021 COVID-19 - 04/30/2021, 09/25/2020, 08/28/2020 ROS: See HPI Otherwise negative. Allergies were reviewed and updated, and medications were reconciled with the patient. PHYSICAL EXAMINATION: BP 130/76 (BP Site: Right Arm, BP Position: Sitting, BP Cuff Size: Large Adult) Pulse 74 Resp 18 Ht 167.6 cm (5' 6 ) Wt 93 kg (205 lb) SpO2 94% BMI 33.09 kg/m Gen: No acute distress. Cooperative with examination. ENT: Oral hygeine and dentition good. Pharynx clear. No halitosis. No sign of oral thrush. Resp: No stridor, accessory respiratory muscle use, supra-sternal or intercostal retractions. No wheezes, crackles. CV: Regular rythm. Heart tones normal. Radial pulses normal. Abd: Non distended. MSK: No kyphoscoliosis. Ext: Warm and well perfused. No clubbing, cyanosis, edema. Skin: No rash, ecchymoses. Neuro: Mental status normal. Affect normal. No tremor. DATA REVIEW: DATE: 03/24/2020 12/17/2019 02/05/19 FVC 2.19, 81% 1.86, 64% 2.37, 89% FEV1 1.23, 58% 1.02, 44% 1.22, 58% FEV1/FVC 0.56 0.55 0.51 ASSESSMENT/PLAN: 1. Chronic bronchitis, unspecified chronic bronchitis type (HCC) - ICD9: 491.9, ICD10: J42 (primary diagnosis) Continue Nohelia ortiz 1 inhalation daily. Rinse mouth after each use to help prevent oral thrush. Albuterol via nebulizer or HFA inhaler, 2 inhalations 10 15 minutes prior to activities associated with shortness of breath, and as needed for rescue relief of shortness of breath or wheezing, up to 4 times daily. Up to date on annual influenza, pneumococcal and Covid 19 vaccines. Patient did not schedule her PFTs and will need to schedule. 2. Pneumonia of right lower lobe due to infectious organism - ICD9: 486, ICD10: J18.9 Symptomatically doing well. Patient did not get CXR done. Encouraged her to do it today. 3. Chronic respiratory failure with hypoxia (HCC) - ICD9: 518.83, 799.02, ICD10: J96.11 Continue with 2 LPM supplemental oxygen. Will obtain previously ordered oximetry with ambulation. 4. Tobacco use disorder - ICD9: 305.1, ICD10: F17.200 Cessation encouraged. Physiologic and physical aspects of tobacco addiction as well as strategies for quitting were discussed. Counseling was given focusing on the harmful effects of this addiction especially given the patient's medical condition(s) which will be worsened because of the chemicals in tobacco. Continue nicotine patches and Wellbutrin. Is enrolled in [facility] lung nodule screening program. I addressed the questions of the patient, and she expressed understanding and acceptance of my answers. Emilee Madrid PA-C documented in this encounter [facility] 10-15-2021 History of Present illness Narrative Images from the original note were not included. [facility] H[facility]PITAL FOLLOW-UP OFFICE VISIT 10/15/2021 HISTORY OF PRESENT ILLNESS: Julia Dumont is a 65 year old female who presents today for hospital follow-up. Past medical history is significant for HTN, chronic respiratory failure and COPD. Current daily smoker. 86 pack years. Patient was admitted to [facility] from 09/16 - 09/20 for treatment of pneumonia and acute on chronic respiratory failure with hypoxia. Treated with Rocephin and Azithromycin. Blood cultures negative. Discharged home on 7 days of Levaquin and 2 LPM supplemental oxygen. Today, the patient reports she is feeling improved since being discharged, however, she is requiring supplemental oxygen continuously. Claims to be consistently compliant with prescribed maintenance Rx Trelegy ellipta 1 inhalation daily. Using nebulizer 1-2 times daily. Currently no cough. No hemoptysis. Wheezing with exertion. Changed bedsheets and it caused her to wheeze. No dyspnea at rest. Exertional dyspnea is significantly improved since discharge. Trying to walk short distances daily. No lower extremity edema. Wearing 2-3 LPM supplemental oxygen. DME: Tony PMH: Updated with patient today. [facility]: Updated with patient today. SOCH: Updated with patient today. IMMUNIZATIONS Prevnar - 05/18/2018 Pneumovax - 02/25/2012 Influenza - 03/31/2021 COVID-19 - 04/30/2021, 09/25/2020, 08/28/2020 ROS: See HPI. Allergies were reviewed and updated, and medications were reconciled with the patient. PHYSICAL EXAMINATION: BP 141/81 (BP Site: Left Arm, BP Position: Sitting, BP Cuff Size: Large Adult) Pulse 72 Temp 36.3 C (97.3 F) (Temporal Artery) Resp 22 Ht 167.6 cm (5' 6 ) Wt 93.4 kg (206 lb) SpO2 97% BMI 33.25 kg/m Gen: No acute distress. Cooperative with examination. ENT: Oral hygeine and dentition poor. Pharynx clear. No halitosis. Resp: No stridor, accessory respiratory muscle use, supra-sternal or intercostal retractions. No wheezes, crackles. CV: Regular rythm. Heart tones normal. Radial pulses normal. Abd: Non distended. MSK: No kyphoscoliosis. Ext: Warm and well perfused. No clubbing, cyanosis, edema. Skin: No rash, ecchymoses. Neuro: Mental status normal. Affect normal. No tremor. DATA REVIEW: Data reviewed today: DATE: 03/24/2020 12/17/2019 02/05/19 FVC 2.19, 81% 1.86, 64% 2.37, 89% FEV1 1.23, 58% 1.02, 44% 1.22, 58% FEV1/FVC 0.56 0.55 0.51 CTA chest, 09/17/2021 [facility] read only FINDINGS: Normal enhancement of the main pulmonary artery and right and left pulmonary arteries. Normal enhancement of the bilateral peripheral pulmonary arteries. There is no demonstrated pulmonary embolism. Normal thoracic aorta and visualized great vessels. There is no demonstrated aortic dissection. Normal heart and pericardium. Normal mediastinum. Normal hilar regions. Normal visualized trachea and bronchi. Hyperinflation. There is evidence of emphysematous changes with centrilobular emphysematous changes seen worse in the upper lobes. There is a 6.7 mm noncalcified nodule in the posterior-lateral aspect of the right lobe. This is essentially unchanged. Dense consolidation in the right lower lobe. A pneumonic infiltrate should be ruled out. Radiographic follow-up recommended. Mild thickening of the right major fissure. Normal chest wall structures. There are degenerative changes of thoracic spine. There is hyperplasia of the left adrenal gland. IMPRESSION: Dense consolidation in the right lower lobe No evidence of pulmonary embolism Stable 6.7 mm noncalcified nodule in the right lower lobe Left adrenal hyperplasia. ASSESSMENT/PLAN: 1. Pneumonia of right lower lobe due to infectious organism - ICD9: 486, ICD10: J18.9 (primary diagnosis) Completed course of antibiotics and doing well. Obtain CXR in 6 weeks. - XR CHEST 2V FRONTAL/LAT 2. Chronic bronchitis, unspecified chronic bronchitis type (HCC) - ICD9: 491.9, ICD10: J42 Continue Trelegy ellipta 1 inhalation daily. Rinse mouth after each use to help prevent oral thrush. Albuterol via nebulizer or HFA inhaler, 2 inhalations 10 15 minutes prior to activities associated with shortness of breath, and as needed for rescue relief of shortness of breath or wheezing, up to 4 times daily. Up to date on annual influenza, pneumococcal and Covid 19 vaccines. - SPIROMETRY BASELINE ONLY - OXIMETRY WITH AMBULATION 3. Dyspnea and respiratory abnormalities - ICD9: 786.09, ICD10: R06.00, R06.89 - ECHO - PERFLUTREN LIPID MICROSPHERES 1.1 MG/ML INJECTION IN NS 10 ML - SODIUM CHLORIDE 0.9 % (FLUSH) INJECTION SYRINGE 4. Post-nasal drip - ICD9: 784.91, ICD10: R09.82 Start Flonase 1 spray each nostril daily - FLUTICASONE PROPIONATE 50 MCG/ACTUATION NASAL SPRAY,SUSPENSION 5. Chronic respiratory failure with hypoxia (HCC) - ICD9: 518.83, 799.02, ICD10: J96.11 Continue with 2 LPM supplemental oxygen. May need to increase to 3 L while on pulse dosed. Will check oximetry with ambulation in 6 weeks. 6. Solitary pulmonary nodule - ICD9: 793.11, ICD10: R91.1 Followed by lung cancer screening at [facility] 7. Tobacco use disorder - ICD9: 305.1, ICD10: F17.200 Cessation encouraged. Physiologic and physical aspects of tobacco addiction as well as strategies for quitting were discussed. Counseling was given focusing on the harmful effects of this addiction especially given the patient's medical condition(s) which will be worsened because of the chemicals in tobacco. Currently on Wellbutrin I addressed the questions of the patient, and she expressed understanding and acceptance of my answers. Emilee Madrid PA-C documented in this encounter [facility] 10-01-2021 Miscellaneous Notes Patient electronically requesting refills as follows: Pending Prescriptions Disp Refills ALBUTEROL SULFATE 2.5 MG/3 ML (0.083 %) SOLUTION FOR NEBULIZATION 120 Vial 11 Sig: USE 1 VIAL IN NEBULIZER 4 TIMES DAILY DAPHNEY: Yes Please review and advise. Arti You documented in this encounter [facility] Diagnosis Chronic bronchitis, unspecified chronic bronchitis type (HCC)- Primary Pneumonia of right lower lobe due to infectious organism Chronic respiratory failure with hypoxia (HCC) Chronic respiratory failure Tobacco use disorder [facility] Diagnosis Chronic bronchitis, unspecified chronic bronchitis type (HCC)- Primary [facility] Diagnosis Chronic bronchitis, unspecified chronic bronchitis type (HCC) [facility] Diagnosis Chronic bronchitis, unspecified chronic bronchitis type (HCC) [facility]* Diagnosis Moderate COPD (chronic obstructive pulmonary disease) (HCC)- Primary Chronic airway obstruction, not elsewhere classified Abnormal chest x-ray Other nonspecific abnormal finding of lung field Thrush Candidiasis of mouth Cigarette smoker Tobacco use disorder Lung nodule Solitary pulmonary nodule [facility] Diagnosis Chronic bronchitis, unspecified chronic bronchitis type (HCC) [facility] Diagnosis Chronic bronchitis, unspecified chronic bronchitis type (HCC) [facility] Diagnosis Moderate COPD (chronic obstructive pulmonary disease) (HCC) Chronic airway obstruction, not elsewhere classified Chronic respiratory failure with hypoxia (HCC) Chronic respiratory failure [facility]* Diagnosis Encounter for screening for lung cancer- Primary Tobacco use disorder [facility] Diagnosis Moderate COPD (chronic obstructive pulmonary disease) (HCC)- Primary Chronic airway obstruction, not elsewhere classified Dyspnea and respiratory abnormalities Other dyspnea and respiratory abnormality Wheezing Chronic respiratory failure with hypoxia (HCC) Chronic respiratory failure Tobacco use disorder documented in this encounter [facility] note* Diagnosis Dyspnea and respiratory abnormalities Other dyspnea and respiratory abnormality documented in this encounter [facility] note* Diagnosis Chronic bronchitis, unspecified chronic bronchitis type (HCC) documented in this encounter [facility] note* Diagnosis Chronic bronchitis, unspecified chronic bronchitis type (HCC) documented in this encounter [facility] note* Diagnosis Oral thrush- Primary Candidiasis of mouth documented in this encounter [facility] for referral (narrative)* Outpatient Procedure (Routine) - Pending Review Specialty Diagnoses / Procedures Referred By Contac t Referred To Contact [facility] Diagnoses Chronic bronchitis, unspecified chronic bronchitis type (HCC) Procedures OXIMETRY WITH AMBULATION NONINVASIVE EAR/PULSE OXIMETRY MULTIPLE DETER Emilee Madrid PA-C [address] [employer] [address] [address] Referral ID Status Reason Start Date Expiration Date Visits Requested Visits Authorized [id number] Pending Review Auto-Generat ed Referral 10/15/2021 11/14/2022 1 1 * Outpatient Procedure (Routine) - Pending Review Specialty Diagnoses / Procedures Referred By Contac t Referred To [facility] Diagnoses Chronic bronchitis, unspecified chronic bronchitis type (HCC) Procedures SPIROMETRY BASELINE ONLY SPMTRY W/VC EXPIRATORY ROBBIE W/WO MXML VOL VNTJ Emilee Madrid PA-C [address] [employer] [address] [address] Referral ID Status Reason Start Date Expiration Date Visits Requested Visits Authorized [id number] Pending Review Auto-Generat ed Referral 10/15/2021 11/14/2022 1 1 * Outpatient Procedure (Routine) - Pending Review Specialty Diagnoses / Procedures Referred By Contac t Referred To [facility] Diagnoses Dyspnea and respiratory abnormalities Procedures ECHO ECHO TTHRC R-T 2D W/WOM-MODE COMPL SPEC&COLR D Emilee Madrid PA-C [address] [facility] [address] [place] [address] [address] Referral ID Status Reason Start Date Expiration Date Visits Requested Visits Authorized [id number] Pending Review Auto-Generat ed Referral 10/15/2021 10/15/2022 1 1 [facility] for referral (narrative)* Outpatient Procedure (Routine) - Authorized Specialty Diagnoses / Procedures Referred By Contac t Referred To Contact [facility] Diagnoses Dyspnea and respiratory abnormalities Procedures ECHO ECHO TTHRC R-T 2D W/WOM-MODE COMPL SPEC&COLR Emilee De La Vega PA-C [address] [facility] [place] [address] [address] Referral ID Status Reason Start Date Expiration Date Visits Requested Visits Authorized [id number] Authorized Auto-Generat ed Referral 04/18/2023 04/17/2024 1 1 [facility] for visit Narrative* Outpatient Procedure (Routine) - Closed Specialty Diagnoses / Procedures Referred By Rosalioac t Referred To Contact [facility] Diagnoses Chronic bronchitis, unspecified chronic bronchitis type (HCC) Procedures SPIROMETRY BASELINE ONLY SPMTRY W/VC EXPIRATORY ROBBIE W/WO MXML VOL VNTJ Emilee Madrid PA-C [address] [facility] [place] [address] Respiratory [place] [address] [place] [id number] Referral ID Status Reason Start Date Expiration Date V isits Requested Visits Authorized [id number] Closed Auto-Generate d Referral 10/15/2021 11/14/[address] [facility] Summary Purpose Family History No Family History Records FoundNo Family History Records Found Advance Directives No Advanced Directives Records FoundNo Advanced Directives Records Found Reason for Referral Specialty Diagnoses / Procedures Referred By Contac t Referred To Contact CT IMAGING Diagnoses Tobacco use disorder Encounter for screening for lung cancer Procedures CT LUNG SCREEN WO IVCON COMPUTED TOMOGRAPHY THORAX LW DOSE LNG CA SCR Yesica- Nadine [address], STEFAN.CPA TAX [address] [place] [id number] Imaging [facility] Referral ID Status Reason Start Date Expiration Date Visits Requested Visits Authorized [id number] Authorized Auto-Generat ed Referral 02/08/2023 03/09/2024 1 1 Additional Source Comments INFORMATION SOURCE (unrecogn ized section and content) DATE CREATED AUTHOR AUTHOR'S ORGANIZ ATION 04/30/2023 [facility] Source Comments (unrecognize d section and content) In the event this informatio n is protected by the Federal Confidentiality of Alcohol and Drug Abuse Patient Records regulations: The Federal rules restrict any use of the information to criminally investigate or prosecute any alcohol or drug abuse patient.[facility] the event this information is protected by the Federal Confidentiality of Alcohol and Drug Abuse Patient Records regulations: The Federal rules restrict any use of the information to criminally investigate or prosecute any alcohol or drug abuse patient.[facility] the event this information is protected by the Federal Confidentiality of Alcohol and Drug Abuse Patient Records regulations: The Federal rules restrict any use of the information to criminally investigate or prosecute any alcohol or drug abuse patient.[facility] the event this information is protected by the Federal Confidentiality of Alcohol and Drug Abuse Patient Records regulations: The Federal rules restrict any use of the information to criminally investigate or prosecute any alcohol or drug abuse patient.[facility] the event this information is protected by the Federal Confidentiality of Alcohol and Drug Abuse Patient Records regulations: The Federal rules restrict any use of the information to criminally investigate or prosecute any alcohol or drug abuse patient.[facility] the event this information is protected by the Federal Confidentiality of Alcohol and Drug Abuse Patient Records regulations: The Federal rules restrict any use of the information to criminally investigate or prosecute any alcohol or drug abuse patient.[facility] the event this information is protected by the Federal Confidentiality of Alcohol and Drug Abuse Patient Records regulations: The Federal rules restrict any use of the information to criminally investigate or prosecute any alcohol or drug abuse patient.[facility] the event this information is protected by the Federal Confidentiality of Alcohol and Drug Abuse Patient Records regulations: The Federal rules restrict any use of the information to criminally investigate or prosecute any alcohol or drug abuse patient.[facility] the event this information is protected by the Federal Confidentiality of Alcohol and Drug Abuse Patient Records regulations: The Federal rules restrict any use of the information to criminally investigate or prosecute any alcohol or drug abuse patient.[facility] the event this information is protected by the Federal Confidentiality of Alcohol and Drug Abuse Patient Records regulations: The Federal rules restrict any use of the information to criminally investigate or prosecute any alcohol or drug abuse patient.[facility] the event this information is protected by the Federal Confidentiality of Alcohol and Drug Abuse Patient Records regulations: The Federal rules restrict any use of the information to criminally investigate or prosecute any alcohol or drug abuse patient.[facility] the event this information is protected by the Federal Confidentiality of Alcohol and Drug Abuse Patient Records regulations: The Federal rules restrict any use of the information to criminally investigate or prosecute any alcohol or drug abuse patient.[facility] the event this information is protected by the Federal Confidentiality of Alcohol and Drug Abuse Patient Records regulations: The Federal rules restrict any use of the information to criminally investigate or prosecute any alcohol or drug abuse patient.[facility] the event this information is protected by the Federal Confidentiality of Alcohol and Drug Abuse Patient Records regulations: The Federal rules restrict any use of the information to criminally investigate or prosecute any alcohol or drug abuse patient.[facility] the event this information is protected by the Federal Confidentiality of Alcohol and Drug Abuse Patient Records regulations: The Federal rules restrict any use of the information to criminally investigate or prosecute any alcohol or drug abuse patient.[facility] the event this information is protected by the Federal Confidentiality of Alcohol and Drug Abuse Patient Records regulations: The Federal rules restrict any use of the information to criminally investigate or prosecute any alcohol or drug abuse patient.[facility] the event this information is protected by the Federal Confidentiality of Alcohol and Drug Abuse Patient Records regulations: The Federal rules restrict any use of the information to criminally investigate or prosecute any alcohol or drug abuse patient.[facility] the event this information is protected by the Federal Confidentiality of Alcohol and Drug Abuse Patient Records regulations: The Federal rules restrict any use of the information to criminally investigate or prosecute any alcohol or drug abuse patient.[facility] Reason for Visit (unrecogniz ed section and content) Reason Comments Established Patient Follow-Up COPD Reason Comments Follow Up Reason Onset Date Comments Refill Request 01/21/2022 Reason Comments Orders Reason Comments Spirometry Specialty Diagnoses / Procedures Referred By Contac t Referred To Contact [facility] Diagnoses Chronic bronchitis, unspecified chronic bronchitis type (HCC) Procedures OXIMETRY WITH AMBULATION NONINVASIVE EAR/PULSE OXIMETRY MULTIPLE Emilee Hart PA-C [address] [place] [address] [address] Referral ID Status Reason Start Date Expiration Date V isits Requested Visits Authorized [id number] Closed Auto-Generate d Referral 10/15/2021 11/14/2022 1 1 Reason Comments Established Patient 6 month follow up [place] [facility] Reason Onset Date Comments Refill Request 10/18/2022 Specialty Diagnoses / Procedures Referred By Contac t Referred To Contact [facility] Diagnoses Moderate COPD (chronic obstructive pulmonary disease) (HCC) Chronic respiratory failure with hypoxia (HCC) Procedures OXIMETRY WITH AMBULATION NONINVASIVE EAR/PULSE OXIMETRY MULTIPLE Emilee Hart PA-C [address] [place] [address] [address] Referral ID Status Reason Start Date Expiration Date V isits Requested Visits Authorized [id number] Closed Auto-Generate d Referral 11/26/2022 12/26/2023 1 1 Reason Comments New Patient LCS Reason Comments Established Patient 5 month follow up [place] Reason Onset Date Comments Refill Request 04/20/2023 Reason Onset Date Comments Refill Request 04/21/2023 Reason Comments Results Care Teams (unrecognized sec tion and content) Simulation Tech Relationship Specialty Start Date End Date Ti Osuna MD PCP - General Internal Medicine 06/18/19 Simulation Tech Relationship Specialty Start Date End Date Ti Osuna MD PCP - General Internal Medicine 06/18/19 Simulation Tech Relationship Specialty Start Date End Date Ti Osuna MD PCP - General Internal Medicine 06/18/19 Simulation Tech Relationship Specialty Start Date End Date Ti Osuna MD PCP - General Internal Medicine 06/18/19 Simulation Tech Relationship Specialty Start Date End Date Ti Osuna MD PCP - General Internal Medicine 06/18/19 Simulation Tech Relationship Specialty Start Date End Date Ti Osuna MD PCP - General Internal Medicine 06/18/19 Simulation Tech Relationship Specialty Start Date End Date Ti Osuna MD PCP - General Internal Medicine 06/18/19 Simulation Tech Relationship Specialty Start Date End Date Ti Osuna MD PCP - General Internal Medicine 06/18/19 Simulation Tech Relationship Specialty Start Date End Date Ti Osuna MD PCP - General Internal Medicine 06/18/19 Simulation Tech Relationship Specialty Start Date End Date Ti Osuna MD PCP - General Internal Medicine 06/18/19 Simulation Tech Relationship Specialty Start Date End Date Ti Osuna MD PCP - General Internal Medicine 06/18/19 Simulation Tech Relationship Specialty Start Date End Date Ti Osuna MD PCP - General Internal Medicine 06/18/19 Simulation Tech Relationship Specialty Start Date End Date Ti Osuna MD PCP - General Internal Medicine 06/18/19 Simulation Tech Relationship Specialty Start Date End Date Ti Osuna MD PCP - General Internal Medicine 06/18/19 Simulation Tech Relationship Specialty Start Date End Date Ti Osuna MD PCP - General Internal Medicine 06/18/19 Simulation Tech Relationship Specialty Start Date End Date Ti Osuna MD PCP - General Internal Medicine 06/18/19 FOR RECORDS PERTAINING TO PATIENTS WHO ARE OR HAVE BEEN ENROLLED IN A CHEMICAL DEPENDENCY/SUBSTANCEABUSE PROGRAM, SOME INFORMATION MAY BE OMITTED. This clinical summary was aggregated from multiple sources. Caution should be exercised in using it in the provision of clinical care. This summary normalizes information from multiple sources, and as a consequence, information in this document may materially change the coding, format and clinical context of patient data. In addition, data may be omitted in some cases. CLINICAL DECISIONS SHOULD BE BASED ON THE PRIMARY CLINICAL RECORDS. [facility] [employer] [facility]. provides no warranty or guarantee of the accuracy or completeness of information in this document.
[2023-07-22 12:33] LABS: ALB/GLOB Ratio 1.1 RATIO (0.9-2.4); AST(SGOT) 15 U/L (15-37); Alanine Aminotransfer ALT/SGPT 34 U/L (13-56); Albumin, Serum 3.8 g/dL (3.2-5.0); Alkaline Phosphatase 67 U/L (45-117); Anion Gap 6 (5-15); BUN 12 mg/dL (7-18); BUN/Creat Ratio 10.4 RATIO (10-20); Calcium,Total 9.5 mg/dL (8.5-10.1); Chloride 104 mmol/L (98-107); Creatinine, Serum 1.15 mg/dL (0.55-1.02); EST Glomerular Filtration Rate 50 mL/min (>60); Est Glom Filt Rate - Afr Amer 60 mL/min (>60); Globulin 3.5 g/dL (2.2-4.2); Glucose 118 mg/dL (74-106); Potassium 4.4 mmol/L (3.5-5.1); Protein, Total 7.3 g/dL (6.4-8.2); Sodium Level 138 mmol/L (136-145)
== END | disposition home or self-care (01) ==
LOC: BIMLAB 10:39
PROVIDERS: PCP Internal Medicine; Referring Provider Internal Medicine; Visit Provider Internal Medicine
DX: I10 Essential (primary) hypertension (principal)
CPT/HCPCS: 36415; 80053

== ENCOUNTER 2023-08-09 17:04 | Emergency (ER) | payer MEDICARE, SELFPAY ==
[2023-08-09] VITALS (8 sets, daily range): BP systolic 141–154; BP diastolic 67–77; PULSE 69–81; RESP 12–20; TEMP 36.7–37.1; O2SAT 94–98; BMI 28.8
--- NOTE | 2023-08-09 17:19 | EKG12_ITS ---
Test Reason : SOB Blood Pressure : / mmHG Vent. Rate : 064 BPM Atrial Rate : 064 BPM P-R Int : 204 ms QRS Dur : 086 ms QT Int : 406 ms P-R-T Axes : 083 025 060 degrees QTc Int : 418 ms Normal sinus rhythm Normal ECG Confirmed by LUTHER DUARTE, TRACEY ([id number]), medical editor MAYRA WINTER ([id number]) on 08/15/2023 10:12:14 AM Referred By: Confirmed By:ERIC SLOAN MD
--- NOTE | 2023-08-09 17:23 | EX.ED.DYSGE1 ---
HPI History of Present Illness Chief Complaint: Shortness of Breath Informant: patient Onset/Context/Timing Onset: Weeks (1 week) Context: Gradual Onset Timing: Waxes and wanes Narrative Narrative: Patient presents with a 1 week history of increased shortness of breath and wheezing. She has a history of COPD and wears 2 L of oxygen at baseline. She reports cough with chest congestion but is not able to get any sputum up. She reports a temperature of 99.7 this morning. She did have some diarrhea yesterday as well. [facility] Medical History Acute and chronic respiratory failure with hypoxia Arthritis Asthma Change in skin mole Chronic respiratory failure Community acquired pneumonia COPD (chronic obstructive pulmonary disease) COPD exacerbation Depression Dermatitis Encounter for screening for malignant neoplasm of lung Encounter for screening for malignant neoplasm of lung in current smoker with 30 pack year history or greater Health care maintenance Hx of bacterial pneumonia Hx of drug abuse Hx of gastrointestinal disease Insomnia Irritable bowel syndrome Piriformis syndrome of right side PMR (polymyalgia rheumatica) Right upper lobe pulmonary nodule Tobacco abuse Tobacco use disorder, continuous Unable to ambulate Weakness generalized Home Medications jqxvjnqc-ynss-bow-folic acid 18 mg-0.4 mg tablet 1 tab PO DAILY supplement 04/05/19 [History Last Taken 09/15/21 09:00] albuterol sulfate 90 mcg/actuation aerosol inhaler 2 puff inhalation Q4H PRN PRN sob/wheezing 08/11/19 [History Last Taken 09/16/21 14:00] acetaminophen 325 mg tablet 650 mg (2 x 325 mg) PO Q6H PRN PRN Pain Score 1-10/Temp > 100.7 F 08/15/19 [Rx Last Taken 09/16/21 06:00] fluticasone fur. 100 mcg-umeclid 62.5 mcg-vilant 25 mcg inhalat.powder (Trelegy Ellipta) 1 inh inhalation DAILY copd 03/25/21 [History Last Taken 09/16/21 14:30] fluticasone propionate 50 mcg/actuation nasal spray,suspension (Flonase Allergy Relief) 2 spray intranasal DAILY #16 grams 04/07/22 [Rx Last Taken Unknown] guaifenesin 400 mg tablet (Mucus Relief) 400 mg PO Q4H 03/01/23 [History Last Taken Unknown] amlodipine 10 mg tablet 10 mg PO DAILY #90 tabs 01/04/23 [Rx Last Taken Unknown] bupropion HCl 150 mg tablet,12 hr sustained-release (Wellbutrin SR) 150 mg PO BID #180 ea 01/04/23 [Rx Last Taken Unknown] losartan 50 mg tablet 50 mg PO DAILY #90 tabs 01/04/23 [Rx Last Taken Unknown] gabapentin 300 mg capsule 300 mg PO QHS PRN neuropathy #30 caps 07/22/23 [Rx Last Taken Unknown] azithromycin 250 mg tablet (Zithromax) 250 mg PO DAILY 4 days #4 tabs 08/09/23 [Rx Last Taken Unknown] ipratropium 0.5 mg-albuterol 3 mg (2.5 mg base)/3 mL nebulization soln 3 ml inhalation Q6H PRN shortness of breath #90 mL 08/09/23 [Rx Last Taken Unknown] prednisone 20 mg tablet 40 mg (2 x 20 mg) PO DAILY #8 tabs 08/09/23 [Rx Last Taken Unknown] Allergy/AdvReac Type Severity Reaction Status Date / Time tiotropium Allergy Unknown Unknown Verified 08/09/23 17:16 [From Spiriva with HandiHaler] Penicillins Allergy Swelling Verified 08/09/23 17:16 budesonide AdvReac it makes Verified 08/09/23 17:16 me weak Family History Mother Arthritis Hypertension Father Arthritis Diabetes Hypertension Other Anemia Asthma Bowel disease CVA (cerebral vascular accident) Heart disease Myocardial infarction Osteoporosis Seizures Thyroid disorder Surgical History History of tonsillectomy Hx of appendectomy Hx of hysterectomy Social History Smoking Status: Current every day smoker tobacco type: cigarettes Tobacco: How many years used: 40 alcohol intake: current alcohol intake frequency: a few times a week substance use type: marijuana caffeine: Yes what type of physical activity do you participate in: none frequency: does not exercise ROS ROS ED Constitutional Constitutional ED: Denies chills or fever(s) Eyes Eyes: Denies change in vision or discharge from eye(s) ENT ENT ED: Denies discharge from eye(s), rhinorrhea or sore throat Cardiovascular Cardiovascular: Denies chest pain or palpitations Respiratory/Chest Respiratory/Chest: Reports cough and dyspnea Gastrointestinal Gastrointestinal: Reports diarrhea; Denies abdominal pain, nausea or vomiting Musculoskeletal Musculoskeletal: Denies back pain or extremity pain Integumentary Denies Abrasions or rash Neurologic Neurologic: Reports weakness; Denies headache(s) Allergic/Immunologic Allergic/Immunologic ED: Denies lip swelling or urticaria EXAM Physical Exam Const Vital Signs: 08/09/23 17:05 08/09/23 17:17 08/09/23 17:32 Temperature 98.7 F Temperature Source Oral Pulse Rate 76 69 Respiratory Rate 20 H 16 Respiratory Effort Short of Breath Respiratory Depth Normal Blood Pressure 143/73 H Blood Pressure Mean 96 Pulse Ox 94 Oxygen Delivery Method Nasal Cannula Nasal Cannula Oxygen Flow Rate (L/min) 2 2 08/09/23 18:31 08/09/23 18:32 08/09/23 19:00 Temperature Temperature Source Pulse Rate 69 77 Respiratory Rate 14 19 H 17 Respiratory Effort Respiratory Depth Blood Pressure 141/67 H 147/71 H Blood Pressure Mean 91 96 Pulse Ox 98 94 97 Oxygen Delivery Method Room Air Room Air Nasal Cannula Oxygen Flow Rate (L/min) 08/09/23 20:00 08/09/23 20:29 Temperature 98.1 F Temperature Source Pulse Rate 81 77 Respiratory Rate 12 12 Respiratory Effort Respiratory Depth Blood Pressure 145/72 H 154/77 H Blood Pressure Mean 96 102 Pulse Ox 96 95 Oxygen Delivery Method Nasal Cannula Oxygen Flow Rate (L/min) 2 Positive well nourished and well developed General Appearance ED: well developed HEENT Reports moist mucous membranes Chest Wall inspection of chest normal and palpation of chest normal Resp Resp Narrative: Expiratory wheezes with prolonged expiratory phase. Cardio regular rate and regular rhythm GI non-tender Palpation: soft Extremity normal to inspection General Extremety ED: Negative for edema General Extremity: Negative for edema Neuro oriented x3 and no sensory deficits noted Motor Exam: strength 5/5 throughout Psych mental status grossly normal Skin no rashes or lesions noted MDM MDM MDM Narrative Medical decision making narrative: Patient placed on cardiac monitor technician. EKG obtained to evaluate for cardiac arrhythmia/ischemia. Chest x-ray obtained to evaluate for acute lung pathology, cardiac size, or mediastinal abnormality. IV line established. Labwork obtained to evaluate for leukocytosis, anemia, and electrolyte derangement. Patient given aerosol treatments along with p.o. prednisone. History & Record Review Discussion w/independent historian: Patient Lab Data Attestation: I reviewed the patient's lab results. Labs: Laboratory Results - last 24 hr 08/09/23 17:30 WBC 9.0 RBC 4.82 Hgb 14.3 Hct 45.1 MCV 93.6 MCH 29.7 MCHC 31.7 L RDW Std Deviation 44.4 H RDW Coeff of Randa 12.9 Plt Count 295 MPV 9.8 Immature Gran % (Auto) 0.400 Neut % (Auto) 62.7 Lymph % (Auto) 28.3 Maverick % (Auto) 5.5 Eos % (Auto) 2.2 Baso % (Auto) 0.9 Absolute Neuts (auto) 5.6 Absolute Lymphs (auto) 2.54 Nucleated RBC % 0 Sodium 141 Potassium 3.8 Chloride 113 H Carbon Dioxide 26.0 Anion Gap 2 L BUN 11 Creatinine 1.16 H Estim Creat Clear Calc 54.34 Est GFR (MDRD) Af Amer 59 L Est GFR (MDRD) Non-Af 49 L BUN/Creatinine Ratio 9.5 L Glucose 113 H Calcium 9.4 Radiography Chest X-Ray - ED: 1 View, Read by ED Physician and Chronic Changes Diagnostic Testing: Clinical Impression(s) from Imaging Studies Chest X-Ray 08/09/23 17:40 IMPRESSION: No radiographic evidence of acute cardiopulmonary disease. Electronically Signed: Rick Quintero MD at 18:23 EST , EKG Initial EKG: Attestation: I personally reviewed and interpreted this EKG as follows: Interpretation: Sinus Rhythm (Sinus rhythm at 64 bpm. No acute ischemia.) Treatment and Re-Evaluation :: CBC was a white count of 9.0 with normal differential. Hemoglobin is 14.3. Chemistry studies largely unremarkable. Creatinine is 1.16. Glucose is 113. Swab for COVID, influenza, and RSV is negative. Portable chest x-ray per my interpretation was chronic changes with no focal infiltrate. Radiology interpretation reviewed and agrees. On repeat evaluation patient does report improvement in her symptoms. She has increased air movement bilaterally. I do not feel that she needs hospitalized at this time as her oxygen saturation is 97% on her normal 2 L. I will treat her with 4 additional days of prednisone and also write her albuterol and Atrovent at home. We will treat her with a course of Zithromax. Discharge Plan Triage Chief Complaint: Shortness of Breath ED Provider: Emilee Asencio Dx/Rx/DC Orders Clinical Impression: COPD exacerbation Instructions: ED COPD Flare Prescriptions: New ipratropium-albuterol 0.5 mg-3 mg(2.5 mg base)/3 mL solution for nebulization 3 ml inhalation Q6H PRN (Reason: shortness of breath) Qty: 90 0RF prednisone 20 mg tablet 40 mg PO DAILY Qty: 8 0RF azithromycin [Zithromax] 250 mg tablet 250 mg PO DAILY 4 Days Qty: 4 0RF Rx Instructions: start on day 2 of therapy No Action Trelegy Ellipta 100-62.5-25 mcg blister with device 1 inh inhalation DAILY fluticasone propionate [Flonase Allergy Relief] 50 mcg/actuation spray,suspension 2 spray intranasal DAILY Qty: 16 4RF Rx Instructions: administer into each nostril guaifenesin [Mucus Relief] 400 mg tablet 400 mg PO Q4H gabapentin 300 mg capsule 300 mg PO QHS PRN (Reason: neuropathy) Qty: 30 1RF nxzxhdqw-ivae-nma-folic acid 1 EACH tablet 1 tab PO DAILY albuterol sulfate 1 PUFF inhaler 2 puff INHALATION Q4H PRN PRN (Reason: sob/wheezing) acetaminophen 325 MG tablet 650 mg PO Q6H PRN PRN (Reason: Pain Score 1-10/Temp > 100.7 F) 0RF amlodipine 10 mg tablet 10 mg PO DAILY Qty: 90 3RF bupropion HCl [Wellbutrin SR] 150 mg tablet sustained-release 12 hr 150 mg PO BID Qty: 180 2RF losartan 50 mg tablet 50 mg PO DAILY Qty: 90 2RF Primary Care Provider: Ti Osuna Referrals: Ti Osuna MD [Primary Care Provider] - Activity Restrictions/Additional Instructions: 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 Disposition Disposition: Home, Self Care
[2023-08-09] MEDS: Ipratropium/Albuterol Sulfate 3 ML AMPUL.NEB INHALATION (17:32)
[2023-08-09] MEDS: Albuterol 2.5 MG/3 ML VIAL.NEB. INHALATION ×2 (17:32)
[2023-08-09 17:37] LABS: Absolute Lymphocyte Count 2.54 X10^3/uL (0.83-4.51); Absolute Neutrophil Count 5.6 X10^3/uL (2.0-7.7); Basophil# 0.08 X10^3/uL; Basophil% 0.9 % (0-1); Eosinophils% 2.2 % (0-5); Hematocrit 45.1 % (37-47); Hemoglobin 14.3 g/dL (12.0-15.0); Lymphocyte # 2.54 X10^3/ul (0.83-4.51); Lymphocyte % 28.3 % (19-41); Mean Corp Hgb Conc 31.7 g/dL (32-36); Mean Corpuscular Hgb 29.7 pg (27.0-32.0); Mean Corpuscular Volume 93.6 fL (81-99); Mean Platelet Vol. 9.8 fl (6.2-12.0); Monocyte# 0.49 X10^3/uL; Monocyte% 5.5 % (0-10); NRBC Flagged by Analyzer 0 % (0-5); Neutrophil # 5.61 X10^3/uL (2.7-7.7); Neutrophil % 62.7 % (47-70); Platelet Count 295 K/mm3 (150-450); RBC Distribution Width CV 12.9 % (11.6-14.6); RBC Distribution Width SD 44.4 fl (35.1-43.9); Red Blood Count 4.82 M/mm3 (4.2-5.4)
[2023-08-09] MEDS: predniSONE 20 MG Tablet 60 MG PO (17:38)
--- NOTE | 2023-08-09 17:40 | RAD_ITS ---
EXAM: XR CHEST, 1 VIEW CLINICAL INDICATION: sob TECHNIQUE: Frontal view of the chest. COMPARISON: 09/16/2021 FINDINGS: LUNGS AND PLEURAL SPACES: Unremarkable. No consolidation or edema. No pneumothorax. No effusion. HEART: Unremarkable. Cardiac silhouette not enlarged. MEDIASTINUM: Central airways and mediastinal contour are unremarkable. BONES/JOINTS: Unremarkable. No acute fracture. SOFT TISSUES: Unremarkable. RAD/Chest 1 View (Portable) IMPRESSION: No radiographic evidence of acute cardiopulmonary disease. Electronically Signed: Rick Quintero MD at 18:23 EST ,
[2023-08-09 17:51] LABS: Anion Gap 2 (5-15); BUN 11 mg/dL (7-18); BUN/Creat Ratio 9.5 RATIO (10-20); Calcium,Total 9.4 mg/dL (8.5-10.1); Chloride 113 mmol/L (98-107); Creatinine, Serum 1.16 mg/dL (0.55-1.02); EST Glomerular Filtration Rate 49 mL/min (>60); Est Glom Filt Rate - Afr Amer 59 mL/min (>60); Estimated Creatinine Clearance 54.34 ml/min; Glucose 113 mg/dL (74-106); Potassium 3.8 mmol/L (3.5-5.1); Sodium Level 141 mmol/L (136-145)
[2023-08-09] MEDS: Azithromycin 250 MG Tablet 500 MG PO (20:38)
--- OUTSIDE RECORDS SUMMARY | 2023-08-10 00:31 | XMS RPT_ITS | CCD ---
Author Name Unknown Address [address] [place] [address] Organization [facility] Care Team Providers Care Farm Operations Technical Director Name Role Phone NAWAF HILL Unavailable Unavailable [...] Allergy Type Date of Onset Reaction(s) Facility (20 sources) Budesonide; Translations: [BUDESONIDE] Drug Allergy 09-28-2018 Shortness of Breath [facility] Work Phone: (4 sources) Penicillins; Translations: [PENICILLINS] Drug Allergy 02-25-2012 Rash, Itching [facility] Work Phone: (16 sources) Penicillins Drug Allergy 02-25-2012 Rash, Itching [facility] Work Phone: Medications Current Medications Medication Drug [...] solution (20 sources) beta2-Adrenergic Agonist Start: 07-18-2023 End: 07-26-2023 albuterol (PROVENTIL) 2.5 mg /3 mL (0.083 %) nebulizer solution Indications: Chronic bronchitis, unspecified chronic bronchitis type (HCC) USE 1 VIAL IN NEBULIZER 4 TIMES DAILY 360 mL 3 07/26/2023 07/26/2023 Discontinued Problems Problem Classification Problem Date Documented Date Episodic/Chronic Abdominal pain (19 sources) Abdominal pain; Translations: [Unspecified abdominal pain] [...] organs] 02-08-2023 Episodic Other upper respiratory disease (19 sources) Seasonal allergic rhinitis; Translations: [Other seasonal [...] 04-18-2023 10:22-0500 Body weight 85.73 kg Emilee HARDING-C Work Phone: [facility] 04-18-2023 10:22-0500 Diastolic blood pressure 78 mm[Hg] Emilee HARDING-C Work Phone: [facility] 04-18-2023 10:22-0500 Heart rate 83 /min Emilee Madrid PA-C Work Phone: [facility] 04-18-2023 10:22-0500 Respiratory rate 17 /min Emilee Madrid PA-C Work Phone: [facility] 04-18-2023 10:22-0500 SaO2% (BldA) [Mass fraction] 99 % Emilee HARDING-C Work Phone: [facility] 04-18-2023 10:22-0500 Systolic blood pressure 120 mm[Hg] Emilee Madrid PA-C Work Phone: [facility] 02-08-2023 12:49-0400 Body weight 89.36 kg Pulm Wstr Work Phone: [facility] 02-08-2023 12:49-0400 Heart rate 85 /min Pulm Wstr Work Phone: [facility] 02-08-2023 12:49-0400 Respiratory rate 14 /min Pulm Wstr Work Phone: [facility] 02-08-2023 12:49-0400 SaO2% (BldA) [Mass fraction] 99 % Pulm Wstr Work Phone: [facility] 02-08-2023 12:45-0400 Body weight 89.36 kg Nadine Sar[place]oga MANAGER.MACHINE ERECTOR Work Phone: [facility] 02-08-2023 12:45-0400 Diastolic blood pressure 80 mm[Hg] Nadine Saratoga MANAGER.MACHINE ERECTOR Work Phone: [facility] 02-08-2023 12:45-0400 Heart rate 104 /min Nadine Saratoga MANAGER.MACHINE ERECTOR Work Phone: [facility] 02-08-2023 12:45-0400 Respiratory rate 17 /min Nadine Saratoga MANAGER.MACHINE ERECTOR Work Phone: [facility] 02-08-2023 12:45-0400 SaO2% (BldA) [Mass fraction] 99 % Nadine Saratoga MANAGER.MACHINE ERECTOR Work Phone: [facility] 02-08-2023 12:45-0400 Systolic blood pressure 132 mm[Hg] Nadine Saratoga MANAGER.MACHINE ERECTOR Work Phone: [facility] 05-28-2022 10:01-0500 Body weight 90.27 kg Silva Gupta MD Work Phone: [facility] 05-28-2022 10:01-0500 Diastolic blood pressure 78 mm[Hg] Silva Gupta MD Work Phone: [facility] 05-28-2022 10:01-0500 Heart rate 81 /min Silva Gupta MD Work Phone: [facility] 05-28-2022 10:01-0500 Respiratory rate 16 /min Silva Gupta MD Work Phone: [facility] 05-28-2022 10:01-0500 SaO2% (BldA) [Mass fraction] 97 % Silva Gupta MD Work Phone: [facility] 05-28-2022 10:01-0500 Systolic blood pressure 138 mm[Hg] Silva Gupta MD Work Phone: [facility] 04-29-2022 14:35-0500 Body weight 90.27 kg Respiratory Wstr Work Phone: [facility] 11-26-2021 15:02-0400 Body height 167.6 cm Emilee Zachary PA-C Work Phone: [facility] 11-26-2021 15:02-0400 Body weight 92.99 kg Emilee Zachary PA-C Work Phone: [facility] 11-26-2021 15:02-0400 Diastolic blood pressure 76 mm[Hg] Emilee Zachary PA-C Work Phone: [facility] 11-26-2021 15:02-0400 Heart rate 74 /min Emilee Zachary PA-C Work Phone: [facility] 11-26-2021 15:02-0400 Respiratory rate 18 /min Emilee Zachary PA-C Work Phone: [facility] 11-26-2021 15:02-0400 SaO2% (BldA) [Mass fraction] 94 % Emilee Zachary PA-C Work Phone: [facility] 11-26-2021 15:02-0400 Systolic blood pressure 130 mm[Hg] Emilee Zachary PA-C Work Phone: [facility] 10-15-2021 13:24-0400 Body height 167.6 cm Emilee Pastranaone PA-C Work Phone: [facility] 10-15-2021 13:24-0400 Body temperature 97.3 [degF] Emilee Zachary PA-C Work Phone: [facility] 10-15-2021 13:24-0400 Body weight 93.44 kg Emilee Zachary PA-C Work Phone: [facility] 10-15-2021 13:24-0400 Diastolic blood pressure 81 mm[Hg] Emilee Zachary PA-C Work Phone: [facility] 10-15-2021 13:24-0400 Heart rate 72 /min Emilee Zachary PA-C Work Phone: [facility] 10-15-2021 13:24-0400 Respiratory rate 22 /min Emilee Pastranaone PA-C Work Phone: [facility] 10-15-2021 13:24-0400 SaO2% (BldA) [Mass fraction] 97 % Emilee Zachary PA-C Work Phone: [facility] 10-15-2021 13:24-0400 Systolic blood pressure 141 mm[Hg] Emilee Pastranaone PA-C Work Phone: [facility] Encounters Encounter Date Encounter Type Care Provider Facility Start: 07-26-2023 Refill Emilee Cline Bar one PA-C Work Phone: Endocrinology Procedures Date Procedure Procedure Detail Performing Clinician Start: 04-18-2023 Radiologic exam ches t 2 views Emilee Cline Zachary PA-C Work Phone: Start: 02-08-2023 Noninvasive ear/puls e oximetry multiple deter Emilee Cline Zachary PA-C Work Phone: Start: 04-29-2022 Noninvasive ear/puls e oximetry multiple deter Emilee Cline Zachary PA-C Work Phone: Start: 04-29-2022 Spmtry w/vc expirato ry robbie w/wo mxml vol vntj Emilee Madrid PA-C Work Phone: Start: 02-14-2014 Colonoscopy Emilee alford PA-C Work Phone: Start: 09-24-2008 Lipid 1996 panel - S maite or Plasma Emilee Madrid PA-C Work Phone: Start: 12-24-1993 Mammography Emilee alford PA-C Work Phone: Plan of Treatment Date Care Activity Detail Author Start: 06-13-2023 Advance Directive Discussion Advance Directive Discussion [facility] Start: 06-13-2023 Depression Assessment Depression Assessment [facility] Start: 02-11-2023 Covid-19 Vaccine ( season) Covid-19 Vaccine ( season) [facility] Start: 02-11-2023 Influenza vaccination [facility] Start: 06-13-2022 ADVANCE DIRECTIVE DISCUSSION ADVANCE DIRECTIVE DISCUSSION [facility] Start: 06-13-2022 DEPRESSION ASSESSMENT DEPRESSION ASSESSMENT [facility] Start: 02-11-2022 Influenza vaccination INFLUENZA (#1) [facility] Start: 08-28-2021 COVID-19 VACCINE (4 - Booster for Moderna series) COVID-19 VACCINE (4 - Booster for Moderna series) [facility] Start: 06-25-2021 COVID-19 VACCINE (4 - Booster for Moderna series) COVID-19 VACCINE (4 - Booster for Moderna series) [facility] Start: 06-25-2021 COVID-19 VACCINE (4 - Moderna series) COVID-19 VACCINE (4 - Moderna series) [facility] Start: 06-13-2021 ADVANCE DIRECTIVE DISCUSSION ADVANCE DIRECTIVE DISCUSSION [facility] Start: 06-13-2021 DEPRESSION ASSESSMENT DEPRESSION ASSESSMENT [facility] Start: 05-23-2020 Pneumococcal Vaccine: 65+ (3 - PPSV23 or PCV20) Pneumococcal Vaccine: 65+ (3 - PPSV23 or PCV20) [facility] Start: 05-23-2020 Pneumococcal Vaccine: 65+ (3 of 3 - PPSV23 or PCV20) Pneumococcal Vaccine: 65+ (3 of 3 - PPSV23 or PCV20) [facility] Start: 05-23-2020 PNEUMOCOCCAL: 65+ (3 - PPSV23 or PCV20) PNEUMOCOCCAL: 65+ (3 - PPSV23 or PCV20) [facility] Start: 05-18-2019 PNEUMOCOCCAL: 65+ (3 - PPSV23 if available, else PCV20) PNEUMOCOCCAL: 65+ (3 - PPSV23 if available, else PCV20) [facility] Start: 05-18-2019 PNEUMOCOCCAL: 65+ (3 - PPSV23 or PCV20) PNEUMOCOCCAL: 65+ (3 - PPSV23 or PCV20) [facility] Start: 02-14-2019 Colonoscopy COLONOSCOPY [facility] Start: 02-14-2019 COLORECTAL CANCER SCREENING COLORECTAL CANCER SCREENING [facility] Start: 02-14-2019 Screening for malignant neoplasm of colon [facility] Start: 2018 BONE DENSITY BONE DENSITY [facility] Start: 2018 Bone Density Screening Bone Density Screening [facility] Start: 2018 PNEUMOVAX AGE 65 AND OVER WITH 5YR LOOKBACK (#1) PNEUMOVAX AGE 65 AND OVER WITH 5YR LOOKBACK (#1) [facility] Start: 2018 Screening for osteoporosis Bone Density Screening [facility] Start: 04-24-2018 DIABETES SCREEN DIABETES SCREEN [facility] Start: 04-24-2018 Diabetes Screening Diabetes Screening [facility] Start: 2013 RSV Vaccine (1 - 1-dose 60+ series) RSV Vaccine (1 - 1-dose 60+ series) [facility] Start: 09-24-2013 Lipid 1996 panel - Serum or Plasma Lipid Screening [facility] Start: 09-24-2013 Lipid panel Lipid Screening [facility] Start: 09-24-2013 LIPID SCREEN LIPID SCREEN [facility] Start: 2008 Influenza vaccination LUNG CANCER SCREENING [facility] Start: 11-21-2003 Influenza vaccination LUNG CANCER SCREENING [facility] Start: 11-21-2003 Screening for malignant neoplasm of lung Lung Cancer Screening [facility] Start: 11-21-2003 SHINGRIX VACCINE (1 of 2) SHINGRIX VACCINE (1 of 2) [facility] Start: 1998 COLOGUARD (FIT-DNA) COLOGUARD (FIT-DNA) [facility] Start: [address] COLONOGRAPHY [facility] Start: 1998 FECAL OCCULT BLOOD FECAL OCCULT BLOOD [facility] Start: 1998 Screening for malignant neoplasm of colon [facility] Start: 1998 SIGMOIDOSCOPY SIGMOIDOSCOPY [facility] Start: 12-24-1994 Mammography [facility] Start: 12-24-1994 Screening for malignant neoplasm of breast Mammogram Screening [facility] Start: 11-21-1983 Zoledronic acid therapy ALPHA-1 ANTITRYPSIN DEFICIENCY SCREENING [facility] Start: 1972 Urine microalbumin profile [facility] Start: 11-21-1971 ANNUAL PCP TEAM CHRONIC DISEASE VISIT ANNUAL PCP TEAM CHRONIC DISEASE VISIT [facility] Start: 11-21-1971 HEPATITIS C SCREENING HEPATITIS C SCREENING [facility] Start: 11-21-1971 Hepatitis C screening Hepatitis C Screening [facility] Start: 1965 Adult depression screening assessment DEPRESSION SCREENING [facility] End: 03-09-2024 CT LUNG SCREEN WO IVCON CT LUNG SCREEN WO IVCON Radiology Routine Tobacco use disorder Encounter for screening for lung cancer 1 Occurrences starting 02/08/2023 until 03/09/2024 [place] Work Phone: Immunizations Immunization Date Immunization Notes Care Provider Sherrell peter 04-07-2022 influenza, seasonal, injectable Pulm Wstr Work Phone: [facility] 04-07-2022 influenza virus vacc ine, unspecified formulation Emilee HARDING-C Work Phone: [facility] 03-31-2021 influenza, high-dose , quadrivalent vaccine (FLUZONE HIGH DOSE QUADRIVALENT) Emilee HARDING-C Work Phone: [facility] Work Phone: 06-18-2019 influenza, high dose seasonal, preservative-free Emilee Madrid PA-C Work Phone: [facility] 05-23-2019 pneumococcal conjuga te vaccine, 13 valent Pulm Wstr Work Phone: [facility] Work Phone: 05-18-2019 pneumococcal conjuga te vaccine, 13 valent Pulm Wstr Work Phone: [facility] Work Phone: 05-18-2018 pneumococcal conjuga te vaccine, 13 valent Emilee Madrid PA-C Work Phone: [facility] Work Phone: 04-24-2015 influenza, injectabl e, quadrivalent, contains preservative Emilee Zachary JAUREGUI Work Phone: [facility] 03-12-2014 influenza, seasonal, injectable Emilee Zachary COBURNC Work Phone: [facility] 02-25-2012 influenza virus vacc ine, unspecified formulation Emilee Zachary COBURNC Work Phone: [facility] 02-25-2012 pneumococcal polysaccharide vaccine, 23 valent Emilee Zachary HARDING-Yesica Work Phone: [facility] Payers Date Payer Category Payer Medicare [employer] MEDICARE A ETNA MEDICARE PPO [id number] 2021-Present [phone] [address] [place] [address] PPO [id number] 2021 Medicare [employer] MEDICARE A ETNA MEDICARE PPO [id number] 2021-Present [phone] [address] [place] [address] PPO [id number] 2021 Medicare [id number] 2017 Medicare [id number] Social History Date Type Detail Facility Start: 11-15-1969 End: 02-08-2023 Tobacco smoking status NHIS Smokes tobacco daily [facility] Start: 11-15-1969 History of tobacco use Cigarette Smo ker [facility] Start: 02-25-2012 End: 05-18-2020 Cigarettes smoked current (pack per day) - Reported 2 [facility] Start: 02-25-2012 End: 02-08-2023 Tobacco use and exposure Smokeless tobacco non-user [facility] Start: 07-27-2021 End: 04-18-2023 Alcohol intake Current drinker of alcohol (finding) [facility] Start: 07-27-2021 History SDOH Alcohol Comment Occasionally [facility] Start: 01-26-2021 Tobacco Comment 7-10 cigarettes per day on [facility] Start: 1955 Sex Assigned At Not on file [facility] Start: 10-05-2021 End: 11-26-2021 Exposure to SARS-CoV-2 (event) Not sure [facility] Start: 11-26-2021 End: 04-29-2022 Tobacco Comment 5-7 cigarettes per day on [facility] Start: 05-18-2020 End: 02-08-2023 Tobacco use panel [facility] National Score (1-10 0), lower number is lower risk Not on file [facility] Start: 11-26-2022 Tobacco Comment 3-7 cigarettes per d ay on [facility] Clinical Notes 10-01-2021 to 07-26-2023 Addendum Note - Emilee Madrid PA-C - 07/26/2023 12:46 PM ESTTelephone Encounter - Mariaelena Singletary LPN - 07/26/2023 12:35 PM ESTTelephone Encounter - Janae Park LPN - 04/21/2023 3:04 PM EST Note Date & Type Note Facility 07-26-2023 Miscellaneous Notes Addended by: EMILEE MADRID on: 07/26/2023 12:46 PM Modules accepted: Orders Patient states [facility] did not receive last RX on 07/18. Also asking if a one month supply can be sent to [facility]? Patient phones requesting refills as follows: Requested Prescriptions Pending Prescriptions Disp Refills albuterol (PROVENTIL) 2.5 mg /3 mL (0.083 %) nebulizer solution 360 mL 5 Sig: USE 1 VIAL IN NEBULIZER 4 TIMES DAILY Please review and advise. Mariaelena Singletary LPN documented in this encounter [facility] 11-15-2023 Miscellaneous Notes Julia returned the call to pulmonary. Reviewed Emilee Madrid's message regarding her echocardiogram. Julia voiced understanding. Delaney Campos, RN Attempt to contact patient. Voicemail full. Mariaelena Singletary LPN ----- Message from Emilee Madrid PA-C sent at 04/27/2023 8:45 AM EST ----- Please call Julia to alert her that her echocardiogram looks good. No significant changes when compared to previous echo in 2018. documented in this encounter [facility] 04-21-2023 Miscellaneous Notes RX transferred to [facility] from [facility]. Mariaelena Singletary LPN Patient called. Verified name and date of . [place] [facility] [place], NOT [facility]. Requested Prescriptions Pending Prescriptions Disp Refills albuterol HFA (PROVENTIL HFA, VENTOLIN HFA) 90 mcg/actuation inhaler 18 g 5 Sig: Inhale 2 Puffs as instructed every 6 hours as needed for wheezing/shortness of breath. Pharmacy verified as [facility]. Janae Park LPN documented in this encounter [facility] 04-20-2023 Miscellaneous Notes Patient requesting medication pended to encounter. Patient would [facility] Please review and advise patient. Amanda Gupta LPN documented in this encounter [facility] 04-18-2023 Note HNO ID: [id number] Author: Aliyah Lee RT(R) Service: ? Author Type: Ladle Liner Type: Progress Notes Filed: 04/18/2023 11:43 AM [...] IV DATA: Not applicable SIGNED BY: RT Samara(Reilly) April 18, 2023 11:32 AM [facility] 04-18-2023 Note HNO ID: [id number] Author: Emilee Madrid PA-C Service: ? Author Type: Physician Waist Fitter Type: Progress Notes Filed: 04/18/2023 2:24 PM [...] chest pain or palpitations. Previously followed with [facility]. Currently wearing 2L supplemental oxygen at night. DME: [facility]. PAST MEDICAL HISTORY Diagnosis Date Abdominal pain, other specified site COPD (chronic obstructive pulmonary disease) ([facility]) COPD (chronic obstructive pulmonary disease) ([facility]) 09/01/2012 Frozen shoulder right High blood pressure [...] hours as needed for wheezing/shortness of breath. zcutgxjvcbq-sbptgqjks-hmezlocb (TRELEGY ELLIPTA) 100-62.5-25 mcg inhalation powder Inhale [...] (FLONASE) 50 mcg/actuation nasal spray Use 1 [place] in each nostril once daily. VITAMIN E ORAL Take by mouth once daily. cholecalciferol, vitamin D3, (VITAMIN D3 ORAL) Take by mouth. buPROPion XL (WELLBUTRIN XL) 150 mg 24 hr tablet Take 1 tablet by mouth once daily. COMPOUNDED PRESCRIPTION Provide Prevnar 13. Please fax results to [phone]. COMPOUNDED PRESCRIPTION Discontinue budesonide. DME: t[facility]. COMPOUNDED PRESCRIPTION Please perform nocturnal oximetry on RA. Please fax results to [phone]. DME: [facility]. COMPOUNDED PRESCRIPTION Nocturnal oximetry on 2 L. Please fax results to [phone]. mv-min/iron/folic/calcium/vitK (WOMEN'S MULTIVITAMIN ORAL) Take 1 tablet by mouth once daily. COMPOUNDED PRESCRIPTION Please use 3 L supplemental oxygen via nasal cannula with sleep Diagnosis: Hypoxemia (Patient not taking: Reported on 11/26/2022) COMPOUNDED PRESCRIPTION Please perform nocturnal oximetry on 2 L oxygen Fax results to [phone] Diagnosis: copd, hypoxemia. COMPOUNDED PRESCRIPTION 2L of [...] history, family histor (more content not included)... [facility] 04-18-2023 History of Present illness Narrative [...] chest pain or palpitations. Previously followed with [facility]. Currently wearing 2L supplemental oxygen at night. DME: [facility]. PAST MEDICAL HISTORY Diagnosis Date Abdominal pain, other specified site COPD (chronic obstructive pulmonary disease) ([facility]) COPD (chronic obstructive pulmonary disease) ([facility]) 09/01/2012 Frozen shoulder right High blood pressure [...] hours as needed for wheezing/shortness of breath. qhxrddxprba-thamjnakd-caghgqvx (TRELEGY ELLIPTA) 100-62.5-25 mcg inhalation powder Inhale [...] (FLONASE) 50 mcg/actuation nasal spray Use 1 [place] in each nostril once daily. VITAMIN E ORAL Take by mouth once daily. cholecalciferol, vitamin D3, (VITAMIN D3 ORAL) Take by mouth. buPROPion XL (WELLBUTRIN XL) 150 mg 24 hr tablet Take 1 tablet by mouth once daily. COMPOUNDED PRESCRIPTION Provide Prevnar 13. Please fax results to [phone]. COMPOUNDED PRESCRIPTION Discontinue budesonide. DME: [facility]. COMPOUNDED PRESCRIPTION Please perform nocturnal oximetry on RA. Please fax results to [phone]. DME: [facility]. COMPOUNDED PRESCRIPTION Nocturnal oximetry on 2 L. Please fax results to [phone]. mv-min/iron/folic/calcium/vitK (WOMEN'S MULTIVITAMIN ORAL) Take 1 tablet by mouth once daily. COMPOUNDED PRESCRIPTION Please use 3 L supplemental oxygen via nasal cannula with sleep Diagnosis: Hypoxemia (Patient not taking: Reported on 11/26/2022) COMPOUNDED PRESCRIPTION Please perform nocturnal oximetry on 2 L oxygen Fax results to [phone] Diagnosis: copd, hypoxemia. COMPOUNDED PRESCRIPTION 2L of [...] IMMUNIZATIONS Prevnar 13 - 05/23/2019, 05/18/2018 Pneumovax - 02/25/2012 Influenza - xx COVID-19 - [...] Emilee Madrid PA-C documented in this encounter [facility] 02-08-2023 Note HNO ID: [id number] Author: Nadine Villa APRN.JORGE Service: ? Author Type: Nurse Practitioner Type: [...] pre-disease performance w/o restriction. Modified Medical [place] Dyspnea Scale (MMRC) I only get breathless [...] hours as needed for wheezing/shortness of breath. lkmplifdqcc-elaaiadii-sdxqagso (TRELEGY ELLIPTA) 100-62.5-25 mcg inhalation powder Inhale [...] (FLONASE) 50 mcg/actuation nasal spray Use 1 [place] in each nostril once daily. VITAMIN E ORAL Take by mouth once daily. cholecalciferol, vitamin D3, (VITAMIN D3 ORAL) Take by mouth. buPROPion XL (WELLBUTRIN XL) 150 mg 24 hr tablet Take 1 tablet by mouth once daily. COMPOUNDED PRESCRIPTION Provide Prevnar 13. Please fax results to [phone]. COMPOUNDED PRESCRIPTION Discontinue budesonide. DME: [facility]. COMPOUNDED PRESCRIPTION Please perform nocturnal oximetry on RA. Please fax results to [phone]. DME: [facility]. COMPOUNDED PRESCRIPTION Nocturnal oximetry on 2 L. Please fax results to [phone]. mv-min/iron/folic/calcium/vitK (WOMEN'S MULTIVITAMIN ORAL) Take 1 tablet by mouth once daily. COMPOUNDED PRESCRIPTION Please use 3 L supplemental oxygen via nasal cannula with sleep Diagnosis: Hypoxemia (Patient not taking: Reported on 11/26/2022) COMPOUNDED PRESCRIPTION Please perform nocturnal oximetry on 2 L oxygen Fax results to [phone] Diagnosis: copd, hypoxemia. COMPOUNDED PRESCRIPTION 2L of [...] No, Type o (more content not included)... [facility] 02-08-2023 Note HNO ID: [id number] Author: Felicity Tripathi RPFT Service: ? Author [...] February 08, 2023 TIME: 12:51 PM Comment: [facility] 02-08-2023 Note HNO ID: [id number] Author: Felicity Tripathi RPFT Service: ? Author Type: Respiratory Therapist Type: Progress Notes Filed: 02/08/2023 12:51 PM Note Text: PULM FUNCTION SMARTBLOCK: Provider: Emilee Madrid PA-C Assisting Tech: Felicity Tripathi RPFT Oximetry - Ambulation: 1 [facility] 02-08-2023 Instructions Ndaine Villa APRN.MACHINE ERECTOR - 02/08/2023 1:[address] Lung [...] to endocrinology. Others Lung Cancer Screening hotline: [phone] Lung Cancer Screening [phone] Billing Questions: or [email or web address] Lung Cancer Screening Team: Jennifer Orellana CNP; Magali Batista PA-C; Janae Eaton CNP; Viridiana Verdugo CNP, Maricarmen Villavicencio PA-C, Nany Keenan PA-C, Nadine Villa, MACHINE ERECTOR : [phone] documented in this encounter [facility] 02-08-2023 History of Present illness Narrative Images [...] pre-disease performance w/o restriction. Modified Medical [place] Dyspnea Scale (MMRC) I only get breathless [...] hours as needed for wheezing/shortness of breath. qlppiyowlfy-wbegendlj-rkczkpqz (TRELEGY ELLIPTA) 100-62.5-25 mcg inhalation powder Inhale [...] (FLONASE) 50 mcg/actuation nasal spray Use 1 [place] in each nostril once daily. VITAMIN E ORAL Take by mouth once daily. cholecalciferol, vitamin D3, (VITAMIN D3 ORAL) Take by mouth. buPROPion XL (WELLBUTRIN XL) 150 mg 24 hr tablet Take 1 tablet by mouth once daily. COMPOUNDED PRESCRIPTION Provide Prevnar 13. Please fax results to [phone]. COMPOUNDED PRESCRIPTION Discontinue budesonide. DME: [facility]. COMPOUNDED PRESCRIPTION Please perform nocturnal oximetry on RA. Please fax results to [phone]. DME: [facility]. COMPOUNDED PRESCRIPTION Nocturnal oximetry on 2 L. Please fax results to [phone]. mv-min/iron/folic/calcium/vitK (WOMEN'S MULTIVITAMIN ORAL) Take 1 tablet by mouth once daily. COMPOUNDED PRESCRIPTION Please use 3 L supplemental oxygen via nasal cannula with sleep Diagnosis: Hypoxemia (Patient not taking: Reported on 11/26/2022) COMPOUNDED PRESCRIPTION Please perform nocturnal oximetry on 2 L oxygen Fax results to [phone] Diagnosis: copd, hypoxemia. 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 Race: Black 6. Education: Some College [...] Impression: IMPRESSION: Emphysema and right infrahilar bronchitis. Faculty Research Assistant: DARSHANA ... Pulmonary Function Testing: SPIROMETRY BASELINE ONLY ([id number]) - ordered on 04/29/22 [facility] [address] [place] [address] Test Date: 2022-04-29 Pat Name: JULIA DUMONT Department: Room: Gender: Female Ladle Liner: : 1955 Requested By: Order Number: [id number] Reading MD: Maxim Patel Interpretive Statements ATS/ERS acceptability and repeatability standards for spirometry met. IMPRESSION: Spirometry indicates moderate obstruction. Electronically Signed On 04-30-2022 7:56:24 EST by Maxim Patel Site: WO ID: [id number] Name: JULIA DUMONT Visit Date: 04/29/2022 Doctor: Ladle Liner: Felicity Tripathi Age: 66 Date of : [...] FEF75 (L/sec) 0.38 0.12 1.12 0.13 33 URY70-43 (L/sec) 1.78 0.69 3.43 0.37 20 PEF [...] Six year risk for lung cancer: 4.46% Https://[employer]/[place]/re sult/female_4.5_yes_unknown [email or web address] I have determined that the patient [...] 2023 1:30 PM documented in this encounter [facility] 02-08-2023 Procedure note Associated Ord er(s): OXIMETRY [...] 12:51 PM Comment: documented in this encounter [facility] 02-08-2023 Nurse Note Intake information documented in the prior visit with JATIN Santos today. documented in this encounter [facility] 02-08-2023 History of Present illness Narrative PULM FUNCTION SMARTBLOCK: Provider: Emilee Madrid PA-C Assisting Tech: Felicity Tripathi RPFT Oximetry - Ambulation: 1 documented in this encounter [facility] 11-26-2022 Note HNO ID: [id number] Author: Emilee Madrid PA-C Service: ? Author Type: Physician Waist Fitter Type: Progress Notes Filed: 11/26/2022 2:18 PM [...] using Primatine mist while on vacation in [place]. She states Albuterol does not work as [...] specified site COPD (chronic obstructive pulmonary disease) ([facility]) COPD (chronic obstructive pulmonary disease) ([facility]) 09/01/2012 Frozen shoulder right High blood pressure [...] for wheezing/shortness of breath.Disp: 18 gRfl: 5 vkoxatepybf-yimiawoho-yddmhflh (TRELEGY ELLIPTA) 100-62.5-25 mcg inhalation powderInhale 1 [...] fluticasone (FLONASE) 50 mcg/actuation nasal sprayUse 1 [place] in each nostril once daily.Disp: 1 EachRfl: [...] PRESCRIPTIONProvide Prevnar 13. Please fax results to [phone].Disp: 1 EachRfl: 0 COMPOUNDED PRESCRIPTIONDiscontinue budesonide. DME: [facility].Disp: 1 EachRfl: 0 COMPOUNDED PRESCRIPTIONPlease perform nocturnal oximetry on RA. Please fax results to [phone]. DME: [facility].Disp: 1 EachRfl: 0 COMPOUNDED PRESCRIPTIONNocturnal oximetry on 2 L. Please fax results to [phone].Disp: 1 EachRfl: 0 mv-min/iron/folic/calcium/vitK (WOMEN'S MULTIVITAMIN ORAL)Take 1 tablet by mouth once daily.Disp: Rfl: COMPOUNDED PRESCRIPTIONPlease use 3 L supplemental oxygen via nasal cannula with sleep Diagnosis: HypoxemiaDisp: 1 EachRfl: 0 COMPOUNDED PRESCRIPTIONPlease perform nocturnal oximetry on 2 L oxygen Fax results to [phone] Diagnosis: copd, hypoxemia.Disp: 1 EachRfl: 0 COMPOUNDED [id number] of O2 at HS- patient increased to [...] pt denies P (more content not included)... [facility] 10-18-2022 Miscellaneous Notes Patient called. Verified [...] Janae Park LPN documented in this encounter [facility] 05-28-2022 Note HNO ID: [id number] Author: Silva Gupta MD Service: ? Author Type: Physician Type: Progress Notes Filed: 05/28/2022 12:38 PM Note Text: . [facility] [place] Note Patient name: Julia Dumont PCP: Ti [...] September. I personally reviewed the images from [facility] which shows a dense consolidation in the right lower lobe and a right upper lobe noncalcified pulmonary nodule as well as upper lobe emphysema. DME: [facility] 2-3 Liters DATA: : Oximetry with Ambulation [...] obstruction Imaging / Diagnostic Studies: CTA chest [facility] 09/2021: Reviewed an shows emphysema, RUL 6 mm nodule, RLL consolidation. Nodule unchanged from 2020 Reviewed LDCT chest 12/30/20: Upper lobe emphysema, RUL 6 mm noncalcified nodule PAST MEDICAL HISTORY Diagnosis Date Abdominal pain, other specified site COPD (chronic obstructive pulmonary disease) ([facility]) COPD (chronic obstructive pulmonary disease) ([facility]) 09/01/2012 Frozen shoulder right High blood pressure [...] fluticasone (FLONASE) 50 mcg/actuation nasal sprayUse 1 [place] in each nostril once daily.Disp: 1 EachRfl: 3 VITAMIN E ORALTake by mouth once daily. Disp: Rfl: cholecalciferol, vitamin D3, (VITAMIN D3 ORAL)Take by mouth.Disp: Rfl: fexofenadine HCl (MUCINEX ALLERGY ORAL)Take by mouth. Off brandDisp: Rfl: (Patient not taking: Reported on 11/26/2021 ) leoysuvxgeb-uveclbstr-mlqthdyv (TRELEGY ELLIPTA) 100-62.5-25 mcg inhalation powderInhale 1 Puff as instructed once daily.Disp: 1 EachRfl: 11 buPROPion XL (WELLBUTRIN XL) 150 mg 24 hr tabletTake 1 tablet by mouth once daily.Disp: 30 tabletRfl: 1 COMPOUNDED PRESCRIPTIONProvide Prevnar 13. Please fax results to [phone].Disp: 1 EachRfl: 0 COMPOUNDED PRESCRIPTIONDiscontinue budesonide. DME: [facility].Disp: 1 EachRfl: 0 COMPOUNDED PRESCRIPTIONPlease perform nocturnal oximetry on RA. Please fax results to [phone]. DME: [facility].Disp: 1 EachRfl: 0 COMPOUNDED PRESCRIPTIONNocturnal oximetry on 2 L. Please fax results to [phone].Disp: 1 EachRfl: 0 mv-min/iron/folic/calcium/vitK (WOMEN'S MULTIVITAMIN ORAL)Take 1 tablet by mouth once daily.Disp: Rfl: COMPOUNDED PRESCRIPTIONPlease use 3 L supplemental oxygen via nasal cannula with sleep Diagnosis: HypoxemiaDisp: 1 EachRfl: 0 COMPOUNDED PRESCRIPTIONPlease perform nocturnal oximetry on 2 L oxygen Fax results to [phone] Diagnosis: copd, hypoxemia.Disp: 1 EachRfl: 0 COMPOUNDED [id number] of O2 at HS- patient increased to 3L of O2 at night Disp: Rfl: Social History Tobacco Use Smoking status: Every Day Packs (more content not included)... [facility] 05-28-2022 History of Present illness Narrative Images from the original note were not included. . [facility] [place] Note Patient name: Julia Dumont PCP: Ti [...] September. I personally reviewed the images from [facility] which shows a dense consolidation in the [...] obstruction Imaging / Diagnostic Studies: CTA chest [facility] 09/2021: Reviewed an shows emphysema, RUL 6 [...] fluticasone (FLONASE) 50 mcg/actuation nasal spray^Use 1 [place] in each nostril once daily.^Disp: 1 Each^Rfl: 3 VITAMIN E ORAL^Take by mouth once daily. ^Disp: ^Rfl: cholecalciferol, vitamin D3, (VITAMIN D3 ORAL)^Take by mouth.^Disp: ^Rfl: fexofenadine HCl (MUCINEX ALLERGY ORAL)^Take by mouth. Off brand^Disp: ^Rfl: (Patient not taking: Reported on 11/26/2021 ) dmkgvfqfawv-pxiwsixwt-mxmxnyip (TRELEGY ELLIPTA) 100-62.5-25 mcg inhalation powder^Inhale 1 Puff as instructed once daily.^Disp: 1 Each^Rfl: 11 buPROPion XL (WELLBUTRIN XL) 150 mg 24 hr tablet^Take 1 tablet by mouth once daily.^Disp: 30 tablet^Rfl: 1 COMPOUNDED PRESCRIPTION^Provide Prevnar 13. Please fax results to [phone].^Disp: 1 Each^Rfl: 0 COMPOUNDED PRESCRIPTION^Discontinue budesonide. DME: [facility].^Disp: 1 Each^Rfl: 0 COMPOUNDED PRESCRIPTION^Please perform nocturnal oximetry on RA. Please fax results to [phone]. DME: [facility].^Disp: 1 Each^Rfl: 0 COMPOUNDED PRESCRIPTION^Nocturnal oximetry on 2 L. Please fax results to [phone].^Disp: 1 Each^Rfl: 0 mv-min/iron/folic/calcium/vitK (WOMEN'S MULTIVITAMIN ORAL)^Take 1 tablet by mouth once daily.^Disp: ^Rfl: COMPOUNDED PRESCRIPTION^Please use 3 L supplemental oxygen via nasal cannula with sleep Diagnosis: Hypoxemia^Disp: 1 Each^Rfl: 0 COMPOUNDED PRESCRIPTION^Please perform nocturnal oximetry on 2 L oxygen Fax results to [phone] Diagnosis: copd, hypoxemia.^Disp: 1 Each^Rfl: 0 COMPOUNDED [...] screening. Prefers to have this performed at [facility]. Would not be due until September of this year 5. Lung nodule -Stable by previous chest CT imaging. Will need continued surveillance Silva Gupta MD [facility] [place] documented in this encounter [facility] 04-29-2022 Procedure note Associated Ord er(s): OXIMETRY [...] 2:35 PM Comment: documented in this encounter [facility] 04-29-2022 History of Present illness Narrative PULM FUNCTION SMARTBLOCK: Provider: Emilee Madrid PA-C Assisting Tech: JATIN Santos Spirometry: 1 documented in this encounter [facility] 11-26-2021 Miscellaneous Notes Call to pt pharmacy per Emilee Madrid request to make sure prescriptions were being sent to correct pharmacy[facility] [place] correct information, pharmacist states pt's Albuterol was received and sent out to pt 11/19/21. States they do need Rx for nebulizer supplies, and will fax corresponding paperwork to our office. Please complete and fax to number provided on received paperwork. documented in this encounter [facility] 11-26-2021 History of Present illness Narrative [facility] [place], 11/26/2021: Name: Julia Dumont : 1955 The [...] ppd. Wearing 2-3 LPM supplemental oxygen. DME: [facility] [...] ICD9: 491.9, ICD10: J42 (primary diagnosis) Continue Trelegy ellilpta 1 inhalation daily. Rinse mouth after each [...] nicotine patches and Wellbutrin. Is enrolled in [facility] lung nodule screening program. I addressed the questions of the patient, and she expressed understanding and acceptance of my answers. Emilee Madrid PA-C documented in this encounter [facility] 10-15-2021 History of Present illness Narrative Images [...] 86 pack years. Patient was admitted to [facility] from 09/16 - 09/20 for treatment of [...] patient today. IMMUNIZATIONS Prevnar - 05/18/2018 Pneumovax 02/25/2012 Influenza - 03/31/2021 COVID-19 - 04/30/2021, [...] FEV1/FVC 0.56 0.55 0.51 CTA chest, 09/17/2021 [facility] read only FINDINGS: Normal enhancement of the [...] R91.1 Followed by lung cancer screening at [facility] 7. Tobacco use disorder - ICD9: 305.1, [...] Emilee Madrid PA-C documented in this encounter [facility] 10-01-2021 Miscellaneous Notes Patient electronically requesting refills as follows: Pending Prescriptions Disp Refills ALBUTEROL SULFATE 2.5 MG/3 ML (0.083 %) SOLUTION FOR NEBULIZATION 120 Vial 11 Sig: USE 1 VIAL IN NEBULIZER 4 TIMES DAILY DAPHNEY: Yes Please review and advise. Arti You documented in this encounter [facility] Diagnosis Chronic bronchitis, unspecified chronic bronchitis type (HCC)- Primary Pneumonia of right lower lobe due to infectious organism Chronic respiratory failure with hypoxia (HCC) Chronic respiratory failure Tobacco use disorder [facility] Diagnosis Chronic bronchitis, unspecified chronic bronchitis type (HCC)- Primary [facility] Diagnosis Chronic bronchitis, unspecified chronic bronchitis type (HCC) [facility] Diagnosis Chronic bronchitis, unspecified chronic bronchitis type (HCC) documented in this encounter [facility] note* Diagnosis Moderate COPD (chronic obstructive pulmonary disease) (HCC)- Primary Chronic airway obstruction, not elsewhere classified Abnormal chest x-ray Other nonspecific abnormal finding of lung field Thrush Candidiasis of mouth Cigarette smoker Tobacco use disorder Lung nodule Solitary pulmonary nodule documented in this encounter [facility] note* Diagnosis Chronic bronchitis, unspecified chronic bronchitis type (HCC) documented in this encounter [facility] note* Diagnosis Chronic bronchitis, unspecified chronic bronchitis type (HCC) documented in this encounter [facility] note* Diagnosis Moderate COPD (chronic obstructive pulmonary disease) (HCC) Chronic airway obstruction, not elsewhere classified Chronic respiratory failure with hypoxia (HCC) Chronic respiratory failure documented in this encounter [facility] note* Diagnosis Encounter for screening for lung cancer- Primary Tobacco use disorder documented in this encounter [facility] note* Diagnosis Moderate COPD (chronic obstructive pulmonary disease) (HCC)- Primary Chronic airway obstruction, not elsewhere classified Dyspnea and respiratory abnormalities Other dyspnea and respiratory abnormality Wheezing Chronic respiratory failure with hypoxia (HCC) Chronic respiratory failure Tobacco use disorder documented in this encounter [facility] note* Diagnosis Dyspnea and respiratory abnormalities Other dyspnea and respiratory abnormality documented in this encounter [facility] note* Diagnosis Chronic bronchitis, unspecified chronic bronchitis type (HCC) documented in this encounter [facility] note* Diagnosis Chronic bronchitis, unspecified chronic bronchitis type (HCC) documented in this encounter [facility] note* Diagnosis Oral thrush- Primary Candidiasis of mouth documented in this encounter [facility] note* Diagnosis Chronic bronchitis, unspecified chronic bronchitis type (HCC) documented in this encounter [facility] for referral (narrative)* Outpatient Procedure (Routine) - Pending Review Specialty Diagnoses / Procedures Referred By Andrew t Referred To Contact [facility] Diagnoses Chronic bronchitis, unspecified chronic bronchitis type (HCC) Procedures OXIMETRY WITH AMBULATION NONINVASIVE EAR/PULSE OXIMETRY MULTIPLE DETER Emilee Madrid PA-C [address] [address] [facility] [place] [address] [place] [address] Referral ID Status Reason Start Date Expiration Date Visits Requested Visits Authorized [id number] Pending Review Auto-Generat ed Referral 10/15/2021 11/14/2022 1 1 * Outpatient Procedure (Routine) - Pending Review Specialty Diagnoses / Procedures Referred By Contac t Referred To Contact [facility] Diagnoses Chronic bronchitis, unspecified chronic bronchitis type (HCC) Procedures SPIROMETRY BASELINE ONLY SPMTRY W/VC EXPIRATORY ROBBIE W/WO MXML VOL VNTJ Emilee Madrid PA-C [address] [place] [address] [facility] [place] [address] [place] [address] Referral ID Status Reason Start Date Expiration Date Visits Requested Visits Authorized [id number] Pending Review Auto-Generat ed Referral 10/15/2021 11/14/2022 1 1 * Outpatient Procedure (Routine) - Pending Review Specialty Diagnoses / Procedures Referred By Contac t Referred To Contact [facility] Diagnoses Dyspnea and respiratory abnormalities Procedures ECHO ECHO TTHRC R-T 2D W/WOM-MODE COMPL SPEC&COLR D Emilee Madrid PA-C [address] [facility] [address] [address] Referral ID Status Reason Start Date Expiration Date Visits Requested Visits Authorized [id number] Pending Review Auto-Generat ed Referral 10/15/2021 10/15/2022 1 1 [facility] for referral (narrative)* Outpatient Procedure (Routine) - Authorized Specialty Diagnoses / Procedures Referred By Contac t Referred To Contact [facility] Diagnoses Dyspnea and respiratory abnormalities Procedures ECHO ECHO TTHRC R-T 2D W/WOM-MODE COMPL SPEC&COLR D Emilee Madrid PA-C [address] [place] [address] [facility] [address] [address] Referral ID Status Reason Start Date Expiration Date Visits Requested Visits Authorized [id number] Authorized Auto-Generat ed Referral 04/18/2023 04/17/2024 1 1 [facility] for visit Narrative* Outpatient Procedure (Routine) - Closed Specialty Diagnoses / Procedures Referred By Contac t Referred To Contact [facility] Diagnoses Chronic bronchitis, unspecified chronic bronchitis type (HCC) Procedures SPIROMETRY BASELINE ONLY SPMTRY W/VC EXPIRATORY ROBBIE W/WO MXML VOL VNTJ Emilee Madrid PA-C [address] [place] [address] [facility] [place] [address] [place] [address] Referral ID Status Reason Start Date Expiration Date V isits Requested Visits Authorized [id number] Closed Auto-Generate d Referral 10/15/2021 11/14/2022 1 1 [facility] Summary Purpose Family History No Family History [...] DOSE LNG CA SCR Yes[place]- Nadine Villa, 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.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 ERECTOR [id number] [facility] [place] [address] Referral ID Status Reason Start Date Expiration Date Visits Requested Visits Authorized [id number] Authorized Auto-Generat ed Referral 02/08/2023 03/09/2024 1 1 Specialty Diagnoses / Procedures Referred By Contac t Referred To Contact Diagnoses Chronic bronchitis, unspecified chronic bronchitis type (HCC) Emilee Madrid PA-C [address] [place] [address] Referral ID Status Reason Start Date Expiration Date Visits Re quested Visits Authorized [id number] Closed 1 1 Additional Source Comments INFORMATION SOURCE (unrecogn ized section and content) DATE CREATED AUTHOR AUTHOR'S ORGANIZ ATION 04/30/2023 [facility] Source Comments (unrecognize d section and content) In the event this informatio n is protected by the Federal Confidentiality of Alcohol and Drug Abuse Patient Records regulations: The Federal rules restrict any use of the information to criminally investigate or prosecute any alcohol or drug abuse patient.[facility] the event this information is protected by the Federal Confidentiality of Alcohol and Drug Abuse Patient Records regulations: The Federal rules restrict any use of the information to criminally investigate or prosecute any alcohol or drug abuse patient.[facility] [place]In the event this information is protected by the Federal Confidentiality of Alcohol and Drug Abuse Patient Records regulations: The Federal rules restrict any use of the information to criminally investigate or prosecute any alcohol or drug abuse patient.[facility], [place]In the event this information is protected by the Federal Confidentiality of Alcohol and Drug Abuse Patient Records regulations: The Federal rules restrict any use of the information to criminally investigate or prosecute any alcohol or drug abuse patient.[facility], [place]In the event this information is protected by the Federal Confidentiality of Alcohol and Drug Abuse Patient Records regulations: The Federal rules restrict any use of the information to criminally investigate or prosecute any alcohol or drug abuse patient.[facility] [place] the event this information is protected by the Federal Confidentiality of Alcohol and Drug Abuse Patient Records regulations: The Federal rules restrict any use of the information to criminally investigate or prosecute any alcohol or drug abuse patient.[facility], [place] the event this information is protected by the Federal Confidentiality of Alcohol and Drug Abuse Patient Records regulations: The Federal rules restrict any use of the information to criminally investigate or prosecute any alcohol or drug abuse patient.[facility], [place] the event this information is protected by the Federal Confidentiality of Alcohol and Drug Abuse Patient Records regulations: The Federal rules restrict any use of the information to criminally investigate or prosecute any alcohol or drug abuse patient.[facility], [place] the event this information is protected by the Federal Confidentiality of Alcohol and Drug Abuse Patient Records regulations: The Federal rules restrict any use of the information to criminally investigate or prosecute any alcohol or drug abuse patient.[facility] [place] the event this information is protected by the Federal Confidentiality of Alcohol and Drug Abuse Patient Records regulations: The Federal rules restrict any use of the information to criminally investigate or prosecute any alcohol or drug abuse patient.[facility] [place]In the event this information is protected by the Federal Confidentiality of Alcohol and Drug Abuse Patient Records regulations: The Federal rules restrict any use of the information to criminally investigate or prosecute any alcohol or drug abuse patient.[facility] [place]woodIn the event this information is protected by the Federal Confidentiality of Alcohol and Drug Abuse Patient Records regulations: The Federal rules restrict any use of the information to criminally investigate or prosecute any alcohol or drug abuse patient.[facility] [place]woodIn the event this information is protected by the Federal Confidentiality of Alcohol and Drug Abuse Patient Records regulations: The Federal rules restrict any use of the information to criminally investigate or prosecute any alcohol or drug abuse patient.[facility] [place]woodIn the event this information is protected by the Federal Confidentiality of Alcohol and Drug Abuse Patient Records regulations: The Federal rules restrict any use of the information to criminally investigate or prosecute any alcohol or drug abuse patient.[facility] [place]woodIn the event this information is protected by the Federal Confidentiality of Alcohol and Drug Abuse Patient Records regulations: The Federal rules restrict any use of the information to criminally investigate or prosecute any alcohol or drug abuse patient.[facility], [place]woodIn the event this information is protected by the Federal Confidentiality of Alcohol and Drug Abuse Patient Records regulations: The Federal rules restrict any use of the information to criminally investigate or prosecute any alcohol or drug abuse patient.[facility], [place]In the event this information is protected by the Federal Confidentiality of Alcohol and Drug Abuse Patient Records regulations: The Federal rules restrict any use of the information to criminally investigate or prosecute any alcohol or drug abuse patient.[facility], [place]woodIn the event this information is protected by the Federal Confidentiality of Alcohol and Drug Abuse Patient Records regulations: The Federal rules restrict any use of the information to criminally investigate or prosecute any alcohol or drug abuse patient.[facility], [place]woodIn the event this information is protected by the Federal Confidentiality of Alcohol and Drug Abuse Patient Records regulations: The Federal rules restrict any use of the information to criminally investigate or prosecute any alcohol or drug abuse patient.[facility] [place] Reason for Visit (unrecogniz ed section and content) Reason Comments Established Patient Follow-Up COPD Reason Comments Follow Up Reason Onset Date Comments Refill Request 01/21/2022 Reason Comments Orders Reason Comments Spirometry Specialty Diagnoses / Procedures Referred By Contac t Referred To Contact [facility] Diagnoses Chronic bronchitis, unspecified chronic bronchitis type (HCC) Procedures OXIMETRY WITH AMBULATION NONINVASIVE EAR/PULSE OXIMETRY MULTIPLE Emilee Hart, [facility] [address] [place] [address] [address] Referral ID Status Reason Start Date Expiration Date V isits Requested Visits Authorized [id number] Closed Auto-Generate d Referral 10/15/2021 11/14/2022 1 1 Reason Comments Established Patient 6 month follow up [place] [facility] Reason Onset Date Comments Refill Request 10/18/2022 Specialty Diagnoses / Procedures Referred By Contac t Referred To Contact [facility] [place] Diagnoses Moderate COPD (chronic obstructive pulmonary disease) (HCC) Chronic respiratory failure with hypoxia (HCC) Procedures OXIMETRY WITH AMBULATION NONINVASIVE EAR/PULSE OXIMETRY MULTIPLE Emilee Hart PA-C [address] [place] [address] [address] Referral ID Status Reason Start Date Expiration Date V isits Requested Visits Authorized [id number] Closed Auto-Generate d Referral 11/26/2022 12/26/2023 1 1 Reason Comments New Patient [facility] Reason Comments Established Patient 5 month follow up [place] Reason Onset Date Comments Refill Request 04/20/2023 Reason Onset Date Comments Refill Request 04/21/2023 Reason Comments Results Reason Onset Date Comments Refill Request 07/26/2023 Care Teams (unrecognized sec tion and content) [employer] Technical Director Relationship Specialty Start Date End Date Ti Osuna MD PCP - General Internal Medicine 06/18/19 [employer] Technical Director Relationship Specialty Start Date End Date Ti Osuna MD PCP - General Internal Medicine 06/18/19 [employer] Technical Director Relationship Specialty Start Date End Date Ti Osuna MD PCP - General Internal Medicine 06/18/19 [employer] Technical Director Relationship Specialty Start Date End Date Ti Osuna MD PCP - General Internal Medicine 06/18/19 [employer] Technical Director Relationship Specialty Start Date End Date Ti Osuna MD PCP - General Internal Medicine 06/18/19 [employer] Technical Director Relationship Specialty Start Date End Date Ti Osuna MD PCP - General Internal Medicine 06/18/19 [employer] Technical Director Relationship Specialty Start Date End Date Ti Osuna MD PCP - General Internal Medicine 06/18/19 [employer] Technical Director Relationship Specialty Start Date End Date Ti Osuna MD PCP - General Internal Medicine 06/18/19 [employer] Technical Director Relationship Specialty Start Date End Date Ti Osuna MD PCP - General Internal Medicine 06/18/19 [employer] Technical Director Relationship Specialty Start Date End Date Ti Osuna MD PCP - General Internal Medicine 06/18/19 [employer] Technical Director Relationship Specialty Start Date End Date Ti Osuna MD PCP - General Internal Medicine 06/18/19 [employer] Technical Director Relationship Specialty Start Date End Date Ti Osuna MD PCP - General Internal Medicine 06/18/19 [employer] Technical Director Relationship Specialty Start Date End Date Ti Osuna MD PCP - General Internal Medicine 06/18/19 [employer] Technical Director Relationship Specialty Start Date End Date Ti Osuna MD PCP - General Internal Medicine 06/18/19 [employer] Technical Director Relationship Specialty Start Date End Date Ti Osuna MD PCP - General Internal Medicine 06/18/19 [employer] Technical Director Relationship Specialty Start Date End Date Ti [...] BE BASED ON THE PRIMARY CLINICAL RECORDS. [facility]. provides no warranty or guarantee of the accuracy or completeness of information in this document.
== END 2023-08-09 20:39 | disposition home or self-care (01) ==
PROVIDERS: Emergency Provider Emergency Medicine; PCP Internal Medicine; Visit Provider Emergency Medicine
DX: J44.1 Chronic obstructive pulmonary disease with (acute) exacerbation (principal); J96.11 Chronic respiratory failure with hypoxia; R19.7 Diarrhea, unspecified; F17.210 Nicotine dependence, cigarettes, uncomplicated; Z11.52 Encounter for screening for COVID-19; Z99.81 Dependence on supplemental oxygen; Z79.899 Other long term (current) drug therapy
CPT/HCPCS: 71045; 80048; 85025; 87631; 93005; 94640; 99284; A4216

== ENCOUNTER 2024-02-01 10:32 | Emergency (ER) | payer MEDICARE, SELFPAY ==
[2024-02-01 10:33] VITALS: BP 152/115; PULSE 82; RESP 18; TEMP 36; O2SAT 98; BMI 26.9
--- NOTE | 2024-02-01 10:56 | EDS_ITS ---
HPI History of Present Illness Chief Complaint: Upper Extremity Injury Informant: patient and friend Narrative Narrative: Drky-ozqx-ekitsnqe female presents with throbbing pain left wrist rating up her arm to her shoulder. No paresthesias. She has been doing some cleaning with her daughter's clothing here recently. Denies neck pain or trauma. She is an issue with the right side in the past only isolated to her forearm. She diabetic. Denies history of gastric ulcers or kidney injury. Allergy to penicillin. PFSH PFS Medical History Piriformis syndrome of right side Change in skin mole Insomnia Community acquired pneumonia Acute and chronic respiratory failure with hypoxia Dermatitis Depression Right upper lobe pulmonary nodule Tobacco use disorder, continuous Encounter for screening for malignant neoplasm of lung Encounter for screening for malignant neoplasm of lung in current smoker with 30 pack year history or greater Health care maintenance Tobacco abuse Hx of bacterial pneumonia Hx of gastrointestinal disease Hx of drug abuse Asthma Arthritis PMR (polymyalgia rheumatica) Unable to ambulate Weakness generalized Chronic respiratory failure Irritable bowel syndrome COPD exacerbation COPD (chronic obstructive pulmonary disease) Home Medications ?Medication ?Instructions ?Recorded ?Last Taken ?Type gpeqyteu-onrx-dyh-folic acid 18 1 tab PO DAILY supplement 04/05/19 09/15/21 09:00 History mg-0.4 mg tablet albuterol sulfate 90 mcg/actuation 2 puff inhalation Q4H PRN PRN 08/11/19 09/16/21 14:00 History aerosol inhaler sob/wheezing acetaminophen 325 mg tablet 650 mg (2 x 325 mg) PO Q6H PRN PRN 08/15/19 09/16/21 06:00 Rx Pain Score 1-10/Temp > 100.7 F fluticasone fur. 100 mcg-umeclid 1 inh inhalation DAILY copd 03/25/21 09/16/21 14:30 History 62.5 mcg-vilant 25 mcg inhalat.powder (Trelegy Ellipta) fluticasone propionate 50 2 spray intranasal DAILY #16 grams 04/07/22 Unknown Rx mcg/actuation nasal spray,suspension (Flonase Allergy Relief) guaifenesin 400 mg tablet (Mucus 400 mg PO Q4H 08/11/22 Unknown History Relief) amlodipine 10 mg tablet 10 mg PO DAILY #90 tabs 07/25/23 Unknown Rx bupropion HCl 150 mg tablet,12 hr 150 mg PO BID #180 ea 01/04/23 Unknown Rx sustained-release (Wellbutrin SR) gabapentin 300 mg capsule 300 mg PO QHS PRN neuropathy #30 07/22/23 Unknown Rx caps ipratropium 0.5 mg-albuterol 3 mg 3 ml inhalation Q6H PRN shortness 08/09/23 Unknown Rx (2.5 mg base)/3 mL nebulization of breath #90 mL soln prednisone 20 mg tablet 40 mg (2 x 20 mg) PO DAILY #8 tabs 08/09/23 Unknown Rx doxycycline hyclate 100 mg tablet 100 mg PO BID #14 tabs 08/12/23 Unknown Rx losartan 50 mg tablet 50 mg PO DAILY #90 tabs 12/05/23 Unknown Rx prednisone 20 mg tablet 40 mg (2 x 20 mg) PO DAILY #10 tabs 02/01/24 Unknown Rx Allergy/AdvReac Type Severity Reaction Status Date / Time tiotropium (From Spiriva Allergy Unknown Unknown Verified 08/12/23 09:31 with HandiHaler) Penicillins Allergy Swelling Verified 08/12/23 09:31 budesonide AdvReac it makes Verified 08/12/23 09:31 me weak Family History Mother Arthritis Hypertension Father Arthritis Diabetes Hypertension Other Anemia Asthma Bowel disease CVA (cerebral vascular accident) Heart disease Myocardial infarction Osteoporosis Seizures Thyroid disorder Surgical History Hx of hysterectomy Hx of appendectomy History of tonsillectomy Social History Smoking Status: Current every day smoker tobacco type: cigarettes Tobacco: How many years used: 40 alcohol intake: current alcohol intake frequency: a few times a week substance use type: marijuana caffeine: Yes what type of physical activity do you participate in: none frequency: does not exercise ROS ROS ED Constitutional Constitutional ED: Denies chills, fever(s) or sweats Eyes Eyes: Denies change in vision ENT ENT ED: Denies dysphagia or sore throat Cardiovascular Cardiovascular: Denies chest pain, leg edema, palpitations or racing heartbeat Respiratory/Chest Respiratory/Chest: Denies cough, dyspnea or dyspnea on exertion Gastrointestinal Gastrointestinal: Denies abdominal pain, diarrhea, nausea or vomiting Genitourinary Genitourinary ED: Denies dysuria, hematuria or urinary frequency Musculoskeletal Musculoskeletal: Reports other Details: Left upper extremity pain ; Denies back pain, extremity pain or neck pain Integumentary Denies rash or wounds Neurologic Neurologic: Denies headache(s), paresthesias or weakness EXAM Physical Exam Const Vital Signs: 02/01/24 10:33 Temperature 96.8 F L Temperature Source Temporal Pulse Rate 18 L Respiratory Rate 82 H Blood Pressure 152/115 H Blood Pressure Mean 127 Pulse Ox 98 Oxygen Delivery Method Room Air Positive well nourished and well developed General Appearance ED: well developed and NAD HEENT Reports moist mucous membranes normocephalic and atraumatic Eyes EOMs intact bilaterally and conjunctivae normal General Eye ED: Yes normal appearance of both eyes Neck full ROM, no lymphadenopathy and supple Neck Narrative: Negative Spurling's of the neck however relief of pain with flexion and sidebending to the right. General: Negative for tenderness Chest Wall Chest: Negative for tenderness Resp normal respiratory effort and normal air movement Effort and Inspection: symmetric chest movement; Negative for respiratory distress Cardio regular rate, regular rhythm and no murmurs Peripheral Pulses: pulses 2+ throughout GI normal to inspection, nondistended, normoactive bowel sounds and non-tender Palpation: Negative for guarding or rebound tenderness present Back/Spine no CVA tenderness and no thoracic nor lumbar tenderness Extremity normal to inspection General Extremety ED: Negative for edema or tenderness General Extremity: Negative for edema Neuro oriented x3 and no sensory deficits noted Sensorium / Orientation: awake and alert Skin no rashes or lesions noted and no wounds MDM MDM MDM Narrative Medical decision making narrative: Interventions / MDM: Differential diagnosis: Cervical radiculopathy Diagnosis considered but do not suspect: N/A My EKG interpretation: N/A Imaging independently reviewed and interpreted by myself: Cervical spine 4 views: Degenerative changes cervical spine noted. External documents reviewed: N/A Test considered but not ordered:N/A ED course: Patient exam concerns for cervical radiculopathy with improvement of symptoms sidebent flexion to the right. Will check cervical films. Will dose with Toradol in the ED. 1145: X-ray interpreted myself degenerative changes. Reevaluation improving symptoms after Toradol. I discussed with her cervical radiculopathy concerned she showed no maneuver to help if it flares up. She is nondiabetic. Discussed treatment options she elects with steroids for 5 days. She states she did have some leftover gabapentin 300 mg 2-3 tabs left. Discussed can also use this however she would like to try to steroids. Discussed following with her PCP for reevaluation continue treatment as needed. All questions were answered. Re-evaluation: stable Disposition discussed with patient/family/significant other: Patient Case discussed with consulting clinician: N/A This note was generated with [employer] dictation software. It may contain incorrect words, spelling, and punctuation that were not noted in checking the note before signing. Discharge Plan Triage Chief Complaint: Upper Extremity Injury ED Provider: Rich Rodriguez Dx/Rx/DC Orders Clinical Impression: Left cervical radiculopathy, Degenerative arthritis of cervical spine Instructions: ED Radiculopathy, Cervical Prescriptions: New prednisone 20 mg tablet 40 mg PO DAILY Qty: 10 0RF No Action Trelegy Ellipta 100-62.5-25 mcg blister with device 1 inh inhalation DAILY fluticasone propionate [Flonase Allergy Relief] 50 mcg/actuation spray,suspension 2 spray intranasal DAILY Qty: 16 4RF Rx Instructions: administer into each nostril guaifenesin [Mucus Relief] 400 mg tablet 400 mg PO Q4H gabapentin 300 mg capsule 300 mg PO QHS PRN (Reason: neuropathy) Qty: 30 1RF doxycycline hyclate 100 mg tablet 100 mg PO BID Qty: 14 0RF ngfpwmjq-nevs-dbm-folic acid 1 EACH tablet 1 tab PO DAILY albuterol sulfate 1 PUFF inhaler 2 puff INHALATION Q4H PRN PRN (Reason: sob/wheezing) acetaminophen 325 MG tablet 650 mg PO Q6H PRN PRN (Reason: Pain Score 1-10/Temp > 100.7 F) 0RF ipratropium-albuterol 0.5 mg-3 mg(2.5 mg base)/3 mL solution for nebulization 3 ml inhalation Q6H PRN (Reason: shortness of breath) Qty: 90 0RF prednisone 20 mg tablet 40 mg PO DAILY Qty: 8 0RF amlodipine 10 mg tablet 10 mg PO DAILY Qty: 90 3RF bupropion HCl [Wellbutrin SR] 150 mg tablet sustained-release 12 hr 150 mg PO BID Qty: 180 2RF losartan 50 mg tablet 50 mg PO DAILY Qty: 90 2RF Primary Care Provider: Ti Osuna Referrals: Ti Osuna MD [Primary Care Provider] - 1 Week if not improving Activity Restrictions/Additional Instructions: Your exam concerns for left C8 cervical radiculopathy symptoms. X-ray with degenerative changes cervical spine. Improved symptoms Toradol in the ED. Symptoms flaring moving ahead to the right and forward as shown. Take steroids as prescribed. Follow-up with your doctor. Print Language: Chinese Disposition Disposition: Home, Self Care Discharge Date/Time: 02/01/24 12:36
[2024-02-01] MEDS: Ketorolac 30 MG/ML Syringe IM (10:59)
--- NOTE | 2024-02-01 11:15 | RAD_ITS ---
STUDY: X-RAY - CERVICAL SPINE REASON FOR EXAM: Female, 68 years old. Pain -- left cervical radiculopathy TECHNIQUE: 3 view(s) of the cervical spine were obtained. COMPARISON: Comparison is made with prior study dated February 27, 2020. FINDINGS: Normal anterior atlantoaxial articulation. Normal odontoid process. There is straightening of the normal cervical lordosis. There is multi-level endplate spondylosis. There is multi-level degenerative disc disease with multilevel disc space narrowing. Normal visualized intervertebral neuroforamina. The soft tissue structures are unremarkable. Degenerative changes. Straightening of the normal cervical lordosis.. RAD/Cerv Spine 2 or 3 Views IMPRESSION: Degenerative changes. Electronically Signed: Chuy Frye MD at 11:55 EDT ,
== END 2024-02-01 12:36 | disposition home or self-care (01) ==
PROVIDERS: Emergency Provider Emergency Medicine; PCP Internal Medicine; Visit Provider Emergency Medicine
DX: M47.22 Other spondylosis with radiculopathy, cervical region (principal); J44.9 Chronic obstructive pulmonary disease, unspecified; E11.9 Type 2 diabetes mellitus without complications; M35.3 Polymyalgia rheumatica; F17.210 Nicotine dependence, cigarettes, uncomplicated; Z79.51 Long term (current) use of inhaled steroids; Z79.52 Long term (current) use of systemic steroids; Z79.899 Other long term (current) drug therapy
CPT/HCPCS: 72040; 96372; 99282

== ENCOUNTER → 2024-06-18 | Outpatient (CLI) | payer MEDICARE, SELFPAY | END | disposition home or self-care (01) | PROVIDERS: PCP Internal Medicine; Referring Provider Otolaryngology Otolaryngology/Facial Plastic Surgery; Visit Provider Otolaryngology Otolaryngology/Facial Plastic Surgery | DX: B37.0 Candidal stomatitis (principal) | CPT/HCPCS: 87070; 87205 ==

== ENCOUNTER → 2024-09-13 | Outpatient (CLI) | payer OTHER, SELFPAY ==
[2024-09-13 16:15] LABS: Absolute Lymphocyte Count 2.28 X10^3/uL (0.83-4.51); Absolute Neutrophil Count 4.1 X10^3/uL (2.0-7.7); Basophil# 0.07 X10^3/uL; Eosinophil# 0.21 X10^3/uL; Eosinophils% 2.9 % (0-5); Hematocrit 45.4 % (37-47); Hemoglobin 14.5 g/dL (12.0-15.0); Lymphocyte # 2.28 X10^3/ul (0.83-4.51); Lymphocyte % 31.5 % (19-41); Mean Corp Hgb Conc 31.9 g/dL (32-36); Mean Corpuscular Hgb 30.3 pg (27.0-32.0); Mean Platelet Vol. 10.1 fl (6.2-12.0); Monocyte# 0.53 X10^3/uL; Monocyte% 7.3 % (0-10); NRBC Flagged by Analyzer 0 % (0-5); Neutrophil # 4.14 X10^3/uL (2.7-7.7); Neutrophil % 57.2 % (47-70); Platelet Count 316 K/mm3 (150-450); RBC Distribution Width CV 12.5 % (11.6-14.6); RBC Distribution Width SD 44.1 fl (35.1-43.9); Red Blood Count 4.78 M/mm3 (4.2-5.4); White Blood Count 7.2 K/mm3 (4.4-11.0)
[2024-09-13 17:57] LABS: ALB/GLOB Ratio 1.5 RATIO (0.9-2.4); AST(SGOT) 17 U/L (<=31); Alanine Aminotransfer ALT/SGPT 16 U/L (<=34); Albumin, Serum 4.4 g/dL (3.4-4.8); Alkaline Phosphatase 65 U/L (35-104); Anion Gap 12 (5-15); BUN 15 mg/dL (4-19); Calcium,Total 10.3 mg/dL (7.6-11.0); Carbon Dioxide 23.8 mmol/L (21.0-32.0); Chloride 103 mmol/L (98-108); Creatinine, Serum 1.35 mg/dL (0.70-1.20); EST Glomerular Filtration Rate 42 (>60); Glucose 105 mg/dL (70-99); Potassium 4.9 mmol/L (3.3-5.1); Protein, Total 7.4 g/dL (5.9-8.4); Sodium Level 138 mmol/L (133-145); Total Bilirubin 0.25 mg/dL (0.00-1.30)
[2024-09-13 18:37] LABS: Cholesterol 155 mg/dL (<=200); High Density Lipoprotein 79 mg/dL; Low Density Lipoprotein Calc. 63 mg/dL; Triglycerides 66 mg/dL; Very Low Density Lipoprotein 13 mg/dL (5-40); cholesterol:hdl ratio screen 1.96
== END | disposition home or self-care (01) ==
LOC: BIMLAB 14:29
PROVIDERS: PCP Internal Medicine; Visit Provider Internal Medicine
DX: I10 Essential (primary) hypertension (principal); M85.80 Other specified disorders of bone density and structure, unspecified site
CPT/HCPCS: 36415; 80053; 80061; 82306; 85025

== ENCOUNTER → 2025-01-14 | Outpatient (CLI) | payer MEDICARE, SELFPAY | END | disposition home or self-care (01) | LOC: BIMLAB 13:38 | PROVIDERS: PCP Internal Medicine; Referring Provider Internal Medicine; Visit Provider Internal Medicine | DX: R63.4 Abnormal weight loss (principal) | CPT/HCPCS: 36415; 84439; 84443; 85652 ==